=== PATIENT | male | born 1950 | race Caucasian/White ===

== ENCOUNTER 2020-08-28 08:29 | Outpatient (RCR) | payer MEDICARE, SELFPAY | END 2020-08-30 13:28 | disposition home or self-care (01) | LOC: HO.WCC 08:29 | PROVIDERS: Visit Provider Physician Assistant Surgical | DX: Z09 Encounter for follow-up examination after completed treatment for conditions other than malignant neoplasm (principal); I87.302 Chronic venous hypertension (idiopathic) without complications of left lower extremity; E11.9 Type 2 diabetes mellitus without complications | CPT/HCPCS: 99212 ==

== ENCOUNTER 2020-10-05 08:09 | Outpatient (REF) | payer MEDICARE, SELFPAY | END 2020-10-05 08:10 | disposition home or self-care (01) | LOC: HO.LAB 08:09 | PROVIDERS: Visit Provider Internal Medicine | DX: Z20.828 Contact with and (suspected) exposure to other viral communicable diseases (principal) | CPT/HCPCS: C9803; U0003 ==

== ENCOUNTER 2020-10-26 08:06 | Outpatient (REF) | payer MEDICARE, SELFPAY | END 2020-10-26 08:07 | disposition home or self-care (01) | LOC: HO.LAB 08:06 | PROVIDERS: Visit Provider Internal Medicine | DX: Z20.828 Contact with and (suspected) exposure to other viral communicable diseases (principal) | CPT/HCPCS: C9803; U0003 ==

== ENCOUNTER 2020-11-21 09:05 | Outpatient (RCR) | payer MEDICARE, SELFPAY | END 2020-12-19 12:00 | disposition home or self-care (01) | LOC: HO.WCC 09:05 | PROVIDERS: PCP Internal Medicine; Visit Provider Surgery | DX: E11.622 Type 2 diabetes mellitus with other skin ulcer (principal); I87.332 Chronic venous hypertension (idiopathic) with ulcer and inflammation of left lower extremity; L97.822 Non-pressure chronic ulcer of other part of left lower leg with fat layer exposed; L03.116 Cellulitis of left lower limb; Z79.899 Other long term (current) drug therapy | CPT/HCPCS: 87071; 87147; 87205; 99212; 99213; 99214 ==

== ENCOUNTER 2021-01-18 11:46 | Emergency (ER) | payer OTHER, SELFPAY ==
--- NOTE | ~2021-01-18 | US_ITS ---
EXAMINATION: US VENOUS ULTRASOUND WITH DOPPLER LOWER EXTREMITY, BILATERAL CLINICAL INFORMATION: Edema, swelling. COMPARISON: None TECHNIQUE: Ultrasound of the deep veins is performed from the hip to the calf with compression sonography and color and pulse Doppler assessment. Spectral analysis with color-flow imaging is performed. FINDINGS: RIGHT: There is normal venous compression and respiratory variation and augmented flow. The visualized common femoral vein, superficial femoral vein, profunda femoral vein, popliteal vein, and the trifurcation region shows no evidence of deep venous thrombosis. There is no significant popliteal fossa cyst. Visualized calf veins appear patent. LEFT: There is normal venous compression and respiratory variation and augmented flow. The visualized common femoral vein, superficial femoral vein, profunda femoral vein, popliteal vein, and the trifurcation region shows no evidence of deep venous thrombosis. There is no significant popliteal fossa cyst. Visualized calf veins appear patent. US/US venous duplex LE BI IMPRESSION: No DVT demonstrated in the bilateral lower extremity.
[2021-01-18 11:48] VITALS: BP 127/50; PULSE 74; RESP 18; TEMP 37.5; O2SAT 97; BMI 32.8
--- NOTE | 2021-01-18 15:38 | ED.EXTPRO ---
HPI - Extremity Problem General Chief complaint: Extremity Problem Stated complaint: left leg infection Time Seen by Provider: 01/18/21 13:30 History of Present Illness HPI Narrative: Patient with chronic venous stasis of both legs with chronic dryness and discoloration complains that the left lower leg has gotten more swollen, no pain no fever, he is walking with his cane as normal He saw his primary doctor who started dicloxacillin, and then for re-evaluation was seen in the office and as no improvement was sent for further evaluation to the ER Related Data Previous Rx's Medication Instructions Recorded cephalexin 500 mg PO QID 7 Days #28 tab 01/18/21 doxycycline hyclate 100 mg PO BID 7 Days #14 cap 01/18/21 Allergies Allergy/AdvReac Type Severity Reaction Status Date / Time alcohol Allergy Unknown rash Verified 12/01/19 00:00 clams Allergy Unknown UNKNOWN Unverified 08/09/20 14:47 oxycodone Allergy Unknown rash Verified 12/01/19 00:00 steamers/ clams Allergy Unknown flu like Uncoded 12/01/19 00:00 symptoms Review of Systems Review of Systems: Positive for increased redness and swelling of the left lower leg Negatives are fever chills dizziness confusion fainting, there is no chest pain no shortness of breath, there is no pain in the lower leg, there is no joint pain or difficulty bending or flexing the joints, there is no weakness [facility] Past Medical History Attestation statement: The following information was validated with the patient. [facility] Narrative: Patient has history of [id number] diabetes hypertension high cholesterol, venous insufficiency in the legs and a flutter on Pradaxa Source: nursing notes reviewed Social History Social History Advance Directives: No Advance Directives Information Provided: Yes Physical Exam Vital Signs: Vital Signs: Last Vital Signs Temp 99.5 F 01/18/21 11:48 Pulse 74 01/18/21 11:48 Resp 18 01/18/21 11:48 BP 127/50 L 01/18/21 11:48 Pulse Ox 97 01/18/21 11:48 Body Mass Index 32.8 Patient is in no acute distress, relaxed cooperative, ambulates easily with his cane, no sign of discomfort Head is normocephalic atraumatic Neck is supple Chest is clear to auscultation bilaterally Abdomen soft nontender Extremities both lower extremities are excoriated with dry skin and redness with a chronic appearance, the left lower leg in the luna area is swollen it is not tender but there is more redness on the left side than the right and more swelling on the left side than the right there is mild edema on both sides, the ankle and knee are fully mobile the redness does not extend to the knee or the ankle Course Course Course Narrative: Patient with increased swelling in the left leg who has been taking dicloxacillin for several days and was sent to the ER for further evaluation of left leg cellulitis had ultrasound of bilateral lower extremities, no clot was found Case was discussed with Dr. Perdomo who saw the patient and examined him and agreed that trial of outpatient antibiotics with the change to Keflex and doxycycline which worked for this patient in the past was best plan at this time We considered increasing his Lasix but as there was no significant edema on exam today we did not do that today Patient remained comfortable relaxed with normal vital signs throughout ER visit and ambulates easily with his cane and was discharged MDM - Extremity (Nontraumatic) Imaging Data Venous US: Radiologist's impression: RIGHT: There is normal venous compression and respiratory variation and augmented flow. The visualized common femoral vein, superficial femoral vein, profunda femoral vein, popliteal vein, and the trifurcation region shows no evidence of deep venous thrombosis. There is no significant popliteal fossa cyst. Visualized calf veins appear patent. LEFT: There is normal venous compression and respiratory variation and augmented flow. The visualized common femoral vein, superficial femoral vein, profunda femoral vein, popliteal vein, and the trifurcation region shows no evidence of deep venous thrombosis. There is no significant popliteal fossa cyst. Visualized calf veins appear patent. US/US venous duplex LE BI IMPRESSION: No DVT demonstrated in the bilateral lower extremity. Dictated By:SOTERO SANCHEZ MDSigned By:<Electronically signed by SOTERO SANCHEZ MD in [place]> Discharge Plan Discharge Clinical Impression: Cellulitis of left leg Patient Disposition: Home, Self-Care Additional Instructions: Follow in 2-3 days with your doctor or the ER for recheck of cellulitis and left leg Return to ER any time for worse pain and swelling, fever, spreading redness, any worse condition or any concern Ultrasound of both legs did not show any blood clot or any acute finding Prescriptions: New cephalexin 500 mg tablet 500 mg PO QID 7 Days Qty: 28 RF: 0 doxycycline hyclate 100 mg capsule 100 mg PO BID 7 Days Qty: 14 RF: 0
== END 2021-01-18 16:30 | disposition home or self-care (01) ==
PROVIDERS: Emergency Provider Emergency Medicine Emergency Medical Services; PCP Internal Medicine
DX: L03.116 Cellulitis of left lower limb (principal); E11.9 Type 2 diabetes mellitus without complications; I10 Essential (primary) hypertension; I87.2 Venous insufficiency (chronic) (peripheral); I49.02 Ventricular flutter; Z79.01 Long term (current) use of anticoagulants
CPT/HCPCS: 93970; 99282; 99284

== ENCOUNTER 2021-07-09 10:30 | Outpatient (REF) | payer MEDICARE, SELFPAY ==
[2021-07-09 10:34] LABS: MANUAL DIFF FLAG NO
[2021-07-09 11:12] LABS: Basophils Percent Auto 0.2 % (0-2); Eosinophils Absolute Auto 0.2 X10*3/uL (0.0-0.4); Eosinophils Percent Auto 3.9 % (0-4); Hematocrit 34.2 % (42-52); Hemoglobin 11.3 g/dl (14.0-18.0); Imm Gran Abs Auto 0.02 X10*3/uL (0.00-0.03); Imm Gran Pct Auto 0.5 % (0.0-0.4); Lymphocytes Absolute Auto 1.4 X10*3/uL (1.2-4.9); Lymphocytes Percent Auto 30.8 % (20-40); Mean Corpuscular Hemoglobin 28.9 pg (27.0-33.0); Mean Corpuscular Volume 87.5 fL (80-98); Mean Platelet Volume 9.4 fL (9.4-12.4); Monocytes Absolute Auto 0.5 X10*3/uL (0.1-1.2); Monocytes Percent Auto 10.7 % (2-11); Neutrophils Absolute Auto 2.4 X10*3/uL (2.0-8.3); Neutrophils Percent Auto 53.9 % (45-73); Platelet Count 136 X10*3/uL (160-400); Red Blood Count 3.91 X10*6/uL (4.60-5.80); Red Cell Distribution Width 14.2 % (11.0-16.0); White Blood Count 4.4 X10*3/uL (4.8-10.8)
[2021-07-09 11:21] LABS: Estimated Average Glucose 117 mg/dL; Hemoglobin A1c % 5.7 %
[2021-07-09 11:29] LABS: Alanine Aminotransferase 22 U/L (0-40); Albumin Level 4.1 g/dL (3.5-5.0); Alkaline Phosphatase 61 U/L (39-117); Anion Gap 12 (12-20); Aspartate Amino Transferase 23 U/L (5-37); Bilirubin Total 2.4 mg/dL (0.0-1.0); Blood Urea Nitrogen 14 mg/dL (9-16); Calcium 9.5 mg/dL (8.4-10.2); Carbon Dioxide 28 mmol/L (22-29); Chloride 100 mmol/L (96-108); Cholesterol 136 mg/dL; Estimated Glomerular Filt Rate 58; Glucose Fasting 126 mg/dL (60-99); HDL Cholesterol 45 mg/dL; LDL Cholesterol Calculated 78 mg/dl; Potassium 4.5 mmol/L (3.3-5.1); Sodium 135 mmol/L (135-145); Total Protein 6.6 g/dL (6.5-8.0); Triglycerides 69 mg/dL
[2021-07-09 11:44] LABS: Glucose Urine UA NEG (NEG); Leukocyte Esterase Urine NEG (NEG); Nitrite Urine NEG (NEG); PH 6.5 (5.0-8.0); Urine Blood NEG (NEG); Urine Ketones NEG (NEG); Urine Protein NEG (NEG-TRACE)
[2021-07-09 11:49] LABS: Reflex LDLD? No
[2021-07-09 11:51] LABS: PSA,Total (Free>4and<10) 2.21 ng/mL (0.00-4.00)
[2021-07-09 11:54] LABS: Appearance Urine CLEAR; Color Urine YELLOW
[2021-07-09 12:12] LABS: Creatinine Urine 163.06 mg/dL; Microalbum/Creatinine Ratio Ur 6.1 ug/mg cr
== END 2021-07-09 10:31 | disposition home or self-care (01) ==
LOC: HO.LNP 10:30
PROVIDERS: Visit Provider Internal Medicine
DX: E11.40 Type 2 diabetes mellitus with diabetic neuropathy, unspecified (principal); E78.00 Pure hypercholesterolemia, unspecified; R97.20 Elevated prostate specific antigen [PSA]; I10 Essential (primary) hypertension; D69.6 Thrombocytopenia, unspecified; F10.10 Alcohol abuse, uncomplicated; Z12.5 Encounter for screening for malignant neoplasm of prostate
CPT/HCPCS: 80053; 80061; 81003; 82043; 83036; 84153; 85025

== ENCOUNTER 2022-07-10 11:41 | Outpatient (REF) | payer MEDICARE, SELFPAY ==
[2022-07-10 11:49] LABS: MANUAL DIFF FLAG NO
[2022-07-10 11:59] LABS: Basophils Percent Auto 0.5 % (0-2); Eosinophils Absolute Auto 0.1 X10*3/uL (0.0-0.4); Eosinophils Percent Auto 2.7 % (0-4); Hematocrit 36.6 % (42.0-52.0); Imm Gran Abs Auto 0.01 X10*3/uL (0.00-0.03); Imm Gran Pct Auto 0.3 % (0.0-0.4); Lymphocytes Percent Auto 27.8 % (20-40); Mean Corpuscular HGB Conc 32.8 g/dl (31.0-36.0); Mean Corpuscular Hemoglobin 29.9 pg (27.0-33.0); Mean Corpuscular Volume 91.3 fL (80.0-98.0); Mean Platelet Volume 9.1 fL (9.4-12.4); Monocytes Absolute Auto 0.4 X10*3/uL (0.1-1.2); Monocytes Percent Auto 11.4 % (2-11); Neutrophils Absolute Auto 2.1 x10*3/uL (2.0-8.3); Neutrophils Percent Auto 57.3 % (45-73); Platelet Count 178 X10*3/uL (160-400); Red Blood Count 4.01 X10*6/uL (4.60-5.80); Red Cell Distribution Width 14.6 % (11.0-16.0); White Blood Count 3.7 X10*3/uL (4.8-10.8)
[2022-07-10 12:00] LABS: Estimated Average Glucose 91 mg/dL; Hemoglobin A1c % 4.8 %
[2022-07-10 12:24] LABS: Alanine Aminotransferase 28 U/L (0-40); Alkaline Phosphatase 75 U/L (39-117); Anion Gap 14 (12-20); Aspartate Amino Transferase 33 U/L (5-37); Blood Urea Nitrogen 13 mg/dL (9-16); Calcium 9.1 mg/dL (8.4-10.2); Carbon Dioxide 28 mmol/L (22-29); Chloride 100 mmol/L (96-108); Cholesterol 142 mg/dL; Estimated Glomerular Filt Rate > 60; Glucose Fasting 91 mg/dL (60-99); HDL Cholesterol 68 mg/dL; LDL Cholesterol Calculated 65 mg/dl; Potassium 4.4 mmol/L (3.3-5.1); Sodium 138 mmol/L (135-145); Total Protein 6.6 g/dL (6.5-8.0); Triglycerides 47 mg/dL
== END 2022-07-10 11:42 | disposition home or self-care (01) ==
LOC: HO.LNP 11:41
PROVIDERS: Visit Provider Internal Medicine
DX: E11.40 Type 2 diabetes mellitus with diabetic neuropathy, unspecified (principal); I10 Essential (primary) hypertension; D70.9 Neutropenia, unspecified; E78.00 Pure hypercholesterolemia, unspecified; R97.20 Elevated prostate specific antigen [PSA]; F10.10 Alcohol abuse, uncomplicated; Z12.5 Encounter for screening for malignant neoplasm of prostate
CPT/HCPCS: 80053; 80061; 83036; 84153; 85025

== ENCOUNTER 2022-10-14 14:31 | Inpatient (IN) | payer OTHER, MEDICARE, SELFPAY ==
--- NOTE | ~2022-10-14 | FL_ITS ---
EXAMINATION: FL MODIFIED BARIUM SWALLOW CLINICAL INFORMATION: Dysphagia COMPARISON: CT cervical spine 10/14/2022 TECHNIQUE: Modified barium swallow examination is performed with imaging in the lateral view and the presence of the speech pathologist using a variety of barium consistencies. The exam is performed with fluoroscopic evaluation, videofluoroscopy, and some fluoroscopic spot views. Fluoroscopy time: 3.9 minutes DAP: 6.522 Gycm2 Fluoroscopic spot images: 1 FINDINGS: There is some undercoating of the epiglottis with some laryngeal penetration with thinner barium consistencies. No definite aspiration is demonstrated during fluoroscopy. No cough reflex. There is some pooling of contrast in the piriform sinuses. No nasopharyngeal penetration. Good oral control. There are degenerative changes cervical spine with bulky anterior bridging osteophytes C2-C5 similar to the CT. See speech pathologist report for further assessment and recommendation. FL/FL barium swallow modified IMPRESSION: -Undercoating of epiglottis with some laryngeal penetration with thinner barium consistencies. -No definite aspiration demonstrated. -See speech pathologist report for further assessment and recommendation.
--- NOTE | ~2022-10-14 | CT_ITS ---
EXAMINATION: CT HEAD WITHOUT CONTRAST CT CERVICAL SPINE WITHOUT CONTRAST CLINICAL INFORMATION: Confusion. EtOH. Trauma. COMPARISON: CT head and cervical spine 10/09/2015 TECHNIQUE: Imaging was performed from the skull base to vertex without intravenous administration of contrast. In addition, helical noncontrast CT imaging was acquired through the cervical spine and source images were reviewed along with axial reconstructions and sagittal and coronal MPRs. [This CT examination was performed using dose optimization techniques as appropriate, variously including the following: *Automated exposure control *Adjustment of mA and/or kV according to patient size (this includes techniques or standardized protocols for targeted exams where dose is matched to indication/reason for exam; i.e. extremities or head) *Use of iterative reconstruction technique] DLP: 1437 mGy-cm FINDINGS: HEAD: No intracranial mass, hemorrhage, or midline shift is visualized. There is generalized global volume loss. There is moderate prominence of the ventricles and the sulci . There is mild hypodensity of the periventricular white matter due to chronic small vessel ischemic disease. There are vascular calcifications of the internal carotid arteries bilaterally.No extra-axial collections are identified. The paranasal sinuses and mastoid air cells are well aerated. CERVICAL SPINE: There is no evidence of acute cervical spine fracture. Vertebral bodies remain normal in height. Cervical vertebrae have normal alignment. There is multilevel degenerative spondylosis of the cervical spine with disc height narrowing and endplate spurs and facet joint arthrosis. Redemonstration of the exuberant anterior vertebral body spurring and bridging and nonbridging osteophytes. Degenerative changes of cervical spine have progressed since prior exam of 2014. No pre- or paravertebral soft tissue abnormality is identified. Limited assessment of the lung apices is unremarkable. CT/CT cervical spine wo IV con IMPRESSION: 1. No acute intracranial pathology. 2. No CT evidence of acute cervical spine fracture or traumatic subluxation
--- NOTE | ~2022-10-14 | XR_ITS ---
EXAMINATION: XR CHEST CLINICAL INFORMATION: Shortness of breath COMPARISON: Chest x-ray 12/12/2013 TECHNIQUE: Frontal portable view of the chest was obtained. FINDINGS: Lungs are clear. No pulmonary vascular congestion. There is no pleural effusion. The heart size is normal. The cardiac and mediastinal contours are normal. There are calcifications of the thoracic aorta. There are multilevel degenerative changes of dorsal spine. XR/XR chest 1V IMPRESSION: Unremarkable examination.
[2022-10-14 14:43] VITALS: BP 135/71; BP 182/75; PULSE 77; PULSE 83; RESP 15; TEMP 35.7; O2SAT 93; O2SAT 95; BMI 30.5
[2022-10-14 14:48] LABS: Glucose, Whole Blood 82 mg/dL (60-115)
--- NOTE | 2022-10-14 14:48 | ECG_ITS ---
Test Reason : difficulty breathing Blood Pressure : / mmHG Vent. Rate : 078 BPM Atrial Rate : 000 BPM P-R Int : 000 ms QRS Dur : 074 ms QT Int : 366 ms P-R-T Axes : 000 024 033 degrees QTc Int : 417 ms Poor data quality Normal sinus rhythm with 1st degree A-V block Low voltage QRS Abnormal ECG When compared with ECG of 31-JUL-2014 09:19, No significant changes seen Referred By: Generic ED Physician Electronically Signed By:MAGDA BROOKS MD
[2022-10-14 14:51] VITALS: PULSE 80; RESP 13; O2SAT 97
--- NOTE | 2022-10-14 15:10 | ED.SOB ---
HPI - SOB/Dyspnea General Chief Complaint: Dyspnea Stated Complaint: ams per ems Time Seen by Provider: 10/14/22 14:58 Source: patient, EMS and old records reviewed Mode of arrival: EMS Limitations: no limitations History of Present Illness HPI Narrative: 72-year-old male with a history of daily alcohol abuse, AFib, diabetes, HTN who presents to the ER for evaluation of altered mental status and shortness of breath from home via EMS. EMS was called by the patient's son who was reportedly a poor historian. On EMS arrival patient was found short of breath, with oral secretions and foam at the mouth. He was hypoxic to 83%. He is also found to be hypoglycemic with a glucose of 48. Patient was placed on rescue CPAP and brought to the ER for further evaluation. He was administered 150 cc of D10 for hypoglycemia and in sugar improved to 70. On arrival to the ER patient is awake and alert, he has no recollection of events of this morning. He cannot recall if he drink alcohol today or not. He denies any trauma but does not know for sure. He states he was at his baseline state of health yesterday. He states he remembers waking up this morning and he may be took his pills. He has no other recollections of the day. He denies any recent coughing, chest pain, abdominal pain, nausea, vomiting, diarrhea, fever, chills. MD elicited complaint: shortness of breath Pertinent past history: diabetes Onset (ago): unknown Context: other (ETOH) Timing: improved Relieving factors: oxygen Known history of: diabetes Associated symptoms: other (Confusion) Treatment prior to arrival: oxygen and other (D10) Related Data Home oxygen amount: none Previous Rx's Medication Instructions Recorded cephalexin 500 mg tablet 500 mg PO QID 7 days #28 tabs 01/18/21 doxycycline hyclate 100 mg capsule 100 mg PO BID 7 days #14 caps 01/18/21 Allergies Allergy/AdvReac Type Severity Reaction Status Date / Time alcohol Allergy Unknown rash Verified 04/17/21 11:20 clams Allergy Unknown UNKNOWN Unverified 04/17/21 11:20 oxycodone Allergy Unknown rash Verified 04/17/21 11:20 steamers/ clams Allergy Unknown flu like Uncoded 04/17/21 11:20 symptoms Review of Systems Review of Systems: Constitutional: No Fever, No Chills ENT/Mouth: No sore throat, No Rhinorrhea, No Swallowing Difficulty Eyes: No Eye Pain, No Swelling, No Redness Cardiovascular: No Chest Pain, + SOB, No Orthopnea, No Edema Respiratory: No Cough, No Sputum, No Wheezing, + dyspnea Gastrointestinal: No Nausea, No Vomiting, No Diarrhea, No abdominal Pain, No Hematochezia, No Melena Genitourinary: No Dysuria, No Urinary Frequency, No Hematuria Musculoskeletal: No joint pain, No Myalgias Skin: No Skin Lesions, No rash Neuro: No Weakness, No Numbness, No Dizziness, No Headache, +Confusion Psych: No Anxiety/Panic, No Depression Heme/Lymph: No Bruising, No Lymphadenopathy Endocrine: No Polyuria, No Polydipsia [facility] Social History Social History (System 04/17/21 @ 11:20 by Mercy Leonard) Alcohol intake: current Smoked in Last 30 Days: No Use of substances other than those prescribed or required for medical reasons: No Advance Directives: No Advance Directives Information Provided: No Physical Exam Vital Signs: Vital Signs: Last Vital Signs Temp 98.1 F 10/14/22 16:18 Pulse 98 10/14/22 20:14 Resp 17 10/14/22 20:14 BP 162/53 H 10/14/22 20:14 Pulse Ox 98 10/14/22 20:14 O2 Del Method 10/14/22 20:14 BMI result Body Mass Index 30.5 Appearance: Alert. Oriented X3. On rescue CPAP, breathing comfortably. Able to speak in full sentences. Eyes: Pupils equal, round and reactive to light. ENT: Pharynx normal. Neck: Normal inspection. Neck supple. CVS: Normal heart rate and rhythm. Pulses normal. Respiratory: No respiratory distress. Breath sounds with scattered coarse breath sounds, no rales appreciated. No rhonchi. Abdomen: Soft and nontender. +BS x4 Skin: Skin warm and dry. Normal skin color. Normal skin turgor. No rashes. Extremities: Trace bilateral lower extremity edema with chronic venous stasis changes of the lower legs. Neuro: Oriented X 3. No motor deficit. No sensory deficit. Strength equal and symmetrical throughout with no focal deficits. Poor memory. Course Course Course Narrative: 72-year-old male with history of alcoholism, HTN, AFib, diabetes who presents to the ER for evaluation of altered mental status, shortness of breath, hypoxia and hypoglycemia. Patient given D10 and oxygen prior to arrival with improvement in his mental status. He arrives to the ER on CPAP of 12 with FiO2 24%, breathing comfortably in the teens getting volumes of 700-800. Question of CHF, although patient does not give a history. Will check chest x-ray, BNP, EKG, troponin, ETOH level and other lab workup. Dispo pending results and improvement Reevaluation(s) Reevaluation #1: Patient's lactic acid is 4.0. No evidence of infection at this time. He has no fever, no leukocytosis. WBC 4.6. Could be due to alcoholic starvation ketosis. His BNP is normal at 55. Will give IV fluid hydration and reassess his lactic acid. Will trial off of CPAP is he is breathing comfortably on minimal support. Reevaluation #2: Patient breathing comfortably off of CPAP, wean to room air and saturating well 99%. Chest x-ray is clear. His repeat lactic acid is still elevated 3.2, although this was done prior to completion of IV fluid resuscitation. 2 L is running now. LFTs are mildly elevated, which is chronic. he has no right upper quadrant tenderness. Reevaluation #3: Repeat point of care is in the 20s. Patient is alert but right agree and shivering. Given D 50 and oral orange juice. Will plan for admission. Medications Administered Discontinued Medications Generic Name Dose Route Start Last Admin Trade Name Freq PRN Reason Stop Dose Admin Dextrose 25 gm 10/14/22 20:09 10/14/22 20:11 Dextrose 50 % 25 Gm/50 Ml Syringe IVPUSH 10/14/22 20:10 25 gm ONCE ONE Administration Sodium Chloride 1,000 mls @ 999 mls/hr 10/14/22 16:15 10/14/22 19:51 Ns IVCONT 10/14/22 18:15 Infused .Q1H1M CLAUDIA Infusion Magnesium Sulfate 2 gm in 50 mls @ 25 mls/hr 10/14/22 16:18 10/14/22 19:51 Magnesium Sulfate/H2o IV 10/14/22 18:17 Infused ONCE ONE Infusion MDM - SOB/Dyspnea Lab Data Result diagrams: 10/14/22 15:22 10/14/22 15:22 Labs: Lab Results 10/14/22 10/14/22 10/14/22 Range/Units 14:44 15:22 15:22 WBC 4.6 L (4.8-10.8) X10*3/uL RBC 4.74 (4.60-5.80) X10*6/uL Hgb 14.1 (14.0-18.0) g/dl Hct 42.5 (42.0-52.0) % MCV 89.7 (80.0-98.0) fL MCH 29.7 (27.0-33.0) pg MCHC 33.2 (31.0-36.0) g/dl RDW 14.2 (11.0-16.0) % Plt Count 166 (160-400) X10*3/uL MPV 8.6 L (9.4-12.4) fL Immature Gran % (Auto) 0.4 (0.0-0.4) % Neut % (Auto) 79.3 H (45-73) % Lymph % (Auto) 12.9 L (20-40) % Runnels % (Auto) 5.7 (2-11) % Eos % (Auto) 1.5 (0-4) % Baso % (Auto) 0.2 (0-2) % Lymph # (Auto) 0.6 L (1.2-4.9) X10*3/uL Runnels # (Auto) 0.3 (0.1-1.2) X10*3/uL Eos # (Auto) 0.1 (0.0-0.4) X10*3/uL Baso # (Auto) 0.0 (0.0-0.2) X10*3/uL Abs Immat Gran (auto) 0.02 (0.00-0.03) X10*3/uL Absolute Neuts (auto) 3.6 (2.0-8.3) x10*3/uL Absolute Nucleated RBC 0.000 (0.0-0.012) X10*3/uL Nucleated RBC % (auto) 0.0 (0.0-0.2) /100WBC VBG pH (7.32-7.43) VBG pCO2 mmHg VBG pO2 mmHg VBG HCO3 (22-26) mmol/L VBG O2 Saturation % VBG Base Excess mmol/L Sodium 141 (135-145) mmol/L Potassium 4.7 (3.3-5.1) mmol/L Chloride 102 (96-108) mmol/L Carbon Dioxide 25 (22-29) mmol/L Anion Gap 19 (12-20) BUN 11 (9-16) mg/dL Creatinine 0.86 (0.5-1.4) mg/dL Estim Creat Clear Calc 83.6 Estimated GFR > 60 POC Glucose 82 (60-115) mg/dL Random Glucose 88 (60-115) mg/dL Lactic Acid (0.5-2.0) mmol/L Lactic Acid F/U @ 2Hr (0.5-2.0) mmol/L Calcium 9.1 (8.4-10.2) mg/dL Magnesium 1.5 L (1.6-2.6) mg/dL Total Bilirubin 1.4 H (0.0-1.0) mg/dL Direct Bilirubin 0.6 H (0.0-0.5) mg/dL AST 45 H (5-37) U/L ALT 31 (0-40) U/L Alkaline Phosphatase 89 (39-117) U/L Ammonia (13-55) umol/L Troponin I High Sens (<3.5-35.0) ng/L B-Natriuretic Peptide (<100) pg/mL Total Protein 6.9 (6.5-8.0) g/dL Albumin 4.2 (3.5-5.0) g/dL Procalcitonin ng/mL Ethyl Alcohol 129 mg/dL COVID-19 (JAZMYN) (Negative) COVID-19 Clin Com Influenza Type A (RAFAEL) (Negative) Influenza Type B (RAFAEL) (Negative) Influenza A & B Note 10/14/22 10/14/22 10/14/22 Range/Units 15:22 15:22 15:22 WBC (4.8-10.8) X10*3/uL RBC (4.60-5.80) X10*6/uL Hgb (14.0-18.0) g/dl Hct (42.0-52.0) % MCV (80.0-98.0) fL MCH (27.0-33.0) pg MCHC (31.0-36.0) g/dl RDW (11.0-16.0) % Plt Count (160-400) X10*3/uL MPV (9.4-12.4) fL Immature Gran % (Auto) (0.0-0.4) % Neut % (Auto) (45-73) % Lymph % (Auto) (20-40) % Runnels % (Auto) (2-11) % Eos % (Auto) (0-4) % Baso % (Auto) (0-2) % Lymph # (Auto) (1.2-4.9) X10*3/uL Runnels # (Auto) (0.1-1.2) X10*3/uL Eos # (Auto) (0.0-0.4) X10*3/uL Baso # (Auto) (0.0-0.2) X10*3/uL Abs Immat Gran (auto) (0.00-0.03) X10*3/uL Absolute Neuts (auto) (2.0-8.3) x10*3/uL Absolute Nucleated RBC (0.0-0.012) X10*3/uL Nucleated RBC % (auto) (0.0-0.2) /100WBC VBG pH (7.32-7.43) VBG pCO2 mmHg VBG pO2 mmHg VBG HCO3 (22-26) mmol/L VBG O2 Saturation % VBG Base Excess mmol/L Sodium (135-145) mmol/L Potassium (3.3-5.1) mmol/L Chloride (96-108) mmol/L Carbon Dioxide (22-29) mmol/L Anion Gap (12-20) BUN (9-16) mg/dL Creatinine (0.5-1.4) mg/dL Estim Creat Clear Calc Estimated GFR POC Glucose (60-115) mg/dL Random Glucose (60-115) mg/dL Lactic Acid 4.0 H* (0.5-2.0) mmol/L Lactic Acid F/U @ 2Hr (0.5-2.0) mmol/L Calcium (8.4-10.2) mg/dL Magnesium (1.6-2.6) mg/dL Total Bilirubin (0.0-1.0) mg/dL Direct Bilirubin (0.0-0.5) mg/dL AST (5-37) U/L ALT (0-40) U/L Alkaline Phosphatase (39-117) U/L Ammonia 30 (13-55) umol/L Troponin I High Sens 4.6 (<3.5-35.0) ng/L B-Natriuretic Peptide (<100) pg/mL Total Protein (6.5-8.0) g/dL Albumin (3.5-5.0) g/dL Procalcitonin ng/mL Ethyl Alcohol mg/dL COVID-19 (JAZMYN) (Negative) COVID-19 Clin Com Influenza Type A (RAFAEL) (Negative) Influenza Type B (RAFAEL) (Negative) Influenza A & B Note 10/14/22 10/14/22 10/14/22 Range/Units 15:22 15:22 15:22 WBC (4.8-10.8) X10*3/uL RBC (4.60-5.80) X10*6/uL Hgb (14.0-18.0) g/dl Hct (42.0-52.0) % MCV (80.0-98.0) fL MCH (27.0-33.0) pg MCHC (31.0-36.0) g/dl RDW (11.0-16.0) % Plt Count (160-400) X10*3/uL MPV (9.4-12.4) fL Immature Gran % (Auto) (0.0-0.4) % Neut % (Auto) (45-73) % Lymph % (Auto) (20-40) % Runnels % (Auto) (2-11) % Eos % (Auto) (0-4) % Baso % (Auto) (0-2) % Lymph # (Auto) (1.2-4.9) X10*3/uL Runnels # (Auto) (0.1-1.2) X10*3/uL Eos # (Auto) (0.0-0.4) X10*3/uL Baso # (Auto) (0.0-0.2) X10*3/uL Abs Immat Gran (auto) (0.00-0.03) X10*3/uL Absolute Neuts (auto) (2.0-8.3) x10*3/uL Absolute Nucleated RBC (0.0-0.012) X10*3/uL Nucleated RBC % (auto) (0.0-0.2) /100WBC VBG pH (7.32-7.43) VBG pCO2 mmHg VBG pO2 mmHg VBG HCO3 (22-26) mmol/L VBG O2 Saturation % VBG Base Excess mmol/L Sodium (135-145) mmol/L Potassium (3.3-5.1) mmol/L Chloride (96-108) mmol/L Carbon Dioxide (22-29) mmol/L Anion Gap (12-20) BUN (9-16) mg/dL Creatinine (0.5-1.4) mg/dL Estim Creat Clear Calc Estimated GFR POC Glucose (60-115) mg/dL Random Glucose (60-115) mg/dL Lactic Acid (0.5-2.0) mmol/L Lactic Acid F/U @ 2Hr (0.5-2.0) mmol/L Calcium (8.4-10.2) mg/dL Magnesium (1.6-2.6) mg/dL Total Bilirubin (0.0-1.0) mg/dL Direct Bilirubin (0.0-0.5) mg/dL AST (5-37) U/L ALT (0-40) U/L Alkaline Phosphatase (39-117) U/L Ammonia (13-55) umol/L Troponin I High Sens (<3.5-35.0) ng/L B-Natriuretic Peptide 55 (<100) pg/mL Total Protein (6.5-8.0) g/dL Albumin (3.5-5.0) g/dL Procalcitonin 0.05 ng/mL Ethyl Alcohol mg/dL COVID-19 (JAZMYN) Negative (Negative) COVID-19 Clin Com See Note Influenza Type A (RAFAEL) (Negative) Influenza Type B (RAFAEL) (Negative) Influenza A & B Note 10/14/22 10/14/22 10/14/22 Range/Units 15:22 15:30 17:49 WBC (4.8-10.8) X10*3/uL RBC (4.60-5.80) X10*6/uL Hgb (14.0-18.0) g/dl Hct (42.0-52.0) % MCV (80.0-98.0) fL MCH (27.0-33.0) pg MCHC (31.0-36.0) g/dl RDW (11.0-16.0) % Plt Count (160-400) X10*3/uL MPV (9.4-12.4) fL Immature Gran % (Auto) (0.0-0.4) % Neut % (Auto) (45-73) % Lymph % (Auto) (20-40) % Runnels % (Auto) (2-11) % Eos % (Auto) (0-4) % Baso % (Auto) (0-2) % Lymph # (Auto) (1.2-4.9) X10*3/uL Runnels # (Auto) (0.1-1.2) X10*3/uL Eos # (Auto) (0.0-0.4) X10*3/uL Baso # (Auto) (0.0-0.2) X10*3/uL Abs Immat Gran (auto) (0.00-0.03) X10*3/uL Absolute Neuts (auto) (2.0-8.3) x10*3/uL Absolute Nucleated RBC (0.0-0.012) X10*3/uL Nucleated RBC % (auto) (0.0-0.2) /100WBC VBG pH 7.32 (7.32-7.43) VBG pCO2 39 mmHg VBG pO2 51 mmHg VBG HCO3 21 L (22-26) mmol/L VBG O2 Saturation 74.0 % VBG Base Excess -4.5 mmol/L Sodium (135-145) mmol/L Potassium (3.3-5.1) mmol/L Chloride (96-108) mmol/L Carbon Dioxide (22-29) mmol/L Anion Gap (12-20) BUN (9-16) mg/dL Creatinine (0.5-1.4) mg/dL Estim Creat Clear Calc Estimated GFR POC Glucose (60-115) mg/dL Random Glucose (60-115) mg/dL Lactic Acid (0.5-2.0) mmol/L Lactic Acid F/U @ 2Hr 3.2 H* (0.5-2.0) mmol/L Calcium (8.4-10.2) mg/dL Magnesium (1.6-2.6) mg/dL Total Bilirubin (0.0-1.0) mg/dL Direct Bilirubin (0.0-0.5) mg/dL AST (5-37) U/L ALT (0-40) U/L Alkaline Phosphatase (39-117) U/L Ammonia (13-55) umol/L Troponin I High Sens (<3.5-35.0) ng/L B-Natriuretic Peptide (<100) pg/mL Total Protein (6.5-8.0) g/dL Albumin (3.5-5.0) g/dL Procalcitonin ng/mL Ethyl Alcohol mg/dL COVID-19 (JAZMYN) (Negative) COVID-19 Clin Com Influenza Type A (RAFAEL) Negative (Negative) Influenza Type B (RAFAEL) Negative (Negative) Influenza A & B Note See Note 10/14/22 Range/Units 20:05 WBC (4.8-10.8) X10*3/uL RBC (4.60-5.80) X10*6/uL Hgb (14.0-18.0) g/dl Hct (42.0-52.0) % MCV (80.0-98.0) fL MCH (27.0-33.0) pg MCHC (31.0-36.0) g/dl RDW (11.0-16.0) % Plt Count (160-400) X10*3/uL MPV (9.4-12.4) fL Immature Gran % (Auto) (0.0-0.4) % Neut % (Auto) (45-73) % Lymph % (Auto) (20-40) % Runnels % (Auto) (2-11) % Eos % (Auto) (0-4) % Baso % (Auto) (0-2) % Lymph # (Auto) (1.2-4.9) X10*3/uL Runnels # (Auto) (0.1-1.2) X10*3/uL Eos # (Auto) (0.0-0.4) X10*3/uL Baso # (Auto) (0.0-0.2) X10*3/uL Abs Immat Gran (auto) (0.00-0.03) X10*3/uL Absolute Neuts (auto) (2.0-8.3) x10*3/uL Absolute Nucleated RBC (0.0-0.012) X10*3/uL Nucleated RBC % (auto) (0.0-0.2) /100WBC VBG pH (7.32-7.43) VBG pCO2 mmHg VBG pO2 mmHg VBG HCO3 (22-26) mmol/L VBG O2 Saturation % VBG Base Excess mmol/L Sodium (135-145) mmol/L Potassium (3.3-5.1) mmol/L Chloride (96-108) mmol/L Carbon Dioxide (22-29) mmol/L Anion Gap (12-20) BUN (9-16) mg/dL Creatinine (0.5-1.4) mg/dL Estim Creat Clear Calc Estimated GFR POC Glucose 27 L* (60-115) mg/dL Random Glucose (60-115) mg/dL Lactic Acid (0.5-2.0) mmol/L Lactic Acid F/U @ 2Hr (0.5-2.0) mmol/L Calcium (8.4-10.2) mg/dL Magnesium (1.6-2.6) mg/dL Total Bilirubin (0.0-1.0) mg/dL Direct Bilirubin (0.0-0.5) mg/dL AST (5-37) U/L ALT (0-40) U/L Alkaline Phosphatase (39-117) U/L Ammonia (13-55) umol/L Troponin I High Sens (<3.5-35.0) ng/L B-Natriuretic Peptide (<100) pg/mL Total Protein (6.5-8.0) g/dL Albumin (3.5-5.0) g/dL Procalcitonin ng/mL Ethyl Alcohol mg/dL COVID-19 (JAZMYN) (Negative) COVID-19 Clin Com Influenza Type A (RAFAEL) (Negative) Influenza Type B (RAFAEL) (Negative) Influenza A & B Note Critical Care Time Critical Care Time Critical Care Time: Yes Total Critical Care Time: 44 Attestation: I have personally provided critical care time exclusive of time spent on separately billable procedures. Time includes review of lab data, radiology results, discussion with consultants, and monitoring for potential decompensation. Intervention performed as documented. Discharge Plan Discharge Clinical Impression: Hypoglycemia, Confusion, Shortness of breath, Alcohol abuse Patient Disposition: Admitted As Inpatient
[2022-10-14 15:35] LABS: VBG Base Excess -4.5 mmol/L; VBG HCO3 21 mmol/L (22-26); VBG pCO2 39 mmHg; VBG pH 7.32 (7.32-7.43); VBG pO2 51 mmHg
[2022-10-14 15:36] LABS: MANUAL DIFF FLAG NO
[2022-10-14 15:39] LABS: Venous Blood Gas Refer to POC result
[2022-10-14 15:40] LABS: Basophils Percent Auto 0.2 % (0-2); Eosinophils Absolute Auto 0.1 X10*3/uL (0.0-0.4); Eosinophils Percent Auto 1.5 % (0-4); Hematocrit 42.5 % (42.0-52.0); Hemoglobin 14.1 g/dl (14.0-18.0); Imm Gran Abs Auto 0.02 X10*3/uL (0.00-0.03); Imm Gran Pct Auto 0.4 % (0.0-0.4); Lymphocytes Absolute Auto 0.6 X10*3/uL (1.2-4.9); Lymphocytes Percent Auto 12.9 % (20-40); Mean Corpuscular HGB Conc 33.2 g/dl (31.0-36.0); Mean Corpuscular Hemoglobin 29.7 pg (27.0-33.0); Mean Corpuscular Volume 89.7 fL (80.0-98.0); Mean Platelet Volume 8.6 fL (9.4-12.4); Monocytes Absolute Auto 0.3 X10*3/uL (0.1-1.2); Monocytes Percent Auto 5.7 % (2-11); Neutrophils Absolute Auto 3.6 x10*3/uL (2.0-8.3); Neutrophils Percent Auto 79.3 % (45-73); Platelet Count 166 X10*3/uL (160-400); Red Blood Count 4.74 X10*6/uL (4.60-5.80); Red Cell Distribution Width 14.2 % (11.0-16.0); White Blood Count 4.6 X10*3/uL (4.8-10.8)
[2022-10-14 15:48] LABS: Ammonia 30 umol/L (13-55)
[2022-10-14 15:56] LABS: IDNOW Serial# BCCEAD1C; Influenza A Negative (Negative); Influenza B2 Negative (Negative)
[2022-10-14 15:57] LABS: COVID-19 Test Negative (Negative); IDNOW Serial# 16C4AD1C
[2022-10-14 16:01] LABS: B Type Natriuretic Peptide 55 pg/mL (<100)
[2022-10-14 16:02] LABS: Troponin-I High Sensitivity 4.6 ng/L (<3.5-35.0)
[2022-10-14 16:08] VITALS: PULSE 67; RESP 18; O2SAT 96
[2022-10-14 16:14] LABS: Alanine Aminotransferase 31 U/L (0-40); Albumin Level 4.2 g/dL (3.5-5.0); Alkaline Phosphatase 89 U/L (39-117); Anion Gap 19 (12-20); Aspartate Amino Transferase 45 U/L (5-37); Bilirubin Direct 0.6 mg/dL (0.0-0.5); Bilirubin Total 1.4 mg/dL (0.0-1.0); Blood Urea Nitrogen 11 mg/dL (9-16); Calcium 9.1 mg/dL (8.4-10.2); Carbon Dioxide 25 mmol/L (22-29); Chloride 102 mmol/L (96-108); Creatinine Clr Calc Pharmacy 83.6; Estimated Glomerular Filt Rate > 60; Ethanol 129 mg/dL; Glucose Random 88 mg/dL (60-115); Magnesium 1.5 mg/dL (1.6-2.6); Potassium 4.7 mmol/L (3.3-5.1); Sodium 141 mmol/L (135-145); Total Protein 6.9 g/dL (6.5-8.0)
[2022-10-14 16:18] VITALS: BP 114/62; PULSE 74; RESP 12; TEMP 36.7; O2SAT 98
[2022-10-14] MEDS: 0.9 % Sodium Chloride 1,000 ML 999 ML IVCONT ×2 (16:22→18:31)
[2022-10-14 16:25] LABS: Procalcitonin 0.05 ng/mL
--- OUTSIDE RECORDS SUMMARY | 2022-10-14 16:27 | XMS_ITS | Encounter Summary ---
:1950 Author Organization [facility] Address [address] [place] [id number] Support Name Relationship Address Phone LEEANNE LOAIZA Unavailable Unavailable [phone] Insurance Providers: All historical and current Section Date Range: From patient's date of to the date document was created.This section includes the names of all active insurance providers for the patient. Insurance Type of Plan Start of End of Group Member Insurance Policy P atient's Provider Coverage Name Policy Policy Number ID Provider's Stacy's Relationship Coverage Coverage Telephone Name to Policy Number Stacy MEDICARE MEDICARE PART Jul 24, PART B [id number] KENDALL FORD PATIENT (WNR) (M) B 2015 34A 4 CANDYGABBIE PEREZ MEDICARE MEDICARE PART Oct 23, PART A [id number] KENDALL FORD PATIENT (WNR) (M) A 2012 34A 4 CANDYGABBIE PEREZ Selected Encounter This section includes the information on record at [place] for the Encounter. Date/Time Encounter Type Encounter Description Reason Provider Source Jul 02, 2022 02:04 Outpatient Encounter PRIMARY CARE/MEDICINE PM IHE Encounter Template Text not used by [place] Plan of Treatment: Future Appointments (+ 6 months) and Future Tests (+/- 45 days) The Plan of Treatment section includes future care activities for the patient from all [place] treatmentfacilities. This section includes future appointments and future orders which are active, pending orscheduled.Future Appointments This section includes appointments that were scheduled to occur 6 months from the date of the Encounter, up to a maximum of 20 appointments. The data comes from all [place] treatment facilities. Appointment Date/Time Appointment Type Appointment Facili ty Name Dec 04, 2022 01:00 PM [facility] [place] [facility] Active, Pending, and Scheduled Orders This section includes a listing of several types of active, pending, and scheduled orders, including clinic medications orders, diagnostic test orders, procedure orders and consult orders; where the start date of the order is 45 days before the date of the Encounter or 45 days after the date of the Encounter. The data comes from all [place] treatment facilities. Test Date/Time Test Type Test Details Facility Name May 27, 2022 11:35 AM Consult Order OPTOMETRY/NHM OUTPT [place] [facility] [place] Cons [employer] [facility] Choice Social History: Smoking Status (Most current) and Tobacco Use (All prior to encounter date) This section includes the most current, and the historical, smoking and tobacco-related health factors from the [place] facility where the Encounter took place.Current Smoking Status This section includes the most current smoking, or tobacco-related health factor, from the [place] facility where the Encounter took place. Date/Time Current Smoking Status Comment Facility April 17, 2022 10:54 AM VA-TOBACCO FORMER USER [place] [facility] [facility] Tobacco Use History This section includes a history of the smoking, or tobacco- related health factors, that were collected on or before the date of the Encounter. The data comes from the [place] facility where the Encounter took place. Date/Time Smoking Status/Tobacco Use Comment [facility] it April 17, 2022 10:54 AM VA-TOBACCO QUIT 15 YRS OR [facility] [place] MORE [facility] Jun 16, 2018 11:59 AM VA-TOBACCO FORMER USER [place] [facility] [place] [facility] Jun 16, 2018 11:59 AM VA-TOBACCO QUIT 5 TO < 15 YRS [facility] [facility] May 12, 2018 09:43 AM QUIT TOBACCO USE > 7 YEARS [place] [facility] [place] A[place] [facility] Jun 06, 2016 09:32 AM QUIT TOBACCO USE > 7 YEARS [place] [facility] [place] A[place] . [facility] Oct 04, 2013 09:16 AM QUIT TOBACCO USE > 7 YEARS [place] [facility] [place] A[place] . [facility] Advance Directives: All historical and current Section Date Range: From patient's date of to the date document was created. This section includes ALL of a patient's completed or amended [place] Advance and Rescinded Directives. The entries below indicate that a directive exists for the patient, but an actual copy is not included with this document. The data comes from all [place] facilities. Date Advance Directives Provider Source Jan 18, 2021 ADVANCE DIRECTIVE JOHNNY ESQUEDA [place] [facility] Encounter Notes: All associated encounter notes This section contains the clinical notes associated to the Encounter. Date/Time Encounter Note(s) Provider Source Jul 02, 2022 02:04 LETTERS: POLO ALMANZA [place] CN[facility] PM LOCAL TITLE: PATIENT LETTER (T) [facility] STANDARD TITLE: LETTERS DATE OF NOTE: JUL 02, 2022@14:04 ENTRY DATE: JUL 02, 2022@14:04:20 AUTHOR: POLO ALMANZA EXP COSIGNER: URGENCY: STATUS: COMPLETED DEPARTMENT OF [facility] Toll Free Number Primary Care Telephone Assistance can be reached at extension [phone] [facility] scheduling can be reac hed at extension [phone] [facility] scheduling can be eleni ched at ext [phone] JUL 02, 2022 GABBIE LOAIZA [address], [place] [address] Dear GABBIE LOAIZA [facility] ([place]) [facility] as your primary choice for health care. We want to assure you we are doing everything possible to schedule Veterans for the [facility] medical care appointments. Our records indicate you are due for an appointm ent in PRIMARY CARE. We value you as a patient, and are concerned abo ut your overall health. Future Clinic Visits 12/04/2022 13:00 NHM/OPTOMETRY/VERONICA Patients are encouraged to see their Primary Car e Doctor to maintain your health care needs. If you would like to be seen, please contact [place] Call Center at ([phone] or [phone]) to sc hedule an appointment. We hope to hear from you within 14 days of recei pt of this letter to schedule your follow up appointment. If you have any further questions or would like more information regarding [place] health care benefits, please call toll free at [phone]), visit the VA website at www.va.gov/healthbenefit s, or contact your local [place] Medical Center. Thank you for your service to our nation, and we look forward to hearing from you soon. Sincerely, [facility] Sy[facility] em Sincerely, Your Primary Care Team [facility] Outpati ent Clinic [address] [facility] [address] [place] [address] [place] [address] [phone] [place] [facility] [address],2[address] [place] [address] [place] [address] [facility] [address] [place] [address] [place] [address] [phone]
--- OUTSIDE RECORDS SUMMARY | 2022-10-14 16:27 | XMS_ITS ---
:1950 Author Organization [facility] Address [address] [place] [id number] Support Name Relationship Address Phone LEEANNE LOAIZA Unavailable Unavailable Insurance Providers: All historical and current Section [...] MEDICARE MEDICARE PART Jul 24, PART B [id number] KENDALL FORD PATIENT (WNR) (M) B 2015 34A 4 GABBIE NICOLE MEDICARE MEDICARE PART Oct 23, PART A [id number] KENDALL FORD PATIENT (WNR) (M) A 2012 34A 4 GABBIE NICOLE Selected Encounter This section includes the information on record at [place] for the Encounter. Date/Time Encounter Type Encounter Reason Provider Source Description May 02, 2022 ORTHOTIC PHYSICAL THERAPY ICD-10-CM M17.9 Sushant HALL 10:31 AM MGMT&TRAING 1ST Osteoarthritis of IMBERLY A ENC knee, unspecified with Provider Comments: Osteoarthritis of knee ([facility] [id number]) [facility] Encounter Template Text not used by [place] Assessments - Encounter Diagnoses This section includes the primary and secondary diagnoses documented for the Encounter. Date/Time Primary/Secondary Diagnosis Name Provider Source Diagnosis May 02, 2022 PRIMARY Osteoarthritis of Sushant HALL [facility] 07:27 PM knee, unspecified [place] [facility] Plan of Treatment: Future Appointments (+ 6 months) and Future Tests (+/- 45 days) The Plan of Treatment section includes future care activities for the patient from all [place] treatmentfacilities. This section includes future appointments and future orders which are active, pending orscheduled.Future Appointments This section includes appointments that were scheduled to occur 6 months from the date of the Encounter, up to a maximum of 20 appointments. The data comes from all [place] treatment facilities. Appointment Date/Time Appointment Type Appointment Facili ty Name May 27, 2022 11:00 AM [facility] [place] [facility] Jun 09, 2022 10:30 AM AMBULATORY - MEDICINE [facility] Active, Pending, and Scheduled Orders This section includes a listing of several types of active, pending, and scheduled orders, including clinic medications orders, diagnostic test orders, procedure orders and consult orders; where the start date of the order is 45 days before the date of the Encounter or 45 days after the date of the Encounter. The data comes from all [facility] facilities. Test Date/Time Test Type Test Details Facility Name May 02, 2022 12:00 AM Laboratory - Chemistry HEPATITIS A ANTIBOD Y [facility] Order (IGG) BLOOD [facility] (SST-SERUM) SP May 27, 2022 11:35 AM Consult Order OPTOMETRY/[facility] OUTPT [facility] Cons Finance Executive's [place] [facility] Choice Lab Results: +/- 30 days of the encounter This section includes the Chemistry and Hematology Lab Results on record with [place] for the patient. Radiology Reports and Pathology Reports are provided separately, in subsequent sections.Lab Results This section contains the Chemistry/Hematology Results that were resulted 30 days before or 30 daysafter the date of the Encounter. Date/Time Source Result Type Result - Unit Interpretation Reference Range Comment May 02, 2022 [facility] WSN HEPATITIS B SURFACE Specimen Ty pe: SERUM 10:43 AM [facility] ANTIBODY (HBsAb)-WH No comment e ntered. Ordering Provid er: JUMANA ROBERT Report Released Date/Time: May 02, 2022 08:27 AM Reporting Lab: [facility] [place] [facility] [address] [facility] [address] Performing Lab: [facility] [place] [facility] [address] [facility] [address] HBsAb Non Reactive Non Reactive May 02, 2022 [facility] HEPATITIS A ANTIBODY Specimen T ype: SERUM 10:43 AM [facility] (IGG) Comment: Hep A IgG: A 'Non-reactive' result indicates no anti-HAV IgG was detected. Ordering Provid er: JUMANA ROBERT Report Released Date/Time: May 02, 2022 08:27 AM Reporting Lab: [facility] [address] [facility] [address] Performing Lab: [facility] [address] [facility] [address] HEPATITIS A ANTIBODY (IGG) Non Reactive Non Reactive May 02, 2022 [facility] HEMOGLOBIN A1C Specimen Type: BLOOD 10:43 AM [facility] PANEL Comment: Values obtained from A1C measurements can vary. For typical A1C assays, a reported value of 7.0 could actually be between 6.72 and 7.28 if measured by a reference method. A reported value of 9 .0 could actuall y be between 8.73 and 9.27. Ref: http://www.ngsp.org/CAPdata.asp Ordering Provid er: JUMANA ROBERT Report Released Date/Time: May 02, 2022 08:27 AM Reporting Lab: [facility] [address] [facility] [address] Performing Lab: [facility] [address] [address] HEMOGLOBIN A1C 5.1 4.0-5.6 May 02, 2022 10:43 [facility] LIVER FUNCTION Specimen Typ e: SERUM AM [facility] No comment enter ed. Ordering Provid er: JUMANA ROBERT Report Released Date/Time: May 02, 2022 08:27 AM Reporting Lab: [facility] [address] [address] Performing Lab: [facility] [address] [address] PROTEIN,TOTAL 7.0 6.0-8.3 ALBUMIN 4.0 3.5-5.0 ALKALINE PHOSPHATASE 76 40-150 AST 22 5-34 ALT 19 <6-55 BILIRUBIN, TOTAL 1.3 H 0.2-1.2 May 02, 2022 [place] [facility] [facility] LIPID PANEL Specimen Type: SERUM 10:43 AM [place] [facility] FASTING No comment enter ed. Ordering Provid er: JUMANA ROBERT Report Released Date/Time: May 02, 2022 08:27 AM Reporting Lab: [facility] [place] [facility] [address] [facility] [address] Performing Lab: [facility] [place] [facility] [address] [address] CHOLESTEROL 159 <7-199 TRIGLYCERIDE 172 H 0-150 LDL calculated 74 0-129 CHOL/HDL 3.1 HDL CHOLESTEROL 51 40-60 May 02, 2022 [place] [facility] [facility] BASIC METABOLIC Specimen Type: SERUM 10:43 AM [place] [facility] PANEL (fasting) No comment enter ed. Ordering Provid er: JUMANA ROBERT Report Released Date/Time: May 02, 2022 08:27 AM Reporting Lab: [facility] [place] [facility] [address] [address] Performing Lab: [facility] [place] [facility] [address] [address] UREA NITROGEN 9 7-25 GLUCOSE 103 H 65-100 SODIUM 139 135-145 POTASSIUM 4.1 3.5-5.0 CHLORIDE 101 100-110 CO2 28 20-30 CREATININE, Serum 1.11 0.50-1.40 eGFR(CKD-EPI 2020) 71 >60 May 02, 2022 [facility] IRON & TIBC PANEL Specimen Type : SERUM 10:43 AM [place] [facility] No comment enter ed. Ordering Provid er: JUMANA ROBERT Report Released Date/Time: May 02, 2022 08:27 AM Reporting Lab: [facility] [place] [facility] [address] [address] Performing Lab: [place] [facility] [address] [address] TIBC 286 204-475 IRON 92 40-160 Transferrin Saturation 32.1 20.0-50 .0 May 02, 2022 10:43 [place] [facility] FERRITIN Specimen Typ e: SERUM AM [facility] No comment enter ed. Ordering Provid er: JUMANA ROBERT Report Released Date/Time: May 02, 2022 08:27 AM Reporting Lab: [facility] [address] [address] Performing Lab: [facility]N [facility] [address] [address] FERRITIN 336.8 H 20-300 May 02, 2022 [place] [facility] CBC AND DIFF Specimen Type: BLOOD 10:43 AM [facility] (AUTO) No comment enter ed. Ordering Provid er: JUMANA ROBERT Report Released Date/Time: May 02, 2022 08:27 AM Reporting Lab: [facility] [address] [address] Performing Lab: [facility] [address] [address] WBC 4.37 L 4.50-11.00 RBC 4.55 4.23-5.66 HGB 13.4 12.8-17 HCT 40.2 39.2-50.4 MCV 88.4 82-99 MCHC 33.3 30.8-35.1 PLT 167 140-360 RDW-CV 13.7 12.0-16.0 Clare, Abs 0.44 0.30-1.10 MCH 29.5 26.2-32.6 Neut % 49.9 Lymph % 34.3 Clare % 10.1 Eos % 5.0 Baso % 0.2 Neut, Abs 2.18 L 2.20-7.60 Lymph, Abs 1.50 1.00-3.20 Eos, Abs 0.22 0.03-0.44 Baso, Abs 0.01 0.01-0.13 Immature Gran % 0.5 Immature Gran, Abs 0.02 0.00-0.06 May 02, 2022 [place] [facility] [facility] MICROALBUMIN Specimen Type: URINE 10:43 AM [facility] CREATININE RATIO PANEL No commen t entered. Ordering Provid er: JUMANA ROBERT Report Released Date/Time: May 02, 2022 08:27 AM Reporting Lab: [place] [facility] [place] [facility] [address] [address] Performing Lab: [place] [facility] [address] [address] MICROALBUMIN/CREATININE RATIO canc 0-29.9 MICROALBUMIN,QUANTITATIVE < 0.5 RR U NAVAIL CREATININE URINE 58.98 May 02, 2022 [place] [facility] BILIRUBIN, DIRECT Specimen Type : SERUM 10:43 AM [place] [facility] No comment enter ed. Ordering Provid er: JUMANA ROBERT Report Released Date/Time: May 02, 2022 08:27 AM Reporting Lab: [place] [facility] [address] [address] Performing Lab: [place] [facility] [address] [address] BILIRUBIN, DIRECT 0.5 0-0.5 Social History: Smoking Status (Most current) and Tobacco Use (All prior to encounter date) This section includes the most current, and the historical, smoking and tobacco-related health factors from the [place] facility where the Encounter took place.Current Smoking Status This section includes the most current smoking, or tobacco-related health factor, from the [place] facility where the Encounter took place. Date/Time Current Smoking Status Comment Facility April 17, 2022 10:54 AM VA-TOBACCO FORMER USER [place] CNTR[place] [facility] [facility] Tobacco Use History This section includes a history of the smoking, or tobacco- related health factors, that were collected on or before the date of the Encounter. The data comes from the [place] facility where the Encounter took place. Date/Time Smoking Status/Tobacco Use Comment [facility] it April 17, 2022 10:54 AM VA-TOBACCO QUIT 15 YRS OR VA [facility] [place] MORE [facility] Jun 16, 2018 11:59 AM VA-TOBACCO FORMER USER [place] [facility] [facility] Jun 16, 2018 11:59 AM VA-TOBACCO QUIT 5 TO < 15 YRS [facility] [place] [facility] May 12, 2018 09:43 AM QUIT TOBACCO USE > 7 YEARS [place] [facility] [place] A[place] [facility] Jun 06, 2016 09:32 AM QUIT TOBACCO USE > 7 YEARS [place] [facility] [place] AGO . [facility] Oct 04, 2013 09:16 AM QUIT TOBACCO USE [facility] [place] [facility] Advance Directives: All historical and current Section Date Range: From patient's date of to the date document was created. This section includes ALL of a patient's completed or amended [place] Advance and Rescinded Directives. The entries below indicate that a directive exists for the patient, but an actual copy is not included with this document. The data comes from all [place] facilities. Date Advance Directives Provider Source Jan 18, 2021 ADVANCE DIRECTIVE KEYONOTTO,[facility]OHNNY L [facility] Encounter Notes: All associated encounter notes This section contains the clinical notes associated to the Encounter. Date/Time Encounter Note(s) Provider Source May 02, 2022 10:31 PHYSICAL THERAPY NOTE: SHELLI HALL [facility] LOCAL TITLE: PHYSICAL THERAPY Y Edward Prater [facility] STANDARD TITLE: PHYSICAL THERAPY NOTE DATE OF NOTE: MAY 02, 2022@10:31 ENTRY DATE: MAY 02, 2022@19:18:46 AUTHOR: SHELLI HALL EXP COSIGNER: URGENCY: STATUS: COMPLETED Initial Evaluation Date: Treatment #: Issue cane Diagnosis: Referring Provider: Treatment time: 15 min Vet observed in elevator w/ severely bend/dented cane. P.T. suggesting that vet request MD write consult for Physical Therap y to get new cane. P.T. stopping into Prosthetics office to find ve t had gone down w/o consult and was talking to Prosthetics staff who were assisting her. P.T. then overhearing Physical Therapy [facility] atte mpting to find a therapist able to assist vets as she was trying to pi ck-up cane for vet whom she had left at Podiatry [i.e. cane could not be siz ed in P.T. clinic]. This therapist offered to take of vet d/t fact t hat she was returning to2nd floor/CLC at that time. S: Vet located still in Podiatry office trying o n new shoes. O: Pt. issued standard cane this date, adjusted for correct height. Reviewed correct use: coordinate w/ contralateral LE hold in had opposite to LE w/ worst pain. if for balance or pain (B) use in most comforta ble hand Correct use demonstrated f/b pt. demonstration: A: Pt. able to use cane correctly before leaving clinic P: (x) No further visits planned at this time () Pt. evaluation for gait/balance/falls on Patient Education Education provided on the following topics: As n oted in treatment Education provided to: P Response to Education: SCOTTIE ALVARADO Bryson Patient P Family F Significant Other SO Verbalizes Understanding VU Returns Demonstration RD Performs Independently PI Lacks Comprehension LC Refused Education RE Not Applicable NA /nella/ ABDIRAHMAN BRUCE PHYSICAL THERAPIST Signed: 05/02/2022 19:27
--- OUTSIDE RECORDS SUMMARY | 2022-10-14 16:27 | XMS_ITS ---
:1950 Author Organization [facility] Address [address] [place] [id number] Support Name Relationship Address Phone LEEANNE LOAIZA [...] MEDICARE MEDICARE PART Jul 24, PART B [id number] KENDALL FORD PATIENT (WNR) (M) B 2015 34A 4 CANDYGABBIE PEREZ MEDICARE MEDICARE PART Oct 23, PART A [id number] KENDALL FORD PATIENT (WNR) (M) A 2012 34A 4 CANDYGABBIE PEREZ Selected Encounter This section includes the information on record at [place] for the Encounter. Date/Time Encounter Type Encounter Description Reason Provider Source Jul 30, 2022 10:33 Outpatient Encounter PRIMARY CARE/MEDICINE AM IHE Encounter Template Text not used by [place] Plan of Treatment: Future Appointments (+ 6 months) and Future Tests (+/- 45 days) The Plan of Treatment section includes future care activities for the patient from all [place] treatmentfacilities. This section includes future appointments and future orders which are active, pending orscheduled.Future Appointments This section includes appointments that were scheduled to occur 6 months from the date of the Encounter, up to a maximum of 20 appointments. The data comes from all [place] treatment facilities. Appointment Date/Time Appointment Type Appointment Facili ty Name Dec 04, 2022 01:00 PM [facility] Social History: Smoking Status (Most current) and Tobacco Use (All prior to encounter date) This section includes the most current, and the historical, smoking and tobacco-related health factors from the [place] facility where the Encounter took place.Current Smoking Status This section includes the most current smoking, or tobacco-related health factor, from the [place] facility where the Encounter took place. Date/Time Current Smoking Status Comment Facility April 17, 2022 10:54 AM VA-TOBACCO FORMER USER [place] [facility]L [facility] [facility] Tobacco Use History This section includes a history of the smoking, or tobacco- related health factors, that were collected on or before the date of the Encounter. The data comes from the [place] facility where the Encounter took place. Date/Time Smoking Status/Tobacco Use Comment [facility] it April 17, 2022 10:54 AM VA-TOBACCO QUIT 15 YRS OR VA CN[facility] [place] [facility] Jun 16, 2018 11:59 AM VA-TOBACCO FORMER USER [facility] [place] [facility] Jun 16, 2018 11:59 AM VA-TOBACCO QUIT 5 TO < 15 YRS [facility] [place] [facility] May 12, 2018 09:43 AM QUIT TOBACCO USE > 7 YEARS [facility] [place] [facility] Jun 06, 2016 09:32 AM QUIT TOBACCO USE > 7 YEARS [place] [facility] [place] A[place] . [facility] Oct 04, 2013 09:16 AM QUIT TOBACCO USE > 7 YEARS HI CNTRL [facility] AGO . [facility] Advance Directives: All historical and current Section Date Range: From patient's date of to the date document was created. This section includes ALL of a patient's completed or amended [place] Advance and Rescinded Directives. The entries below indicate that a directive exists for the patient, but an actual copy is not included with this document. The data comes from all [place] facilities. Date Advance Directives Provider Source Jan 18, 2021 ADVANCE DIRECTIVE JOHNNY ESQUEDA [place] [facility] [facility] Encounter Notes: All associated encounter notes This section contains the clinical notes associated to the Encounter. Date/Time Encounter Note(s) Provider Source Jul 30, 2022 10:33 PRIMARY CARE TELEPHONE ENCOUNTER NOTE: WANDA CONNOR [place] CN[facility]L [facility] AM LOCAL TITLE: TELEPHONE NOTE/PRIMARY CARE E [place] [facility] STANDARD TITLE: PRIMARY CARE TELEPHONE ENCOUNTER NOTE DATE OF NOTE: JUL 30, 2022@10:33 ENTRY DATE: JUL 30, 2022@10:33:15 AUTHOR: WANDA CONNOR: URGENCY: STATUS: COMPLETED TELEPHONE NOTE/PRIMARY CARE Has ADDENDA Call placed to for clinical reminders. V eteran needing diabetic eye exam, cover sheet shows 1 no show and a cancella tion by . instructed to call Optometry for eye appointment , discussed consequences of missed eye axams, [place] reported understanding /es/ WANDA CONNOR LPN Signed: 07/30/2022 10:35 Receipt Acknowledged By: 07/30/2022 11:23 /es/ Pato De Leon OD CHIEF OF OPTOMETRY 07/30/2022 ADDENDUM STATUS: COMPLETED [place] called back. Already has appointment kimmy eduled on 12/04/2022 with Optometry. /es/ LUCHO GARDNER ADVANCED PARIMUTUEL TICKET SELLER Signed: 07/30/2022 14:08
--- OUTSIDE RECORDS SUMMARY | 2022-10-14 16:27 | XMS_ITS ---
:1950 Author Organization [facility] Address [address] [place] [address] Support Name Relationship Address Phone LEEANNE LOAIZA Unavailable Unavailable [phone] Insurance Providers: All historical and current Section [...] MEDICARE MEDICARE PART Jul 24, PART B [id number] KENDALL FORD PATIENT (WNR) (M) B 2015 34A 4 GABBIE NICOLE MEDICARE MEDICARE PART Oct 23, PART A [id number] KENDALL FORD PATIENT (WNR) (M) A 2012 34A 4 GABBIE NICOLE Selected Encounter This section includes the information on record at [place] for the Encounter. Date/Time Encounter Type Encounter Reason Provider Source Description May 27, 2022 OFFICE O/P EST PRIMARY ICD-10-CM I48.91 KIERSTEN CELESTIN 11:00 AM LOW 20-29 MIN CARE/MEDICINE Unspecified atrial ALLEN F fibrillation with Provider Comments: AF- Atrial Fibrillation ([facility] [id number]) IHE Encounter Template Text not used by [place] Assessments - Encounter Diagnoses This section includes the primary and secondary diagnoses documented for the Encounter. Date/Time Primary/Secondary Diagnosis Name Provider Source Diagnosis May 27, 2022 PRIMARY Unspecified atrial KIERSTEN CELESTIN [facility] WSTRN 11:42 AM fibrillation ALLEN F [place] [facility] May 27, 2022 SECONDARY Encounter for GEETAGRAEME [facility] WSTR N 11:42 AM immunization OPHER E [place] [facility] May 27, 2022 SECONDARY Hypertensive heart KIERSTEN CELESTIN [facility] 11:42 AM disease without [facility] [place] [facility] heart failure May 27, 2022 SECONDARY Type 2 diabetes KIERSTEN CELESTIN [facility] 11:42 AM mellitus with [facility]EN F [place] [facility] unspecified complications Plan of Treatment: Future Appointments (+ 6 months) and Future Tests (+/- 45 days) The Plan of Treatment section includes future care activities for the patient from all [place] [facility] This section includes future appointments and future orders which are active, pending orscheduled.Future Appointments This section includes appointments that were scheduled to occur 6 months from the date of the Encounter, up to a maximum of 20 appointments. The data comes from all [place] treatment facilities. Appointment Date/Time Appointment Type Appointment Facili ty Name Jun 09, 2022 10:30 AM AMBULATORY - MEDICINE [facility] [place] [facility] Active, Pending, and Scheduled Orders This section includes a listing of several types of active, pending, and scheduled orders, including clinic medications orders, diagnostic test orders, procedure orders and consult orders; where the start date of the order is 45 days before the date of the Encounter or 45 days after the date of the Encounter. The data comes from all [facility]. Test Date/Time Test Type Test Details Facility Name May 02, 2022 12:00 AM Laboratory - Chemistry HEPATITIS A ANTIBOD Y [facility] Order (IGG) BLOOD [place] [facility] (SST-SERUM) SP May 27, 2022 11:35 AM Consult Order OPTOMETRY/[facility] OUTPT [facility] Cons Explosives Engineer's [place] [facility] Choice Lab Results: +/- 30 days of the encounter This section includes the Chemistry and Hematology Lab Results on record with [place] for the patient. Radiology Reports and Pathology Reports are provided separately, in subsequent sections.Lab Results This section contains the Chemistry/Hematology Results that were resulted 30 days before or 30 daysafter the date of the Encounter. Date/Time Source Result Type Result - Unit Interpretation Reference Range Comment May 02, 2022 [facility] HEPATITIS B SURFACE Specimen Ty pe: SERUM 10:43 AM [place] [facility] ANTIBODY (HBsAb)-WH No comment e ntered. Ordering Provid er: JUMANA CELESTIN Report Released Date/Time: May 02, 2022 08:27 AM Reporting Lab: [place] [facility] [place] [facility] [address] [address] Performing Lab: [facility] [place] [facility] [address] [facility] [address] HBsAb Non Reactive Non Reactive May 02, 2022 [facility] HEPATITIS A ANTIBODY Specimen T ype: SERUM 10:43 AM [place] [facility] (IGG) Comment: Hep A IgG: A 'Non-reactive' result indicates no anti-HAV IgG was detected. Ordering Provid er: JUMANA CELESTIN Report Released Date/Time: May 02, 2022 08:27 AM Reporting Lab: [place] [facility] [facility] [address] [address] Performing Lab: [facility] [place] [facility] [address] [facility] [address] HEPATITIS A ANTIBODY (IGG) Non Reactive Non Reactive May 02, 2022 [facility] HEMOGLOBIN A1C Specimen Type: BLOOD 10:43 AM [place] [facility] PANEL Comment: Values obtained from A1C measurements can vary. For typical A1C assays, a reported value of 7.0 could actually be between 6.72 and 7.28 if measured by a reference method. A reported value of 9 .0 could actuall y be between 8.73 and 9.27. Ref: http://www.ngsp.org/CAPdata.asp Ordering Provid er: JUMANA CELESTIN Report Released Date/Time: May 02, 2022 08:27 AM Reporting Lab: [facility] [place] [facility] [address] [address] Performing Lab: [facility] [address] [address] HEMOGLOBIN A1C 5.1 4.0-5.6 May 02, 2022 [place] [facility] LIPID PANEL Specimen Type: SERUM 10:43 AM [place] [facility] FASTING No comment enter ed. Ordering Provid er: JUMANA CELESTIN Report Released Date/Time: May 02, 2022 08:27 AM Reporting Lab: [facility] [place] [facility] [address] [address] Performing Lab: [place] [facility] [place] [facility] [address] [address] CHOLESTEROL 159 <7-199 TRIGLYCERIDE 172 H 0-150 LDL calculated 74 0-129 CHOL/HDL 3.1 HDL CHOLESTEROL 51 40-60 May 02, 2022 10:43 [facility] LIVER FUNCTION Specimen Typ e: SERUM AM [place] [facility] No comment enter ed. Ordering Provid er: JUMANA CELESTIN Report Released Date/Time: May 02, 2022 08:27 AM Reporting Lab: [place] [facility] [place] [facility] [address] [address] Performing Lab: [facility]N [place] [address] [address] PROTEIN,TOTAL 7.0 6.0-8.3 ALBUMIN 4.0 3.5-5.0 ALKALINE PHOSPHATASE 76 40-150 AST 22 5-34 ALT 19 <6-55 BILIRUBIN, TOTAL 1.3 H 0.2-1.2 May 02, 2022 [facility] BASIC METABOLIC Specimen Type: SERUM 10:43 AM [place] [facility] PANEL (fasting) No comment enter ed. Ordering Provid er: JUMANA CELESTIN Report Released Date/Time: May 02, 2022 08:27 AM Reporting Lab: [place] [facility] [place] [facility] [address] [address] Performing Lab: [place] [facility] [place] [facility] [address] [address] UREA NITROGEN 9 7-25 GLUCOSE 103 H 65-100 SODIUM 139 135-145 POTASSIUM 4.1 3.5-5.0 CHLORIDE 101 100-110 CO2 28 20-30 CREATININE, Serum 1.11 0.50-1.40 eGFR(CKD-EPI 2020) 71 >60 May 02, 2022 [facility] IRON & TIBC PANEL Specimen Type : SERUM 10:43 AM [place] [facility] No comment enter ed. Ordering Provid er: JUMANA CELESTIN Report Released Date/Time: May 02, 2022 08:27 AM Reporting Lab: [place] [facility] [place] [facility] [address] [address] Performing Lab: [facility] [place] [facility] [address] [address] TIBC 286 204-475 IRON 92 40-160 Transferrin Saturation 32.1 20.0-50 .0 May 02, 2022 10:43 [facility] FERRITIN Specimen Typ e: SERUM AM [place] [facility] No comment enter ed. Ordering Provid er: JUMANA CELESTIN Report Released Date/Time: May 02, 2022 08:27 AM Reporting Lab: [facility] [place] [facility] [address] [address] Performing Lab: [facility] [place] [facility] [address] [address] FERRITIN 336.8 H 20-300 May 02, 2022 [facility] MICROALBUMIN Specimen Type: URINE 10:43 AM [facility] CREATININE RATIO PANEL No commen t entered. Ordering Provid er: JUMANA CELESTIN Report Released Date/Time: May 02, 2022 08:27 AM Reporting Lab: [facility] [place] [facility] [address] [address] Performing Lab: [facility] [place] [facility] [address] [address] MICROALBUMIN/CREATININE RATIO canc 0-29.9 MICROALBUMIN,QUANTITATIVE < 0.5 RR U NAVAIL CREATININE URINE 58.98 May 02, 2022 [facility] CBC AND DIFF Specimen Type: BLOOD 10:43 AM [place] [facility] (AUTO) No comment enter ed. Ordering Provid er: JUMANA CELESTIN Report Released Date/Time: May 02, 2022 08:27 AM Reporting Lab: [facility] [place] [facility] [address] [address] Performing Lab: [facility] [place] [facility] [address] [address] WBC 4.37 L 4.50-11.00 RBC 4.55 4.23-5.66 HGB 13.4 12.8-17 HCT 40.2 39.2-50.4 MCV 88.4 82-99 MCHC 33.3 30.8-35.1 PLT 167 140-360 RDW-CV 13.7 12.0-16.0 Bureau, Abs 0.44 0.30-1.10 MCH 29.5 26.2-32.6 Neut % 49.9 Lymph % 34.3 Bureau % 10.1 Eos % 5.0 Baso % 0.2 Neut, Abs 2.18 L 2.20-7.60 Lymph, Abs 1.50 1.00-3.20 Eos, Abs 0.22 0.03-0.44 Baso, Abs 0.01 0.01-0.13 Immature Gran % 0.5 Immature Gran, Abs 0.02 0.00-0.06 May 02, 2022 LA CNT [facility] BILIRUBIN, DIRECT Specimen Type : SERUM 10:43 AM [place] [employer] [employer] [facility] No comment enter ed. Ordering Provid er: JUMANA CELESTIN Report Released Date/Time: May 02, 2022 08:27 AM Reporting Lab: [place] [facility] [place] [facility] [address] [address] Performing Lab: [place] CN[facility] [place] [facility] [address] [address] BILIRUBIN, DIRECT 0.5 0-0.5 Vital Signs: All taken on the encounter date This section contains inpatient and outpatient Vital Signs collected on the date of the Encounter. Date/Time Temperature Pulse Blood Respiratory SP02 Pain Height Weight Brain dy Source Pressure Rate Mass Index May 27 F 78 130/56 16 /min 97 % 0 218 lb 35 [place] 2021 11:21 /min mm[Hg] CNTRL AM [place] [facility] Immunizations: All administered on the encounter date This section contains immunizations associated to the Encounter. Immunization Series Date Issued Reaction Comments ZOSTER RECOMBINANT 2 May 27, 2022 Social History: Smoking Status (Most current) and Tobacco Use (All prior to encounter date) This section includes the most current, and the historical, smoking and tobacco-related health factors from the [place] facility where the Encounter took place.Current Smoking Status This section includes the most current smoking, or tobacco-related health factor, from the [place] facility where the Encounter took place. Date/Time Current Smoking Status Comment Facility April 17, 2022 10:54 AM VA-TOBACCO FORMER USER [facility] [place] [facility] Tobacco Use History This section includes a history of the smoking, or tobacco- related health factors, that were collected on or before the date of the Encounter. The data comes from the [place] facility where the Encounter took place. Date/Time Smoking Status/Tobacco Use Comment Facil it April 17, 2022 10:54 AM VA-TOBACCO QUIT 15 YRS OR VA CN[facility] [place] MORE [facility] Jun 16, 2018 11:59 AM VA-TOBACCO FORMER USER VA CN[facility]L [facility] [place] [facility] Jun 16, 2018 11:59 AM VA-TOBACCO QUIT 5 TO < 15 YRS [facility] [place] [facility] May 12, 2018 09:43 AM QUIT TOBACCO USE > 7 YEARS VA CN[facility]L [place] A[place] [facility] Jun 06, 2016 09:32 AM QUIT TOBACCO USE > 7 YEARS VA CN[facility] [place] AGO . [facility] Oct 04, 2013 09:16 AM QUIT TOBACCO USE > 7 YEARS VA CN[facility] [place] AGO . [facility] Advance Directives: All historical and current Section Date Range: From patient's date of to the date document was created. This section includes ALL of a patient's completed or amended [place] Advance and Rescinded Directives. The entries below indicate that a directive exists for the patient, but an actual copy is not included with this document. The data comes from all [place] facilities. Date Advance Directives Provider Source Jan 18, 2021 ADVANCE DIRECTIVE JOHNNY ESQUEDA [place] CN[facility]L [place] [facility] Encounter Notes: All associated encounter notes This section contains the clinical notes associated to the Encounter. Date/Time Encounter Note(s) Provider Source May 27, 2022 01:45 PREVENTIVE MEDICINE NURSING NOTE: ANTHONY CONNOR [place] CNTRL [place] PM LOCAL TITLE: CLINICAL REMINDERS/NURSING E [place] [facility] STANDARD TITLE: PREVENTIVE MEDICINE NURSING NOTE DATE OF NOTE: MAY 27, 2022@13:45 ENTRY DATE: MAY 27, 2022@13:45:44 AUTHOR: WANDA CONNOR EXP COSIGNER: URGENCY: STATUS: COMPLETED Herpes Zoster (Shingles) Vaccine: The patient received recombinant zoster vaccine (RZV) 0.5 ml IM in Left deltoid. Warp Knitter: [facility] Lot#s and Expiration Date: [id number] 07/18/23 Administered by protocol/policy Complications: None The VIS for the recombinant zoster vaccine (RZV ) dated Dec was given to the patient. /nella/ WANDA CONNOR LPN Signed: 05/27/2022 13:48 May 27, 2022 11:40 PHYSICIAN CONSERVATION BIOLOGY PROFESSOR NOTE: JUMANA CELESTIN CNTRL WSTR[place] LOCAL TITLE: PA NOTE F [facility] STANDARD TITLE: PHYSICIAN CONSERVATION BIOLOGY PROFESSOR NOTE DATE OF NOTE: MAY 27, 2022@11:40 ENTRY DATE: MAY 27, 2022@11:40:24 AUTHOR: JUMANA CELESTIN EXP COSIGNER: URGENCY: STATUS: COMPLETED CC/HPI: 71 year old MALE here in follow-up for; AF,comes here for Eliquis would like eye exam here as well. Will get covid booster outside. Review of systems: Patient reports no changes from [facility], nor in meds or any admissions. Active problems - Computerized Problem List is t he source for the followin. Long-term current use of anticoagulant 2. AF- Atrial Fibrillation ([facility] [id number]) 3. Colonic polyp 2 TAs and Diverticulosis on 11 11 colonoscopy. 4. Osteoarthritis of knee S/P left TKA March, 2. 5. Benign hypertension 6. Hyperlipidemia 7. Diabetes mellitus 8. ALCOHOL DEPENDENCY, UNSPEC VA and Non VA meds were reconciled with the yaya ent who left with a corrected copy. See medication page for details. Active and Recently Outpatient Medicatio ns (excluding Supplies): Active Outpatient Medications Status 1) APIXABAN 5MG TAB TAKE ONE TABLET BY MOUTH TWI CE DAILY ACTIVE (S) REPLACES PRADAXA Active Non-VA Medications Status 1) Non-VA AMLODIPINE BESYLATE 5MG TAB 5MG BY JER TH DAILY ACTIVE 2) Non-VA ASPIRIN 81MG EC TAB 81MG BY MOUTH VERONICA Y ACTIVE 3) Non-VA ATORVASTATIN CALCIUM 40MG TAB 20MG BY MOUTH ACTIVE ONCE DAILY 4) Non-VA GLIPIZIDE 5MG TAB 5MG BY MOUTH DAILY A CTIVE 5) Non-VA LISINOPRIL 10MG TAB 10MG BY MOUTH VERONICA Y ACTIVE 6) Non-VA METOPROLOL SUCCINATE 50MG SA TAB 50MG BY MOUTH ACTIVE DAILY 7 Total Medications 99 F [37.2 C] (05/27/2022 11:21) 78 (05/27/2022 11:21) 16 (05/27/2022 11:21) 130/56 (05/27/2022 11:21) 0 (05/27/2022 11:21) 66.5 in [168.9 cm] (06/16/2018 11:27) 218 lb [98.88 kg] (05/27/2022 11:21) BMI: 34.7 Neuro: Alert and oriented times three, grossly n onfocal, nasolabial folds intact. Recent labs reviewed with patient today:yes. Confirms that he takes his statin every day. /nella/ Jumana Celestin PA-C STAFF PHYSICIAN CONSERVATION BIOLOGY PROFESSOR Signed: 05/27/2022 11:42 May 27, 2022 11:26 PREVENTIVE MEDICINE NURSING NOTE: ANTHONY CONNOR [place] [facility] [place] [facility] TITLE: CLINICAL REMINDERS/NURSING E [place] [facility] STANDARD TITLE: PREVENTIVE MEDICINE NURSING NOTE DATE OF NOTE: MAY 27, 2022@11:26 ENTRY DATE: MAY 27, 2022@11:26:31 AUTHOR: WANDA CONNORIGNER: URGENCY: STATUS: COMPLETED Relationship Health & Safety Screen: Environment is safe to proceed INFORMED CONSENT TO SCREEN & DOCUMENT: Individual consents to documentation? Yes Individual consents to proceed with screening? Yes PRIMARY SCREEN: In the past 12 months, how often did a current or former intimate partner (e.g., boyfriend, girlfriend, , , se xual partner): Scream or curse at you: Never Insult or talk down to you: Never Threaten you with harm: Never Physically hurt you: Never In the past 12 months, how often did a current or former intimate partner force or pressure you to have sexual co ntact against your will, or when you were unable to say no? Never PRIMARY SCREEN RESULTS: The individual denied all forms of IPV above (i .e., answered never to all 5 items above). ??The [employer] tool is US copyright protected by Abimael Casillas MD, and the user has full rights to use it throughout the [employer] system. DISPOSITION: Provided general IPV education. /es/ WANDA CONNOR LPN Signed: 05/27/2022 11:27
--- OUTSIDE RECORDS SUMMARY | 2022-10-14 16:27 | XMS_ITS | Encounter Summary ---
:1950 Author Organization [facility] Address [address] [place] [address] Support Name Relationship Address Phone LEEANNE LOAIZA [...] MEDICARE MEDICARE PART Jul 24, PART B [id number] KENDALL FORD PATIENT (WNR) (M) B 2015 34A 4 CANDYCHRISGABBIE MEDICARE MEDICARE PART Oct 23, PART A [id number] KENDALL FORD PATIENT (WNR) (M) A 2012 34A 4 COREYGABBIE Selected Encounter This section includes the information on record at CT for the Encounter. Date/Time Encounter Type Encounter Description Reason Provider Source Jun 16, 2022 11:21 Outpatient Encounter OPTOMETRY AM IHE Encounter Template Text not used by CT Plan of Treatment: Future Appointments (+ 6 months) and Future Tests (+/- 45 days) The Plan of Treatment section includes future care activities for the patient from all CT treatmentfacilities. This section includes future appointments and future orders which are active, pending orscheduled.Future Appointments This section includes appointments that were scheduled to occur 6 months from the date of the Encounter, up to a maximum of 20 appointments. The data comes from all CT treatment facilities. Appointment Date/Time Appointment Type Appointment Facili ty Name Dec 04, 2022 01:00 PM [facility] Active, Pending, and Scheduled Orders This section includes a listing of several types of active, pending, and scheduled orders, including clinic medications orders, diagnostic test orders, procedure orders and consult orders; where the start date of the order is 45 days before the date of the Encounter or 45 days after the date of the Encounter. The data comes from all CT treatment facilities. Test Date/Time Test Type Test Details Facility Name May 02, 2022 12:00 AM Laboratory - Chemistry HEPATITIS A ANTIBOD Y [place] CNTRL [facility] Order (IGG) [place] [facility] (SST-SERUM) SP May 27, 2022 11:35 AM Consult Order OPTOMETRY/NHM OUTPT CT CNT RL [facility] Cons Edi Specialist's [place] [facility] Choice Social History: Smoking Status (Most current) and Tobacco Use (All prior to encounter date) This section includes the most current, and the historical, smoking and tobacco-related health factors from the CT facility where the Encounter took place.Current Smoking Status This section includes the most current smoking, or tobacco-related health factor, from the CT facility where the Encounter took place. Date/Time Current Smoking Status Comment Facility April 17, 2022 10:54 AM VA-TOBACCO FORMER USER CT CNTRL WSTRN [place] [facility] Tobacco Use History This section includes a history of the smoking, or tobacco- related health factors, that were collected on or before the date of the Encounter. The data comes from the CT facility where the Encounter took place. Date/Time Smoking Status/Tobacco Use Comment [facility] April 17, 2022 10:54 AM VA-TOBACCO QUIT 15 YRS OR [facility] [place] [facility] Jun 16, 2018 11:59 AM VA-TOBACCO FORMER USER CT CNTRL W[place] [facility] Jun 16, 2018 11:59 AM VA-TOBACCO QUIT 5 TO < 15 YRS [facility] [place] [facility] May 12, 2018 09:43 AM QUIT TOBACCO USE > 7 YEARS [facility] [place] [facility] [facility] Jun 06, 2016 09:32 AM QUIT TOBACCO USE > 7 YEARS [facility] [place] [facility] Oct 04, 2013 09:16 AM QUIT TOBACCO USE > 7 YEARS [facility] [place] [facility] . [facility] Advance Directives: All historical and current Section Date Range: From patient's date of to the date document was created. This section includes ALL of a patient's completed or amended [place] Advance and Rescinded Directives. The entries below indicate that a directive exists for the patient, but an actual copy is not included with this document. The data comes from all CT facilities. Date Advance Directives Provider Source Jan 18, 2021 ADVANCE DIRECTIVE [facility]NN[facility] Encounter Notes: All associated encounter notes This section contains the clinical notes associated to the Encounter. Date/Time Encounter Note(s) Provider Source Jun 16, 2022 11:21 AM OPTOMETRY TELEPHONE ENCOUNTER NOTE: LUCHO [facility] LOCAL TITLE: OPTOMETRY TELEPHONE NOTE [facility] STANDARD TITLE: OPTOMETRY TELEPHONE ENCOUNTER NO TE DATE OF NOTE: JUN 16, 2022@11:21 ENTRY DATE: JUN 16, 2022@11:21:49 AUTHOR: LUCHO GARDNER EXP COSIGNER: URGENCY: STATUS: COMPLETED Reminder call Spoke: AMSA spoke with and reminded of Optometry appt on 06/17/2022 at 11:00am. Location confirmed- aware and agreeable /nella/ LUCHO GARDNER ADVANCED GRIDCAP MACHINE OPERATOR Signed: 06/16/2022 11:22
--- OUTSIDE RECORDS SUMMARY | 2022-10-14 16:27 | XMS_ITS | Encounter Summary ---
:1950 Author Organization [facility] Address [address] [place] [id number] Support Name Relationship Address Phone LEEANNE LOAIZA [...] MEDICARE MEDICARE PART Jul 24, PART B [id number] KENDALL FORD PATIENT (WNR) (M) B 2015 34A 4 CANDYGABBIE PEREZ MEDICARE MEDICARE PART Oct 23, PART A [id number] KENDALL FORD PATIENT (WNR) (M) A 2012 34A 4 COREYGABBIE Selected Encounter This section includes the information on record at [place] for the Encounter. Date/Time Encounter Type Encounter Description Reason Provider Source Jun 09, 2022 02:45 Outpatient Encounter OPTOMETRY PM IHE Encounter Template Text not used by [place] Plan of Treatment: Future Appointments (+ 6 months) and Future Tests (+/- 45 days) The Plan of Treatment section includes future care activities for the patient from all [place] treatmentfacilities. This section includes future appointments and future orders which are active, pending orscheduled.Future Appointments This section includes appointments that were scheduled to occur 6 months from the date of the Encounter, up to a maximum of 20 appointments. The data comes from all [place] treatment facilities. Appointment Date/Time Appointment Type Appointment Facili ty Name Dec 04, 2022 01:00 PM [facility] Active, Pending, and Scheduled Orders This section includes a listing of several types of active, pending, and scheduled orders, including clinic medications orders, diagnostic test orders, procedure orders and consult orders; where the start date of the order is 45 days before the date of the Encounter or 45 days after the date of the Encounter. The data comes from all [place] treatment facilities. Test Date/Time Test Type Test Details Facility Name May 02, 2022 12:00 AM Laboratory - Chemistry HEPATITIS A ANTIBOD Y [place] CN[facility] Order (IGG) BLOOD [place] [facility] (SST-SERUM) SP May 27, 2022 11:35 AM Consult Order OPTOMETRY/NHM OUTPT [place] CNT RL [facility] Cons [employer] Operator's [place] [facility] Choice Social History: Smoking Status (Most current) and Tobacco Use (All prior to encounter date) This section includes the most current, and the historical, smoking and tobacco-related health factors from the [place] facility where the Encounter took place.Current Smoking Status This section includes the most current smoking, or tobacco-related health factor, from the [place] facility where the Encounter took place. Date/Time Current Smoking Status Comment Facility April 17, 2022 10:54 AM VA-TOBACCO FORMER USER [place] CN[facility] [facility] Tobacco Use History This section includes a history of the smoking, or tobacco- related health factors, that were collected on or before the date of the Encounter. The data comes from the [place] facility where the Encounter took place. Date/Time Smoking Status/Tobacco Use Comment [facility] April 17, 2022 10:54 AM VA-TOBACCO QUIT 15 YRS OR VA CN[facility] [facility] Jun 16, 2018 11:59 AM VA-TOBACCO FORMER USER [place] CNTR[facility] [place] [facility] Jun 16, 2018 11:59 AM VA-TOBACCO QUIT 5 TO < 15 YRS [place] [facility] [place] [facility] May 12, 2018 09:43 AM QUIT TOBACCO USE > 7 YEARS [place] [facility] [place] AGO [facility] Jun 06, 2016 09:32 AM QUIT TOBACCO USE > 7 YEARS [place] [facility] [place] AGO . [facility] Oct 04, 2013 09:16 AM QUIT TOBACCO USE > 7 YEARS [place] [facility] [place] AGO . [facility] Advance Directives: All historical and current Section Date Range: From patient's date of to the date document was created. This section includes ALL of a patient's completed or amended VA Advance and Rescinded Directives. The entries below indicate that a directive exists for the patient, but an actual copy is not included with this document. The data comes from all [place] facilities. Date Advance Directives Provider Source Jan 18, 2021 ADVANCE DIRECTIVE RICKPALMASJOHNNY Alvarez [place] CNTRL [facility] Encounter Notes: All associated encounter notes This section contains the clinical notes associated to the Encounter. Date/Time Encounter Note(s) Provider Source Jun 09, 2022 02:45 PM CLERICAL NOTE: LUCHO GARDNER [place] CNT RL [facility] LOCAL TITLE: APPOINTMENT NO SHOW [facility] STANDARD TITLE: CLERICAL NOTE DATE OF NOTE: JUN 09, 2022@14:45 ENTRY DATE: JUN 09, 2022@14:45:08 AUTHOR: LUCHO GARDNER EXP COSIGNER: URGENCY: STATUS: COMPLETED Patient Name: GABBIE LOAIZA Patient SSN: [id number] Date and time of Appointment No show : 06/09/22 14:45 PATIENT PHONE - PHONE NUMBER [CELLULAR] - NONE FOUND Patient's medical record was reviewed. Follow-up actions were determined and initiated: Please check/complete as applies: [X]Telephoned Directly [ ]Re-scheduled for next available appt [ ]Sent a N0-show letter ( must call for appointment) [ ]Other (Emergent/Overbook, etc.): Additional Comments: spoke to rescheduled to 06/17/2022 Future Clinic Visits 06/17/2022 11:00 CWM/NO/OPTOMETRY/VERONICA /nella/ LUCHO GARDNER ADVANCED QC MANAGER Signed: 06/09/2022 14:45
--- OUTSIDE RECORDS SUMMARY | 2022-10-14 16:27 | XMS_ITS ---
:1950 Author Organization [facility] Address [address] [place] [id number] Support Name Relationship Address Phone LEEANNE LOAIZA [...] MEDICARE MEDICARE PART Jul 24, PART B [id number] KENDALL FORD PATIENT (WNR) (M) B 2015 34A 4 CANDYGABBIE PEREZ MEDICARE MEDICARE PART Oct 23, PART A [id number] KENDALL FORD PATIENT (WNR) (M) A 2012 34A 4 CANDYGABBIE PEREZ Selected Encounter This section includes the information on record at [place] for the Encounter. Date/Time Encounter Type Encounter Reason Provider Source Description May 02, 2022 DIABETIC CUSTOM PODIATRY ICD-10-CM E11.8 JOLENE HERNANDEZ 10:30 AM MOLDED SHOE Type 2 diabetes mellitus with unspecified complications with Provider Comments: Type 2 Diabetes Mellitus with unspecified Complications IHE Encounter Template Text not used by [place] Assessments - Encounter Diagnoses This section includes the primary and secondary diagnoses documented for the Encounter. Date/Time Primary/Secondary Diagnosis Name Provider Source Diagnosis May 02, 2022 PRIMARY Type 2 diabetes JOLENE HERNANDEZ [facility] 10:27 AM mellitus with [place] unspecified complications Plan of Treatment: Future Appointments (+ 6 months) and Future Tests (+/- 45 days) The Plan of Treatment section includes future care activities for the patient from all [place] treatmentfacilities. This section includes future appointments and future orders which are active, pending orscheduled.Future Appointments This section includes appointments that were scheduled to occur 6 months from the date of the Encounter, up to a maximum of 20 appointments. The data comes from all [place] treatment facilities. Appointment Date/Time Appointment Type Appointment Facili ty Name May 27, 2022 11:00 AM [facility] [place] [facility] [place] [facility] Jun 09, 2022 10:30 AM AMBULATORY - MEDICINE [facility] [place] [facility] Active, Pending, and Scheduled Orders This section includes a listing of several types of active, pending, and scheduled orders, including clinic medications orders, diagnostic test orders, procedure orders and consult orders; where the start date of the order is 45 days before the date of the Encounter or 45 days after the date of the Encounter. The data comes from all [facility] facilities. Test Date/Time Test Type Test Details Facility Name May 02, 2022 12:00 AM Laboratory - Chemistry HEPATITIS A ANTIBOD Y [facility] Order (IGG) BLOOD [place] [facility] (SST-SERUM) SP May 27, 2022 11:35 AM Consult Order OPTOMETRY/NHM OUTPT [facility] Cons Target Protection Specialist's [place] [facility] Choice Lab Results: +/- 30 days of the encounter This section includes the Chemistry and Hematology Lab Results on record with [place] for the patient. Radiology Reports and Pathology Reports are provided separately, in subsequent sections.Lab Results This section contains the Chemistry/Hematology Results that were resulted 30 days before or 30 daysafter the date of the Encounter. Date/Time Source Result Type Result - Unit Interpretation Reference Range Comment May 02, 2022 [facility] WSN HEPATITIS B SURFACE Specimen Ty pe: SERUM 10:43 AM [place] [facility] ANTIBODY (HBsAb)-WH No comment e ntered. Ordering Provid er: JUMANA ROBERT Report Released Date/Time: May 02, 2022 08:27 AM Reporting Lab: [facility] [place] [facility] [address] [address] Performing Lab: [facility] [place] [facility] [address] [facility] [address] HBsAb Non Reactive Non Reactive May 02, 2022 [facility] HEPATITIS A ANTIBODY Specimen T ype: SERUM 10:43 AM [place] [facility] (IGG) Comment: Hep A IgG: A 'Non-reactive' result indicates no anti-HAV IgG was detected. Ordering Provid er: JUMANA ROBERT Report Released Date/Time: May 02, 2022 08:27 AM Reporting Lab: [facility] [place] [facility] [address] [address] Performing Lab: [facility] [place] [facility] [address] [facility] [address] HEPATITIS A ANTIBODY (IGG) Non Reactive Non Reactive May 02, 2022 [facility] HEMOGLOBIN A1C Specimen Type: BLOOD 10:43 AM [place] [facility] PANEL Comment: Values obtained from A1C measurements can vary. For typical A1C assays, a reported value of 7.0 could actually be between 6.72 and 7.28 if measured by a reference method. A reported value of 9 .0 could actuall y be between 8.73 and 9.27. Ref: http://www.ngsp.org/CAPdata.asp Ordering Provid er: JUMANA ROBERT Report Released Date/Time: May 02, 2022 08:27 AM Reporting Lab: [facility] [place] [facility] [address] [address] Performing Lab: [facility] [address] [address] HEMOGLOBIN A1C 5.1 4.0-5.6 May 02, 2022 [facility] LIPID PANEL Specimen Type: SERUM 10:43 AM [facility] FASTING No comment enter ed. Ordering Provid er: JUMANA ROBERT Report Released Date/Time: May 02, 2022 08:27 AM Reporting Lab: [facility] [place] [facility] [address] [address] Performing Lab: [facility] [address] [address] CHOLESTEROL 159 <7-199 TRIGLYCERIDE 172 H 0-150 LDL calculated 74 0-129 CHOL/HDL 3.1 HDL CHOLESTEROL 51 40-60 May 02, 2022 10:43 [facility] LIVER FUNCTION Specimen Typ e: SERUM AM [place] [facility] No comment enter ed. Ordering Provid er: JUMANA ROBERT Report Released Date/Time: May 02, 2022 08:27 AM Reporting Lab: [place] [facility] [place] [facility] [address] [address] Performing Lab: [place] [facility] [place] [facility] [address] [address] PROTEIN,TOTAL 7.0 6.0-8.3 ALBUMIN 4.0 3.5-5.0 ALKALINE PHOSPHATASE 76 40-150 AST 22 5-34 ALT 19 <6-55 BILIRUBIN, TOTAL 1.3 H 0.2-1.2 May 02, 2022 [facility] BASIC METABOLIC Specimen Type: SERUM 10:43 AM [place] [facility] PANEL (fasting) No comment enter ed. Ordering Provid er: JUMANA ROBERT Report Released Date/Time: May 02, 2022 08:27 AM Reporting Lab: [place] [facility] [place] [facility] [address] [address] Performing Lab: [place] [facility] [place] [facility] [address] [address] UREA NITROGEN 9 7-25 GLUCOSE 103 H [...] May 02, 2022 08:27 AM Reporting Lab: [place] [facility] [place] [facility] [address] [address] Performing Lab: [place] [facility] [place] [facility] [address] [address] TIBC 286 204-475 IRON 92 40-160 Transferrin Saturation 32.1 20.0-50 .0 May 02, 2022 10:43 [place] [facility] FERRITIN Specimen Typ e: SERUM AM [place] [facility] No comment enter ed. Ordering Provid er: JUMANA ROBERT Report Released Date/Time: May 02, 2022 08:27 AM Reporting Lab: [facility] [place] [facility] [address] [address] Performing Lab: [facility] [place] [facility] [address] [address] FERRITIN 336.8 H 20-300 May 02, 2022 [facility] MICROALBUMIN Specimen Type: URINE 10:43 AM [place] [facility] CREATININE RATIO PANEL No commen t entered. Ordering Provid er: JUMANA ROBERT Report Released Date/Time: May 02, 2022 08:27 AM Reporting Lab: [facility] [place] [facility] [address] [address] Performing Lab: [facility] [place] [facility] [address] [address] MICROALBUMIN/CREATININE RATIO canc 0-29.9 MICROALBUMIN,QUANTITATIVE < 0.5 RR U NAVAIL CREATININE URINE 58.98 May 02, 2022 [facility] CBC AND DIFF Specimen Type: BLOOD 10:43 AM [place] [facility] (AUTO) No comment enter ed. Ordering Provid er: JUMANA ROBERT Report Released Date/Time: May 02, 2022 08:27 AM Reporting Lab: [facility] [place] [facility] [address] [address] Performing Lab: [facility] [place] [facility] [address] [address] WBC 4.37 L 4.50-11.00 RBC 4.55 4.23-5.66 HGB 13.4 12.8-17 HCT 40.2 39.2-50.4 MCV 88.4 82-99 MCHC 33.3 30.8-35.1 PLT 167 140-360 RDW-CV 13.7 12.0-16.0 Coffee, Abs 0.44 0.30-1.10 MCH 29.5 26.2-32.6 Neut % 49.9 Lymph % 34.3 Coffee % 10.1 Eos % 5.0 Baso % 0.2 Neut, Abs 2.18 L 2.20-7.60 Lymph, Abs 1.50 1.00-3.20 Eos, Abs 0.22 0.03-0.44 Baso, Abs 0.01 0.01-0.13 Immature Gran % 0.5 Immature Gran, Abs 0.02 0.00-0.06 May 02, 2022 [place] CN[facility]L [facility] BILIRUBIN, DIRECT Specimen Type : SERUM 10:43 AM [facility] No comment enter ed. Ordering Provid er: JUMANA ROBERT Report Released Date/Time: May 02, 2022 08:27 AM Reporting Lab: [facility] W[facility]N [facility] [address] [address] Performing Lab: [place] CNT WSTRN [facility] [address] [address] BILIRUBIN, DIRECT 0.5 0-0.5 Social History: Smoking Status (Most current) and Tobacco Use (All prior to encounter date) This section includes the most current, and the historical, smoking and tobacco-related health factors from the [place] facility where the Encounter took place.Current Smoking Status This section includes the most current smoking, or tobacco-related health factor, from the [place] facility where the Encounter took place. Date/Time Current Smoking Status Comment Facility April 17, 2022 10:54 AM VA-TOBACCO FORMER USER [place] [facility] Tobacco Use History This section includes a history of the smoking, or tobacco- related health factors, that were collected on or before the date of the Encounter. The data comes from the [place] facility where the Encounter took place. Date/Time Smoking Status/Tobacco Use Comment [facility] April 17, 2022 10:54 AM VA-TOBACCO QUIT 15 YRS OR [facility] CN[facility] [place] [facility] Jun 16, 2018 11:59 AM VA-TOBACCO FORMER USER [place] [place] [facility] Jun 16, 2018 11:59 AM VA-TOBACCO QUIT 5 TO < 15 YRS [place] [facility] [place] [facility] May 12, 2018 09:43 AM QUIT TOBACCO USE > 7 YEARS [place] [facility] [place] [facility] Jun 06, 2016 09:32 AM QUIT TOBACCO USE > 7 YEARS [place] CN[facility] [place] AGO . [facility] Oct 04, 2013 09:16 AM QUIT TOBACCO USE > 7 YEARS [place] CNTR WSTR[place] AGO . [facility] Advance Directives: All historical and current Section Date Range: From patient's date of to the date document was created. This section includes ALL of a patient's completed or amended [place] Advance and Rescinded Directives. The entries below indicate that a directive exists for the patient, but an actual copy is not included with this document. The data comes from all [place] facilities. Date Advance Directives Provider Source Jan 18, 2021 ADVANCE DIRECTIVE RICKJOHNNY AGUIRRE [place] CNTR WSTRN [facility] Encounter Notes: All associated encounter notes This section contains the clinical notes associated to the Encounter. Date/Time Encounter Note(s) Provider Source May 02, 2022 10:26 AM NURSING OUTPATIENT NOTE: JOLENE HERNANDEZ CNTRL [facility] LOCAL TITLE: NURSING/SPECIALTY CLINIC NOTE [facility] STANDARD TITLE: NURSING OUTPATIENT NOTE DATE OF NOTE: MAY 02, 2022@10:26 ENTRY DATE: MAY 02, 2022@10:26:10 AUTHOR: JOLENE HERNANDEZ EXP COSIGNER: URGENCY: STATUS: COMPLETED F: Shoe Fitting D/A: Patient received and was fitted for shoes. Instructed on the proper breaking in of the shoes. Patient informed to ca with any problems or concerns. Dx.: Type 2 Diabetes Mellitus with unspecified Complications /nella/ JOLENE HERNANDEZ LPN LICENSED PRACTICAL NURSE Signed: 05/02/2022 10:27
--- OUTSIDE RECORDS SUMMARY | 2022-10-14 16:27 | XMS_ITS | Continuity of Care Document ---
:1950 Author Organization [facility] Care Team Providers Name Role Phone [facility] Unavailable Unavailable Problems Combined list of problems from Department of Defense and Veterans Affairs facilities. It does not include entries that were removed or entered in error. Problem Status Onset Problem Date of Comments Source Date Type Resolution AF- Atrial Active Condition [facility] Fibrillation ([facility] [id number]) [place] [facility] ALCOHOL DEPENDENCY, Active Condition [facility] UNSPEC [facility] [place] [facility] Benign hypertension Active Condition [facility] [place] [facility] Colonic polyp Active Condition Jun 30, 2015 [facility] Entered By: CLYDE ARREDONDO AM F Comment: 2 HCS TAs and Diverticulosis on 2011 colonoscopy. Diabetes mellitus Active Condition [facility] [place] [facility] Hyperlipidemia Active Condition [facility] [place] [facility] Long-term current Active Condition [facility] use of anticoagulant [facility] [place] [facility] Osteoarthritis of Active Condition Oct 04 013 [facility] knee Entered By: CLYDE ARREDONDO AM F Comment: HCS S/P left TKA Mar, 2012. Diagnosis: ICD-10-CM Active Diagnosis [facility] I48.91 Unspecified [facility] atrial [place] fibrillationwith HCS Provider Comments: AF- Atrial Fibrillation ([facility] [id number]) Diagnosis: ICD-10-CM Active Diagnosis [facility] M17.9 Osteoarthritis [facility] of knee, [place] unspecifiedwith HCS Provider Comments: Osteoarthritis of knee ([facility] [id number]) Diagnosis: ICD-10-CM Active Diagnosis [facility] E11.8 Type 2 [facility] diabetes mellitus [place] with unspecified HCS complicationswith Provider Comments: Type 2 Diabetes Mellitus with unspecified Complications Diagnosis: ICD-10-CM Active Diagnosis [facility] E11.8 Type 2 [facility] diabetes mellitus [place] with unspecified HCS complicationswith Provider Comments: Diabetes mellitus ([facility] [id number]) Diagnosis: ICD-10-CM Active Diagnosis [facility] Z71.89 Other [facility] specified [place] counselingwith HCS Provider Comments: Other specified counseling Diagnosis: ICD-10-CM Active Diagnosis [place] Z04.89 Encounter for [facility]OC examination and observation for oth reasonswith Provider Comments: Encounter & Observation for Oth Spec Reason Diagnosis: ICD-10-CM Active Diagnosis [facility] E11.9 Type 2 [facility] diabetes mellitus [place] without HCS complicationswith Provider Comments: Type 2 Diabetes Mellitus without Complications Diagnosis: ICD-10-CM Active Diagnosis [place] Z51.81 Encounter for [facility]OC therapeutic drug level monitoringwith Provider Comments: Therapeutic Drug Level Monitoring Diagnosis: ICD-10-CM Active Diagnosis [facility] I11.9 Hypertensive [facility] heart disease [place] without heart HCS failurewith Provider Comments: Benign hypertension ([facility] [id number]) Diagnosis: ICD-10-CM Active Diagnosis [facility] Z79.01 halfway WST RN (current) use of [place] anticoagulantswith H CS Provider Comments: Long-term current use of anticoagulant ([facility] [id number]) Medications Combined list of outpatient medications from Department of Defense and Veterans Affairs facilities. Medications provided include 1) outpatient medications from the last 15 months, and 2) patient-reported medications. Medication Details Route Status Patient Prescription Prescription Last Ordering Order Source Instructions Expires Number Dispense Provider Date Date AMLODIPINE TAKE ONE ORAL ACTIVE YESICA 06/20/ [facility] BESYLATE TABLET ,2015 [facility] 5MG TAB BY MOUTH F [facility] DAILY [place] [facility] APIXABAN TAKE ONE ORAL ACTIVE 05/28/2023 [id number] NORBERTOE R 05/27/ [facility] 5MG TAB TABLET 2021 [facility] BY MOUTH F [facility] TWICE [place] [facility] REPLAC [facility] ES PRADAXA* * APIXABAN TAKE ONE ORAL DISCONT 01/13/2023 [id number] VANWAG NER 02/06/ [facility] 5MG TAB TABLET INUED 2021 [facility] BY MOUTH (EDIT) F [facility] TWICE [place] [facility] REPLAC [facility] ES PRADAXA* * APIXABAN TAKE ONE ORAL DISCONT 04/30/2022 [id number] VANWAG NER 05/13/ [facility] 5MG TAB TABLET INUE 2 ,2020 [facility] BY MOUTH F [facility] TWICE [place] [facility]ILY [facility] REPL[facility] ES PRADAXA* * ATORVASTATI TAKE ORAL ACTIVE WOOTEN,RA 02/05/ VA N CA 40MG ONE-HALF IMONDA 2021 [facility] TAB TABLET REY [facility] BY MOUTH [place] ONCE [facility] DAILY HCS GLIPIZIDE TAKE ONE ORAL ACTIVE VANWAGNER 06/05/ V A 5MG TAB TABLET ,2014 [facility] BY MOUTH F [facility] [place] [facility] LISINOPRIL TAKE ONE ORAL ACTIVE VANWAGNER VA 10MG TAB TABLET ,2015 [facility] BY MOUTH F [facility] [place] [facility] METOPROLOL TAKE ONE ORAL ACTIVE VANWAGNER 06/20/ [facility] SUCCINATE TABLET ,2015 [facility] 50MG TAB,SA BY MOUTH F [facility] [place] [facility] Allergies, Adverse Reactions, Alerts Combined list of allergies from Department of Defense and Veterans Affairs facilities. It does not include entries that were removed or entered in error. Substance Category Reaction Severity Reaction Status Date Comments S ource type Reported GABAPENTIN Propensity Depressive Propensity active [facility] to adverse disorder to adverse 6 [facility] reactions reactions [place] to drug to drug ETS HCS (finding) (finding) Immunizations Combined list of available immunizations from the Department of Defense and Veterans Affairs facilities. Immunization Series Date Administered Site Reaction Lot CVX Drug St atus Comments Source Given By Number Code Teletype Installer ZOSTER 2 complet [facility] RECOMBINANT 2021 ed [facility] [place] [facility] TDAP complet [facility] 2020 ed [facility] [place] [facility] ZOSTER 1 complet [facility] RECOMBINANT 2020 ed [facility] [place] [facility] COVID-19 2 complet PFR; VA (PFIZER), 2020 ed [id number]; CN T[facility] MRNA, LNP-S, 02 [facility] PF, 30 1 [place] MCG/0.3 ML [facility] DOSE [facility]CS COVID-19 1 complet PFR; VA (ClearServe), 2020 ed [id number]; CN TRL MRNA, LNP-S, 02 [facility] PF, 30 1 [place] MCG/0.3 ML SET S DOSE HCS INFLUENZA, complet [facility] UNSPECIFIED 2019 ed [facility] FORMULATION WS [facility]N [place] [facility] HEP A-HEP B 1 06/15/ NONE 104 complet raad ated [facility] 2018 ed [facility] [place] [facility] PNEUMOCOCCAL complet [facility] CONJUGATE PCV 2018 ed [facility]L 13 [facility] [place] [facility] INFLUENZA, complet [facility] SEASONAL, 2017 ed [facility]TR [facility] INJECTABLE WST RN [place] [facility] PNEUMOCOCCAL complet scan ct [facility] 2017 [facility] 13 [facility] [place] [facility] PNEUMOCOCCAL complet [facility] POLYSACCHARID 2016 ed [facility] E PPV23 [facility] [place] [facility] FLU,3 YRS complet V A (HISTORICAL) 2016 ed C NTRL [facility] [place] [facility] FLU,3 YRS complet V A (HISTORICAL) 2012 ed C [facility]L [facility] [place] [facility] Results Combined list of recent chemistry, hematology and other laboratory results from Department of Defense and Veterans Affairs, ranging from 15 months to all on record, depending upon the facility. Order Results Value Reference Date Interpretation Specimen Commen ts Source Name Range HEPATITI HEPATITIS Non 05/02 Specimen Type : [facility] [place] [facility] B B VIRUS Reactive /2021 No comment ente red. [facility] SURFACE SURFACE AB Ordering Pro vider: JUMANA ROBERT ANTIBODY [PRESENCE] Report Rele ased Date/Time: May 02, 2022 08:27 AM TS HCS (HBsAb)- IN SERUM Reporting Lab : [place] [facility] [place] [facility] WH BY [address] [facility] [address] IMMUNOASSA Performing L ab: [facility] [place] [facility] Y [address] [place] [facility] [address] HEPATITI HEPATITIS Non 05/02 Specimen Type : [facility] [place] [facility] A A VIRUS Reactive /2021 Comment: Hep A IgG: A 'Non-reactive' result indicates no anti-HAV IgG was detected. [facility] ANTIBODY IGG AB Ordering Provi antoine: JUMANA ROBERT (IGG) [PRESENCE] Report Rele ased Date/Time: May 02, 2022 08:27 AM [facility] IN SERUM Reporting [facility] [address] [facility] [address] Per[facility]: [facility] [address] [facility] [address] HEMOGLOB HEMOGLOBIN 5.1 4.0 - 5.6 05/02 Specimen T ype: BLOOD [facility] IN A1C A1C/HEMOGL /2021 Comment: Clau ues obtained from A1C measurements can vary. For typical A1C assays, a reported value of 7.0 could actually be between 6.72 and 7.28 if measured by a reference method. A reported value of 9 W[facility] PANEL OBIN.TOTAL .0 could actu ally be between 8.73 and 9.27. Ref: [email or web address] [place] IN BLOOD Ordering Provi antoine: JUMANA ROBERT [facility] BY HPLC Report Released Date/Time: May 02, 2022 08:27 AM Reporting Lab: [facility] [address] [facility] [address] Performing [facility]: [facility] [address] [facility] [address] LIPID CHOLESTERO 159 7 - 199 06/10 Specimen Type : SERUM [facility] PANEL No comment enter ed. [facility] FASTING [MASS/VOLU Ordering Pro vider: JUMANA ROBERT [place]] IN Report Released Date/Time: May 02, 2022 08:27 AM [facility] SERUM OR Reporting Lab: [facility] PLASMA [address] [facility] [address] Per[facility]: [facility] [address] [facility] [address] LIPID TRIGLYCERI 172 0 - 150 06/10 H Specimen Type : SERUM [facility] PANEL DE No comment enter ed. [facility] FASTING [MASS/VOLU Ordering Pro vider: JUMANA ROBERT [place]] IN Report Released Date/Time: May 02, 2022 08:27 AM [facility] SERUM OR Reporting Lab: [facility] [place] [facility] PLASMA [address] [facility] [address] Performing Lab: [facility] [place] [facility] [address] [facility] [address] LIPID CHOLESTERO 74 0 - 129 05/02 Specimen Type : SER[facility] PANEL L IN LDL /2021 No comment ente red. [facility] FASTING [MASS/VOLU Ordering Pro vider: JUMANA ROBERT [place]] IN Report Released Date/Time: May 02, 2022 08:27 AM TS [facility] SERUM OR Reporting Lab: [facility] [place] [facility] PLASMA BY [address] [facility] [address] CALCULATIO Performing L ab: [facility] [place] [facility] N [address] [facility] [address] LIPID CHOLESTERO 3.1 05/02 Specimen Type : SER[facility] PANEL L.TOTAL/CH /2021 No comment en tered. [facility] FASTING OLESTEROL Ordering Prov ider: JUMANA ROBERT IN HDL Report Released Date/Time: May 02, 2022 08:27 AM TS [facility] [MASS Reporting Lab: [facility] [place] [facility] RATIO] [place] [address] [facility] [address] SERUM OR Performing Lab : [facility] [place] [facility] PLASMA [address] [facility] [address] LIPID CHOLESTERO 51 40 - 60 05/02 Specimen Type : SERUM [facility] PANEL L IN HDL /2021 No comment ente red. WSTRN FASTING [MASS/VOLU Ordering Pro vider: JUMANA ROBERT [place]] IN Report Released Date/Time: May 02, 2022 08:27 AM TS [facility] SER[facility] OR Reporting Lab: [facility] [place] [facility] PLASMA [address] [facility] [address] Performing Lab: [facility] [place] [facility] [address] [facility] [address] LIVER PROTEIN 7.0 6.0 - 8.3 05/02 Specimen Type: SER[facility] FUNCTION [MASS/VOLU /2021 No comment e ntered. WSTRN [place]] IN Ordering Provid er: JUMANA ROBERT [facility] OR Report Release d Date/Time: May 02, 2022 08:27 AM TS [facility] PLASMA Reporting Lab: [facility] [place] [place] [facility] [address] [facility] [address] Performing Lab: [facility] [place] [facility] [address] [facility] [address] LIVER ALBUMIN 4.0 3.5 - 5.0 05/02 Specimen Type: SERUM [facility] FUNCTION [MASS/VOLU /2021 No comment e ntered. WSTRN [place]] IN Ordering Provid er: JUMANA ROBERT [facility] OR Report Release d Date/Time: May 02, 2022 08:27 AM TS [facility] PLASMA Reporting Lab: [facility] [place] [facility] [address] [facility] [address] Performing Lab: [facility] [place] [facility] [address] [facility] [address] LIVER ALKALINE 76 40 - 150 05/02 Specimen Type: SERUM [facility] FUNCTION PHOSPHATAS /2021 No comment e ntered. WSTRN E Ordering Provid er: JUMANA ROBERT [ENZYMATIC Report Relea sed Date/Time: May 02, 2022 08:27 AM TS [facility] ACTIVITY/V Reporting La b: [facility] [place] [facility] OLUME] [place] [address] [facility] [address] SERUM OR Performing Lab : [facility] [place] [facility] PLASMA [address] [facility] [address] LIVER ASPARTATE 22 5 - 34 05/02 Specimen Type: SERUM [facility] FUNCTION AMINOTRANS /2021 No comment e ntered. W[facility]N FERASE Ordering Provid er: JUMANA ROBERT [ENZYMATIC Report Relea sed Date/Time: May 02, 2022 08:27 AM TS [facility] ACTIVITY/V Reporting La b: [facility] [place] [facility] [place]] [place] [address] [facility] [address] SERUM OR Performing Lab : [facility] [place] [facility] PLASMA [address] [facility] [address] LIVER ALANINE 19 6 - 55 06/10 Specimen Type: S KHAI [facility] FUNCTION AMINOTRANS /2021 No comment e ntered. WSTRN FERASE Ordering Provid er: JUMANA ROBERT [ENZYMATIC Report Relea sed Date/Time: May 02, 2022 08:27 AM TS [facility] ACTIVITY/V Reporting La b: [facility] [place] [facility] [place]] [place] [address] [facility] [address] SERUM OR Performing Lab : [facility] [place] [facility] PLASMA [address] [facility] [address] LIVER BILIRUBIN. 1.3 0.2 - 1.2 06/10 H Specimen Ty pe: SERUM [facility] FUNCTION TOTAL /2021 No comment ente red. WSTRN [MASS/VOLU Ordering Pro vider: JUMANA ROBERT [place]] IN Report Released Date/Time: May 02, 2022 08:27 AM [facility] SERUM OR Reporting Lab: [facility] [place] [facility] PLASMA [address] [facility] [address] Performing Lab: [facility] [place] [facility] [address] [facility] [address] BASIC UREA 9 7 - 25 0610 Specimen Type: S KHAI [facility] METABOLI NITROGEN /2021 No comment ent ered. WSTRN C PANEL [MASS/VOLU Ordering Pro vider: JUMANA ROBERT (fasting [place]] IN Report Release d Date/Time: May 02, 2022 08:27 AM TS [facility] ) SERUM OR Reporting Lab: [facility] [place] [facility] PLASMA [address] [facility] [address] Performing Lab: [facility] [place] [facility] [address] [facility] [address] BASIC GLUCOSE 103 65 - 100 06/10 H Specimen Type: SERUM [facility] METABOLI [MASS/VOLU /2021 No comment e ntered. WSTRN C PANEL ME] IN Ordering Provid er: JUMANA ROBERT (fasting SERUM OR Report Releas ed Date/Time: May 02, 2022 08:27 AM TS HCS ) PLASMA Reporting Lab: [facility] [place] [facility] [address] [facility] [address] Performing Lab: [facility] [address] [facility] [address] BASIC SODIUM 139 135 - 145 06 Specimen Type: SERUM [facility] METABOLI [MOLES/VOL /2021 No comment e ntered. WSTRN C PANEL UME] IN Ordering Provid er: JUMANA ROBERT (fasting SERUM OR Report Releas ed Date/Time: May 02, 2022 08:27 AM [facility] ) PLASMA Reporting Lab: [facility] [place] [facility] [address] [facility] [address] Performing Lab: [facility] [address] [facility] [address] BASIC POTASSIUM 4.1 3.5 - 5.0 05/02 Specimen Typ e: SERUM [facility] METABOLI [MOLES/VOL /2021 No comment e ntered. WSTRN C PANEL UME] IN Ordering Provid er: JUMANA ROBERT (fasting SERUM OR Report Releas ed Date/Time: May 02, 2022 08:27 AM [facility] ) PLASMA Reporting Lab: [facility] [place] [facility] [address] [facility] [address] Performing Lab: [facility] [address] [address] BASIC CHLORIDE 101 100 - 110 05/02 Specimen Type : SERUM [facility] METABOLI [MOLES/VOL /2021 No comment e ntered. WSTRN C PANEL UME] IN Ordering Provid er: JUMANA ROBERT (fasting SERUM OR Report Releas ed Date/Time: May 02, 2022 08:27 AM [facility] ) PLASMA Reporting Lab: [facility] [place] [facility] [address] [facility] [address] Performing Lab: [facility] [place] [facility] [address] [facility] [address] BASIC CARBON 28 20 - 30 05/02 Specimen Type: S KHAI [facility] METABOLI DIOXIDE, /2021 No comment ent ered. WSTRN C PANEL TOTAL Ordering Provid er: JUMANA ROBERT (fasting [MOLES/VOL Report Rele ased Date/Time: May 02, 2022 08:27 AM TS [facility] ) UME] IN Reporting Lab: [facility] [place] [facility] SERUM OR [address] [facility] [address] PLASMA Performing Lab: [facility] [place] [facility] [address] [facility] [address] BASIC CREATININE 1.11 0.50 - 05/02 Specimen Type : SERUM [facility] METABOLI [MASS/VOLU 1.40 /2021 No comment e ntered. WSTRN C PANEL ME] IN Ordering Provid er: JUMANA ROBERT (fasting SERUM OR Report Releas ed Date/Time: May 02, 2022 08:27 AM [facility] ) PLASMA Reporting Lab: [facility] [place] [facility] [address] [facility] [address] Performing Lab: [facility] [place] [facility] [address] [facility] [address] BASIC GLOMERULAR 71 60 05/02 Specimen Type : SERUM [facility] METABOLI FILTRATION /2021 No comment e ntered. WSTRN C PANEL RATE/1.73 Ordering Prov ider: JUMANA ROBERT (fasting SQ Report Release d Date/Time: May 02, 2022 08:27 AM [facility] ) SANJUANITA Reporting La b: [facility] [place] [facility] D [VOLUME [address] [facility] [address] RATE/AREA] Performing L ab: [facility] [place] [facility] IN SER[facility], [address] [facility] [address] PLASMA OR BLOOD BY CREATININE -BASED FORMULA (CKD-EPI) IRON & IRON 286 204 - 475 05/02 Specimen Type: SERUM [facility] TIBC BINDING /2021 No comment enter ed. WSTRN PANEL CAPACITY Ordering Provi antoine: JUMANA ROBERT [MASS/VOLU Report Relea sed Date/Time: May 02, 2022 08:27 AM [facility] ME] IN Reporting Lab: [facility] [place] [facility] SERUM OR [address] [facility] [address] PLASMA Performing Lab: [facility] [place] [facility] [address] [facility] [address] IRON & IRON 92 40 - 160 0610 Specimen Type: SERUM [facility] TIBC [MASS/VOLU /2021 No comment en tered. WSTRN PANEL ME] IN Ordering Provid er: JUMANA ROBERT [place] SER[facility] OR Report Release d Date/Time: May 02, 2022 08:27 AM TS [facility] PLASMA Reporting Lab: [facility] [place] [facility] [address] [facility] [address] Performing Lab: [facility] [place] [facility] [address] [facility] [address] IRON & IRON/IRON 32.1 20.0 - 0610 Specimen Type: SERUM [facility] TIBC BINDING 50.0 /2021 No comment enter ed. WSTRN PANEL CAPACITY.T Ordering Pro vider: JUMANA ROBERT [place] OTAL [MASS Report Relea sed Date/Time: May 02, 2022 08:27 AM TS HCS RATIO] IN Reporting Lab : [facility] SER[facility] OR [address] [facility] [address] PLASMA Performing Lab: [facility] [address] [address] FERRITIN FERRITIN 336.8 20 - 300 06/10 H Specimen Type : SERUM [facility] [MASS/VOLU /2021 No comment en tered. WSTRN ME] IN Ordering Provid er: JUMANA ROBERT [place] SERUM OR Report Release d Date/Time: May 02, 2022 08:27 AM TS [facility] PLASMA Reporting Lab: [facility] [place] [address] [address] Performing Lab: [facility] [place] [address] [address] CBC AND LEUKOCYTES 4.37 4.50 - 06/10 L Specimen Type : BLOOD [facility] DIFF [#/VOLUME] 11.00 No comment en tered. WSTRN (AUTO) IN BLOOD Ordering Provi antoine: JUMANA ROBERT BY Report Released Date/Time: May 02, 2022 08:27 AM TS [facility] AUTOMATED Reporting Lab : [facility] [place] [facility] COUNT [address] [facility] [address] Performing Lab: [facility] [place] [facility] [address] [facility] [address] CBC AND ERYTHROCYT 4.55 4.23 - 05/02 Specimen Type : BLOOD [facility] DIFF ES 5.66 No comment enter ed. WSTRN (AUTO) [#/VOLUME] Ordering Pro vider: JUMANA ROBERT IN BLOOD Report Release d Date/Time: May 02, 2022 08:27 AM TS [facility] BY Reporting Lab: [facility] [place] [facility] AUTOMATED [address] [facility] [address] COUNT Performing Lab: [facility] [place] [facility] [address] [facility] [address] CBC AND HEMOGLOBIN 13.4 12.8 - 17 05/02 Specimen Ty pe: BLOOD [facility] DIFF [MASS/VOLU /2021 No comment en tered. WSTRN (AUTO) ME] IN Ordering Provid er: JUMANA ROBERT BLOOD Report Released Date/Time: May 02, 2022 08:27 AM TS [facility] Reporting Lab: [facility] [place] [facility] [address] [facility] [address] Performing Lab: [facility] [place] [facility] [address] [facility] [address] CBC AND HEMATOCRIT 40.2 39.2 - 05/02 Specimen Type : BLOOD [facility] DIFF [VOLUME 50.4 No comment enter ed. WSTRN (AUTO) FRACTION] Ordering Prov ider: JUMANA ROBERT OF BLOOD Report Release d Date/Time: May 02, 2022 08:27 AM TS [facility] BY Reporting Lab: [facility] [place] [facility] AUTOMATED [address] [facility] [address] COUNT Performing Lab: [facility] [place] [facility] [address] [facility] [address] CBC AND MCV 88.4 82 - 99 05/02 Specimen Type: B LOOD [facility] DIFF [ENTITIC /2021 No comment ente red. WSTRN (AUTO) VOLUME] BY Ordering Pro vider: JUMANA ROBERT AUTOMATED Report Releas ed Date/Time: May 02, 2022 08:27 AM TS [facility] COUNT Reporting Lab: [facility] [place] [facility] [address] [facility] [address] Performing Lab: [facility] [place] [facility] [address] [facility] [address] CBC AND MCHC 33.3 30.8 - 05/02 Specimen Type: B LOOD [facility] DIFF [MASS/VOLU 35.1 No comment en tered. WSTRN (AUTO) ME] BY Ordering Provid er: JUMANA ROBERT AUTOMATED Report Releas ed Date/Time: May 02, 2022 08:27 AM TS [facility] COUNT Reporting Lab: [facility] [place] [facility] [address] [facility] [address] Performing Lab: [facility] [place] [facility] [address] [facility] [address] CBC AND PLATELETS 167 140 - 360 05/02 Specimen Typ e: BLOOD [facility] DIFF [#/VOLUME] /2021 No comment en tered. WSTRN (AUTO) IN BLOOD Ordering Provi antoine: JUMANA ROBERT BY Report Released Date/Time: May 02, 2022 08:27 AM TS [facility] AUTOMATED Reporting Lab : [facility] [place] [facility] COUNT [address] [facility] [address] Performing Lab: [facility] [place] [facility] [address] [facility] [address] CBC AND ERYTHROCYT 13.7 12.0 - 05/02 Specimen Type : BLOOD [facility] DIFF E 16.0 No comment enter ed. [facility] (AUTO) DISTRIBUTI Ordering Pro vider: JUMANA ROBERT ON WIDTH Report Release d Date/Time: May 02, 2022 08:27 AM [facility] [RATIO] BY Reporting La b: [facility] [place] [facility] AUTOMATED [address] [facility] [address] COUNT Performing Lab: [facility] [place] [facility] [address] [facility] [address] CBC AND MONOCYTES 0.44 0.30 - 05/02 Specimen Type: BLOOD [facility] DIFF [#/VOLUME] 1.10 No comment en tered. [facility] (AUTO) IN BLOOD Ordering Provi antoine: JUMANA ROBERT BY Report Released Date/Time: May 02, 2022 08:27 AM [facility] AUTOMATED Reporting Lab : [facility] [place] [facility] [address] [facility] [address] Performing Lab: [facility] [place] [facility] [address] [facility] [address] CBC AND MCH 29.5 26.2 - 05/02 Specimen Type: B LOOD [facility] DIFF [ENTITIC 32.6 No comment ente red. [facility] (AUTO) MASS] BY Ordering Provi antoine: JUMANA ROBERTCHMADISYN AUTOMATED Report Releas ed Date/Time: May 02, 2022 08:27 AM [facility] COUNT Reporting Lab: [facility] [place] [facility] [address] [facility] [address] Performing Lab: [facility] [place] [facility] [address] [facility] [address] CBC AND NEUTROPHIL 49.9 0610 Specimen Type : BLOOD [facility] DIFF S/ No comment enter ed. WSTRN (AUTO) LEUKOCYTES Ordering Pro vider: JUMANA ROBERTCHUSE IN BLOOD Report Release d Date/Time: May 02, 2022 08:27 AM [facility] BY Reporting Lab: [facility] [place] [facility] AUTOMATED [address] [facility] [address] COUNT Performing Lab: [facility] [place] [facility] [address] [facility] [address] CBC AND LYMPHOCYTE 34.3 06/10 Specimen Type : BLOOD [facility] DIFF S/100 No comment enter ed. WSTRN (AUTO) LEUKOCYTES Ordering Pro vider: VANWAGNER,JUMANA F [place] IN BLOOD Report Release d Date/Time: May 02, 2022 08:27 AM [facility] BY Reporting Lab: [facility] [place] [facility] AUTOMATED [address] [facility] [address] COUNT Performing Lab: [facility] [place] [facility] [address] [facility] [address] CBC AND MONOCYTES/ 10.1 06/10 Specimen Type : BLOOD [facility] DIFF 100 No comment enter ed. WSTRN (AUTO) LEUKOCYTES Ordering Pro vider: JUMANA ROBERT [place] IN BLOOD Report Release d Date/Time: May 02, 2022 08:27 AM [facility] BY Reporting Lab: [facility] [place] [facility] AUTOMATED [address] [facility] [address] COUNT Performing Lab: [facility] [place] [facility] [address] [facility] [address] CBC AND EOSINOPHIL 5.0 06/10 Specimen Type : BLOOD [facility] DIFF S/100 /2021 No comment enter ed. WSTRN (AUTO) LEUKOCYTES Ordering Pro vider: JUMANA ROBERT [place] IN BLOOD Report Release d Date/Time: May 02, 2022 08:27 AM [facility] BY Reporting Lab: [facility] [place] [facility] AUTOMATED [address] [facility] [address] COUNT Performing Lab: [facility] [place] [facility] [address] [facility] [address] CBC AND BASOPHILS/ 0.2 06/10 Specimen Type : BLOOD [facility] DIFF 100 No comment enter ed. WSTRN (AUTO) LEUKOCYTES Ordering Pro vider: JUMANA RBOERT [place] IN BLOOD Report Release d Date/Time: May 02, 2022 08:27 AM [facility] BY Reporting Lab: [facility] [place] [facility] AUTOMATED [address] [facility] [address] COUNT Performing Lab: [facility] [place] [facility] [address] [facility] [address] CBC AND NEUTROPHIL 2.18 2.20 - 06/10 L Specimen Type : BLOOD [facility] DIFF S 7.60 /2021 No comment enter ed. WSTRN (AUTO) [#/VOLUME] Ordering Pro vider: JUMANA ROBERT IN BLOOD Report Release d Date/Time: May 02, 2022 08:27 AM [facility] BY Reporting Lab: [facility] [place] [facility] AUTOMATED [address] [facility] [address] COUNT Performing Lab: [facility] [place] [facility] [address] [facility] [address] CBC AND LYMPHOCYTE 1.50 1.00 - 06/10 Specimen Type : BLOOD [facility] DIFF S 3.20 /2021 No comment enter ed. WSTRN (AUTO) [#/VOLUME] Ordering Pro vider: JUMANA ROBERT IN BLOOD Report Release d Date/Time: May 02, 2022 08:27 AM [facility] BY Reporting Lab: [facility] [place] [facility] AUTOMATED [address] [facility] [address] COUNT Performing Lab: [facility] [place] [facility] [address] [facility] [address] CBC AND EOSINOPHIL 0.22 0.03 - 06/ Specimen Type : BLOOD [facility] DIFF S 0.44 /2021 No comment enter ed. WSTRN (AUTO) [#/VOLUME] Ordering Pro vider: JUMANA ROBERT IN BLOOD Report Release d Date/Time: May 02, 2022 08:27 AM [facility] BY Reporting Lab: [facility] [place] [facility] AUTOMATED [address] [facility] [address] COUNT Performing Lab: [facility] [place] [facility] [address] [facility] [address] CBC AND BASOPHILS 0.01 0.01 - 06/10 Specimen Type: BLOOD [facility] DIFF [#/VOLUME] 0.13 /2021 No comment en tered. WSTRN (AUTO) IN BLOOD Ordering Provi antoine: JUMANA ROBERT BY Report Released Date/Time: May 02, 2022 08:27 AM TS [facility] AUTOMATED Reporting Lab : [facility] [place] [facility] COUNT [address] [facility] [address] Performing Lab: [facility] [place] [facility] [address] [facility] [address] CBC AND IMMATURE 0.5 05/02 Specimen Type: BLOOD [facility] DIFF GRANULOCYT /2021 No comment en tered. WSTRN (AUTO) ES/100 Ordering Provid er: JUMANA ROBERT LEUKOCYTES Report Relea sed Date/Time: May 02, 2022 08:27 AM [facility] IN BLOOD Reporting Lab: [facility] [place] [facility] BY [address] [facility] [address] AUTOMATED Performing La b: [facility] [place] [facility] COUNT [address] [facility] [address] CBC AND IMMATURE 0.02 0.00 - 05/02 Specimen Type: BLOOD [facility] DIFF GRANULOCYT 0.06 No comment en tered. WSTRN (AUTO) ES Ordering Provid er: JUMANA ROBERT [#/VOLUME] Report Relea sed Date/Time: May 02, 2022 08:27 AM [facility] IN BLOOD Reporting Lab: [facility] [place] [facility] [address] [facility] [address] Performing Lab: [facility] [place] [facility] [address] [facility] [address] MICROALB MICROALBUM canc 0 - 29.9 05/02 Specimen Ty pe: URINE [facility] UMIN IN/CREATIN No comment en tered. WSTRN CREATINI INE [MASS Ordering Pro vider: JUMANA ROBERT NE RATIO RATIO] IN Report Relea sed Date/Time: May 02, 2022 08:27 AM TS [facility] PANEL URINE Reporting Lab: [facility] [place] [facility] [address] [facility] [address] Performing Lab: [facility] [place] [facility] [address] [facility] [address] MICROALB MICROALBUM < 0.5 05/02 Specimen Typ e: URINE [facility] UMIN IN No comment enter ed. WSTRN CREATINI [MASS/VOLU Ordering Pr ovider: JUMANA ROBERT NE RATIO ME] IN Report Release d Date/Time: May 02, 2022 08:27 AM [facility] PANEL URINE Reporting Lab: [facility] [place] [facility] [address] [facility] [address] Performing Lab: [place] [facility] [place] [facility] [address] [facility] [address] MICROALB CREATININE 58.98 05/02 Specimen Typ e: URINE [place] [facility] UMIN [MASS/VOLU /2021 No comment en tered. 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 Vital Sign Value Date Comments Source SYSTOLIC BLOOD PRESSURE 130 05/27/2022 [facility] 11:21:24 [place] [facility] DIASTOLIC BLOOD PRESSURE 56 05/27/2022 [facility] 11[facility] [place] [facility] PULSE OXIMETRY 97% 05/27/2022 [facility] 11:21:[facility] [place] [facility] WEIGHT 218 05/27/2022 [facility] 11[facility] [place] [facility] BMI 35kg/m2 05/27/2022 [facility] 11[facility] [place] [facility] PAIN 0 05/27/2022 [facility] 11[facility] [place] [facility] TEMPERATURE 99 05/27/2022 [facility] 11[facility] [place] [facility] PULSE 78 05/27/2022 [facility] 11[facility] [place] [facility] RESPIRATION 16 05/27/2022 [facility] 11[facility] [place] [facility] Encounters Combined list of: 1) Encounters from Department of Veterans Affairs facilities going back up to the last 18 months. 2) Encounters from the Department of Defense facilities going back up to 280 months. Location Location Encounter Encounter Reason Attending ADM DC Stat us Disposition Source Details Type Number For Provider Date Date Visit Outpatient [id number] Diagnos YESICA, 04/29 [facility] [id number] is: JUMANA F C NTRL ICD-10- WSTRN CM [place] Z79.01 SETS Long HCS term (curren t) use of anticoa gulants
wi Provide r Comment s: Long-te rm current use of anticoa gulant (SCT [id number]) HC PRO 36703-9.63 Diagnos DREA 05/06 V A PHONE CALL [id number] is: JOHNNY JACOBO L CNTRL 5-10 MIN ICD-10- WSTRN CM [place] I11.9 SETS Hyperte HCS nsive heart disease without heart failure
wi th Provide r Comment s: Benign hyperte nsion (SCT [id number]) HC PRO 73357-1. 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
wi th Provide r Comment s: Encount er & Observa [place] [address]-8.63 Diagnos SARMAD,KR 09/03 [facility] DIG [id number] is: ISTIE J /2020 RG CBOC ASSMT&MGMT 57 ICD-10- 5-10 CM Z04.89 Encount er for examina tion and observa tion for oth reasons
wi th Provide r Comment s: Encount er & Observa tion for Oth Spec Reason Outpatient [id number] 09/03 [facility] Encounter [id number] /20[facility] [place] [facility] 54520-6.63 09/03 [facility] Encounter [id number] /2021 [facility] [place] [facility] [place] [id number] 09/04 [facility] Encounter [id number] RG CB OC 90 Outpatient 54770-7.63 10/28 [facility] Encounter [id number] /2021 [facility] [place] [facility] HC PRO 34592-8.63 Diagnos MOODY,LISETH 01/11 [facility] PHONE CALL [id number] is: ABMBI /2021 CNT RL 5-10 MIN ICD-10- WSTRN CM [place] Z71.89 SETS Other HCS specifi ed membership counselor ing<br/ >with Provide r Comment s: Other specifi ed membership counselor ing OFFICE O/P 16645-6.63 Diagnos LELA,D 01/15 [facility] EST LOW [id number] is: AVID /2021 CNTRL 20-29 MIN ICD-10- WSTRN CM [place] E11.8 SETS 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< br/>wit h Provide r Comment s: Diabete s mellitu s (SCT [id number] 9) Outpatient 83327-7.63 01/15 [facility] Encounter [id number] /2022 [facility] [place] [facility] Out[facility] 13753-5.63 02/04 [facility] Encounter [id number] [facility] [place] [facility] Out[facility] 53909-3.63 04/17 [facility] Encounter [id number] [facility] [place] [facility] [facility] DIABETIC 73582-1.63 Diagnos ENA HERNANDEZ 05/02 [facility] CUSTOM [id number] is: SHAUN CNTRL MOLDED ICD-10- WSTRN SHOE CM [place] E11.8 SETS 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
with Provide r Comment s: Osteoar thritis of knee (SCT [id number] 07) OFFICE O/P 84642-1.63 Diagnos NORBERTOER, 05/27 [facility] EST LOW [id number] is: JUMANA F CNT RL 20-29 MIN ICD-10- WSTRN CM [place] I48.91 SETS Unspeci HCS fied atrial fibrill ation<b r/>with Provide r Comment s: AF- Atrial Fibrill ation (SCT [id number] 4) Outpatient [id number] 06/09 [facility] Encounter [id number] /2022 [facility] [place] [facility] [id number] 06/16 [facility] Encounter [id number] [facility] [place] [facility] [id number] 07/02 [facility] Encounter [id number] [facility] [place] [facility] Outpatient [id number] 07/30 [facility] Encounter [id number] /2022 [facility] [place] [facility] [facility] Social History Combined list of available smoking, tobacco, and other social history from Department of Defense andVeterans Affairs facilities. Social History Type Response Date Comment Source Tobacco smoking VA-TOBACCO FORMER 04/17/2022 [facility] status [facility] USER [place] [facility] History of tobacco VA-TOBACCO QUIT 15 04/17/2022 [facility] use YRS OR MORE [place] [facility] History of tobacco VA-TOBACCO QUIT 5 TO 06/16/2018 V A CNTR WSTRN use < 15 YRS [facility] History of tobacco QUIT TOBACCO USE > 7 05/12/2018 V A CNTRL WSTRN use YEARS AGO [facility] History of tobacco QUIT TOBACCO USE > 7 06/06/2016 . V A CNTRL WSTRN use YEARS AGO [facility] History of tobacco QUIT TOBACCO USE > 7 10/04/2013 . V A CNTR WSTRN use YEARS AGO [facility] Plan of Care List of future care activities from [facility] facilities. Additional future care activities may be listed in the Assessment and Plan section. Date/Time Care Activity Care Activity Detail Facility 12/04/2022 AMBULATORY - MEDICINE AMBULATORY - MEDICINE [facility] Advance Directives List of completed, amended, or rescinded Advance Directives on record at [facility] facilities. An actual copy of the Directive is not included. Date Advance Directive Provider Source 01/18/2021 ADVANCE DIRECTIVE [facility]OHNNY [facility]A [facility] [employer]
--- OUTSIDE RECORDS SUMMARY | 2022-10-14 16:28 | XMS_ITS | Encounter Summary ---
:1950 Author Organization [facility] Address [address] [place] [address] Support Name Relationship Address Phone LEEANNE LOAIZA [...] MEDICARE MEDICARE PART Jul 24, PART B [id number] KENDALL FORD PATIENT (WNR) (M) B 2015 34A 4 CANDYGABBIE PEREZ MEDICARE MEDICARE PART Oct 23, PART A [id number] KENDALL FORD PATIENT (WNR) (M) A 2012 34A 4 CANDYGABBIE PEREZ Selected Encounter This section includes the information on record at [place] for the Encounter. Date/Time Encounter Type Encounter Description Reason Provider Source Jan 15, 2022 11:19 Outpatient Encounter PODIATRY AM IHE Encounter Template Text not used by [place] Plan of Treatment: Future Appointments (+ 6 months) and Future Tests (+/- 45 days) The Plan of Treatment section includes future care activities for the patient from all [place] treatmentfacilities. This section includes future appointments and future orders which are active, pending orscheduled.Future Appointments This section includes appointments that were scheduled to occur 6 months from the date of the Encounter, up to a maximum of 20 appointments. The data comes from all [place] treatment facilities. Appointment Date/Time Appointment Type Appointment Facili ty Name May 02, 2022 10:30 AM [facility] May 02, 2022 10:31 AM AMBULATORY - REHAB MEDICINE [facility] May 27, 2022 11:00 AM AMBULATORY - MEDICINE [place] [facility] Jun 09, 2022 10:30 AM AMBULATORY - MEDICINE [facility] WSTRN [facility] Active, Pending, and Scheduled Orders This section includes a listing of several types of active, pending, and scheduled orders, including clinic medications orders, diagnostic test orders, procedure orders and consult orders; where the start date of the order is 45 days before the date of the Encounter or 45 days after the date of the Encounter. The data comes from all [place] treatment facilities. Test Date/Time Test Type Test Details Facility Name Feb 05, 2022 12:00 Laboratory - MICROALBUMIN CREATININE [place] [facility] AM Chemistry Order RATIO PANEL URINE [facility] (RAND[facility]) Feb 05, 2022 12:00 Laboratory - HEPATITIS A ANTIBODY [place] [facility] AM Chemistry Order (IGG) BLOOD (SST-SERUM) [facility] Feb 05, 2022 12:00 Laboratory - HEPATITIS B SURFACE [place] [facility] AM Chemistry Order ANTIBODY (HBsAb)-[facility] BLOOD (SST-SERUM) Feb 05, 2022 12:00 Laboratory - BASIC METABOLIC PANEL [facility] AM Chemistry Order (fasting) BLOOD [facility] (SST-SERUM) Feb 05, 2022 12:00 Laboratory - LIVER FUNCTION BLOOD [place] [facility] AM Chemistry Order (SST-SERUM) [facility] Feb 05, 2022 12:00 Laboratory - LIPID PANEL FASTING [place] [facility] AM Chemistry Order BLOOD (SST-SERUM) [facility] Feb 05, 2022 12:00 Laboratory - HEMOGLOBIN A1C PANEL [facility] AM Chemistry Order BLOOD (LAV-BLOOD) [facility] Feb 05, 2022 12:00 Laboratory - CBC AND DIFF (AUTO) [facility] AM Chemistry Order BLOOD (LAV-BLOOD) [facility] Feb 05, 2022 12:00 Laboratory - IRON & TIBC PANEL BLOOD [place] [facility] AM Chemistry Order (SST-SERUM) [facility] Feb 05, 2022 12:00 Laboratory - FERRITIN BLOOD [place] [facility] N AM Chemistry Order (SST-SERUM) [facility] Social History: Smoking Status (Most current) and Tobacco Use (All prior to encounter date) This section includes the most current, and the historical, smoking and tobacco-related health factors from the [place] facility where the Encounter took place.Current Smoking Status This section includes the most current smoking, or tobacco-related health factor, from the [place] facility where the Encounter took place. Date/Time Current Smoking Status Comment Facility Jun 16, 2018 11:59 AM VA-TOBACCO QUIT 5 TO < 15 [place] [facility] [facility] [facility] Tobacco Use History This section includes a history of the smoking, or tobacco- related health factors, that were collected on or before the date of the Encounter. The data comes from the [place] facility where the Encounter took place. Date/Time Smoking Status/Tobacco Use Comment [facility] Jun 16, 2018 11:59 AM VA-TOBACCO QUIT 5 TO < 15 YRS [place] [facility] [facility] May 12, 2018 09:43 AM QUIT TOBACCO USE > 7 YEARS [place] [facility] [place] A[place] [facility] Jun 06, 2016 09:32 AM QUIT TOBACCO USE > 7 YEARS [place] [facility] [place] . [facility] Oct 04, 2013 09:16 AM QUIT TOBACCO USE > 7 YEARS [place] [facility] [place] . [facility] Advance Directives: All historical and current Section Date Range: From patient's date of to the date document was created. This section includes ALL of a patient's completed or amended [place] Advance and Rescinded Directives. The entries below indicate that a directive exists for the patient, but an actual copy is not included with this document. The data comes from all [place] facilities. Date Advance Directives Provider Source Jan 18, 2021 ADVANCE DIRECTIVE JOHNNY ESQUEDA [place] [facility] [facility] Encounter Notes: All associated encounter notes This section contains the clinical notes associated to the Encounter. Date/Time Encounter Note(s) Provider Source Jan 15, 2022 11:19 LETTERS: JUDIE DEL CID [place] [facility] W STR[facility] AM LOCAL TITLE: PATIENT LETTER (B) [facility] STANDARD TITLE: LETTERS DATE OF NOTE: JAN 15, 2022@11:19 ENTRY DATE: JAN 15, 2022@11:19:24 AUTHOR: JUDIE DEL CID COSIGNER: URGENCY: STATUS: COMPLETED [facility] Toll Free Number Primary Care Telephone Assistance can be reached at ext. [phone] option 2 [facility] scheduling can be reac hed at ext. [phone] option 2 [facility] scheduling can be eleni ched at ext. [phone] option 3 JAN 15, 2022 GABBIE LOAIZA [address], [place] [address] Dear GABBIE LOAIZA [facility] ([place]) [facility] as your primary choice for health care. As a partne r in your health care, we are contacting you in writing since we have been uns uccessful in our attempts to reach you to date. We want to assure you we are doing everything possible to schedule Veterans for their [place] medical care appo intments. Our records indicate you are due for an appointm ent in podiatry Thank you for choosing the [facility] ([place]) [facility] as your primary choice for health care. As a partner in your health car e, we are contacting you in writing since we have been unsuccessful in our a ttempts to reach you to date. We want to assure you we are doing everything possi ble to schedule Veterans for their [place] medical care appointments. If you would like to be seen, please contact [place] Call Center at [phone] Ext. [phone] Option 3 to schedule an appointment. Thank you for your service to our nation, and we look forward to hearing from you soon. Sincerely, [facility] [address] [facility] [address] [place] [address] [place] [address] ext. [phone] [facility] [address] [place] [address] [place] [address] [phone] [facility] [address] [facility] [address] [place] [address] [place] [address] ext. [phone] [facility] [address] [place] [phone] ext. [phone] Jan 15, 2022 11:19 TELEPHONE ENCOUNTER NOTE: JUDIE DEL CID CNTRL WSTRN AM [facility] TITLE: TELEPHONE NOTE/SPECIALTY CLINIC [facility] TITLE: TELEPHONE ENCOUNTER NOTE DATE OF NOTE: JAN 15, 2022@11:19 ENTRY DATE: JAN 15, 2022@11:19:46 AUTHOR: JUDIE DEL CID EXP COSIGNER: URGENCY: STATUS: COMPLETED TELEPHONE NOTE/SPECIALTY CLINIC Has ADDENDA RTC orders: Unable to contact patient: Attempts to contact: 1st attempt: Called and spoke to pts son but pt will call back 2nd attempt: Letter mailed 3rd attempt: 4th attempt: Called and spoke to pts son and they will call b ack later. When patient calls back please schedule follow up appointment with podiatry. PID 01/15/2022 /nella/ JUDIE DEL CID Signed: 01/15/2022 11:20 01/15/2022 ADDENDUM STATUS: COMPLETED 01/15/2023* /nella/ JUDIE DEL CID Signed: 01/15/2022 11:21
--- OUTSIDE RECORDS SUMMARY | 2022-10-14 16:28 | XMS_ITS ---
:1950 Author Organization [facility] Address [address] [place] [id number] Support Name Relationship Address Phone LEEANNE LOAIZA Unavailable Unavailable [phone] Insurance Providers: All historical and current Section [...] MEDICARE MEDICARE PART Jul 24, PART B [id number] KENDALL FORD PATIENT (WNR) (M) B 2015 34A 4 CANDYGABBIE PEREZ MEDICARE MEDICARE PART Oct 23, PART A [id number] KENDALL FORD PATIENT (WNR) (M) A 2012 34A 4 CANDYGABBIE PEREZ Selected Encounter This section includes the information on record at [place] for the Encounter. Date/Time Encounter Type Encounter Description Reason Provider Source April 17, 2022 10:54 Outpatient Encounter PRIMARY CARE/MEDICINE AM [facility] Encounter Template Text not used by [place] Plan of Treatment: Future Appointments (+ 6 months) and Future Tests (+/- 45 days) The Plan of Treatment section includes future care activities for the patient from all [place] treatmentfacilities. This section includes future appointments and future orders which are active, pending orscheduled.Future Appointments This section includes appointments that were scheduled to occur 6 months from the date of the Encounter, up to a maximum of 20 appointments. The data comes from all [place] treatment facilities. Appointment Date/Time Appointment Type Appointment Facili ty Name May 02, 2022 10:30 AM [facility] May 02, 2022 10:31 AM AMBULATORY - REHAB MEDICINE [facility] [place] [facility] May 27, 2022 11:00 AM [facility] [place] [facility] Jun 09, 2022 10:30 AM [facility] [place] [facility] Active, Pending, and Scheduled Orders This section includes a listing of several types of active, pending, and scheduled orders, including clinic medications orders, diagnostic test orders, procedure orders and consult orders; where the start date of the order is 45 days before the date of the Encounter or 45 days after the date of the Encounter. The data comes from all [place] treatment facilities. Test Date/Time Test Type Test Details Facility Name May 02, 2022 12:00 AM Laboratory - Chemistry HE[facility]ITIS A [facility]IBOD Y [facility] ([facility] BLOOD [place] [facility] (SST-SERUM) SP May 27, 2022 11:35 AM Consult Order OPTOMETRY[facility] Human [facility] Case Manager's [place] [facility] S Choice Lab Results: +/- 30 days of the encounter This section includes the Chemistry and Hematology Lab Results on record with [place] for the patient. Radiology Reports and Pathology Reports are provided separately, in subsequent sections.Lab Results This section contains the Chemistry/Hematology Results that were resulted 30 days before or 30 daysafter the date of the Encounter. Date/Time Source Result Type Result - Unit Interpretation Reference Range Comment May 02, 2022 [facility] HE[facility] SURFACE Specimen Ty pe: SERUM 10:43 AM [place] [facility] ANTIBODY (HBsAb)-WH No comment e ntered. Ordering Provid er: EDUARDO CELESTIN Report Released Date/Time: May 02, 2022 08:27 AM Reporting Lab: [facility] [place] [facility] [address] [facility] [address] Performing Lab: [facility] [place] [facility] [address] [facility] [address] HBsAb Non Reactive Non Reactive May 02, 2022 [facility] HEPATITIS A ANTIBODY Specimen T ype: SERUM 10:43 AM [place] [facility] (IGG) Comment: Hep A IgG: A 'Non-reactive' result indicates no anti-HAV IgG was detected. Ordering Provid er: EDUARDO CELESTIN Report Released Date/Time: May 02, 2022 08:27 AM Reporting Lab: [facility] [place] [facility] [address] [facility] [address] Performing Lab: [place] [facility] [place] [facility] [address] [facility] [address] HEPATITIS A ANTIBODY (IGG) Non Reactive Non Reactive May 02, 2022 [facility] HEMOGLOBIN A1C Specimen Type: BLOOD 10:43 AM [place] [facility] PANEL Comment: Values obtained from A1C measurements can vary. For typical A1C assays, a reported value of 7.0 could actually be between 6.72 and 7.28 if measured by a reference method. A reported value of 9 .0 could actuall y be between 8.73 and 9.27. Ref: http://www.ngsp.org/CAPdata.asp Ordering Provid er: EDUARDO CELESTIN Report Released Date/Time: May 02, 2022 08:27 AM Reporting Lab: [facility] [place] [facility] [address] [facility] [address] Performing Lab: [facility] [place] [facility] [address] [facility] [address] HEMOGLOBIN A1C 5.1 4.0-5.6 May 02, 2022 10:43 [facility] LIVER FUNCTION Specimen Typ e: SERUM AM [place] [facility] No comment enter ed. Ordering Provid er: EDUARDO CELESTIN Report Released Date/Time: May 02, 2022 08:27 AM Reporting Lab: [facility] [place] [facility] [address] [facility] [address] Performing Lab: [facility] [address] [facility] [address] PROTEIN,TOTAL 7.0 6.0-8.3 ALBUMIN 4.0 3.5-5.0 ALKALINE PHOSPHATASE 76 40-150 AST 22 5-34 ALT 19 <6-55 BILIRUBIN, TOTAL 1.3 H 0.2-1.2 May 02, 2022 [facility] LIPID PANEL Specimen Type: SERUM 10:43 AM [place] [facility] FASTING No comment enter ed. Ordering Provid er: VANWAGNER,EDUARDO F Report Released Date/Time: May 02, 2022 08:27 AM Reporting Lab: [facility] [place] [facility] [address] [facility] [address] Performing Lab: [facility] [place] [facility] [address] [facility] [address] CHOLESTEROL 159 <7-199 TRIGLYCERIDE 172 H 0-150 LDL calculated 74 0-129 CHOL/HDL 3.1 HDL CHOLESTEROL 51 40-60 May 02, 2022 [facility] BASIC METABOLIC Specimen Type: SERUM 10:43 AM [place] [facility] PANEL (fasting) No comment enter ed. Ordering Provid er: EDUARDO CELESTIN Report Released Date/Time: May 02, 2022 08:27 AM Reporting Lab: [facility] [place] [facility] [address] [facility] [address] Performing Lab: [facility] [place] [facility] [address] [facility] [address] UREA NITROGEN 9 7-25 GLUCOSE 103 H 65-100 SODIUM 139 135-145 POTASSIUM 4.1 3.5-5.0 CHLORIDE 101 100-110 CO2 28 20-30 CREATININE, Serum 1.11 0.50-1.40 eGFR(CKD-EPI 2020) 71 >60 May 02, 2022 [facility] IRON & TIBC PANEL Specimen Type : SERUM 10:43 AM [place] [facility] No comment enter ed. Ordering Provid er: EDUARDO CELESTIN Report Released Date/Time: May 02, 2022 08:27 AM Reporting Lab: [facility] [place] [facility] [address] [facility] [address] Performing Lab: [facility] [place] [facility] [address] [facility] [address] TIBC 286 204-475 IRON 92 40-160 Transferrin Saturation 32.1 20.0-50 .0 May 02, 2022 10:43 [facility] FERRITIN Specimen Typ e: SERUM AM [place] [facility] No comment enter ed. Ordering Provid er: EDUARDO CELESTIN Report Released Date/Time: May 02, 2022 08:27 AM Reporting Lab: [facility] [place] [facility] [address] [facility] [address] Performing Lab: [facility] [place] [facility] [address] [facility] [address] FERRITIN 336.8 H 20-300 May 02, 2022 [facility] CBC AND DIFF Specimen Type: BLOOD 10:43 AM [place] [facility] (AUTO) No comment enter ed. Ordering Provid er: EDUARDO CELESTIN Report Released Date/Time: May 02, 2022 08:27 AM Reporting Lab: [facility] [place] [facility] [address] [facility] [address] Performing Lab: [place] [facility] [place] [facility] [address] [facility] [address] WBC 4.37 L 4.50-11.00 RBC 4.55 4.23-5.66 HGB 13.4 12.8-17 HCT 40.2 39.2-50.4 MCV 88.4 82-99 MCHC 33.3 30.8-35.1 PLT 167 140-360 RDW-CV 13.7 12.0-16.0 Burke, Abs 0.44 0.30-1.10 MCH 29.5 26.2-32.6 Neut % 49.9 Lymph % 34.3 Burke % 10.1 Eos % 5.0 Baso % 0.2 Neut, Abs 2.18 L 2.20-7.60 Lymph, Abs 1.50 1.00-3.20 Eos, Abs 0.22 0.03-0.44 Baso, Abs 0.01 0.01-0.13 Immature Gran % 0.5 Immature Gran, Abs 0.02 0.00-0.06 May 02, 2022 [facility] MICROALBUMIN Specimen Type: URINE 10:43 AM [facility] CREATININE RATIO PANEL No commen t entered. Ordering Provid er: EDUARDO CELESTIN Report Released Date/Time: May 02, 2022 08:27 AM Reporting Lab: [facility] [place] [facility] [address] [facility] [address] Performing Lab: [place] [facility] [place] [facility] [address] [facility] [address] MICROALBUMIN/CREATININE RATIO canc 0-29.9 MICROALBUMIN,QUANTITATIVE < 0.5 RR U NAVAIL CREATININE URINE 58.98 May 02, 2022 [facility] BILIRUBIN, DIRECT Specimen Type : SERUM 10:43 AM [place] [facility] No comment enter ed. Ordering Provid er: EDUARDO CELESTIN Report Released Date/Time: May 02, 2022 08:27 AM Reporting Lab: [place] [facility] [place] [facility] [address] [facility] [address] Performing Lab: [place] [facility] [place] [facility] [address] [facility] [address] BILIRUBIN, DIRECT 0.5 0-0.5 Social History: Smoking Status (Most current) and Tobacco Use (All prior to encounter date) This section includes the most current, and the historical, smoking and tobacco-related health factors from the [place] facility where the Encounter took place.Current Smoking Status This section includes the most current smoking, or tobacco-related health factor, from the [place] facility where the Encounter took place. Date/Time Current Smoking Status Comment Facility April 17, 2022 10:54 AM VA-TOBACCO FORMER USER [facility] [place] [facility] Tobacco Use History This section includes a history of the smoking, or tobacco- related health factors, that were collected on or before the date of the Encounter. The data comes from the [place] facility where the Encounter took place. Date/Time Smoking Status/Tobacco Use Comment [facility] April 17, 2022 10:54 AM VA-TOBACCO QUIT 15 YRS OR [facility] [place] [facility] Jun 16, 2018 11:59 AM VA-TOBACCO FORMER USER [facility] [place] [facility] Jun 16, 2018 11:59 AM VA-TOBACCO QUIT 5 TO < 15 YRS [facility] [place] [facility] May 12, 2018 09:43 AM QUIT TOBACCO USE > 7 YEARS [facility] [place] [facility] Jun 06, 2016 09:32 AM QUIT TOBACCO USE > 7 YEARS [facility] [place] [facility] . [facility] Oct 04, 2013 09:16 AM QUIT TOBACCO USE > 7 YEARS [facility] [place] [facility] . [facility] Advance Directives: All historical and current Section Date Range: From patient's date of to the date document was created. This section includes ALL of a patient's completed or amended [place] Advance and Rescinded Directives. The entries below indicate that a directive exists for the patient, but an actual copy is not included with this document. The data comes from all [place] facilities. Date Advance Directives Provider Source Jan 18, 2021 ADVANCE DIRECTIVE JOHNNY ESQUEDA [facility] Encounter Notes: All associated encounter notes This section contains the clinical notes associated to the Encounter. Date/Time Encounter Note(s) Provider Source April 17, 2022 10:54 AM PREVENTIVE MEDICINE NURSING NOTE: Kevon CONNOR [facility]: CLINICAL REMINDERS/NURSING E [facility] STANDARD TITLE: PREVENTIVE MEDICINE NURSING NOTE DATE OF NOTE: APRIL 17, 2022@10:54 ENTRY DATE: APRIL 17, 2022@10:54:26 AUTHOR: WANDA CONNOR EXP COSIGNER: URGENCY: STATUS: COMPLETED CLINICAL REMINDERS/NURSING Has ADDENDA Advance Directive Screen: Patient has an Advance Directive on file at [facility]. No updates are needed at this time. The patient received education about Advance Di rectives and written notification of his/her rights. Suicide Screen: C-SSRS Screening [place] Suicide Severity Rating Scale (C-SSRS) screener 1. Over the past month, have you wished you wer e or wished you could go to sleep and not wake up? No 2. Over the past month, have you had any actual thoughts of killing yourself? No 3. Over the past month, have you been thinking about how you might do this? Response not required due to responses to other questions. 4. Over the past month, have you had these thou ghts and had some intention of acting on them? Response not required due to responses to other questions. 5. Over the past month, have you started to wor k out or worked out the details of how to kill yourself? Response not required due to responses to other questions. 6. If yes, at any time in the past month did yo u intend to carry out this plan? Response not required due to responses to other questions. 7. In your lifetime, have you ever done anythin g, started to do anything, or prepared to do anything to end you r life (for example, collected pills, obtained a gun, gave away valu blaze, went to the roof but didn't jump)? No 8. If YES, was this within the past 3 months? Response not required due to responses to other questions. Depression Screening: Perform PHQ-2 A PHQ-2 screen was performed. The score was 0 w hich is a negative screen for depression. Over the past two weeks, how often have you bee n bothered by the following problems? 1. Little interest or pleasure in doing things Not at all 2. Feeling down, depressed, or hopeless Not at all Tobacco Use Screening: The patient is a former tobacco user. The patient quit fifteen or more years ago. Alcohol Use Screen (AUDIT-C): Alcohol Screen: SCREEN FOR ALCOHOL (AUDIT-C) An alcohol screening test (AUDIT-C) was negativ e (score=3). 1. How often did you have a drink containing al cohol in the past year? Two to four times a month 2. How many drinks containing alcohol did you h ave on a typical day when you were drinking in the past year? Three or four drinks 3. How often did you have six or more drinks on one occasion in the past year? Never /es/ WANDA CONNOR LPN Signed: 04/17/2022 10:55 05/06/2022 ADDENDUM STATUS: COMPLETED Please inform him that recent labs are fine and book an apt with me. I will review and issue him a copy at our visit . He is overdue and gets Eliquis here. Discuss/schedule diabetic ey e exam and ask him to bring any outside shot records as well. /nella/ Eduardo Celestin PA-C STAFF PHYSICIAN MANAGER NURSING HOME Signed: 05/06/2022 08:12 Receipt Acknowledged By: 05/06/2022 09:13 /nella/ RAMESH GEE RN REGISTERED NURSE 05/06/2022 ADDENDUM STATUS: COMPLETED Spoke to Pierce and relayed message per provider. Pierce understood and agreed to plan. Scheduled with PCP for May 27 @ 11:00 /nella/ RAMESH GEE RN REGISTERED NURSE Signed: 05/06/2022 09:14
--- OUTSIDE RECORDS SUMMARY | 2022-10-14 16:28 | XMS_ITS ---
:1950 Author Organization [facility] Address [address] [place] [id number] Support Name Relationship Address Phone LEEANNE LOAIZA Unavailable Unavailable [phone] Insurance Providers: All historical and current Section [...] MEDICARE MEDICARE PART Jul 24, PART B [id number] KENDALL FORD PATIENT (WNR) (M) B 2015 34A 4 GABBIE NICOLE MEDICARE MEDICARE PART Oct 23, PART A [id number] KENDALL FORD PATIENT (WNR) (M) A 2012 34A 4 GABBIE NICOLE Selected Encounter This section includes the information on record at [place] for the Encounter. Date/Time Encounter Type Encounter Reason Provider Source Description Jan 15, 2022 OFFICE O/P EST PODIATRY ICD-10-CM E11.8 XIOMY VOGEL 10:30 AM LOW 20-29 MIN Type 2 diabetes D mellitus with unspecified complications with Provider Comments: Diabetes mellitus ([facility] [id number]) IHE Encounter Template Text not used by [facility] Assessments - Encounter Diagnoses This section includes the primary and secondary diagnoses documented for the Encounter. Date/Time Primary/Secondary Diagnosis Name Provider Source Diagnosis Jan 15, 2022 PRIMARY Type 2 diabetes XIOMY VOGEL [place] [facility] WS TRN 11:02 AM mellitus with D [place] [facility] unspecified complications Jan 15, 2022 SECONDARY Nail dystrophy XIOMY VOGEL [facility] WST RN 11:02 AM D [place] [facility] Plan of Treatment: Future Appointments (+ 6 months) and Future Tests (+/- 45 days) The Plan of Treatment section includes future care activities for the patient from [facility] [place] [facility] This section includes future appointments and future orders which are active, pending orscheduled.Future Appointments This section includes appointments that were scheduled to occur 6 months from the date of the Encounter, up to a maximum of 20 appointments. The data comes from all [place] treatment [facility]. Appointment Date/Time Appointment Type Appointment Facili ty Name May 02, 2022 10:30 [facility] May 02, 2022 10:31 AM AMBULATORY - REHAB MEDICINE [facility] W STRN [facility] May 27, 2022 11:00 [facility] Jun 09, 2022 10:30 AM AMBULATORY MEDICINE [facility] Active, Pending, and Scheduled Orders This section includes a listing of several types of active, pending, and scheduled orders, including clinic medications orders, diagnostic test orders, procedure orders and consult orders; where the start date of the order is 45 days before the date of the Encounter or 45 days after the date of the Encounter. The data comes from all [facility]. Test Date/Time Test Type Test Details Facility Name Feb 05, 2022 12:00 Laboratory - HEPATITIS A ANTIBODY [facility] WSTRN AM Chemistry Order (IGG) BLOOD (SST-SERUM) [facility] Feb 05, 2022 12:00 Laboratory - MICROALBUMIN CREATININE [facility] WSTRN AM Chemistry Order RATIO PANEL URINE [facility] S (RANDOM) Feb 05, 2022 12:00 Laboratory - HEPATITIS B SURFACE [facility] WSTRN AM Chemistry Order ANTIBODY (HBsAb)-WH [facility] BLOOD (SST-SERUM) Feb 05, 2022 12:00 Laboratory - BASIC METABOLIC [facility]EL [facility] Chemistry Order (fasting) BLOOD [facility] (SST-SERUM) Feb 05, 2022 12:00 Laboratory - LIVER FUNCTION BLOOD [facility] WSTRN AM Chemistry Order (SST-SERUM) [facility] Feb 05, 2022 12:00 Laboratory - LIPID PANEL FASTING [facility] WSTRN AM Chemistry Order BLOOD (SST-SERUM) [facility] Feb 05, 2022 12:00 Laboratory - HEMOGLOBIN A1C PANEL [facility] WSTRN AM Chemistry Order BLOOD (LAV-BLOOD) SP [place] [facility] Feb 05, 2022 12:00 Laboratory - IRON & TIBC PANEL BLOOD [facility] WSTRN AM Chemistry Order (SST-SERUM) [facility] Feb 05, 2022 12:00 Laboratory - CBC AND DIFF (AUTO) [facility] AM Chemistry Order BLOOD (LAV-BLOOD) [facility] Feb 05, 2022 12:00 Laboratory - FERRITIN [facility]LOOD [facility] AM Chemistry Order (SST-SERUM) [facility] Social History: Smoking Status (Most current) [...] AM VA-TOBACCO QUIT 5 TO < 15 [facility] [place] Y[place] [facility] Tobacco Use History This section includes a history of the smoking, or tobacco- related health factors, that were collected on or before the date of the Encounter. The data comes from the [place] facility where the Encounter took place. Date/Time Smoking Status/Tobacco Use Comment [facility] Jun 16, 2018 11:59 AM VA-TOBACCO QUIT 5 TO < 15 YRS [facility] [place] [facility] May 12, 2018 09:43 AM QUIT TOBACCO USE > 7 YEARS [facility] [place] A[place] [facility] Jun 06, 2016 09:32 AM QUIT TOBACCO USE > 7 YEARS [facility] [place] AGO . [facility] Oct 04, 2013 09:16 AM QUIT TOBACCO USE > 7 YEARS [facility] [place] AGO . [facility] Advance Directives: All historical and current [...] Jan 18, 2021 ADVANCE DIRECTIVE JOHNNY ESQUEDA [facility] WSTRN [facility] Encounter Notes: All associated encounter notes This section contains the clinical notes associated to the Encounter. Date/Time Encounter Note(s) Provider Source Feb 07, 2022 10:56 LETTERS: CARA ARZATE [facility] W STRN AM LOCAL TITLE: PATIENT LETTER (B) [facility] STANDARD TITLE: LETTERS DATE OF NOTE: FEB 07, 2022@10:56 ENTRY DATE: FEB 07, 2022@10:56:56 AUTHOR: CARA ARZATE EXP COSIGNER: URGENCY: STATUS: COMPLETED [facility] GABBIE LOAIZA [address], [place], [address] FEB 07, 2022 Dear GABBIE LOAIZA, Your shoes and/or orthotics have arrived at the [facility] located at [address] [place] [id number]. No walk-ins are being accepted at the moment. Pl ease contact the Podiatry clinic before presenting to the clinic to ensure your o rder is ready for pick-up. Call ext [phone] for Jenise if you hav e any questions. Clinic Hours: Thursday, Thursday, Thursday and Thu 8:30am-3:30pm We hope to see you soon, Podiatry Staff [address] [id number] Jan 15, 2022 11:00 PODIATRY NOTE: CHAU VOGEL [facility] WSTR N AM LOCAL TITLE: PODIATRY NOTE [facility] STANDARD TITLE: PODIATRY NOTE DATE OF NOTE: JAN 15, 2022@11:00 ENTRY DATE: JAN 15, 2022@11:00:29 AUTHOR: CHAU VOGEL EXP COSIGNER: URGENCY: STATUS: COMPLETED S. 71 y/o type II diabetic male seen for diabeti c foot care. He was last seen 1 yr ago He has a private PCP and has his labs done outsi de. patient does not smoke, limited exercise Venous stasis disease. he has compression stock ings but did not bring them O. Nails: Brittle, dystrophic 1-5 (B). Thickened mycotic hallux nails (B). Vascular: DP: palpable 1/4 (B) PT: nonpalpable 0 /4 (B) cft:2 sec Hair: absent edema :(+) lower leg and foot L>R Sensory: Diminished 7/10 tactile( 5.07 monofila ment), fair vibrational sensations (B) No c/o numbness or paresthesia sensations Skin: plantar skin warm, erythematous. Areas of stasis dermatitis at the anterior aspect of each ankle, dry , rough eryth ematous skin. Lesions: none Small dorsal exostosis, 1st mpj (R) foot seconda ry to an old injury A. Diabetes,low/ moderate risk, stasis dermatiti s, onychomycosis P. Debrided nails 1-5 (B) as needed. Mycotic darcie lux nails debrided, borders curetted diabetic foot exam Skin softener daily to both feet. Powder between all toes. Discussed diabetic foot care. skin softener Prosthetics request for replacement diabetic sh oes patient declines more frequent f/u care RTC 1 yr, but he agrees to call if he has any is sues DM/PVD/ESRD Foot Exam: Diabetic/Peripheral Vascular Disease Foot Exam: Patient had a complete visual examination of th e feet at this encounter. Result of Exam: Abnormal edema Patient's feet were examined for presence of do rsalis pedis and posterior tibial pulses. Results of Exam: Slightly Diminished Patient had a monofilament examination of sensa tion in feet at this encounter. Results of Exam: Slightly Diminished The patient's foot risk was calculated, and the patient was educated on proper footwear and foot care. Please calculate the patient's Foot Risk Score (FRS) - 1 Required: (RATE the foot with the HIGHEST risk!) 2 = MODERATE RISK Active Outpatient Medications (including Suppli es): Active Outpatient Medications Status 1) APIXABAN 5MG TAB TAKE ONE TABLET BY MOUTH TWI CE DAILY ACTIVE REPLACES PRADAXA 2) TRIAMCINOLONE ACETONIDE 0.1% OINT APPLY SMALL AMOUNT ACTIVE TOPICALLY ONCE DAILY DIRECTED Pending Outpatient Medications Status 1) APIXABAN 5MG TAB TAKE ONE TABLET BY MOUTH TWI CE DAILY PENDING REPLACES PRADAXA Active Non-VA Medications Status 1) [...] SA TAB 50MG BY MOUTH ACTIVE DAILY 9 Total Medications Podiatry related medication reviewed and no kearns ges reported /nella/ CHAU VOGEL DPM MANAGER PHARMACY Signed: 01/15/2022 11:04
--- OUTSIDE RECORDS SUMMARY | 2022-10-14 16:28 | XMS_ITS ---
:1950 Author Organization [facility] Address [address] [place] [id number] Support Name Relationship Address Phone LEEANNE LOAIZA [...] MEDICARE MEDICARE PART Jul 24, PART B [id number] KENDALL FORD PATIENT (WNR) (M) B 2015 34A 4 CANDYGABBIE PEREZ MEDICARE MEDICARE PART Oct 23, PART A [id number] KENDALL FORD PATIENT (WNR) (M) A 2012 34A 4 CANDYGABBIE PEREZ Selected Encounter This section includes the information on record at [place] for the Encounter. Date/Time Encounter Type Encounter Description Reason Provider Source Oct 28, 2021 12:02 Outpatient Encounter PRIMARY CARE/MEDICINE PM IHE Encounter Template Text not used by [place] Plan of Treatment: Future Appointments (+ 6 months) and Future Tests (+/- 45 days) The Plan of Treatment section includes future care activities for the patient from all [place] treatmentfacilities. This section includes future appointments and future orders which are active, pending orscheduled.Future Appointments This section includes appointments that were scheduled to occur 6 months from the date of the Encounter, up to a maximum of 20 appointments. The data comes from all [place] treatment facilities. Appointment Date/Time Appointment Type Appointment Facili ty Name Jan 15, 2022 10:30 [facility] Social History: Smoking Status (Most current) and Tobacco Use (All prior to encounter date) This section includes the most current, and the historical, smoking and tobacco-related health factors from the [place] facility where the Encounter took place.Current Smoking Status This section includes the most current smoking, or tobacco-related health factor, from the [place] facility where the Encounter took place. Date/Time Current Smoking Status Comment Facility Jun 16, 2018 11:59 AM VA-TOBACCO QUIT 5 TO < 15 [facility] [place] [facility] Tobacco Use History This section includes a history of the smoking, or tobacco- related health factors, that were collected on or before the date of the Encounter. The data comes from the [place] facility where the Encounter took place. Date/Time Smoking Status/Tobacco Use Comment [facility] Jun 16, 2018 11:59 AM VA-TOBACCO QUIT 5 TO < 15 YRS [facility] [place] [facility] May 12, 2018 09:43 AM QUIT TOBACCO USE > 7 YEARS [facility] [place] [facility] Jun 06, 2016 09:32 AM QUIT TOBACCO USE > 7 YEARS [facility] [place] A[place] . [facility] Oct 04, 2013 09:16 AM QUIT TOBACCO USE > 7 YEARS [facility] [place] A[place] . [facility] Advance Directives: All historical and current Section Date Range: From patient's date of to the date document was created. This section includes ALL of a patient's completed or amended [place] Advance and Rescinded Directives. The entries below indicate that a directive exists for the patient, but an actual copy is not included with this document. The data comes from all [facility]. Date Advance Directives Provider Source Jan 18, 2021 ADVANCE DIRECTIVE JOHNNY ESQUEDA [place] [facility] [place] [facility] Encounter Notes: All associated encounter notes This section contains the clinical notes associated to the Encounter. Date/Time Encounter Note(s) Provider Source Oct 28, 2021 12:02 PM CLERICAL NOTE: [facility] TITLE: APPOINTMENT NO SHOW STANDARD TITLE: CLERICAL NOTE DATE OF NOTE: OCT 28, 2021@12:02 ENTRY DATE: OCT 28, 2021@12:02:53 AUTHOR: LEXY FRANK EXP COSIGNER: URGENCY: STATUS: COMPLETED Patient Name: GABBIE LOAIZA Patient SSN: [id number] Date and time of Appointment No show : 10/28/21 12:02 PATIENT PHONE - PHONE NUMBER [CELLULAR] - NONE FOUND Patient's medical record was reviewed. Follow-up actions were determined and initiated: Please check/complete as applies: [ ]Telephoned Directly [ ]Re-scheduled for next available appt [X]Sent a N0-show letter ( must call for appointment) [ ]Other (Emergent/Overbook, etc.): Additional Comments: NO-SHOW appt 10/28/21 Future Clinic Visits 01/15/2022 10:30 CWJosi/SRINIVAS/PODIATRY/LELA /nella/ BUCKY FRANK Advanced Board Stacker Signed: 10/28/2021 12:03
--- OUTSIDE RECORDS SUMMARY | 2022-10-14 16:28 | XMS_ITS ---
:1950 Author Organization [facility] Address [address] [place] [address] Support Name Relationship Address Phone LEEANNE LOAIZA [...] MEDICARE MEDICARE PART Jul 24, PART B [id number] KENDALL FORD PATIENT (WNR) (M) B 2015 34A 4 CANDYGABBIE PEREZ MEDICARE MEDICARE PART Oct 23, PART A [id number] KENDALL FORD PATIENT (WNR) (M) A 2012 34A 4 CANDYGABBIE PEREZ Selected Encounter This section includes the information on record at [place] for the Encounter. Date/Time Encounter Type Encounter Description Reason Provider Source Feb 04, 2022 02:47 Outpatient Encounter PRIMARY CARE/MEDICINE PM IHE Encounter [...] 02, 2022 10:30 AM [facility] May 02, 2022 10:31 AM AMBULATORY - REHAB [facility]ICINE [facility] May 27, 2022 11:00 AM AMBULATORY - MEDICINE [place] [facility] Jun 09, 2022 10:30 AM AMBULATORY - MEDICINE [facility] W[facility] Active, Pending, and Scheduled Orders This section [...] 05, 2022 12:00 Laboratory - MICROALBUMIN CREATININE [place] [facility] WSTRN AM Chemistry Order RATIO PANEL URINE [facility] S (RANDOM) Feb 05, 2022 12:00 Laboratory - HEPATITIS A ANTIBODY [place] [facility] AM Chemistry Order (IGG) BLOOD (SST-SERUM) [facility] Feb 05, 2022 12:00 Laboratory - HEPATITIS B SURFACE [place] [facility] AM Chemistry Order ANTIBODY (HBsAb)-[facility] BLOOD (SST-SERUM) Feb 05, 2022 12:00 Laboratory - BASIC METABOLIC PANEL [place] [facility] AM Chemistry Order (fasting) BLOOD [facility] (SST-SERUM) Feb 05, 2022 12:00 Laboratory - LIVER FUNCTION BLOOD [place] [facility] AM Chemistry Order (SST-SERUM) [facility] [place] Feb 05, 2022 12:00 Laboratory - LIPID PANEL FASTING [place] [facility] AM Chemistry Order BLOOD (SST-SERUM) [facility] [place] Feb 05, 2022 12:00 Laboratory - HEMOGLOBIN A1C PANEL [place] [facility] AM Chemistry Order BLOOD (LAV-BLOOD) [facility] [place] Feb 05, 2022 12:00 Laboratory - CBC AND DIFF (AUTO) [place] [facility] AM Chemistry Order BLOOD (LAV-BLOOD) [facility] [place] Feb 05, 2022 12:00 Laboratory - IRON & TIBC PANEL BLOOD [place] [facility] AM Chemistry Order (SST-SERUM) [facility] [place] Feb 05, 2022 12:00 Laboratory - FERRITIN BLOOD [place] [facility] N AM Chemistry Order (SST-SERUM) [facility] [place] Social History: Smoking Status (Most current) and [...] AM VA-TOBACCO QUIT 5 TO < 15 [place] [facility] Y[place] [facility] Tobacco Use History This section includes a history of the smoking, or tobacco- related health factors, that were collected on or before the date of the Encounter. The data comes from the [place] facility where the Encounter took place. Date/Time Smoking Status/Tobacco Use Comment [facility] Jun 16, 2018 11:59 AM VA-TOBACCO QUIT 5 TO < 15 YRS [place] [facility] [facility] May 12, 2018 09:43 AM QUIT TOBACCO USE > 7 YEARS [place] [facility] [place] A[place] [facility] Jun 06, 2016 09:32 AM QUIT TOBACCO USE > 7 YEARS [place] [facility] [place] AGO . [facility] Oct 04, 2013 09:16 AM QUIT TOBACCO USE > 7 YEARS [place] [facility] AGO . [facility] Advance Directives: All historical and current Section Date Range: From patient's date of to the date document was created. This section includes ALL of a patient's completed or amended [place] Advance and Rescinded Directives. The entries below indicate that a directive exists for the patient, but an actual copy is not included with this document. The data comes from all [place] facilities. Date Advance Directives Provider Source Jan 18, 2021 ADVANCE DIRECTIVE JOHNNY ESQUEDA [place] [facility] [facility] Encounter Notes: All associated encounter notes This section contains the clinical notes associated to the Encounter. Date/Time Encounter Note(s) Provider Source Feb 04, 2022 02:47 PM PRIMARY CARE TELEPHONE ENCOUNTER NOTE: WANDA BROOKS [place] [facility] LOCAL TITLE: TELEPHONE NOTE/PRIMARY CARE [facility] STANDARD TITLE: PRIMARY CARE TELEPHONE ENCOUNTER NOTE DATE OF NOTE: FEB 04, 2022@14:47 ENTRY DATE: FEB 04, 2022@14:47:47 AUTHOR: WANDA CONNOR EXP COSIGNER: URGENCY: STATUS: COMPLETED TELEPHONE NOTE/PRIMARY CARE Has ADDENDA Call placed to to review healthc are reminders, states does not know when last eye exam was, states he is ine do esn't need any more help, diabetic teaching for eye sight and heal th, polite and stated he knows is ok. states will make appointment for eye and to see pcp /nella/ WANDA CONNOR LPN Signed: 02/04/2022 14:50 Receipt Acknowledged By: * AWAITING SIGNATURE * JUMANA ROBERT 02/04/2022 ADDENDUM STATUS: COMPLETED ? if has been transferred to [facility] /nella/ WANDA CONNOR LPN Signed: 02/04/2022 14:51 Receipt Acknowledged By: * AWAITING SIGNATURE * JUMANA ROBERT
--- OUTSIDE RECORDS SUMMARY | 2022-10-14 16:28 | XMS_ITS | Encounter Summary ---
:1950 Author Organization [facility] Address [address] [place] [id number] Support Name Relationship Address Phone LEEANNE LOAIZA Unavailable Unavailable [phone] Insurance Providers: All historical and current Section [...] MEDICARE MEDICARE PART Jul 24, PART B [id number] KENDALL FORD PATIENT (WNR) (M) B 2015 34A 4 GABBIE NICOLE MEDICARE MEDICARE PART Oct 23, PART A [id number] KENDALL FORD PATIENT (WNR) (M) A 2012 34A 4 GABBIE NICOLE Selected Encounter This section includes the information on record at MD for the Encounter. Date/Time Encounter Type Encounter Reason Provider Source Description Jan 11, 2022 PRO PHONE TELEPHONE TRIAGE ICD-10-CM Z71.89 RADHA MOODY 10:45 AM CALL 5-10 MIN Other specified counseling with Provider Comments: Other specified counseling IHE Encounter Template Text not used by MD Assessments - Encounter Diagnoses This section includes the primary and secondary diagnoses documented for the Encounter. Date/Time Primary/Secondary Diagnosis Name Provider Source Diagnosis Jan 11, 2022 PRIMARY Other specified RADHA MOODY [facility] 10:45 AM counseling [facility] Plan of Treatment: Future Appointments (+ 6 months) and Future Tests (+/- 45 days) The Plan of Treatment section includes future care activities for the patient from all MD treatmentfacilities. This section includes future appointments and future orders which are active, pending orscheduled.Future Appointments This section includes appointments that were scheduled to occur 6 months from the date of the Encounter, up to a maximum of 20 appointments. The data comes from all MD treatment facilities. Appointment Date/Time Appointment Type Appointment Facili ty Name Jan 15, 2022 10:30 AM [facility] May 02, 2022 10:30 AM AMBULATORY - MEDICINE [facility] May 02, 2022 10:31 AM AMBULATORY - REHAB MEDICINE [facility] May 27, 2022 11:00 AM [facility] Jun 09, 2022 10:30 AM AMBULATORY MEDICINE [facility] Active, Pending, and Scheduled Orders This section includes a listing of several types of active, pending, and scheduled orders, including clinic medications orders, diagnostic test orders, procedure orders and consult orders; where the start date of the order is 45 days before the date of the Encounter or 45 days after the date of the Encounter. The data comes from all MD treatment facilities. Test Date/Time Test Type Test Details Facility Name Feb 05, 2022 12:00 Laboratory - MICROALBUMIN CREATININE [facility] AM Chemistry Order RATIO PANEL URINE [facility] S (RANDOM) Feb 05, 2022 12:00 Laboratory - HEPATITIS A ANTIBODY [facility] AM Chemistry Order (IGG) BLOOD (SST[facility]SERUM) [facility] Feb 05, 2022 12:00 Laboratory - BASIC METABOLIC PANEL [facility] AM Chemistry Order (fasting) BLOOD [facility] (SST-SERUM) Feb 05, 2022 12:00 Laboratory - HEPATITIS B SURFACE [facility] AM Chemistry Order ANTIBODY (HBsAb)-[facility] BLOOD (SST-SERUM) Feb 05, 2022 12:00 Laboratory - LIVER FUNCTION [facility]LOOD [facility] AM Chemistry Order (SST-SERUM) [facility] Feb 05, 2022 12:00 Laboratory - LIPID PANEL FASTING [facility] AM Chemistry Order BLOOD (SST-SERUM) [facility] Feb 05, 2022 12:00 Laboratory - HEMOGLOBIN A1C PANEL [facility] AM Chemistry Order BLOOD (LAV[facility]BLOOD) [facility] Feb 05, 2022 12:00 Laboratory - CBC AND DIFF (AUTO) [facility] AM Chemistry Order BLOOD (LAV-BLOOD) [facility] Feb 05, 2022 12:00 Laboratory - IRON & TIBC PANEL BLOOD [facility] AM Chemistry Order (SST-SERUM) [facility] Feb 05, 2022 12:00 Laboratory - FERRITIN BLOOD [facility] N AM Chemistry Order (SST-SERUM) [facility] Social History: Smoking Status (Most current) and Tobacco Use (All prior to encounter date) This section includes the most current, and the historical, smoking and tobacco-related health factors from the MD facility where the Encounter took place.Current Smoking Status This section includes the most current smoking, or tobacco-related health factor, from the MD facility where the Encounter took place. Date/Time Current Smoking Status Comment Facility Jun 16, 2018 11:59 AM VA-TOBACCO QUIT 5 TO < 15 [facility] [place] YRS [facility] Tobacco Use History This section includes a history of the smoking, or tobacco- related health factors, that were collected on or before the date of the Encounter. The data comes from the MD facility where the Encounter took place. Date/Time Smoking Status/Tobacco Use Comment [facility] Jun 16, 2018 11:59 AM VA-TOBACCO QUIT 5 TO < 15 YRS [facility] [place] [facility] May 12, 2018 09:43 AM QUIT TOBACCO USE > 7 YEARS MD [facility] [place] AGO [facility] Jun 06, 2016 09:32 AM QUIT TOBACCO USE > 7 YEARS [facility] [place] AGO . [facility] Oct 04, 2013 09:16 AM QUIT TOBACCO USE > 7 YEARS [facility] [place] AGO . [facility] Advance Directives: All historical and current Section Date Range: From patient's date of to the date document was created. This section includes ALL of a patient's completed or amended MD Advance and Rescinded Directives. The entries below indicate that a directive exists for the patient, but an actual copy is not included with this document. The data comes from all MD facilities. Date Advance Directives Provider Source Jan 18, 2021 ADVANCE DIRECTIVE JOHNNY ESQUEDA [facility] Encounter Notes: All associated encounter notes This section contains the clinical notes associated to the Encounter. Date/Time Encounter Note(s) Provider Source Jan 11, 2022 10:45 AM NURSING TELEPHONE ENCOUNTER TRIAGE NOTE: RADHA GALARZA [facility] LOCAL TITLE: [facility] 1 [facility]TA[facility] C[facility] STANDARD TITLE: NURSING TELEPHONE ENCOUNTER TRIA GE NOTE DATE OF NOTE: JAN 11, 2022@10:45:29 ENTRY DATE: JAN 11, 2022@10:58:01 AUTHOR: RADHA MOODY EXP COSIGNER: URGENCY: STATUS: COMPLETED [facility] 1 CLINICAL CONTACT CENTER Has ADDENDA The patient, GABBIE LOAIZA ([id number]) Ph one: called the call center. The following identifiers were used to verify th is patient: . SSN. Other: phone. Contact Type of call: DTN RX REFILL. Caller Response: CLN CALL RESOLVED Caller Area: [facility] Provider Info: LOCAL - [facility] ([id number]) PACT: NO PACT 3 (Focus: Primary Care Only) Primary Care Provider: EDUARDO CELESTIN Painter Chassis: JOHNNY ESQUEDA PHONE:[phone] Clinical Associate: WANDA CONNOR NE:[id number] Telephony Engineer: JOLENE SHINE Clinical POC: Painter Chassis HAI ESQUEDA PHONE:[phone] Administrative POC: Telephony Engineer JOLENE SHINE Author: RADHA MOODY Comments: med refill Imported Information: Medications ACTIVE: APIXABAN 5MG TAB Prescription #:[id number] Prescribing Physician: EDUARDO CELESTIN (PHYSICIAN CAROLE) on 021 10:55 Frequency/Dosage: 5MG ORAL BID Evaluation/Management Code: HC PRO PHONE CALL 5- 10 MIN ([phone]). Starting at: 01/11/2022 @ 10:45:29 AM Ending at: 01/11/2022 @ 10:53:01 AM Length: 7 minutes. Chief Complaint: Not applicable to call. Class Code: Other specified counseling. Nurse Notes: Glenny was trying to fill his pill box today and fo und out that he does not have apixaban. Per chart this med was just released 12/26 and he should still have supply. Dispense Drugs (units/dose): APIXABAN 5MG TAB () Last Filled: 12/23/21 Refills Remainin Filled: 05/13/21 (Mail) released 05/06/21 RENEWED FROM RX # [id number] 07/12/21 (Mail) released 07/15/21 08/19/21 (Mail) released 08/21/21 09/27/21 (Mail) released 09/30/21 11/11/21 (Mail) released 11/13/21 12/23/21 (Mail) released 12/26/21 Glenny could not remember when he filled his pill b ox the last time that the bottle was already empty. Advised that note will be sent to PCP bu t also advised to look around as maybe he just misplaced the right bottle. Patient/Caller agrees with plan. Advised caller/ that a note will be forwarded to the provider and/or the managed care nurse for review, further recommendations , and/or follow-up. Patient's Email Address: /es/ Radha HENAO,RN [facility] 2 [facility] RN Signed: 01/11/2022 10:58 Receipt Acknowledged By: 01/12/2022 13:29 /nella/ Eduardo Celestin PA-C STAFF PHYSICIAN ELECTROFORMER * AWAITING SIGNATURE * JOHNNY ESQUEDA 01/12/2022 ADDENDUM STATUS: COMPLETED Apixaban ordered for window. Please call and ask him to come pickup. /nella/ Eduardo Celestin PA-C STAFF PHYSICIAN ELECTROFORMER Signed: 01/12/2022 13:29 Receipt Acknowledged By: * AWAITING SIGNATURE * JOHNNY ESQUEDA
[2022-10-14] MEDS: Magnesium Sulfate/H2O 2 GM/50 ML PIGGYBACK IV (16:58)
[2022-10-14 17:35] LABS: Reflex Lactate? Lactic Acid Added
[2022-10-14 18:12] LABS: ~Lactic Acid-LAB USE ONLY 3.2 mmol/L (0.5-2.0)
[2022-10-14 19:54] LABS: Reflex Lactate? 2 Y
[2022-10-14 20:11] LABS: Glucose, Whole Blood 27 mg/dL (60-115)
[2022-10-14] MEDS: Dextrose 50 % 25 GM/50 ML SYRINGE IVPUSH (20:11)
--- NOTE | 2022-10-14 20:13 | PC.NURSE ---
poc 27 - given 2 cups of orange juice and 1 amp dextrose via iv . patient awake, alert, mentating well, shaky
[2022-10-14 20:14] VITALS: BP 162/53; PULSE 98; RESP 17; O2SAT 98
[2022-10-14] MEDS: Dextrose 10 % 1,000 ML 50 ML IVCONT (20:29)
[2022-10-14 20:36] LABS: Glucose, Whole Blood 136 mg/dL (60-115)
--- NOTE | 2022-10-14 21:27 | PM.IMHP ---
History of Present Illness Date of Service: 10/14/22 Chief Complaint: Fall This is a 72-year-old male with past medical history of alcohol abuse, AFib, diabetes, HTN who presents to the hospital from home for evaluation of altered mental status and shortness of breath . EMS was called by the patient's son who found patient on the floor. On arrival of EMS patient was found to be short of breath, with oral secretion and foam at the mouth, with hypoxia of 83%. Patient was also found to be hypoglycemic with a glucose level of 48. Patient was placed on rescue CPAP and brought to the ER for further evaluation. Patient himself does not remember the events leading to his presentation to the ED. He reports that the last thing he remembers is falling asleep. He has no recollection of the events. On arrival to the ED his glucose was found to be 30. Patient reports that he drinks daily, he took his diabetes medications but does not remember eating. Patient was placed on D10 but continues to be hyperglycemic, rate has been increased. On arrival to the ED patient hemodynamically stable with no significant abnormal vitals except for temperature 96.2 degrees Labs are significant for the CC count of 4.6, lactic acid of 4 point, magnesium 1.5, UA negative, UDS negative, COVID-19 influenza negative Chest x-ray negative, head CT and cervical spine negative. Review of Systems Review of Systems: Yes all other systems are reviewed and are negative [facility] Medical History (Updated 10/15/22 @ 07:04 by Heidi Rhodes MD) Alcohol abuse Diabetes HLD (hyperlipidemia) Hypertension Family History Other No family history of coronary artery disease Surgical History No history of previous surgery Social History Household Members: Children Housing: House Do you presently have visiting nurse or other home services: No Alcohol intake: current Patient Tobacco Use Status: Never used Tobacco Smoked in Last 30 Days: No Use of substances other than those prescribed or required for medical reasons: No Currently Displaying Signs/Symptoms of Drug Intoxication Withdrawal: No Have you been hit, kicked, punched, or otherwise hurt by someone within the past year? If so, by whom?: No Do you feel safe in your current relationship?: No Current Relationship Is there a partner from a previous relationship who is making you feel unsafe now?: No Are you made to feel afraid or neglected: No Advance Directives: No Advance Directives Information Provided: No Do you have thoughts of harming others: None Do you have a plan to hurt others: No Plan Recently lost weight without trying: No Nutrition Risks: No Nutritional Risk service: No Current occupational status: retired Meds Allergies Allergy/AdvReac Type Severity Reaction Status Date / Time alcohol Allergy Unknown rash Verified 04/17/21 11:20 clams Allergy Unknown UNKNOWN Unverified 04/17/21 11:20 oxycodone Allergy Unknown rash Verified 04/17/21 11:20 steamers/ clams Allergy Unknown flu like Uncoded 04/17/21 11:20 symptoms Active Medications: Current Medications Dextrose (D10) 1,000 mls @ 50 mls/hr IVCONT .Q20H CLAUDIA Last Admin: 10/14/22 20:29 Dose: 50 mls/hr Pharmacy Consult (Consult Rx Perform Med Rec) 1 each MISCELLANE ONCE PRN PRN Reason: Consult order Home Medications Medication Instructions Recorded Confirmed Last Taken Type amlodipine 5 mg tablet 1 tab PO DAILY 10/14/22 10/14/22 Unknown History atorvastatin 10 mg tablet 1 tab PO DAILY 10/14/22 10/14/22 Unknown History glipizide 5 mg tablet 1 tab PO DAILY 10/14/22 10/14/22 Unknown History lisinopril 10 mg tablet 1 tab PO DAILY 10/14/22 10/14/22 Unknown History metformin 500 mg tablet 1 tab PO DAILY 10/14/22 10/14/22 Unknown History metoprolol succinate 50 mg 1 tab PO DAILY 10/14/22 10/14/22 Unknown History tablet,extended release 24 hr Physical Exam Vital Signs and Narrative: Vital Signs: Last Vital Signs Temp 98.1 F 10/14/22 16:18 Pulse 98 10/14/22 20:14 Resp 17 10/14/22 20:14 BP 162/53 H 10/14/22 20:14 Pulse Ox 98 10/14/22 20:14 O2 Del Method 10/14/22 20:14 BMI result Body Mass Index 30.5 Const: General: cooperative and no acute distress Orientation/consciousness: patient oriented x3 Eyes: General: appearance normal, both eyes and all related structures Resp: Effort & Inspection: normal respiratory effort Auscultation: clear to auscultation bilaterally Cardio: Rate: regular rate Rhythm: regular rhythm GI: Palpation (GI): Soft to palpation Auscultation: normal bowel sounds Skin: General skin exam: no rashes or lesions noted Neuro: Other: Asterixis General: patient oriented x3 Extrem: General: Yes normal to inspection and Yes no pedal edema Results Labs CBC and Chem 7: 10/14/22 15:22 10/14/22 15:22 Labs: Laboratory Results - last 24 hr 10/14/22 10/14/22 10/14/22 14:44 15:22 15:22 MCV 89.7 MCH 29.7 MCHC 33.2 RDW 14.2 Plt Count 166 MPV 8.6 L Immature Gran % (Auto) 0.4 Neut % (Auto) 79.3 H Lymph % (Auto) 12.9 L [place] % (Auto) 5.7 Eos % (Auto) 1.5 Baso % (Auto) 0.2 Lymph # (Auto) 0.6 L [place] # (Auto) 0.3 Eos # (Auto) 0.1 Baso # (Auto) 0.0 Abs Immat Gran (auto) 0.02 Absolute Neuts (auto) 3.6 Absolute Nucleated RBC 0.000 Nucleated RBC % (auto) 0.0 VBG pH VBG pCO2 VBG pO2 VBG HCO3 VBG O2 Saturation VBG Base Excess Anion Gap 19 Estim Creat Clear Calc 83.6 Estimated GFR > 60 POC Glucose 82 Random Glucose 88 Lactic Acid Lactic Acid F/U @ 2Hr Calcium 9.1 Magnesium 1.5 L Total Bilirubin 1.4 H Direct Bilirubin 0.6 H AST 45 H ALT 31 Alkaline Phosphatase 89 Ammonia Troponin I High Sens B-Natriuretic Peptide Total Protein 6.9 Albumin 4.2 Procalcitonin Ethyl Alcohol 129 COVID-19 (JAZMYN) COVID-19 Clin Com Influenza Type A (RAFAEL) Influenza Type B (RAFAEL) Influenza A & B Note 10/14/22 10/14/22 10/14/22 15:22 15:22 15:22 MCV MCH MCHC RDW Plt Count MPV Immature Gran % (Auto) Neut % (Auto) Lymph % (Auto) [place] % (Auto) Eos % (Auto) Baso % (Auto) Lymph # (Auto) [place] # (Auto) Eos # (Auto) Baso # (Auto) Abs Immat Gran (auto) Absolute Neuts (auto) Absolute Nucleated RBC Nucleated RBC % (auto) VBG pH VBG pCO2 VBG pO2 VBG HCO3 VBG O2 Saturation VBG Base Excess Anion Gap Estim Creat Clear Calc Estimated GFR POC Glucose Random Glucose Lactic Acid 4.0 H* Lactic Acid F/U @ 2Hr Calcium Magnesium Total Bilirubin Direct Bilirubin AST ALT Alkaline Phosphatase Ammonia 30 Troponin I High Sens 4.6 B-Natriuretic Peptide Total Protein Albumin Procalcitonin Ethyl Alcohol COVID-19 (JAZMYN) COVID-19 Clin Com Influenza Type A (RAFAEL) Influenza Type B (RAFAEL) Influenza A & B Note 10/14/22 10/14/22 10/14/22 15:22 15:22 15:22 MCV MCH MCHC RDW Plt Count MPV Immature Gran % (Auto) Neut % (Auto) Lymph % (Auto) [place] % (Auto) Eos % (Auto) Baso % (Auto) Lymph # (Auto) [place] # (Auto) Eos # (Auto) Baso # (Auto) Abs Immat Gran (auto) Absolute Neuts (auto) Absolute Nucleated RBC Nucleated RBC % (auto) VBG pH VBG pCO2 VBG pO2 VBG HCO3 VBG O2 Saturation VBG Base Excess Anion Gap Estim Creat Clear Calc Estimated GFR POC Glucose Random Glucose Lactic Acid Lactic Acid F/U @ 2Hr Calcium Magnesium Total Bilirubin Direct Bilirubin AST ALT Alkaline Phosphatase Ammonia Troponin I High Sens B-Natriuretic Peptide 55 Total Protein Albumin Procalcitonin 0.05 Ethyl Alcohol COVID-19 (JAZMYN) Negative COVID-19 Clin Com See Note Influenza Type A (RAFAEL) Influenza Type B (RAFAEL) Influenza A & B Note 10/14/22 10/14/22 10/14/22 15:22 15:30 17:49 MCV MCH MCHC RDW Plt Count MPV Immature Gran % (Auto) Neut % (Auto) Lymph % (Auto) [place] % (Auto) Eos % (Auto) Baso % (Auto) Lymph # (Auto) [place] # (Auto) Eos # (Auto) Baso # (Auto) Abs Immat Gran (auto) Absolute Neuts (auto) Absolute Nucleated RBC Nucleated RBC % (auto) VBG pH 7.32 VBG pCO2 39 VBG pO2 51 VBG HCO3 21 L VBG O2 Saturation 74.0 VBG Base Excess -4.5 Anion Gap Estim Creat Clear Calc Estimated GFR POC Glucose Random Glucose Lactic Acid Lactic Acid F/U @ 2Hr 3.2 H* Calcium Magnesium Total Bilirubin Direct Bilirubin AST ALT Alkaline Phosphatase Ammonia Troponin I High Sens B-Natriuretic Peptide Total Protein Albumin Procalcitonin Ethyl Alcohol COVID-19 (JAZMYN) COVID-19 Clin Com Influenza Type A (RAFAEL) Negative Influenza Type B (RAFAEL) Negative Influenza A & B Note See Note 10/14/22 10/14/22 20:05 20:31 MCV MCH MCHC RDW Plt Count MPV Immature Gran % (Auto) Neut % (Auto) Lymph % (Auto) [place] % (Auto) Eos % (Auto) Baso % (Auto) Lymph # (Auto) [place] # (Auto) Eos # (Auto) Baso # (Auto) Abs Immat Gran (auto) Absolute Neuts (auto) Absolute Nucleated RBC Nucleated RBC % (auto) VBG pH VBG pCO2 VBG pO2 VBG HCO3 VBG O2 Saturation VBG Base Excess Anion Gap Estim Creat Clear Calc Estimated GFR POC Glucose 27 L* 136 H Random Glucose Lactic Acid Lactic Acid F/U @ 2Hr Calcium Magnesium Total Bilirubin Direct Bilirubin AST ALT Alkaline Phosphatase Ammonia Troponin I High Sens B-Natriuretic Peptide Total Protein Albumin Procalcitonin Ethyl Alcohol COVID-19 (JAZMYN) COVID-19 Clin Com Influenza Type A (RAFAEL) Influenza Type B (RAFAEL) Influenza A & B Note Imaging Radiologist's Impressions: Impressions Chest X-Ray 10/14/22 15:10 IMPRESSION: Unremarkable examination. Cervical Spine CT 10/14/22 15:55 IMPRESSION: 1. No acute intracranial pathology. 2. No CT evidence of acute cervical spine fracture or traumatic subluxation Head CT 10/14/22 15:55 IMPRESSION: 1. No acute intracranial pathology. 2. No CT evidence of acute cervical spine fracture or traumatic subluxation Assessment and Plan (1) Encephalopathy: Status: Acute (2) Hypoglycemia: Status: Acute (3) Alcohol abuse: Status: Acute (4) Alcohol withdrawal: Status: Acute (5) Lactic acid acidosis: Status: Acute Plan 72-year-old male with past medical history of alcohol abuse, hypertension, diabetes presents to the hospital after being found by son with altered mental status # encephalopathy - likely secondary to hypoglycemia as well as alcohol abuse - will continue D10 - POC q.1 hour - treat alcohol withdrawal, as well as hold oral antihyperglycemics # hypoglycemia - patient on glipizide and metformin at baseline for his diabetes, reports taking his medications and not eating - hyperglycemia likely secondary to self on urea and metformin intake - continue D10 - hold oral antihyperglycemics # alcohol abuse with withdrawal - will treat with phenobarb protocol - thiamine and folic acid # hypertension - continue antihypertensives # lactic acidosis - likely secondary to dehydration - IV fluids - trend lactic acid DVT prophylaxis: Lovenox Given hypoglycemia requiring dextrose, and alcohol abuse needing phenobarb patient will require a minimum 2 in-patient hospital stay for further management Quality Stroke Does the patient have a stroke diagnosis?: No VTE Prior VTE?: No VTE Risk Level:: Medical - moderate - high VTE Device Contraindication: Treatment Not Indicated VTE Drug Contraindication: N/A - Med Ordered
--- NOTE | 2022-10-14 21:39 | PC.NURSE ---
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
[2022-10-14] MEDS: Heparin Sodium,Porcine 5,000 UNIT/ML VIAL 5000 UNIT SUBCUT (22:00)
--- NOTE | 2022-10-14 22:04 | PHA.MEDREC ---
Pharmacy Consult ? Medication Reconciliation Pharmacy has completed the medication reconciliation.
[2022-10-14 22:11] LABS: Appearance Urine Clear; Color Urine Yellow; Glucose Urine UA 250 mg/dL (Negative); Leukocyte Esterase Urine Negative (Negative); Nitrite Urine Negative (Negative); Urine Blood Negative (Negative); Urine Ketones 15 mg/dL (Negative); Urine Protein Negative (Neg-Trace)
[2022-10-14 22:22] LABS: ~Lactic Acid-LAB USE ONLY 3.8 mmol/L (0.5-2.0)
[2022-10-14 22:24] LABS: Amphetamine Screen Urine Not Detected (Not Detect); Barbiturates, Urine Not Detected (Not Detect); Benzodiazepines Screen Urine Not Detected (Not Detect); Cannabinoid Screen Urine Not Detected (Not Detect); Cocaine Screen Urine Not Detected (Not Detect); Fentanyl, urine Not Detected (Not Detect); Opiate Screen Urine Not Detected (Not Detect); Phencyclidine Screen Urine Not Detected (Not Detect)
--- NOTE | 2022-10-14 22:40 | PC.NURSE ---
report given to Eda [facility] RN
--- NOTE | 2022-10-14 23:01 | MHC.CM.PN ---
IMM 10/14. CM met with patient with bed assignment 478. A&Ox3. Lives with son Aníbal Tom. States his , Ammy, is him. States she is his HCP and he declines to change it. Believes copy is at PCP. PCP Dr. Jakob Lo. Uses cane/walker. No services. Pfizer x3. D/C plan: Home w/o services. Has no transport home. Will need lyft. CM to follow for d/c planning.
[2022-10-14 23:29] VITALS: BP 145/65; PULSE 96; RESP 19; TEMP 37.6; O2SAT 95
[2022-10-14 23:39] LABS: Glucose, Whole Blood 222 mg/dL (60-115)
[2022-10-15] MEDS: PHENobarbitaL sodium 130 MG/ML IM ONCE 318 MG IM (00:02)
[2022-10-15 01:11] LABS: Glucose, Whole Blood 203 mg/dL (60-115)
[2022-10-15 02:18] LABS: Glucose, Whole Blood 209 mg/dL (60-115)
[2022-10-15] MEDS: PHENobarbitaL sodium 130 MG/ML VIAL IM Q3Hx2 237 MG IM ×2 (02:58→06:19)
[2022-10-15 03:44] VITALS: BP 156/73; PULSE 85; RESP 19; TEMP 36.9; O2SAT 98
[2022-10-15 05:14] LABS: Glucose, Whole Blood 221 mg/dL (60-115)
[2022-10-15 06:31] LABS: Glucose, Whole Blood 202 mg/dL (60-115)
[2022-10-15 07:17] VITALS: BP 134/58; PULSE 78; RESP 20; TEMP 36.9; O2SAT 98
[2022-10-15 07:21] LABS: Glucose, Whole Blood 192 mg/dL (60-115)
[2022-10-15 08:45] LABS: MANUAL DIFF FLAG NO
[2022-10-15 08:52] LABS: Basophils Percent Auto 0.3 % (0-2); Eosinophils Percent Auto 0.7 % (0-4); Hemoglobin 12.3 g/dl (14.0-18.0); Imm Gran Abs Auto 0.02 X10*3/uL (0.00-0.03); Imm Gran Pct Auto 0.3 % (0.0-0.4); Lymphocytes Absolute Auto 0.9 X10*3/uL (1.2-4.9); Lymphocytes Percent Auto 14.7 % (20-40); Mean Corpuscular HGB Conc 34.2 g/dl (31.0-36.0); Mean Corpuscular Hemoglobin 30.5 pg (27.0-33.0); Mean Corpuscular Volume 89.3 fL (80.0-98.0); Mean Platelet Volume 8.9 fL (9.4-12.4); Monocytes Absolute Auto 0.5 X10*3/uL (0.1-1.2); Monocytes Percent Auto 8.4 % (2-11); Neutrophils Absolute Auto 4.6 x10*3/uL (2.0-8.3); Neutrophils Percent Auto 75.6 % (45-73); Platelet Count 135 X10*3/uL (160-400); Red Blood Count 4.03 X10*6/uL (4.60-5.80); Red Cell Distribution Width 14.3 % (11.0-16.0)
[2022-10-15 08:53] LABS: Glucose, Whole Blood 230 mg/dL (60-115)
[2022-10-15 08:58] LABS: Lactic Acid 1.3 mmol/L (0.5-2.0)
[2022-10-15 09:00] LABS: Anion Gap 11 (12-20); Blood Urea Nitrogen 10 mg/dL (9-16); Calcium 8.7 mg/dL (8.4-10.2); Carbon Dioxide 30 mmol/L (22-29); Chloride 98 mmol/L (96-108); Creatinine Clr Calc Pharmacy 72.6; Estimated Glomerular Filt Rate > 60; Glucose Random 229 mg/dL (60-115); Potassium 5.1 mmol/L (3.3-5.1); Sodium 134 mmol/L (135-145)
[2022-10-15] MEDS: Heparin Sodium,Porcine 5,000 UNIT/ML VIAL 5000 UNIT SUBCUT ×2 (09:11→21:48)
[2022-10-15] MEDS: Atorvastatin Calcium 10 MG TABLET PO (09:12)
[2022-10-15] MEDS: PHENobarbitaL 15 MG TABLET 45 MG PO ×2 (09:12→21:48)
[2022-10-15] MEDS: Folic Acid 1 MG TABLET PO (09:12)
[2022-10-15] MEDS: lisinopriL 10 MG TABLET PO (09:12)
[2022-10-15] MEDS: amLODIPine Besylate 5 MG TABLET PO (09:12)
[2022-10-15] MEDS: Metoprolol Succinate ER 50 MG TAB.ER.24H PO (09:12)
[2022-10-15 09:55] LABS: Glucose, Whole Blood 191 mg/dL (60-115)
[2022-10-15] MEDS: Thiamine HCL 400 MG in 0.9 % Sodium Chloride 100 ML 208 MG IV ×2 (10:39→17:33)
[2022-10-15 11:36] VITALS: BP 125/60; PULSE 78; RESP 20; TEMP 36.7; O2SAT 98
[2022-10-15 12:06] LABS: Glucose, Whole Blood 211 mg/dL (60-115)
[2022-10-15 14:18] LABS: Glucose, Whole Blood 149 mg/dL (60-115)
--- NOTE | 2022-10-15 14:45 | MHC.CM.PN ---
PER MD ROUNDS, PT NOT MEDICALLY CLEARED FOR DC, (PNA, NEEDS ORDER CHECKER EVAL) CM WILL CONTINUE TO SWALLOW
[2022-10-15 15:27] VITALS: BP 138/63; PULSE 90; RESP 18; TEMP 36.6; O2SAT 97
[2022-10-15 16:11] LABS: Glucose, Whole Blood 167 mg/dL (60-115)
--- NOTE | 2022-10-15 16:34 | HO.PM.IMPN ---
Subjective Subjective Date of Service: 10/15/22 Interval History: toxic metabolic encephalopathy, hypoglycemia Review of Systems mental status seems to be improving, hypocalcemia improving, denies any chest pain or shortness of breath or abdominal pain or fever chills. Physical Exam Vital Signs: Vital Signs: Last Vital Signs Temp 97.9 F 10/15/22 15:27 Pulse 90 10/15/22 15:27 Resp 18 10/15/22 15:27 BP 138/63 10/15/22 15:27 Pulse Ox 97 10/15/22 15:27 O2 Del Method 10/15/22 15:27 BMI result Body Mass Index 30.5 Appearance: Alert.? Oriented X3.?mental status improving, still tramulous and anxious cvs: rrr, [id number]. res: clear to auscultation ,no rhonchii or wheezing abd: no rebound or guarding ,nt, bs present. ext pulses present , no cyanosis . neuro: axo3 , nonfocal. Objective Data Active Medications Acetaminophen (Acetaminophen 325 Mg Tablet) 650 mg PO Q6H PRN PRN Reason: Pain, Mild (Pain Scale 1-3) Amlodipine Besylate (Amlodipine Besylate 5 Mg Tablet) 5 mg PO DAILY [facility]; Protocol Last Admin: 10/15/22 09:12 Dose: 5 mg Documented By: IRLANDA Atorvastatin Calcium (Atorvastatin Calcium 10 Mg Tablet) 10 mg PO DAILY [facility] Last Admin: 10/15/22 09:12 Dose: 10 mg Documented By: IRLANDA Dextrose (Dextrose 50 % 25 Gm/50 Ml Syringe) 25 gm IVPUSH Q15M PRN PRN Reason: per Hypoglycemia Standing Ord. Docusate Sodium (Docusate Sodium 100 Mg Capsule) 100 mg PO DAILY PRN PRN Reason: Constipation Folic Acid (Folic Acid 1 Mg Tablet) 1 mg PO DAILY [facility] Last Admin: 10/15/22 09:12 Dose: 1 mg Documented By: IRLANDA Heparin Sodium (Porcine) (Heparin Sodium,Porcine 5,000 Unit/Ml Vial) 5,000 unit SUBCUT Q12H [facility] Last Admin: 10/15/22 09:11 Dose: 5,000 unit Documented By: IRLANDA Thiamine HCl 400 mg/ Sodium (Chloride) 104 mls @ 208 mls/hr IV Q8H [facility] Last Infusion: 10/15/22 11:46 Dose: 0 mls/hr Documented By: IRLANDA Lisinopril (Lisinopril 10 Mg Tablet) 10 mg PO DAILY [facility]; Protocol Last Admin: 10/15/22 09:12 Dose: 10 mg Documented By: IRLANDA Metoprolol Succinate (Metoprolol Succinate Er 50 Mg Tab.Er.24h) 50 mg PO DAILY [facility]; Protocol Last Admin: 10/15/22 09:12 Dose: 50 mg Documented By: IRLANDA Ondansetron HCl (Ondansetron Hcl 4 Mg/2 Ml Vial) 4 mg IVPUSH Q8H PRN PRN Reason: Nausea and Vomiting Pharmacy Consult (Consult Rx Perform Med Rec) 1 each MISCELLANE ONCE PRN PRN Reason: Consult order Pharmacy Consult (Consult Rx Etoh Phenob Im/Po) 1 each MISCELLANE ONCE PRN; Protocol PRN Reason: Consult order Phenobarbital (Phenobarbital 15 Mg Tablet) 45 mg PO BID [facility]; Protocol Stop: 10/16/22 21:01 Last Admin: 10/15/22 09:12 Dose: 45 mg Documented By: IRLANDA Phenobarbital (Phenobarbital 30 Mg Tablet) 30 mg PO BID [facility]; Protocol Stop: 10/18/22 21:01 Phenobarbital (Phenobarbital 30 Mg Tablet) 30 mg PO DAILY [facility]; Protocol Stop: 10/20/22 09:01 Labs CBC & Chem 7: 10/15/22 08:20 10/15/22 08:20 Labs: Laboratory Results - last 24 hr 10/14/22 10/14/22 10/14/22 17:49 20:05 20:31 MCV MCH MCHC RDW Plt Count MPV Immature Gran % (Auto) Neut % (Auto) Lymph % (Auto) Reynolds % (Auto) Eos % (Auto) Baso % (Auto) Lymph # (Auto) Reynolds # (Auto) Eos # (Auto) Baso # (Auto) Abs Immat Gran (auto) Absolute Neuts (auto) Absolute Nucleated RBC Nucleated RBC % (auto) Anion Gap Estim Creat Clear Calc Estimated GFR POC Glucose 27 L* 136 H Random Glucose Lactic Acid Lactic Acid F/U @ 2Hr 3.2 H* Lactic Acid F/U @ 4Hr Calcium Urine Color Urine Appearance Urine pH Ur Specific [place] Urine Protein Urine Glucose (UA) Urine Ketones Urine Blood Urine Nitrite Ur Leukocyte Esterase Urine Opiates Screen Urine Fentanyl Screen Ur Barbiturates Screen Ur Phencyclidine Scrn Ur Amphetamines Screen U Benzodiazepines Scrn Urine Cocaine Screen U Marijuana (THC) Screen 10/14/22 10/14/22 10/14/22 22:00 22:00 22:00 MCV MCH MCHC RDW Plt Count MPV Immature Gran % (Auto) Neut % (Auto) Lymph % (Auto) Reynolds % (Auto) Eos % (Auto) Baso % (Auto) Lymph # (Auto) Reynolds # (Auto) Eos # (Auto) Baso # (Auto) Abs Immat Gran (auto) Absolute Neuts (auto) Absolute Nucleated RBC Nucleated RBC % (auto) Anion Gap Estim Creat Clear Calc Estimated GFR POC Glucose Random Glucose Lactic Acid Lactic Acid F/U @ 2Hr Lactic Acid F/U @ 4Hr 3.8 H* Calcium Urine Color Yellow Urine Appearance Clear Urine pH 5.0 Ur Specific [place] 1.020 Urine Protein Negative Urine Glucose (UA) 250 H Urine Ketones 15 Urine Blood Negative Urine Nitrite Negative Ur Leukocyte Esterase Negative Urine Opiates Screen Not Detected Urine Fentanyl Screen Not Detected Ur Barbiturates Screen Not Detected Ur Phencyclidine Scrn Not Detected Ur Amphetamines Screen Not Detected U Benzodiazepines Scrn Not Detected Urine Cocaine Screen Not Detected U Marijuana (THC) Screen Not Detected 10/14/22 10/15/22 10/15/22 23:34 01:06 02:14 MCV MCH MCHC RDW Plt Count MPV Immature Gran % (Auto) Neut % (Auto) Lymph % (Auto) Reynolds % (Auto) Eos % (Auto) Baso % (Auto) Lymph # (Auto) Reynolds # (Auto) Eos # (Auto) Baso # (Auto) Abs Immat Gran (auto) Absolute Neuts (auto) Absolute Nucleated RBC Nucleated RBC % (auto) Anion Gap Estim Creat Clear Calc Estimated GFR POC Glucose 222 H 203 H 209 H Random Glucose Lactic Acid Lactic Acid F/U @ 2Hr Lactic Acid F/U @ 4Hr Calcium Urine Color Urine Appearance Urine pH Ur Specific [place] Urine Protein Urine Glucose (UA) Urine Ketones Urine Blood Urine Nitrite Ur Leukocyte Esterase Urine Opiates Screen Urine Fentanyl Screen Ur Barbiturates Screen Ur Phencyclidine Scrn Ur Amphetamines Screen U Benzodiazepines Scrn Urine Cocaine Screen U Marijuana (THC) Screen 10/15/22 10/15/22 10/15/22 05:09 06:27 07:13 MCV MCH MCHC RDW Plt Count MPV Immature Gran % (Auto) Neut % (Auto) Lymph % (Auto) Reynolds % (Auto) Eos % (Auto) Baso % (Auto) Lymph # (Auto) Reynolds # (Auto) Eos # (Auto) Baso # (Auto) Abs Immat Gran (auto) Absolute Neuts (auto) Absolute Nucleated RBC Nucleated RBC % (auto) Anion Gap Estim Creat Clear Calc Estimated GFR POC Glucose 221 H 202 H 192 H Random Glucose Lactic Acid Lactic Acid F/U @ 2Hr Lactic Acid F/U @ 4Hr Calcium Urine Color Urine Appearance Urine pH Ur Specific [place] Urine Protein Urine Glucose (UA) Urine Ketones Urine Blood Urine Nitrite Ur Leukocyte Esterase Urine Opiates Screen Urine Fentanyl Screen Ur Barbiturates Screen Ur Phencyclidine Scrn Ur Amphetamines Screen U Benzodiazepines Scrn Urine Cocaine Screen U Marijuana (THC) Screen 10/15/22 10/15/22 10/15/22 08:20 08:20 08:20 MCV 89.3 MCH 30.5 MCHC 34.2 RDW 14.3 Plt Count 135 L MPV 8.9 L Immature Gran % (Auto) 0.3 Neut % (Auto) 75.6 H Lymph % (Auto) 14.7 L Reynolds % (Auto) 8.4 Eos % (Auto) 0.7 Baso % (Auto) 0.3 Lymph # (Auto) 0.9 L Reynolds # (Auto) 0.5 Eos # (Auto) 0.0 Baso # (Auto) 0.0 Abs Immat Gran (auto) 0.02 Absolute Neuts (auto) 4.6 Absolute Nucleated RBC 0.000 Nucleated RBC % (auto) 0.0 Anion Gap 11 L Estim Creat Clear Calc 72.6 Estimated GFR > 60 POC Glucose Random Glucose 229 H Lactic Acid 1.3 Lactic Acid F/U @ 2Hr Lactic Acid F/U @ 4Hr Calcium 8.7 Urine Color Urine Appearance Urine pH Ur Specific [place] Urine Protein Urine Glucose (UA) Urine Ketones Urine Blood Urine Nitrite Ur Leukocyte Esterase Urine Opiates Screen Urine Fentanyl Screen Ur Barbiturates Screen Ur Phencyclidine Scrn Ur Amphetamines Screen U Benzodiazepines Scrn Urine Cocaine Screen U Marijuana (THC) Screen 10/15/22 10/15/22 10/15/22 08:49 09:51 12:03 MCV MCH MCHC RDW Plt Count MPV Immature Gran % (Auto) Neut % (Auto) Lymph % (Auto) Reynolds % (Auto) Eos % (Auto) Baso % (Auto) Lymph # (Auto) Reynolds # (Auto) Eos # (Auto) Baso # (Auto) Abs Immat Gran (auto) Absolute Neuts (auto) Absolute Nucleated RBC Nucleated RBC % (auto) Anion Gap Estim Creat Clear Calc Estimated GFR POC Glucose 230 H 191 H 211 H Random Glucose Lactic Acid Lactic Acid F/U @ 2Hr Lactic Acid F/U @ 4Hr Calcium Urine Color Urine Appearance Urine pH Ur Specific [place] Urine Protein Urine Glucose (UA) Urine Ketones Urine Blood Urine Nitrite Ur Leukocyte Esterase Urine Opiates Screen Urine Fentanyl Screen Ur Barbiturates Screen Ur Phencyclidine Scrn Ur Amphetamines Screen U Benzodiazepines Scrn Urine Cocaine Screen U Marijuana (THC) Screen 10/15/22 10/15/22 14:15 16:08 MCV MCH MCHC RDW Plt Count MPV Immature Gran % (Auto) Neut % (Auto) Lymph % (Auto) [place] % (Auto) Eos % (Auto) Baso % (Auto) Lymph # (Auto) Reynolds # (Auto) Eos # (Auto) Baso # (Auto) Abs Immat Gran (auto) Absolute Neuts (auto) Absolute Nucleated RBC Nucleated RBC % (auto) Anion Gap Estim Creat Clear Calc Estimated GFR POC Glucose 149 H 167 H Random Glucose Lactic Acid Lactic Acid F/U @ 2Hr Lactic Acid F/U @ 4Hr Calcium Urine Color Urine Appearance Urine pH Ur Specific [place] Urine Protein Urine Glucose (UA) Urine Ketones Urine Blood Urine Nitrite Ur Leukocyte Esterase Urine Opiates Screen Urine Fentanyl Screen Ur Barbiturates Screen Ur Phencyclidine Scrn Ur Amphetamines Screen U Benzodiazepines Scrn Urine Cocaine Screen U Marijuana (THC) Screen Assessment and Plan (1) Lactic acid acidosis: Status: Acute (2) Encephalopathy: Status: Acute (3) Alcohol withdrawal: Status: Acute (4) Hypoglycemia: Status: Acute Plan 72-year-old male with past medical history of alcohol abuse, hypertension, diabetes presents to the hospital after being found by son with altered mental status # toxic metabolic encephalopathy - likely secondary to hypoglycemia as well as alcohol abuse fs improving , stop fluids ,dextrose prn, add iv thiamine ( Considering encephalopathy) - treat alcohol withdrawal, as well as hold oral antihyperglycemics seen by speech and swallow-diet adjusted. # alcohol abuse with withdrawal ciwa - will treat with phenobarb protocol - thiamine and folic acid # hypertension - continue antihypertensives # lactic acidosis - likely secondary to dehydration improved . DVT prophylaxis:? Lovenox inpatient ongoing need :toxic metabolic encephalopathy sec to hypoglycemia Quality Stroke Does the patient have a stroke diagnosis?: No VTE Prior VTE?: No VTE Risk Level:: Medical - moderate - high VTE Device Contraindication: Treatment Not Indicated VTE Drug Contraindication: N/A - Med Ordered
[2022-10-15] MEDS: Furosemide 20 MG/2 ML VIAL IVPUSH (17:33)
--- NOTE | 2022-10-15 18:03 | MHC.SL.SWA ---
Speech Pathologist Impression: Pharyngeal dysphagia Risk of Aspiration Due to: Dysphasia Diet Status: Liquid Consistency and Strategies for Safe Swallow: Liquid Intake Recommendation: [place] Thick Liquid Intake Strategies: Small Sips Solid Food Consistency: Dietary Recommendations: Chopped/Advanced (NDD3) Additional Modifications to Solid Foods: Oral Medication Intake: Crushed with Puree Please contact the pharmacy regarding appropriate crushable or liquid drug formulations that are available whenever modified delivery is recommended. Compensatory Strategies and Precautions to be Taken for Safe Swallow: Sitting Upright (90 deg) No Straw Liquids from Cup Liquids from Spoon Small Bites and Sips Avoid Specific Foods Supervision While Eating and Drinking for Safe Swallow: Total Supervision (1:1) Foods to Avoid: Dry crumbly food (i.e. dry toast) Swallowing Recommended Treatments: Recommendation for Speech: Outpatient Speech Therapy Inpatient Speech Therapy Comment: Recommend CHOPPED/ADVANCED solids (NDD3). Pills crushed or whole in puree. Pt to be seated upright for PO. Cues to swallow when presenting with wet/gurgly voice. Cues to swallow 2X. Update sent to RN, RD, and MD via [employer]. If difficulty swallowing persists, pt may benefit from MBSS. Frequency/Duration: Date Range for Service Req: Timeline to reassess: Onion Farmer Clinican/Clinical Fellow: Yes: Le Albert M.A., CF-DIRECTOR Supervisory Statement: I have reviewed and agree with the student/clinical fellow's documentation: Speech Language Pathologist:
--- NOTE | 2022-10-15 18:07 | MHC.SL.SWA ---
Dysphasia Diet Status: Upgrade Liquid Consistency and Strategies for Safe Swallow: Liquid Intake Recommendation: [place] Thick Liquid Intake Strategies: Small Sips Solid Food Consistency: Dietary Recommendations: Chopped/Advanced (NDD3) Additional Modifications to Solid Foods: Moisten foods w/ sauce/gravy Oral Medication Intake: Crushed or Whole with Puree Please contact the pharmacy regarding appropriate crushable or liquid drug formulations that are available whenever modified delivery is recommended. Compensatory Strategies and Precautions to be Taken for Safe Swallow: Sitting Upright (90 deg) No Straw Liquids from Cup Liquids from Spoon Small Bites and Sips Avoid Specific Foods Supervision While Eating and Drinking for Safe Swallow: Total Supervision (1:1) Foods to Avoid: Dry crumbly food (i.e. dry toast) Swallowing Recommended Treatments: Recommendation for Speech: Outpatient Speech Therapy Inpatient Speech Therapy Comment: Recommend CHOPPED/ADVANCED solids (NDD3). Pills crushed or whole in puree. Pt to be seated upright for PO. Cues to swallow when presenting with wet/gurgly voice. Cues to swallow 2X. Update sent to RN, RD, and MD via [email or web address]. If difficulty swallowing persists, pt may benefit from MBSS. Mock Up Assembler Clinican/Clinical Fellow: Yes: Le Albert M.A., CF-MERCHANDISING CONSULTANT Supervisory Statement: I have reviewed and agree with the student/clinical fellow's documentation: Speech Language Pathologist:
--- NOTE | 2022-10-15 18:11 | MHC.SL.SWA ---
Addendum entered and electronically signed by Marcelle Salamanca MA, CCC-CREDIT UNION MANAGER 10/15/22 18:39: D.S. Original Note: Dysphasia Diet Status: Upgrade Liquid Consistency and Strategies for Safe Swallow: Liquid Intake Recommendation: [place] Thick Liquid Intake Strategies: Small Sips Solid Food Consistency: Dietary Recommendations: Chopped/Advanced (NDD3) Additional Modifications to Solid Foods: Oral Medication Intake: Crushed or Whole with Puree Please contact the pharmacy regarding appropriate crushable or liquid drug formulations that are available whenever modified delivery is recommended. Compensatory Strategies and Precautions to be Taken for Safe Swallow: Sitting Upright (90 deg) No Straw Liquids from Cup Liquids from Spoon Small Bites and Sips Avoid Specific Foods Supervision While Eating and Drinking for Safe Swallow: Total Supervision (1:1) Foods to Avoid: Dry crumbly food (i.e. dry toast) Recommendation for Speech: Outpatient Speech Therapy Inpatient Speech Therapy Comment: Recommend CHOPPED/ADVANCED solids (NDD3). Pills crushed or whole in puree. Pt to be seated upright for food and drink. Cues to swallow when presenting with wet/gurgly voice. Cues to swallow 2X. Update sent to RN, RD, and MD via [employer]. If coughing and wet/gurgly vocal quality persist, pt may benefit from MBSS. Deputy Director Of Nursing Clinican/Clinical Fellow: Yes: Le Albert M.A., CF-CREDIT UNION MANAGER Supervisory Statement: I have reviewed and agree with the student/clinical fellow's documentation: Speech Language Pathologist:
[2022-10-15 18:32] LABS: Glucose, Whole Blood 257 mg/dL (60-115)
[2022-10-15 19:17] VITALS: BP 144/63; PULSE 75; RESP 19; TEMP 36.1; O2SAT 97
[2022-10-15 19:44] LABS: Glucose, Whole Blood 227 mg/dL (60-115)
[2022-10-15 22:04] LABS: Glucose, Whole Blood 160 mg/dL (60-115)
[2022-10-16] VITALS: BP 119/60; PULSE 69; RESP 20; TEMP 36.4; O2SAT 98
[2022-10-16 00:54] LABS: Glucose, Whole Blood 119 mg/dL (60-115)
[2022-10-16] MEDS: Thiamine HCL 400 MG in 0.9 % Sodium Chloride 100 ML 208 MG IV ×3 (02:10→16:46)
[2022-10-16 02:24] LABS: Glucose, Whole Blood 108 mg/dL (60-115)
[2022-10-16 03:32] VITALS: BP 118/60; PULSE 63; RESP 20; TEMP 36.4; O2SAT 96
[2022-10-16 04:20] LABS: Glucose, Whole Blood 105 mg/dL (60-115)
[2022-10-16 06:14] LABS: Glucose, Whole Blood 117 mg/dL (60-115)
[2022-10-16 07:21] LABS: Glucose, Whole Blood 107 mg/dL (60-115)
[2022-10-16 07:53] VITALS: BP 126/63; PULSE 73; RESP 20; TEMP 36.4; O2SAT 99
[2022-10-16] MEDS: lisinopriL 10 MG TABLET PO (09:41)
[2022-10-16] MEDS: Metoprolol Succinate ER 50 MG TAB.ER.24H PO (09:41)
[2022-10-16] MEDS: Folic Acid 1 MG TABLET PO (09:41)
[2022-10-16] MEDS: Heparin Sodium,Porcine 5,000 UNIT/ML VIAL 5000 UNIT SUBCUT ×2 (09:41→20:35)
[2022-10-16] MEDS: Atorvastatin Calcium 10 MG TABLET PO (09:41)
[2022-10-16] MEDS: PHENobarbitaL 15 MG TABLET 45 MG PO ×2 (09:41→20:33)
[2022-10-16] MEDS: amLODIPine Besylate 5 MG TABLET PO (09:41)
[2022-10-16 09:56] LABS: Glucose, Whole Blood 115 mg/dL (60-115)
[2022-10-16 11:16] LABS: Glucose, Whole Blood 250 mg/dL (60-115)
[2022-10-16 11:49] VITALS: BP 102/50; PULSE 70; RESP 20; TEMP 36.6; O2SAT 98
--- NOTE | 2022-10-16 12:13 | P.PNIM_ITS ---
Subjective Subjective Date of Service: 10/16/22 Interval History: toxic metabolic encephalopathy, hypoglycemia Review of Systems mental status seems to be improving, hypocalcemia improving, denies any chest pain or shortness of breath or abdominal pain or fever chills. Physical Exam Vital Signs: Vital Signs: Last Vital Signs Temp 97.9 F 10/16/22 11:49 Pulse 70 10/16/22 11:49 Resp 20 10/16/22 11:49 BP 102/50 L 10/16/22 11:49 Pulse Ox 98 10/16/22 11:49 O2 Del Method 10/16/22 11:49 BMI result Body Mass Index 30.5 Appearing in no acute distress lung sounds are clear to auscultation heart regular rate rhythm, clear S1, S2 positive bowel sounds, abdomen is soft, nontender neuro patient is alert x3, no focal deficits Objective Data Active Medications Acetaminophen (Acetaminophen 325 Mg Tablet) 650 mg PO Q6H PRN PRN Reason: Pain, Mild (Pain Scale 1-3) Amlodipine Besylate (Amlodipine Besylate 5 Mg Tablet) 5 mg PO DAILY [facility]; Protocol Last Admin: 10/16/22 09:41 Dose: 5 mg Documented By: ERENDIRA Atorvastatin Calcium (Atorvastatin Calcium 10 Mg Tablet) 10 mg PO DAILY [facility] Last Admin: 10/16/22 09:41 Dose: 10 mg Documented By: ERENDIRA Dextrose (Dextrose 50 % 25 Gm/50 Ml Syringe) 25 gm IVPUSH Q15M PRN PRN Reason: per Hypoglycemia Standing Ord. Docusate Sodium (Docusate Sodium 100 Mg Capsule) 100 mg PO DAILY PRN PRN Reason: Constipation Folic Acid (Folic Acid 1 Mg Tablet) 1 mg PO DAILY [facility] Last Admin: 10/16/22 09:41 Dose: 1 mg Documented By: ERENDIRA Heparin Sodium (Porcine) (Heparin Sodium,Porcine 5,000 Unit/Ml Vial) 5,000 unit SUBCUT Q12H [facility] Last Admin: 10/16/22 09:41 Dose: 5,000 unit Documented By: ERENDIRA Thiamine HCl 400 mg/ Sodium (Chloride) 104 mls @ 208 mls/hr IV Q8H [facility] Last Infusion: 10/16/22 11:31 Dose: 0 mls/hr Documented By: ERENDIRA Lisinopril (Lisinopril 10 Mg Tablet) 10 mg PO DAILY [facility]; Protocol Last Admin: 10/16/22 09:41 Dose: 10 mg Documented By: ERENDIRA Metoprolol Succinate (Metoprolol Succinate Er 50 Mg Tab.Er.24h) 50 mg PO DAILY [facility]; Protocol Last Admin: 10/16/22 09:41 Dose: 50 mg Documented By: ERENDIRA Ondansetron HCl (Ondansetron Hcl 4 Mg/2 Ml Vial) 4 mg IVPUSH Q8H PRN PRN Reason: Nausea and Vomiting Pharmacy Consult (Consult Rx Perform Med Rec) 1 each MISCELLANE ONCE PRN PRN Reason: Consult order Pharmacy Consult (Consult Rx Etoh Phenob Im/Po) 1 each MISCELLANE ONCE PRN; Protocol PRN Reason: Consult order Phenobarbital (Phenobarbital 15 Mg Tablet) 45 mg PO BID [facility]; Protocol Stop: 10/16/22 21:01 Last Admin: 10/16/22 09:41 Dose: 45 mg Documented By: ERENDIRA Phenobarbital (Phenobarbital 30 Mg Tablet) 30 mg PO BID [facility]; Protocol Stop: 10/18/22 21:01 Phenobarbital (Phenobarbital 30 Mg Tablet) 30 mg PO DAILY [facility]; Protocol Stop: 10/20/22 09:01 Labs CBC & Chem 7: 10/15/22 08:20 10/15/22 08:20 Labs: Laboratory Results - last 24 hr 10/15/22 10/15/22 10/15/22 14:15 16:08 18:29 POC Glucose 149 H 167 H 257 H 10/15/22 10/15/22 10/16/22 19:41 22:00 00:49 POC Glucose 227 H 160 H 119 H 10/16/22 10/16/22 10/16/22 02:19 04:14 06:09 POC Glucose 108 105 117 H 10/16/22 10/16/22 10/16/22 07:17 09:40 11:12 POC Glucose 107 115 250 H Microbiology Microbiology Results: Microbiology 10/14/22 15:43 Blood Culture - Preliminary Blood - Venous No growth after 24 hours. 10/14/22 15:22 Blood Culture - Preliminary Blood - Venous No growth after 24 hours. Assessment and Plan (1) Lactic acid acidosis: Status: Acute (2) Encephalopathy: Status: Acute (3) Alcohol withdrawal: Status: Acute (4) Hypoglycemia: Status: Acute Plan 72-year-old male with past medical history of alcohol abuse, hypertension, diabetes presents to the hospital after being found by son with altered mental status Toxic metabolic encephalopathy secondary to hypoglycemia, also has history of alcohol abuse More awake today Stable blood sugar, dextrose p.r.n. IV thiamine added Will add sliding scale at this point Diet advanced to chopped with pills crushed in puree, if he continues to have coughing episodes may benefit from barium swallow Out of bed to chair Alcohol abuse, no withdrawal symptoms at this time Started on phenobarbital protocol Thiamine and folic acid Discussed importance of alcohol cessation Hypertension Stable blood pressure Continue home medications Lactic acidosis Secondary to dehydration DVT prophylaxis:? [place] Attending Dr. Bell Disposition. Lives at home, consider discharge tomorrow inpatient ongoing need :toxic metabolic encephalopathy sec to hypoglycemia Quality Stroke Does the patient have a stroke diagnosis?: No VTE Prior VTE?: No VTE Risk Level:: Medical - moderate - high VTE Device Contraindication: Treatment Not Indicated VTE Drug Contraindication: N/A - Med Ordered
[2022-10-16 14:31] LABS: Glucose, Whole Blood 228 mg/dL (60-115)
[2022-10-16 15:26] VITALS: BP 130/60; PULSE 84; RESP 14; TEMP 36.7; O2SAT 100
[2022-10-16 16:03] LABS: Glucose, Whole Blood 172 mg/dL (60-115)
[2022-10-16 18:10] LABS: Glucose, Whole Blood 159 mg/dL (60-115)
[2022-10-16 19:09] VITALS: BP 149/67; PULSE 84; RESP 16; TEMP 36.6; O2SAT 99
[2022-10-16 20:02] LABS: Glucose, Whole Blood 148 mg/dL (60-115)
[2022-10-16 22:24] LABS: Glucose, Whole Blood 117 mg/dL (60-115)
[2022-10-17] VITALS (7 sets, daily range): BP systolic 119–137; BP diastolic 55–77; PULSE 66–86; RESP 16–19; TEMP 35.9–36.9; O2SAT 96–99
[2022-10-17] MEDS: Thiamine HCL 400 MG in 0.9 % Sodium Chloride 100 ML 208 MG IV ×3 (00:07→16:35)
[2022-10-17 00:21] LABS: Glucose, Whole Blood 108 mg/dL (60-115)
[2022-10-17 02:13] LABS: Glucose, Whole Blood 98 mg/dL (60-115)
[2022-10-17 04:12] LABS: Glucose, Whole Blood 102 mg/dL (60-115)
[2022-10-17 06:10] LABS: Glucose, Whole Blood 112 mg/dL (60-115)
[2022-10-17 07:20] LABS: Glucose, Whole Blood 116 mg/dL (60-115)
[2022-10-17] MEDS: PHENobarbitaL 30 MG TABLET PO ×2 (08:35→22:37)
[2022-10-17] MEDS: Heparin Sodium,Porcine 5,000 UNIT/ML VIAL 5000 UNIT SUBCUT ×2 (08:35→22:37)
[2022-10-17] MEDS: Metoprolol Succinate ER 50 MG TAB.ER.24H PO (08:36)
[2022-10-17] MEDS: lisinopriL 10 MG TABLET PO (08:36)
[2022-10-17] MEDS: Folic Acid 1 MG TABLET PO (08:36)
[2022-10-17] MEDS: amLODIPine Besylate 5 MG TABLET PO (08:36)
[2022-10-17] MEDS: Atorvastatin Calcium 10 MG TABLET PO (08:36)
[2022-10-17 11:30] LABS: Glucose, Whole Blood 194 mg/dL (60-115)
--- NOTE | 2022-10-17 14:28 | HO.PM.IMPN ---
Subjective Subjective Date of Service: 10/17/22 Interval History: seen and examined this morning follow up for hypoglycemia, etoh use coughing this morning denies sob Review of Systems Review of Systems: Yes all other systems are reviewed and are negative Constitutional Constitutional: Denies chills and Denies fever(s) Cardiovascular Cardiovascular: Denies chest pain, Denies palpitations and Denies dyspnea Respiratory Respiratory: Reports cough and Denies dyspnea Gastrointestinal Gastrointestinal: Denies abdominal pain, Denies nausea and Denies vomiting Endocrine Endocrine: Denies palpitations Physical Exam Vital Signs: Vital Signs: Last Vital Signs Temp 98.5 F 10/17/22 11:02 Pulse 75 10/17/22 11:02 Resp 17 10/17/22 11:02 BP 137/77 10/17/22 11:02 Pulse Ox 98 10/17/22 11:02 O2 Del Method 10/17/22 11:02 BMI result Body Mass Index 30.5 Const: General: cooperative, alert and awake Nutritional Appearance: overweight Orientation/consciousness: patient oriented x3 Resp: Other: rhonchi, no wheezing Effort & Inspection: normal respiratory effort and not tachypneic Cardio: Rate: regular rate Heart sounds: S1 normal heart sound present and S2 normal heart sound present GI: Inspection: No distended Palpation (GI): Soft to palpation Skin: Other: chronic skin changes b/l lower legs Neuro: General: patient oriented x3 Extrem: Other: able to move all 4 extremities spontaneously Objective Data Active Medications Acetaminophen (Acetaminophen 325 Mg Tablet) 650 mg PO Q6H PRN PRN Reason: Pain, Mild (Pain Scale 1-3) Amlodipine Besylate (Amlodipine Besylate 5 Mg Tablet) 5 mg PO DAILY [facility]; Protocol Last Admin: 10/17/22 08:36 Dose: 5 mg Documented By: ELIESER Atorvastatin Calcium (Atorvastatin Calcium 10 Mg Tablet) 10 mg PO DAILY [facility] Last Admin: 10/17/22 08:36 Dose: 10 mg Documented By: ELIESER Dextrose (Dextrose 50 % 25 Gm/50 Ml Syringe) 25 gm IVPUSH Q15M PRN PRN Reason: per Hypoglycemia Standing Ord. Docusate Sodium (Docusate Sodium 100 Mg Capsule) 100 mg PO DAILY PRN PRN Reason: Constipation Folic Acid (Folic Acid 1 Mg Tablet) 1 mg PO DAILY [facility] Last Admin: 10/17/22 08:36 Dose: 1 mg Documented By: ELIESER Heparin Sodium (Porcine) (Heparin Sodium,Porcine 5,000 Unit/Ml Vial) 5,000 unit SUBCUT Q12H [facility] Last Admin: 10/17/22 08:35 Dose: 5,000 unit Documented By: ELISEER Thiamine HCl 400 mg/ Sodium (Chloride) 104 mls @ 208 mls/hr IV Q8H [facility] Last Infusion: 10/17/22 09:54 Dose: 0 mls/hr Documented By: ELIESER Insulin Human Lispro (Insulin Lispro 100 Unit/Ml 3 Ml Vial) 0 unit SUBCUT QIDACHS [facility]; Protocol Lisinopril (Lisinopril 10 Mg Tablet) 10 mg PO DAILY [facility]; Protocol Last Admin: 10/17/22 08:36 Dose: 10 mg Documented By: ELIESER Metoprolol Succinate (Metoprolol Succinate Er 50 Mg Tab.Er.24h) 50 mg PO DAILY [facility]; Protocol Last Admin: 10/17/22 08:36 Dose: 50 mg Documented By: ELIESER Ondansetron HCl (Ondansetron Hcl 4 Mg/2 Ml Vial) 4 mg IVPUSH Q8H PRN PRN Reason: Nausea and Vomiting Pharmacy Consult (Consult Rx Perform Med Rec) 1 each MISCELLANE ONCE PRN PRN Reason: Consult order Pharmacy Consult (Consult Rx Etoh Phenob Im/Po) 1 each MISCELLANE ONCE PRN; Protocol PRN Reason: Consult order Phenobarbital (Phenobarbital 30 Mg Tablet) 30 mg PO BID [facility]; Protocol Stop: 10/18/22 21:01 Last Admin: 10/17/22 08:35 Dose: 30 mg Documented By: ELIESER Phenobarbital (Phenobarbital 30 Mg Tablet) 30 mg PO DAILY [facility]; Protocol Stop: 10/20/22 09:01 Labs CBC & Chem 7: 10/15/22 08:20 10/15/22 08:20 Labs: Laboratory Results - last 24 hr 10/16/22 10/16/22 10/16/22 14:26 15:57 18:03 POC Glucose 228 H 172 H 159 H 10/16/22 10/16/22 10/17/22 19:56 22:21 00:16 POC Glucose 148 H 117 H 108 10/17/22 10/17/22 10/17/22 02:04 04:09 06:05 POC Glucose 98 102 112 10/17/22 10/17/22 07:15 11:00 POC Glucose 116 H 194 H Microbiology Microbiology Results: Microbiology 10/14/22 15:43 Blood Culture - Preliminary Blood - Venous No growth after 48 hours. 10/14/22 15:22 Blood Culture - Preliminary Blood - Venous No growth after 48 hours. Assessment and Plan (1) Alcohol withdrawal: Status: Acute (2) Hypoglycemia: Status: Acute Plan 72-year-old male with past medical history of alcohol abuse, hypertension, diabetes presents to the hospital after being found by son with altered mental status Toxic metabolic encephalopathy secondary to hypoglycemia, alcohol use mental status seems improved today IV thiamine added Will add sliding scale at this point Diet advanced to chopped with pills crushed in puree, if he continues to have coughing episodes may benefit from barium swallow Out of bed to chair DM with Hypoglycemia blood sugars stable po meds on hold SSI, POCs Dysphagia seen by speech, rec NDD3 rec MBSS if coughing persists MBSS ordered Alcohol abuse, no withdrawal symptoms at this time continue phenobarbital protocol Thiamine and folic acid Discussed importance of alcohol cessation care team eval Hypertension Stable blood pressure Continue home medications Lactic acidosis Secondary to dehydration DVT prophylaxis:? Lovenox Attending Dr. Bell Disposition. seen by PT - rec home with services when medically stable inpatient ongoing need :toxic metabolic encephalopathy sec to hypoglycemia Quality Stroke Does the patient have a stroke diagnosis?: No VTE Prior VTE?: No VTE Risk Level:: Medical - moderate - high VTE Device Contraindication: Treatment Not Indicated VTE Drug Contraindication: N/A - Med Ordered
[2022-10-17 16:18] LABS: Glucose, Whole Blood 155 mg/dL (60-115)
[2022-10-17] MEDS: Insulin Lispro 100 UNIT/ML 3 ML VIAL SUBCUT ×2 (16:35→22:37)
[2022-10-17 20:02] LABS: Glucose, Whole Blood 238 mg/dL (60-115)
[2022-10-18] VITALS (7 sets, daily range): BP systolic 108–156; BP diastolic 54–70; PULSE 60–89; RESP 18–19; TEMP 36.3–37; O2SAT 96–99
[2022-10-18] MEDS: Thiamine HCL 400 MG in 0.9 % Sodium Chloride 100 ML 208 MG IV ×3 (01:08→16:37)
[2022-10-18] MEDS: ondansetron HCL 4 MG/2 ML VIAL IVPUSH (01:08)
[2022-10-18 07:50] LABS: Glucose, Whole Blood 105 mg/dL (60-115)
[2022-10-18] MEDS: Heparin Sodium,Porcine 5,000 UNIT/ML VIAL 5000 UNIT SUBCUT ×2 (09:16→23:04)
[2022-10-18] MEDS: Metoprolol Succinate ER 50 MG TAB.ER.24H PO (09:16)
[2022-10-18] MEDS: lisinopriL 10 MG TABLET PO (09:17)
[2022-10-18] MEDS: Folic Acid 1 MG TABLET PO (09:17)
[2022-10-18] MEDS: Atorvastatin Calcium 10 MG TABLET PO (09:17)
[2022-10-18] MEDS: PHENobarbitaL 30 MG TABLET PO ×2 (09:17→23:04)
[2022-10-18] MEDS: amLODIPine Besylate 5 MG TABLET PO (09:17)
[2022-10-18 11:26] LABS: Glucose, Whole Blood 173 mg/dL (60-115)
--- NOTE | 2022-10-18 11:42 | P.PNIM_ITS ---
Subjective Subjective Date of Service: 10/18/22 Interval History: follow up for hypoglycemia, etoh use Feeling good today denies sob Review of Systems Review of Systems: Yes all other systems are reviewed and are negative Constitutional Constitutional: Denies chills and Denies fever(s) Cardiovascular Cardiovascular: Denies chest pain, Denies palpitations and Denies dyspnea Respiratory Respiratory: Reports cough and Denies dyspnea Gastrointestinal Gastrointestinal: Denies abdominal pain, Denies nausea and Denies vomiting Endocrine Endocrine: Denies palpitations Physical Exam Vital Signs: Vital Signs: Last Vital Signs Temp 98.6 F 10/18/22 11:15 Pulse 61 10/18/22 11:15 Resp 18 10/18/22 11:15 BP 142/63 H 10/18/22 11:15 Pulse Ox 96 10/18/22 11:15 O2 Del Method 10/18/22 11:15 BMI result Body Mass Index 30.5 Appearing in no acute distress lung sounds are clear to auscultation heart regular rate rhythm, clear S1, S2 positive bowel sounds, abdomen is soft, nontender neuro patient is alert x3, no focal deficits Objective Data Active Medications Acetaminophen (Acetaminophen 325 Mg Tablet) 650 mg PO Q6H PRN PRN Reason: Pain, Mild (Pain Scale 1-3) Amlodipine Besylate (Amlodipine Besylate 5 Mg Tablet) 5 mg PO DAILY [facility]; Protocol Last Admin: 10/18/22 09:17 Dose: 5 mg Documented By: ELIESER Atorvastatin Calcium (Atorvastatin Calcium 10 Mg Tablet) 10 mg PO DAILY [facility] Last Admin: 10/18/22 09:17 Dose: 10 mg Documented By: ELIESER Dextrose (Dextrose 50 % 25 Gm/50 Ml Syringe) 25 gm IVPUSH Q15M PRN PRN Reason: per Hypoglycemia Standing Ord. Docusate Sodium (Docusate Sodium 100 Mg Capsule) 100 mg PO DAILY PRN PRN Reason: Constipation Folic Acid (Folic Acid 1 Mg Tablet) 1 mg PO DAILY [facility] Last Admin: 10/18/22 09:17 Dose: 1 mg Documented By: ELIESER Heparin Sodium (Porcine) (Heparin Sodium,Porcine 5,000 Unit/Ml Vial) 5,000 unit SUBCUT Q12H [facility] Last Admin: 10/18/22 09:16 Dose: 5,000 unit Documented By: ELIESER Thiamine HCl 400 mg/ Sodium (Chloride) 104 mls @ 208 mls/hr IV Q8H [facility] Last Infusion: 10/18/22 10:34 Dose: 0 mls/hr Documented By: ELIESER Insulin Human Lispro (Insulin Lispro 100 Unit/Ml 3 Ml Vial) 0 unit SUBCUT QIDACHS [facility]; Protocol Last Admin: 10/18/22 07:56 Dose: Not Given Documented By: ELIESER Non-Admin Reason: No Insulin Coverage Lisinopril (Lisinopril 10 Mg Tablet) 10 mg PO DAILY [facility]; Protocol Last Admin: 10/18/22 09:17 Dose: 10 mg Documented By: ELIESER Metoprolol Succinate (Metoprolol Succinate Er 50 Mg Tab.Er.24h) 50 mg PO DAILY [facility]; Protocol Last Admin: 10/18/22 09:16 Dose: 50 mg Documented By: ELIESER Ondansetron HCl (Ondansetron Hcl 4 Mg/2 Ml Vial) 4 mg IVPUSH Q8H PRN PRN Reason: Nausea and Vomiting Last Admin: 10/18/22 01:08 Dose: 4 mg Documented By: CESAR Pharmacy Consult (Consult Rx Perform Med Rec) 1 each MISCELLANE ONCE PRN PRN Reason: Consult order Pharmacy Consult (Consult Rx Etoh Phenob Im/Po) 1 each MISCELLANE ONCE PRN; Protocol PRN Reason: Consult order Phenobarbital (Phenobarbital 30 Mg Tablet) 30 mg PO BID [facility]; Protocol Stop: 10/18/22 21:01 Last Admin: 10/18/22 09:17 Dose: 30 mg Documented By: ELIESER Phenobarbital (Phenobarbital 30 Mg Tablet) 30 mg PO DAILY [facility]; Protocol Stop: 10/20/22 09:01 Labs CBC & Chem 7: 10/15/22 08:20 10/15/22 08:20 Labs: Laboratory Results - last 24 hr 10/17/22 10/17/22 10/18/22 16:14 19:58 07:45 POC Glucose 155 H 238 H 105 10/18/22 11:13 POC Glucose 173 H Assessment and Plan (1) Alcohol withdrawal: Status: Acute (2) Hypoglycemia: Status: Acute Plan 72-year-old male with past medical history of alcohol abuse, hypertension, diabetes presents to the hospital after being found by son with altered mental status Toxic metabolic encephalopathy secondary to hypoglycemia, alcohol use mental status seems improved today IV thiamine completed Diet advanced to chopped with pills crushed in puree Out of bed to chair DM with Hypoglycemia blood sugars stable po meds on hold SSI, POCs Dysphagia seen by speech, rec NDD3 rec MBSS if coughing persists MBSS ordered Alcohol abuse, no withdrawal symptoms at this time continue phenobarbital protocol Thiamine and folic acid Discussed importance of alcohol cessation care team eval Hypertension Stable blood pressure Continue home medications Lactic acidosis Secondary to dehydration DVT prophylaxis:? Lovenox Attending Dr. Bell Disposition. seen by PT - rec home with services when medically stable inpatient ongoing need :toxic metabolic encephalopathy sec to hypoglycemia Quality Stroke Does the patient have a stroke diagnosis?: No VTE Prior VTE?: No VTE Risk Level:: Medical - moderate - high VTE Device Contraindication: Treatment Not Indicated VTE Drug Contraindication: N/A - Med Ordered
[2022-10-18] MEDS: Insulin Lispro 100 UNIT/ML 3 ML VIAL SUBCUT ×2 (12:14→16:37)
[2022-10-18 15:49] LABS: Glucose, Whole Blood 275 mg/dL (60-115)
[2022-10-18 21:16] LABS: Glucose, Whole Blood 130 mg/dL (60-115)
[2022-10-19] MEDS: Thiamine HCL 400 MG in 0.9 % Sodium Chloride 100 ML 208 MG IV ×3 (01:25→16:59)
[2022-10-19 04:00] VITALS: BP 122/59; PULSE 72; RESP 18; TEMP 36.8; O2SAT 97
[2022-10-19 07:27] LABS: Glucose, Whole Blood 96 mg/dL (60-115)
[2022-10-19 08:00] VITALS: BP 113/59; PULSE 65; RESP 19; TEMP 36.4; O2SAT 96
[2022-10-19] MEDS: Heparin Sodium,Porcine 5,000 UNIT/ML VIAL 5000 UNIT SUBCUT ×2 (09:30→21:18)
[2022-10-19] MEDS: lisinopriL 10 MG TABLET PO (09:31)
[2022-10-19] MEDS: Atorvastatin Calcium 10 MG TABLET PO (09:32)
[2022-10-19] MEDS: amLODIPine Besylate 5 MG TABLET PO (09:32)
[2022-10-19] MEDS: Folic Acid 1 MG TABLET PO (09:33)
[2022-10-19] MEDS: PHENobarbitaL 30 MG TABLET PO (09:33)
[2022-10-19 11:41] VITALS: BP 144/66; PULSE 71; RESP 17; TEMP 36.4; O2SAT 97
[2022-10-19 11:41] LABS: Glucose, Whole Blood 158 mg/dL (60-115)
[2022-10-19] MEDS: Insulin Lispro 100 UNIT/ML 3 ML VIAL SUBCUT ×3 (12:56→21:18)
--- NOTE | 2022-10-19 15:08 | P.PNIM_ITS ---
Subjective Subjective Date of Service: 10/19/22 Interval History: follow up for hypoglycemia, etoh use Feeling good today denies sob Review of Systems Review of Systems: Yes all other systems are reviewed and are negative Constitutional Constitutional: Denies chills and Denies fever(s) Cardiovascular Cardiovascular: Denies chest pain, Denies palpitations and Denies dyspnea Respiratory Respiratory: Reports cough and Denies dyspnea Gastrointestinal Gastrointestinal: Denies abdominal pain, Denies nausea and Denies vomiting Endocrine Endocrine: Denies palpitations Physical Exam Vital Signs: Vital Signs: Last Vital Signs Temp 97.5 F 10/19/22 11:41 Pulse 71 10/19/22 11:41 Resp 17 10/19/22 11:41 BP 144/66 H 10/19/22 11:41 Pulse Ox 97 10/19/22 11:41 O2 Del Method 10/19/22 11:41 BMI result Body Mass Index 30.5 Objective Data Active Medications Acetaminophen (Acetaminophen 325 Mg Tablet) 650 mg PO Q6H PRN PRN Reason: Pain, Mild (Pain Scale 1-3) Amlodipine Besylate (Amlodipine Besylate 5 Mg Tablet) 5 mg PO DAILY [facility]; Protocol Last Admin: 10/19/22 09:32 Dose: 5 mg Documented By: ELIESER Atorvastatin Calcium (Atorvastatin Calcium 10 Mg Tablet) 10 mg PO DAILY [facility] Last Admin: 10/19/22 09:32 Dose: 10 mg Documented By: ELIESER Dextrose (Dextrose 50 % 25 Gm/50 Ml Syringe) 25 gm IVPUSH Q15M PRN PRN Reason: per Hypoglycemia Standing Ord. Docusate Sodium (Docusate Sodium 100 Mg Capsule) 100 mg PO DAILY PRN PRN Reason: Constipation Folic Acid (Folic Acid 1 Mg Tablet) 1 mg PO DAILY [facility] Last Admin: 10/19/22 09:33 Dose: 1 mg Documented By: ELIESER Heparin Sodium (Porcine) (Heparin Sodium,Porcine 5,000 Unit/Ml Vial) 5,000 unit SUBCUT Q12H [facility] Last Admin: 10/19/22 09:30 Dose: 5,000 unit Documented By: ELIESER Thiamine HCl 400 mg/ Sodium (Chloride) 104 mls @ 208 mls/hr IV Q8H [facility] Last Infusion: 10/19/22 10:25 Dose: 0 mls/hr Documented By: ELIESER Insulin Human Lispro (Insulin Lispro 100 Unit/Ml 3 Ml Vial) 0 unit SUBCUT QIDACHS [facility]; Protocol Last Admin: 10/19/22 12:56 Dose: 2 unit Documented By: ELIESER Lisinopril (Lisinopril 10 Mg Tablet) 10 mg PO DAILY [facility]; Protocol Last Admin: 10/19/22 09:31 Dose: 10 mg Documented By: ELIESER Metoprolol Succinate (Metoprolol Succinate Er 50 Mg Tab.Er.24h) 50 mg PO DAILY [facility]; Protocol Last Admin: 10/19/22 09:32 Dose: Not Given Documented By: ELIESER Non-Admin Reason: Decreased Blood Pressure Ondansetron HCl (Ondansetron Hcl 4 Mg/2 Ml Vial) 4 mg IVPUSH Q8H PRN PRN Reason: Nausea and Vomiting Last Admin: 10/18/22 01:08 Dose: 4 mg Documented By: CESAR Pharmacy Consult (Consult Rx Perform Med Rec) 1 each MISCELLANE ONCE PRN PRN Reason: Consult order Pharmacy Consult (Consult Rx Etoh Phenob Im/Po) 1 each MISCELLANE ONCE PRN; Protocol PRN Reason: Consult order Phenobarbital (Phenobarbital 30 Mg Tablet) 30 mg PO DAILY [facility]; Protocol Stop: 10/20/22 09:01 Last Admin: 10/19/22 09:33 Dose: 30 mg Documented By: ELIESER Labs CBC & Chem 7: 10/15/22 08:20 10/15/22 08:20 Labs: Laboratory Results - last 24 hr 10/18/22 10/18/22 10/19/22 15:37 21:12 07:23 POC Glucose 275 H 130 H 96 10/19/22 11:36 POC Glucose 158 H Assessment and Plan (1) Alcohol withdrawal: Status: Acute (2) Hypoglycemia: Status: Acute Plan 72-year-old male with past medical history of alcohol abuse, hypertension, diabetes presents to the hospital after being found by son with altered mental status Toxic metabolic encephalopathy secondary to hypoglycemia, alcohol use mental status seems improved today IV thiamine completed Diet advanced to chopped with pills crushed in puree Out of bed to chair DM with Hypoglycemia. Resolved blood sugars stable po meds on hold SSI, POCs Dysphagia seen by speech, rec NDD3 rec MBSS if coughing persists MBSS ordered Alcohol abuse, no withdrawal symptoms at this time continue phenobarbital protocol Thiamine and folic acid Discussed importance of alcohol cessation care team eval Hypertension Stable blood pressure Continue home medications Lactic acidosis Secondary to dehydration DVT prophylaxis:? [facility] Attending Dr. Bell Disposition. seen by PT - rec home with services when medically stable inpatient ongoing need :toxic metabolic encephalopathy sec to hypoglycemia Quality Stroke Does the patient have a stroke diagnosis?: No VTE Prior VTE?: No VTE Risk Level:: Medical - moderate - high VTE Device Contraindication: Treatment Not Indicated VTE Drug Contraindication: N/A - Med Ordered
[2022-10-19 16:00] VITALS: BP 152/67; PULSE 71; RESP 18; TEMP 36.4; O2SAT 98
[2022-10-19 16:16] LABS: Glucose, Whole Blood 175 mg/dL (60-115)
[2022-10-19 20:00] VITALS: BP 162/65; PULSE 76; RESP 20; TEMP 37; O2SAT 99
[2022-10-19 20:52] LABS: Glucose, Whole Blood 180 mg/dL (60-115)
[2022-10-20] VITALS (8 sets, daily range): BP systolic 114–155; BP diastolic 44–73; PULSE 66–77; RESP 14–20; TEMP 36.3–37.1; O2SAT 95–99
[2022-10-20] MEDS: Thiamine HCL 400 MG in 0.9 % Sodium Chloride 100 ML 208 MG IV ×3 (02:07→17:34)
[2022-10-20 07:23] LABS: Glucose, Whole Blood 103 mg/dL (60-115)
[2022-10-20] MEDS: amLODIPine Besylate 5 MG TABLET PO (09:07)
[2022-10-20] MEDS: Heparin Sodium,Porcine 5,000 UNIT/ML VIAL 5000 UNIT SUBCUT ×2 (09:07→20:48)
[2022-10-20] MEDS: Folic Acid 1 MG TABLET PO (09:07)
[2022-10-20] MEDS: PHENobarbitaL 30 MG TABLET PO (09:07)
[2022-10-20] MEDS: Metoprolol Succinate ER 50 MG TAB.ER.24H PO (09:07)
[2022-10-20] MEDS: Atorvastatin Calcium 10 MG TABLET PO (09:07)
[2022-10-20] MEDS: lisinopriL 10 MG TABLET PO (09:49)
[2022-10-20 11:33] LABS: Glucose, Whole Blood 157 mg/dL (60-115)
[2022-10-20] MEDS: Insulin Lispro 100 UNIT/ML 3 ML VIAL SUBCUT ×3 (11:37→20:48)
--- NOTE | 2022-10-20 11:38 | PC.NURSE ---
pt took med in pudding which she tolerated pretty well. However he began coughing while eating breakfast.
--- NOTE | 2022-10-20 13:24 | MHC.SLORD ---
Speech Language Pathology Order Status: MBSS is scheduled for 3pm.
--- NOTE | 2022-10-20 14:07 | P.PNIM_ITS ---
Subjective Subjective Date of Service: 10/20/22 Interval History: follow up for hypoglycemia, etoh use Feeling good today denies sob Review of Systems Review of Systems: Yes all other systems are reviewed and are negative Constitutional Constitutional: Denies chills and Denies fever(s) Cardiovascular Cardiovascular: Denies chest pain, Denies palpitations and Denies dyspnea Respiratory Respiratory: Reports cough and Denies dyspnea Gastrointestinal Gastrointestinal: Denies abdominal pain, Denies nausea and Denies vomiting Endocrine Endocrine: Denies palpitations Physical Exam Vital Signs: Vital Signs: Last Vital Signs Temp 98.0 F 10/20/22 11:59 Pulse 66 10/20/22 11:59 Resp 16 10/20/22 11:59 BP 114/55 L 10/20/22 11:59 Pulse Ox 98 10/20/22 11:59 O2 Del Method 10/20/22 11:59 BMI result Body Mass Index 30.5 Appearing in no acute distress lung sounds are clear to auscultation heart regular rate rhythm, clear S1, S2 positive bowel sounds, abdomen is soft, nontender neuro patient is alert x3, no focal deficits Objective Data Active Medications Acetaminophen (Acetaminophen 325 Mg Tablet) 650 mg PO Q6H PRN PRN Reason: Pain, Mild (Pain Scale 1-3) Amlodipine Besylate (Amlodipine Besylate 5 Mg Tablet) 5 mg PO DAILY [facility]; Protocol Last Admin: 10/20/22 09:07 Dose: 5 mg Documented By: JUAN Atorvastatin Calcium (Atorvastatin Calcium 10 Mg Tablet) 10 mg PO DAILY [facility] Last Admin: 10/20/22 09:07 Dose: 10 mg Documented By: JUAN Dextrose (Dextrose 50 % 25 Gm/50 Ml Syringe) 25 gm IVPUSH Q15M PRN PRN Reason: per Hypoglycemia Standing Ord. Docusate Sodium (Docusate Sodium 100 Mg Capsule) 100 mg PO DAILY PRN PRN Reason: Constipation Folic Acid (Folic Acid 1 Mg Tablet) 1 mg PO DAILY [facility] Last Admin: 10/20/22 09:07 Dose: 1 mg Documented By: JUAN Heparin Sodium (Porcine) (Heparin Sodium,Porcine 5,000 Unit/Ml Vial) 5,000 unit SUBCUT Q12H [facility] Last Admin: 10/20/22 09:07 Dose: 5,000 unit Documented By: JUAN Thiamine HCl 400 mg/ Sodium (Chloride) 104 mls @ 208 mls/hr IV Q8H [facility] Last Infusion: 10/20/22 10:56 Dose: 0 mls/hr Documented By: JUAN Insulin Human Lispro (Insulin Lispro 100 Unit/Ml 3 Ml Vial) 0 unit SUBCUT QIDACHS [facility]; Protocol Last Admin: 10/20/22 11:37 Dose: 2 unit Documented By: SHALINI Lisinopril (Lisinopril 10 Mg Tablet) 10 mg PO DAILY [facility]; Protocol Last Admin: 10/20/22 09:49 Dose: 10 mg Documented By: JUAN Metoprolol Succinate (Metoprolol Succinate Er 50 Mg Tab.Er.24h) 50 mg PO DAILY [facility]; Protocol Last Admin: 10/20/22 09:07 Dose: 50 mg Documented By: JUAN Ondansetron HCl (Ondansetron Hcl 4 Mg/2 Ml Vial) 4 mg IVPUSH Q8H PRN PRN Reason: Nausea and Vomiting Last Admin: 10/18/22 01:08 Dose: 4 mg Documented By: CESAR Pharmacy Consult (Consult Rx Perform Med Rec) 1 each MISCELLANE ONCE PRN PRN Reason: Consult order Pharmacy Consult (Consult Rx Etoh Phenob Im/Po) 1 each MISCELLANE ONCE PRN; Protocol PRN Reason: Consult order Labs CBC & Chem 7: 10/15/22 08:20 10/15/22 08:20 Labs: Laboratory Results - last 24 hr 10/19/22 10/19/22 10/20/22 16:08 20:41 07:16 POC Glucose 175 H 180 H 103 10/20/22 11:19 POC Glucose 157 H Microbiology Microbiology Results: Microbiology 10/14/22 15:43 Blood Culture - Final Blood - Venous No growth after 5 days. 10/14/22 15:22 Blood Culture - Final Blood - Venous No growth after 5 days. Assessment and Plan (1) Alcohol withdrawal: Status: Acute (2) Hypoglycemia: Status: Acute Plan 72-year-old male with past medical history of alcohol abuse, hypertension, diabetes presents to the hospital after being found by son with altered mental s tatus Toxic metabolic encephalopathy secondary to hypoglycemia, alcohol use mental status seems improved today IV thiamine completed Diet advanced to chopped with pills crushed in puree Out of bed to chair DM with Hypoglycemia. Resolved blood sugars stable po meds on hold SSI, POCs Dysphagia seen by speech, rec NDD3 rec MBSS if coughing persists MBSS scheduled for 3 pm today Alcohol abuse, no withdrawal symptoms at this time continue phenobarbital protocol Thiamine and folic acid Discussed importance of alcohol cessation Hypertension Stable blood pressure Continue home medications Lactic acidosis Secondary to dehydration DVT prophylaxis:? [place] Attending Dr. Izaiah Amato. seen by PT - rec home with services when medically stable inpatient ongoing need :toxic metabolic encephalopathy sec to hypoglycemia Quality Stroke Does the patient have a stroke diagnosis?: No VTE Prior VTE?: No VTE Risk Level:: Medical - moderate - high VTE Device Contraindication: Treatment Not Indicated VTE Drug Contraindication: N/A - Med Ordered
--- NOTE | 2022-10-20 16:35 | MHC.CM.PN ---
Patient was seen by PT today. PT recommendation is home with services. DP home with services. Family will provide transportation home. Patient had a MBS. The results are pending.
[2022-10-20 16:53] LABS: Glucose, Whole Blood 220 mg/dL (60-115)
--- NOTE | 2022-10-20 18:28 | MHC.SL.IMP ---
Date of Plan of Treatment: 10/20/22 Onset of Symptoms/Illness: 10/15/22 Date Treatment Started: 10/15/22 Admitting Diagnosis: Hypoglycemia, SOB, hypoxia, AMS Primary Speech & Language Diagnosis: R13.12 Oropharyngeal Phase Dysphagia Reason for Today's Visit: 14323 Modified Barium Swallow Study Pre-evaluation Dietary Consistencies: Chopped/Advanced (NDD3) Pre-evaluation Liquid Consistency: Dendron Thick Pre-evaluation Medication Administration: Crushed with Puree Medical History: [place], [place] Modified Barium Swallow Study Fluoroscopic Evaluation of Swallowing Function CPT Code 60661 Evaluation Year: 2021 Reason for Study: Coughing during meals Referring Physician: Kasie Vuong NP Evaluating Clinician: Marcelle Salamanca MA, CCC-[facility] Study Number: 1 Patient Name: Aníbal Tirado Status: Inpatient, Wheelchair Age: 72 Gender: Male MEDICAL HISTORY: Alcohol abuse Diabetes Hyperlipidemia Hypertension Current (pre-evaluation) Intake/Diet: Route: PO Diet Grade: Chopped/Advanced (NDD3) Liquid Consistencies: Dendron Pre-Study Functional Oral Intake Scale (FOIS): 5- Total oral intake of multiple consistencies requiring special preparation SUBJECTIVE: Pt is a 72 year old male admitted for hypoglycemia, SOB, hypoxia, and altered mental status. Pt was seen by RESEARCH SCH[facility] for bedside dysphagia evaluation on 10/15 and was recommended a chopped/advanced (NDD3) diet with nectar thick liquids. RN reported pt had been coughing during his meals, though he tolerated medications in pudding. Oral Motor Exam Facial Symmetry: Symmetrical Facial Movement: Controlled Mouth Occlusion: Normal Oral-Facial Teeth Characteristics: Edentulous Oral-Facial Lip Pucker Description: Normal Oral-Facial Puff Cheeks Description: Normal Tongue Size: Normal Tongue Range of Movement Description: Normal Tongue Speed of Movement Description: Normal Tongue Strength of Movement (against opposing pressure): Normal Tongue Movement Characteristics: Normal/Absent Is patient able to manage secretions?: Yes Is patient able to produce volitional cough?: Yes Food and Liquid Trials: Oral Impairment: Lip Closure: Did not test Oral Impairment: Tongue Control During Bolus Hold: 2=Posterior escape of less than half of bolus Oral Impairment: Bolus Preparation/Mastication: 1=Slow prolonged chewing/mashing with complete re-collection Oral Impairment: Bolus Transport/Lingual Motion: 1= Delayed initiation of tongue motion Oral Impairment: Oral Residue: 1=Trace residue lining oral structures Oral Impairment:Initiation of Pharyngeal Swallow: 3=Bolus head in pyriforms Pharyngeal Impairment: Soft Palate Elevation: 0=No bolus between soft palate (SP)/pharyngeal wall (PW) Pharyngeal Impairment: Laryngeal Elevation: 0=Complete superior movement of thyroid cartilage (see description) Pharyngeal Impairment: Anterior Hyoid Excursion: 0=Complete anterior movement Pharyngeal Impairment: Epiglottic Movement: 1=Partial inversion Pharyngeal Impairment: Laryngeal Vestibular Closure:: 1=Incomplete: narrow column air/contrast in laryngeal vestibule Pharyngeal Impairment: Pharyngeal Stripping Wave: 2=Absent Pharyngeal Impairment: Pharyngeal Contraction: Did not test Pharyngeal Impairment: Pharyngoesophageal Segment Opening: Did not test Pharyngeal Impairment: Tongue Base (TB) Retraction: 1=Trace column of contrast/air between TB and posterior PW Pharyngeal Impairment: Pharyngeal Residue: 2=Collection of residue within or on pharyngeal structures Pharyngeal Impairment: Esophageal Clearance Upright Position: Did not test Impressions and Recommendations OBJECTIVE: Time-out: performed at 3:40 Evaluation Start: 3:30; Stop: 3:39 Patient Positioning: Seated 70-90 degrees Viewing Planes: LATERAL ONLY Contrast: MBSImP? Standardized Protocol using commercially prepared, standardized Barium viscosities, including: Varibar? THIN LIQUID (40% w/v, <15 cps) , Varibar? NECTAR (40% w/v, <150-450 cps) , Varibar? THIN HONEY (40% w/v, <800-1800 cps) , 1/2 Shortbread Cookie (1 x1 x.25 ) [facility] [id number] [facility] Results: Lip closure for intraoral bolus containment could not be assessed due to logistical reasons not related to physiologic impairment. Tongue control during bolus hold resulted in posterior escape of less than half of the bolus. Bolus preparation and mastication resulted in slow, prolonged chewing/mashing but with complete re-collection. Bolus transport/lingual motion demonstrated delayed initiation of tongue motion. Oral residue was a trace, lining oral structures. Initiation of the pharyngeal swallow occurred when the bolus head was in the pyriform sinuses. Soft palate elevation resulted in no bolus between the soft palate and the pharyngeal wall. Laryngeal elevation demonstrated complete superior movement of the thyroid cartilage with complete approximation of the arytenoids to the epiglottic petiole. Anterior hyoid excursion demonstrated complete anterior movement. Epiglottic movement resulted in partial inversion. Laryngeal vestibular closure was incomplete, with a narrow column of air/contrast noted within the laryngeal vestibule at the height of the swallow. Pharyngeal stripping wave was absent. Pharyngeal contraction could not be determined due to logistical reasons not related to physiologic impairment. Pharyngoesophageal segment opening could not be assessed due to logistical reasons not related to physiologic impairment. Tongue base retraction allowed a trace column of contrast or air between the retracted tongue base and the posterior pharyngeal wall. Pharyngeal residue was a collection of residue within or on pharyngeal structures. Esophageal clearance in the upright position could not be assessed due to logistical reasons not related to physiologic impairment. Oral Impairment Score: 7 (absence of score, component 1) Pharyngeal Impairment Score: 6 (absence of score, component 13component 14) Esophageal Impairment Score: --- (absence of score, component 17) Laryngeal Penetration and Aspiration: Penetration was observed in today's study. Dendron-thick, Thin Contrast entered the airway, contacted the vocal folds, and were ejected from the airway. Thin Contrast entered the airway, contacted the vocal folds, and was not ejected from the airway. ASSESSMENT: Clinician Assessment: This exam was conducted by a multidisciplinary team, which included a speech pathologist, radiologist, and physical therapy technician. Pt was seated upright at 90 degree angle in a chair for lateral view only. Pt trialed the following liquid and solid consistencies: thin liquid barium by cup, nectar thick liquid barium by cup, honey thick liquid barium by cup, pureed solid (mixture applesauce with barium paste), ground solid (mixture chicken salad with barium paste), and regular solid (Renae Doone cookie coated with barium paste). Pt was able to feed himself without difficulty. Pt demonstrated reduced tongue control, with premature posterior escape of trace amount of contrast, which pooled in the valleculae and pyriforms prior to productive lingual movement. Posterior lingual movement was delayed. Mastication was mildly prolonged but with good overall recollection. Trace lingual residue subsequently cleared. Pharyngeal swallow trigger was significantly delayed, initiated as bolus head reached pyriform sinuses. There was no nasopharyngeal reflux. Complete laryngeal elevation with complete anterior hyoid excursion. Epiglottic inversion was partial. Incomplete laryngeal vestibular closure with resultant penetration of thin and nectar thick liquids. There was mild to moderate collection of contrast, mainly in the pyriform sinuses, trace residuals on tongue base, with all liquid and solid consistencies. Pt reduced pharyngeal retention with subsequent dry swallows. There was deep penetration to the level of the vocal folds with intake of thin liquid and nectar thick liquid. Question subsequent trace aspiration. View was obstructed by pt?s shoulder due to difficulty positioning pt. No aspiration or penetration with sips of honey thick liquid. No aspiration or penetration with intake of solid consistencies. Pt produced cough consistently when contrast entered the airway. Note pt?s voice to be wet and gurgly, followed by wet cough, after intake of thin liquid barium. Liquid Intake Recommendation: Honey Thick Liquid Intake Strategies: Small Sips, No Straws, Double Swallow Dietary Recommendations: Chopped/Advanced (NDD3) Medication Administration: Crushed with Puree Please contact the pharmacy regarding appropriate crushable or liquid drug formulations that are available whenever modified delivery is recommended. Compensatory Strategies Recommended: Sitting Upright (90 deg) Double Swallow No Straw Liquids from Cup Liquids from Spoon Small Bites and Sips Rate of Ingestion Change Avoid Specific Foods Supervision during eating and or drinking: Total Supervision (1:1) Recommended Treatments: Compens. Strategy Educat. Recommendation for Speech Therapy: Speech Therapy after D/C Inpatient Speech Therapy Modified Barium Swallow Study - Outpatient PLAN: Intake Recommendations: Route: PO Diet Grade: Chopped/Advanced (NDD3) Liquid Consistencies: Honey Post-Study Functional Oral Intake Scale (FOIS): 5- Total oral intake of multiple consistencies requiring special preparation Recommend continue on CHOPPED/ADVANCED (NDD3) solids with DOWNGRADE to HONEY THICK liquids, pills CRUSHED in PUREE. Recommend total supervision during meals with aspiration precautions: -small bites of food -chew food well -moisten food with thickened sauces/gravies, to be blended and mixed in well -1-2 dry swallows after each bite of food before taking another bite -Avoid sticky textures, dry foods, mixed consistencies -liquids by teaspoon or small cup sips -one sip at a time -1-2 dry swallows after each sip -Avoid the use of straws -Upright 90 degree position during PO intake and for at least 45 minutes afterwards -daily oral care routine (before first meal and after each subsequent meal) Recommend continue dysphagia treatment during hospitalization and at next level of care, with repeat MBSS. Therapy Recommendations: Therapy will be continued Prognosis for Improvement: The prognosis for the patient to meet nutritional needs by mouth is fair based on degree of impairment. Retirement Goals: ? The patient will tolerate the least restrictive diet with a safe/efficient swallow to maintain adequate nutrition and hydration. ? The patient will demonstrate improved swallowing function via repeat clinical evaluation, videoendoscopy/videofluoroscopy and/or patient self-rating scores. ? The patient and/or family will participate in further education for swallowing goals. Frequency/Duration: Date Range for Service Requested: Timeline to reassess: 3 months Clinician - Supplemental, Miscellaneous Communication: It is important to note MBSS objective studies are snapshots in time and Patient function might vary with factors such as time of day or concomitant medical conditions. For this reason, the final treatment plan for this patient should rest with their medical care team. Additional recommendations should be considered with the totality of the Patient in mind. Thank for the opportunity to participate in the care of this patient. If you have any questions about the content of this report, please contact the [facility] at [facility]. Furnace Operator Clinician/Clinical Fellow: No Supervisory Statement: N/A Speech Language Pathologist: Marcelle Salamanca M.A., CCC-[facility] SCH[facility]
[2022-10-20 19:44] LABS: Glucose, Whole Blood 200 mg/dL (60-115)
[2022-10-21] MEDS: Thiamine HCL 400 MG in 0.9 % Sodium Chloride 100 ML 208 MG IV ×2 (00:13→07:51)
[2022-10-21 04:00] VITALS: BP 121/58; PULSE 69; RESP 20; TEMP 36.5; O2SAT 97
[2022-10-21 06:44] LABS: Anion Gap 10 (12-20); Blood Urea Nitrogen 11 mg/dL (9-16); Calcium 8.9 mg/dL (8.4-10.2); Carbon Dioxide 28 mmol/L (22-29); Chloride 100 mmol/L (96-108); Creatinine Clr Calc Pharmacy 85.6; Estimated Glomerular Filt Rate > 60; Glucose Random 102 mg/dL (60-115); Potassium 4.1 mmol/L (3.3-5.1); Sodium 134 mmol/L (135-145)
[2022-10-21 07:35] LABS: Estimated Average Glucose 85 mg/dL; Hemoglobin A1c % 4.6 %
[2022-10-21 07:36] LABS: Glucose, Whole Blood 104 mg/dL (60-115)
[2022-10-21] MEDS: Heparin Sodium,Porcine 5,000 UNIT/ML VIAL 5000 UNIT SUBCUT (07:51)
[2022-10-21 08:00] VITALS: BP 126/67; PULSE 73; RESP 16; TEMP 36.6; O2SAT 99
[2022-10-21] MEDS: lisinopriL 10 MG TABLET PO (08:05)
[2022-10-21] MEDS: Metoprolol Succinate ER 50 MG TAB.ER.24H PO (08:05)
[2022-10-21] MEDS: amLODIPine Besylate 5 MG TABLET PO (08:05)
[2022-10-21] MEDS: Atorvastatin Calcium 10 MG TABLET PO (08:05)
[2022-10-21] MEDS: Folic Acid 1 MG TABLET PO (08:05)
--- NOTE | 2022-10-21 09:56 | P.DS_ITS ---
DS: Providers Provider Date of Service: 10/21/22 Date of admission: 10/14/22 21:21 Primary care physician: Jakob Lo MD Consults: 10/17/22 11:38 Consult to Care Team Routine Comment: Reason for consultation: alcohol use Attending physician on discharge: Alexx Bliss Discharging clinician: Kasie Vuong DS: Diagnosis Discharge Diagnosis (1) Alcohol withdrawal: Status: Acute (2) Hypoglycemia: Status: Acute DS: Summary Hospital Course Hospital Course: History and physical as per admitting provider This is a 72-year-old male with past medical history of alcohol abuse, AFib, diabetes, HTN who presents to the hospital from home for evaluation of altered mental status and shortness of breath .? EMS was called by the patient's son who found patient on the floor.? On arrival of EMS patient was found to be short of breath, with oral secretion and foam at the mouth, with hypoxia of 83%.? Patient was also found to be hypoglycemic with a glucose level of 48.? Patient was placed on rescue CPAP and brought to the ER for further evaluation. Patient himself does not remember the events leading to his presentation to the ED.? He reports that the last thing he remembers is falling asleep.? He has no recollection of the events.? On arrival to the ED his glucose was found to be 30.? Patient reports that he drinks daily, he took his diabetes medications but does not remember eating.? Patient was placed on D10 but continues to be hyperglycemic, rate has been increased.?On arrival to the ED patient hemodynamically stable with no significant abnormal vitals except for temperature 96.2 degrees Labs are significant for the CC count of 4.6, lactic acid of 4 point, magnesium 1.5, UA negative, UDS negative, COVID- 19 influenza negative Chest x-ray negative, head CT and cervical spine negative . Toxic metabolic encephalopathy secondary to hypoglycemia, alcohol use resolved IV thiamine completed Diet advanced to chopped with pills crushed in puree Out of bed to chair DM with Hypoglycemia. Resolved Hemoglobin A1c only 4.6, will stop metformin and glipizide, patient is to follow-up with primary care provider to follow up his A1c in a few months Dysphagia seen by speech, rec NDD3 s/p MBSS Chopped advanced diet with honey thick liquids Alcohol abuse, no withdrawal symptoms at this time s/p phenobarbital protocol Thiamine and folic acid Discussed importance of alcohol cessation Hypertension Stable blood pressure Continue home medications Lactic acidosis Secondary to dehydration Time Spent with Patient Time attestation: Total time spent providing and/or coordinating discharge services: Discharge coordination time: Greater than 30 minutes Quality: Safe Use of Opioids Does Pt have an Active Cancer Diagnosis on the Problem List?: No Quality: Stroke Does the patient have a stroke diagnosis?: No Physical Exam Vital Signs: Vital Signs: Last Vital Signs Temp 97.9 F 10/21/22 08:00 Pulse 73 10/21/22 08:00 Resp 16 10/21/22 08:00 BP 126/67 10/21/22 08:00 Pulse Ox 99 10/21/22 08:00 O2 Del Method 10/21/22 08:00 O2 Flow Rate 2 10/21/22 08:00 BMI result Body Mass Index 30.5 Appearing in no acute distress head is normocephalic atraumatic eyes pupils are PERRLA sclera is anicteric mouth throat mucous membranes are intact and moist neck is supple no lymphadenopathy, no JVD noted lung sounds are clear to auscultation heart regular rate rhythm, clear S1, S2 positive bowel sounds, abdomen is soft, nontender neuro patient is alert x3, no focal deficits DS: Data Data Completed and Pending Labs on day of discharge: Laboratory Results - last 24 hr 10/20/22 10/20/22 10/20/22 11:19 16:49 19:39 Sodium Potassium Chloride Carbon Dioxide Anion Gap BUN Creatinine Estim Creat Clear Calc Estimated GFR POC Glucose 157 H 220 H 200 H Random Glucose Estimat Average Glucose Hemoglobin A1c % Calcium 10/21/22 10/21/22 10/21/22 06:00 06:00 07:19 Sodium 134 L Potassium 4.1 Chloride 100 Carbon Dioxide 28 Anion Gap 10 L BUN 11 Creatinine 0.84 Estim Creat Clear Calc 85.6 Estimated GFR > 60 POC Glucose 104 Random Glucose 102 Estimat Average Glucose 85 Hemoglobin A1c % 4.6 Calcium 8.9 Discharge Plan Discharge Anticipated Discharge Date/Time: 10/21/22 09:26 Patient Disposition: Home, Self-Care Discharge Diagnosis: Toxic metabolic encephalopathy secondary to hypoglycemia Alcohol abuse Dysphagia Referrals: Jakob Lo MD [Primary Care Provider] - 1 Week Discharge Medications: Continued atorvastatin 10 mg tablet 1 tab PO DAILY metoprolol succinate 50 mg tablet extended release 24 hr 1 tab PO DAILY amlodipine 5 mg tablet 1 tab PO DAILY lisinopril 10 mg tablet 1 tab PO DAILY Discontinued metformin 500 mg tablet 1 tab PO DAILY glipizide 5 mg tablet 1 tab PO DAILY Discharge Orders: Discharge Order (Routine); Ordered 10/21/22 Ordered By: Kasie Vuong Diet: Advance to usual diet Activity on Discharge: As tolerated Stand Alone Forms: Patient Portal Discharge page Care Plan Goals: Stop drinking alcohol Health Concerns: Toxic metabolic encephalopathy secondary to hypoglycemia Alcohol abuse Dysphagia New diabetes medication has been stopped, your hemoglobin A1c is 4.6 below the level requiring treatment. Plan of Treatment: Follow-up with primary care provider as needed for medication adjustments Take all medications as prescribed Assessment: See discharge summary
--- NOTE | 2022-10-21 12:50 | MHC.CM.PN ---
Patient is discharged to home self care. He has arranged for transportation home.
== END 2022-10-21 12:04 | disposition home or self-care (01) | DRG 637 ==
LOC: HO.ED 20:16 → HO.EDOVER 21:54 → HO.IMC 22:25
PROVIDERS: Internal Medicine; Physician Assistant; Physician Assistant Medical; Admitting Provider Internal Medicine; Emergency Provider Emergency Medicine; PCP Internal Medicine; Visit Provider Nurse Practitioner Acute Care
DX: E11.649 Type 2 diabetes mellitus with hypoglycemia without coma (principal); G92.8 Other toxic encephalopathy; E87.20 Acidosis, unspecified; F10.139 Alcohol abuse with withdrawal, unspecified; R13.10 Dysphagia, unspecified; E86.0 Dehydration; E78.5 Hyperlipidemia, unspecified; I10 Essential (primary) hypertension; Y90.6 Blood alcohol level of 120-199 mg/100 ml; Z20.822 Contact with and (suspected) exposure to COVID-19; Z91.013 Allergy to seafood; Z88.5 Allergy status to narcotic agent; Z79.899 Other long term (current) drug therapy
CPT/HCPCS: 36415; 70450; 71045; 72125; 74230; 80048; 80076; 80307; 81003; 82077; 82140; 82803; 82947; 83036; 83605; 83735; 83880; 84145; 84484; 85025; 87040; 87502; 87635; 92526; 92610; 92611; 93005; 94660; 96361; 96365; 96375; 97110; 97116; 97162; 99285; J1940; J2405; J2560; J3411; J3475

== ENCOUNTER 2022-10-29 09:52 | Emergency (ER) | payer OTHER, MEDICARE, SELFPAY ==
--- NOTE | ~2022-10-29 | XR_ITS ---
EXAMINATION: XR CHEST CLINICAL INFORMATION: Weakness. COMPARISON: 10/14/2022 chest radiograph. TECHNIQUE: 2 views of the chest were obtained. FINDINGS: No significant abnormality is noted involving the heart, lungs, mediastinum, bony thorax or soft tissues. XR/XR chest 2V IMPRESSION: No acute cardiopulmonary process.
--- NOTE | ~2022-10-29 | CT_ITS ---
EXAMINATION: CT HEAD WITHOUT CONTRAST CLINICAL INFORMATION: Weakness COMPARISON: 10/09/2015 and 10/14/2022 TECHNIQUE: Contiguous axial imaging was performed from the skull base to vertex without intravenous administration of contrast. This CT examination was performed using dose optimization techniques as appropriate, variously including the following: *Automated exposure control *Adjustment of mA and/or kV according to patient size (this includes techniques or standardized protocols for targeted exams where dose is matched to indication/reason for exam; i.e. extremities or head) *Use of iterative reconstruction technique DLP: 887 mGy-cm FINDINGS: No intracranial hemorrhage, extra-axial fluid collection, focal mass effect or midline shift. There is atherosclerotic calcification of cavernous carotid arteries. Chronic mild patchy hypoattenuation within supratentorial white matter compatible with sequela of mild microangiopathy. The shannon-white matter differentiation is maintained. Chronic parenchymal volume loss associated with chronic prominence of ventricles and sulci. No acute findings within the posterior fossa. The cerebellar tonsils are in normal position. Interval increased mucosal thickening of the partially visualized right maxillary sinus compared 10/14/2022. No air-fluid levels within the paranasal sinuses. Prior ocular lens extractions. CT/CT head/brain wo IV con IMPRESSION: * No intracranial hemorrhage or other acute intracranial pathology compared to 10/12/2022. No evidence of an acute major vascular territory infarction. * Interval increased mucosal thickening of the partially visualized right maxillary sinus compared 10/14/2022.
--- NOTE | 2022-10-29 10:06 | ED_ITS ---
HPI - General Adult General Chief complaint: ETOH/Substance Use Stated complaint: ETOH per EMS Time Seen by Provider: 10/29/22 10:03 Source: patient and EMS Mode of arrival: EMS Limitations: no limitations History of Present Illness HPI narrative: Aníbal is a 72 yo male with a PMHx of diabetes and alcohol abuse who presents today to the emergency department after being brought in by EMS because his ex- found him on the floor of his home. He says he was sleeping on the floor and admits to drinking 1 pint of rum and coke, which he says he drinks everyday. He denies any injury or trauma, headache, dizziness, shortness of breath, chest pain, nausea, vomiting, diarrhea, constipation, or any urinary changes. He says he was feeling fine before he fell asleep and feels good right now. He denies any tobacco or other substance abuse. He denies depression or anxiety, SI or HI. He has no concerns at this time. Onset (ago): hour(s) Severity: mild Severity scale (1-10): 1 Relieving factors: none Exacerbating factors: none Associated symptoms: denies other symptoms Treatments prior to arrival: none Related Data Home Medications Medication Instructions Recorded Confirmed amlodipine 5 mg tablet 1 tab PO DAILY 10/14/22 10/14/22 atorvastatin 10 mg tablet 1 tab PO DAILY 10/14/22 10/14/22 lisinopril 10 mg tablet 1 tab PO DAILY 10/14/22 10/14/22 metoprolol succinate 50 mg 1 tab PO DAILY 10/14/22 10/14/22 tablet,extended release 24 hr Allergies Allergy/AdvReac Type Severity Reaction Status Date / Time alcohol Allergy Unknown rash Verified 04/17/21 11:20 clams Allergy Unknown UNKNOWN Unverified 04/17/21 11:20 oxycodone Allergy Unknown rash Verified 04/17/21 11:20 steamers/ clams Allergy Unknown flu like Uncoded 04/17/21 11:20 symptoms Review of Systems Constitutional: Constitutional: Reports no additional constitutional complaints, Denies chills, Denies fever(s) and Denies night sweats Eyes: Eyes: Reports no additional eye complaints, Denies blurry vision, Denies change in vision, Denies diplopia, Denies eye discharge, Denies loss of vision and Denies eye pain ENT: Denies dizziness Cardiovascular: Cardiovascular: Reports no additional cardiovascular complaints, Denies chest pain, Denies lightheadedness, Denies Loss of Consciousness and Denies dyspnea Respiratory: Respiratory: Reports no additional respiratory complaints and Denies dyspnea Gastrointestinal: Gastrointestinal: Reports no additional gastrointestinal complaints, Denies abdominal pain, Denies melena, Denies hematochezia, Denies change in bowel habits and Denies change in stool character Genitourinary: Genitourinary: Reports no additional male genitourinary complaints, Denies hematuria, Denies oliguria, Denies difficulty urinating, Den ies dysuria, Denies urinary frequency, Denies urinary hesitancy, Denies urinary incontinence and Denies urinary urgency Musculoskeletal: Musculoskeletal: Reports no additional musculoskeletal complaints, Denies numbness and Denies tingling Neurologic: Denies dizziness, Denies loss of vision, Denies numbness and Den ies tingling Psychiatric: Psychiatric: Reports no additional psychiatric complaints Endocrine: Endocrine: Reports no additional endocrine complaints Hematologic/Lymphatic: Hematologic/Lymphatic: Reports no additional hematologic/lymphatic complaints Allergic/Immunologic: Allergic/Immunologic: Reports no additional allergic/immunologic complaints [facility] Past Medical History Attestation statement: The following information was validated with the patient. Source: old records reviewed Medical History Alcohol abuse Alcohol abuse Diabetes HLD (hyperlipidemia) Hypertension Surgical History No history of previous surgery Family History Family History Other No family history of coronary artery disease Social History Social History Household Members: Children Housing: House Do you presently have visiting nurse or other home services: No Alcohol intake: current Patient Tobacco Use Status: Never used Tobacco Advance Directives: No service: No Current occupational status: retired Physical Exam ED Vital Signs: Vital Signs - 24 hr 10/29/22 10:07 10/29/22 15:21 Temperature 98 F 98.0 F Pulse Rate 74 79 Respiratory Rate 16 12 Blood Pressure 127/42 L 143/63 H Pulse Oximetry 98 99 Oxygen Delivery Method Room Air Room Air BMI result Body Mass Index 31.3 Const General: cooperative, no acute distress and awake Nutritional Appearance: well nourished Orientation/consciousness: oriented to person and oriented to place Limitations: no limitations HENMT Head: Yes normal to inspection, Yes No palpable skull fracture present and Yes atraumatic Ears: hearing grossly normal bilaterally and external ears normal General nose exam: Normal external nose present, no nasal discharge noted and no epistaxis Face and sinus: Yes normal facial exam, No abrasion and No laceration Mouth: Normal oral and palatal mucosa present, no drooling and no muffled voice Eyes General: appearance normal, both eyes and all related structures Periorbital: periorbital findings normal Eyelids: Yes eyelids normal Conjunctivae: conjunctivae normal Pupils: Equal, round and reactive pupils present EOM: EOMs intact bilaterally Neck Neck: Yes normal visual inspection, Yes full ROM and Yes no lymphadenopathy Chest Chest palpation & inspection: normal inspection of the chest Resp Effort & Inspection: normal respiratory effort and able to speak in complete sentences Auscultation: clear to auscultation bilaterally Cardio Rate: regular rate Rhythm: regular rhythm Heart sounds: S1 normal heart sound present and S2 normal heart sound present GI Inspection: Yes normal to inspection Palpation (GI): Soft to palpation, not firm, nontender and no guarding Skin General skin exam: no rashes or lesions noted Trauma: abrasion (right lower extremity) Neuro General: oriented to person, oriented to place, moves all extremities and CN's II-XI intact bilaterally Cranial nerves: Yes Equal, round and reactive pupils present Cognition (Neuro): normal cognition Motor exam (neuro): 5/5 motor strength present throughout Sensory Exam: Normal double simultaneous stimulation for sensation Coordination: [id number] test normal Extrem General: Yes normal to inspection, Yes full ROM, Yes capillary refill normal and Yes edema Psych Appearance: grossly normal Mental Status: mental status grossly normal Affect: normal affect Attitude: cooperative Thought process: Normal thought process present Thought content: Normal thought content present Insight: Good insight present (Psych) Course Course Course Narrative: Aníbal is a 72 yo male who presents to the ED after being found on the floor of his home by his . He says he was sleeping on the floor and cannot clarify why he was. He denies injury, trauma, TOURE, CP, SOB, N/V/D/C, fevers, or chills before or after the incident. He is insisting that he feels fine. PE was notable for some bilateral swelling as well as an abrasion on his right leg which he says was old. Neuro exam appears normal. Labs and imaging of head and chest ordered. Pt will be discharged home as he is medically stable. Reevaluation(s) Reevaluation #1: 11:[address] shows no intracranial hemorrhage or other acute intracranial pathology compared to 10/12/22. No eveidence of an acute major vascular territory infarction. Interval increased mucosal thickening of the partially visualized right maxillary sinus compared to 10/14/22. Chest X-ray shows no acute cardiopulmonary process. 11:14 Ethyl alcohol level is 242. Hemoglobin and hematocrit are low at 13.2 and 37.9 respectively but this appears to be chronic with no significant changes. Rest of labs with no notable findings. Time: 11:14 Reevaluation #2: Serology shows COVID + Time: 14:35 Medical Decision Making Medical Decision Making MDM Narrative: Aníbal is a 72 yo male with a medical history of alcohol abuse and diabetes who presents to the ED after being found on the floor of his home by his ex-. He says he was sleeping on the floor an unknown amount of time and cannot clarify why or how he got there. He denies injury, trauma, TOURE, CP, SOB, N/V/D/C, fevers, or chills before or after the incident. He is insisting that he feels fine. Physical exam was notable for some bilateral swelling as well as an abrasion on his right leg which he says is old, did not happen today, and he does not want evaluted. Neuro exam appears normal. Labs indicate chronic anemia, ethyl alcohol is 242, VBG ph is 7.32, HCO3 is 21, COVID is positive. CT of head shows no acute intracranial pathology. Chest X-ray shows no acute cardiopulmonary processes. Patient is clinically sober and able to return home. Patient is of sound decision making ability and mind as well as steady on his feet. No further medical intervention in indicated at this time. Pt's ex- was called and did not want to pick him up from ED. Will arrange transportation for patient to get home. Differential Diagnoses: Differential diagnosis Differential Diagnosis: The differential diagnosis associated with the patient?s presentation includes: alcohol use / abuse, COVID-19 Lab Attestation: I reviewed the patient's lab results. Independent interpretation of EKG, rhythm strip, radiology study: Independent interp EKG,rhythm strip, radiology study Vent. Rate: 078 BPM ? ? Atrial Rate: 000 BPM P-R Int: 000 ms? QRS Dur: 068 ms QT Int: 376 ms ? ? ? P-R-T Axes: 000 -06 -11 degrees QTc Int: 428 ms ? Accelerated Junctional rhythm Abnormal ECG When compared with ECG of 14-OCT-2022 14:58, Junctional rhythm has replaced Sinus rhythm Nonspecific T wave abnormality, worse in Inferior leads DD/ 1038 Discussion of test interpretation with radiology: Discussion of test interpretation with radiology These results were not discussed with the radiologist however, their interpretation is listed below per their written report. EXAMINATION: CT HEAD WITHOUT CONTRAST CLINICAL INFORMATION: Weakness? COMPARISON: 10/09/2015 and 10/14/2022 TECHNIQUE: Contiguous axial imaging was performed from the skull base to vertex without intravenous administration of contrast. This CT examination was performed using dose optimization techniques as appropriate, variously including the following: *Automated exposure control *Adjustment of mA and/or kV according to patient size (this includes techniques or standardized protocols for targeted exams where dose is matched to indication/reason for exam; i.e. extremities or head) *Use of iterative reconstruction technique DLP: 887 mGy-cm FINDINGS: No intracranial hemorrhage, extra-axial fluid collection, focal mass effect or midline shift. There is atherosclerotic calcification of cavernous carotid arteries. Chronic mild patchy hypoattenuation within supratentorial white matter compatible with sequela of mild microangiopathy. The shannon-white matter differentiation is maintained. Chronic parenchymal volume loss associated with chronic prominence of ventricles and sulci. No acute findings within the posterior fossa. The cerebellar tonsils are in normal position. Interval increased mucosal thickening of the partially visualized right maxillary sinus compared 10/14/2022. No air-fluid levels within the paranasal sinuses. Prior ocular lens extractions. ? CT/CT head/brain wo IV con IMPRESSION: *? No intracranial hemorrhage or other acute intracranial pathology compared to 10/12/2022. No evidence of an acute major vascular territory infarction. *? Interval increased mucosal thickening of the partially visualized right maxillary sinus compared 10/14/2022. Dictated By: Miguel Angeles MD Signed By: Electronically signed by Miguel Angeles MD 10/29/22 1126 EXAMINATION: XR CHEST CLINICAL INFORMATION: Weakness. COMPARISON: 10/14/2022 chest radiograph. TECHNIQUE: 2 views of the chest were obtained. FINDINGS: No significant abnormality is noted involving the heart, lungs, mediastinum, bony thorax or soft tissues. XR/XR chest 2V IMPRESSION: No acute cardiopulmonary process. Dictated By: Ramiro Snyder MD Signed By: Electronically signed by Ramiro Snyder MD 10/29/22 1113 Independent historian (e.g., spouse, EMS, friend): Independent historian (e.g., spouse, EMS, friend) Clinical information obtained from an independent historian. History obtained from or confirmed by: EMS and Other (ex-) Discharge Plan Discharge Clinical Impression: Alcoholic intoxication, COVID-19 Patient Disposition: Home, Self-Care Instructions: Alcohol Intoxication (ED), COVID-19 (Coronavirus Disease 2019) (ED) Additional Instructions: Follow up with your primary care provider. Return to the emergency department immediately if your symptoms worsen or if you develop any dizziness, shortness of breath, difficulty breathing, chest pain, blurry vision, loss of vision, nausea, vomiting, abdominal pain, fever, chills, back pain, or any other complaints. Prescriptions: No Action atorvastatin 10 mg tablet 1 tab PO DAILY metoprolol succinate 50 mg tablet extended release 24 hr 1 tab PO DAILY amlodipine 5 mg tablet 1 tab PO DAILY lisinopril 10 mg tablet 1 tab PO DAILY Referrals: Jakob Lo MD [Primary Care Provider] - Interventions: [place]-Suicide Risk Severity Scale Last Done: 10/29/22 11:16 Print Language: Indian
[2022-10-29 10:07] VITALS: BP 127/42; BP 131/80; PULSE 74; PULSE 77; RESP 16; TEMP 36.6; O2SAT 97; O2SAT 98; BMI 31.3
--- NOTE | 2022-10-29 10:25 | ECG_ITS ---
Test Reason : weakness Blood Pressure : / mmHG Vent. Rate : 078 BPM Atrial Rate : 000 BPM P-R Int : 000 ms QRS Dur : 068 ms QT Int : 376 ms P-R-T Axes : 000 -06 -11 degrees QTc Int : 428 ms Poor data quality Possible Normal sinus rhythm Abnormal ECG When compared with ECG of 14-OCT-2022 14:58, Nonspecific T wave abnormality, worse in Inferior leads Referred By: Randi Maldonado Electronically Signed By:HANNA KRAMER MD
[2022-10-29 11:19] LABS: MANUAL DIFF FLAG NO
[2022-10-29 11:27] LABS: Basophils Percent Auto 0.7 % (0-2); Eosinophils Absolute Auto 0.2 X10*3/uL (0.0-0.4); Eosinophils Percent Auto 6.7 % (0-4); Hematocrit 37.9 % (42.0-52.0); Hemoglobin 13.2 g/dl (14.0-18.0); Imm Gran Abs Auto 0.01 X10*3/uL (0.00-0.03); Imm Gran Pct Auto 0.4 % (0.0-0.4); Lymphocytes Percent Auto 36.5 % (20-40); Mean Corpuscular HGB Conc 34.8 g/dl (31.0-36.0); Mean Corpuscular Volume 86.1 fL (80.0-98.0); Mean Platelet Volume 8.6 fL (9.4-12.4); Monocytes Absolute Auto 0.3 X10*3/uL (0.1-1.2); Monocytes Percent Auto 10.3 % (2-11); Neutrophils Absolute Auto 1.3 x10*3/uL (2.0-8.3); Neutrophils Percent Auto 45.4 % (45-73); Platelet Count 201 X10*3/uL (160-400); Red Cell Distribution Width 13.7 % (11.0-16.0); White Blood Count 2.8 X10*3/uL (4.8-10.8)
[2022-10-29 11:42] LABS: Alanine Aminotransferase 34 U/L (0-40); Albumin Level 4.2 g/dL (3.5-5.0); Alkaline Phosphatase 122 U/L (39-117); Anion Gap 13 (12-20); Aspartate Amino Transferase 37 U/L (5-37); Bilirubin Total 0.5 mg/dL (0.0-1.0); Blood Urea Nitrogen 12 mg/dL (9-16); Calcium 9.2 mg/dL (8.4-10.2); Carbon Dioxide 29 mmol/L (22-29); Chloride 101 mmol/L (96-108); Estimated Glomerular Filt Rate > 60; Ethanol 242 mg/dL; Glucose Random 141 mg/dL (60-115); Potassium 4.4 mmol/L (3.3-5.1); Sodium 139 mmol/L (135-145); Total Protein 6.9 g/dL (6.5-8.0)
[2022-10-29 11:43] LABS: Troponin-I High Sensitivity 5.2 ng/L (<3.5-35.0)
--- NOTE | 2022-10-29 11:57 | PC.NURSE ---
patient arousable appears intoxicated . a/ox3 . pearrla . heart rate regular at 88 beats per minute . breathing even and unlabored . lungs clear throughout . skin pink warm and moist . abdomen soft . positive bowel sounds throughout . patient placed on monitor technician . IV placed in right A.C , labs obtained and sent . patient reports drinking a pint of captain and coke this Am but unsure of the time . patient layed on his floor to take a nap no LOC reported or injury , no trauma noted to head or body . patient aware of plan of care .
[2022-10-29 13:17] LABS: Influenza A PCR NEGATIVE (Negative); Influenza B PCR NEGATIVE (Negative); Resp Syncy Virus RNA Qual PCR NEGATIVE (Negative); SARS COV2 PCR INHOUSE POSITIVE (Negative)
--- NOTE | 2022-10-29 14:15 | PC.NURSE ---
spoke w ex- (Ammy), pt medically cleared to return home, Ammy would like pt to be admitted to sober up and because of +ve COVID result. pt doesn't meet admission criteria w COVID-19 dx, Ammy declines to p/u pt at this time.
[2022-10-29 15:21] VITALS: BP 143/63; PULSE 79; RESP 12; TEMP 36.7; O2SAT 99
[2022-10-29 17:48] VITALS: BP 127/59; PULSE 85; RESP 13; TEMP 36.7; O2SAT 99
== END 2022-10-29 21:14 | disposition home or self-care (01) ==
PROVIDERS: Physician Assistant Medical; Emergency Provider Emergency Medicine Emergency Medical Services; PCP Internal Medicine
DX: U07.1 COVID-19 (principal); F10.129 Alcohol abuse with intoxication, unspecified; Y90.8 Blood alcohol level of 240 mg/100 ml or more; R51.9 Headache, unspecified; R42 Dizziness and giddiness; Z79.899 Other long term (current) drug therapy
CPT/HCPCS: 0241U; 36415; 70450; 71046; 80053; 82077; 84484; 85025; 93005; 99284; 99285

== ENCOUNTER 2023-01-19 10:34 | Outpatient (REF) | payer MEDICARE, SELFPAY ==
[2023-01-19 10:58] LABS: Alanine Aminotransferase 21 U/L (0-40); Albumin Level 4.2 g/dL (3.5-5.0); Alkaline Phosphatase 86 U/L (39-117); Aspartate Amino Transferase 25 U/L (5-37); Bilirubin Direct 0.3 mg/dL (0.0-0.5); Bilirubin Total 1.1 mg/dL (0.0-1.0); Cholesterol 179 mg/dL; Glucose Fasting 107 mg/dL (60-99); HDL Cholesterol 57 mg/dL; LDL Cholesterol Calculated 101 mg/dl; Total Protein 7.1 g/dL (6.5-8.0); Triglycerides 109 mg/dL
[2023-01-19 11:04] LABS: Estimated Average Glucose 100 mg/dL; Hemoglobin A1c % 5.1 %
[2023-01-19 11:39] LABS: Reflex LDLD? No
== END 2023-01-19 10:35 | disposition home or self-care (01) ==
LOC: HO.LNP 10:34
PROVIDERS: Visit Provider Internal Medicine
DX: E11.40 Type 2 diabetes mellitus with diabetic neuropathy, unspecified (principal); E78.00 Pure hypercholesterolemia, unspecified
CPT/HCPCS: 80061; 80076; 82947; 83036

== ENCOUNTER 2023-04-22 04:25 | Observation (INO) | payer OTHER, MEDICARE, SELFPAY ==
[2023-04-22] VITALS (12 sets, daily range): BP systolic 93–148; BP diastolic 41–83; PULSE 70–102; RESP 13–20; TEMP 36.4–37.2; O2SAT 94–100; BMI 33.4
--- NOTE | ~2023-04-22 | CT_ITS ---
EXAM: CT HEAD WITHOUT CONTRAST CT CERVICAL SPINE INDICATION: Reason for Exam fall, head strike, pain TECHNIQUE: A noncontrast CT scan was performed from the skull base to the vertex. A noncontrast CT scan of the cervical spine was performed from the base of the skull through T1 at 2.5 mm and 0.625 mm collimation. Coronal and sagittal reformats were obtained at the acquisition workstation. This CT examination was performed using dose optimization techniques as appropriate, variously including the following: * Automated exposure control * Adjustment of mA and/or kV according to patient size (this includes techniques or standardized protocols for targeted exams where dose is matched to indication/reason for exam; i.e. extremities or head) * Use of iterative reconstruction technique Dose length product is 1407 mGy-cm. COMPARISON: CT 10/29/2022 FINDINGS: Head: Motion artifact degrading images. There is no evidence of acute intracranial hemorrhage or territorial infarction. No abnormal mass effect or midline shift is seen. Ruano to white matter differentiation is well preserved. No extra-axial fluid collections are identified. Commensurate prominence of the ventricles and sulci is compatible with generalized parenchymal volume loss. There is patchy periventricular and subcortical white matter hypoattenuation, most likely representing microangiopathic disease. Mild right maxillary sinus mucosal thickening. Paranasal sinuses otherwise and mastoid air cells are well-aerated. Cervical Spine: Motion artifact degrading images. The atlantooccipital and atlantoaxial articulations remain well aligned. There is anatomic alignment of the vertebral bodies and posterior elements. No evidence of acute fracture or subluxation. No evidence of acute fracture. Cervical spondylosis. Multilevel moderate to severe disc degenerative changes. No prominent changes of severe disc degeneration at C6-7. Multilevel prominent anterior vertebral body spurring and bridging and bridging osteophytes. Multilevel facet degeneration. No prevertebral soft tissue swelling. The paraspinal soft tissues are unremarkable. There is no cervical lymphadenopathy. The thyroid gland is unremarkable. No acute findings in lung apices. CT/CT cervical spine wo IV con IMPRESSION: Motion artifact degrading images, limiting evaluation. No CT evidence of acute intracranial hemorrhage or edematous territorial infarction. No CT evidence of acute cervical spine fracture or subluxation. Moderate-severe cervical spondylosis.
--- NOTE | ~2023-04-22 | XR_ITS ---
EXAMINATION: XR CHEST CLINICAL INFORMATION: Fall COMPARISON: October 29, 2022 TECHNIQUE: AP portable view of the chest was obtained. FINDINGS: There is no evidence of acute parenchymal disease, pneumothorax, or pleural effusion. Heart normal size. No evidence of pulmonary edema. There is degenerative change of both shoulders. XR/XR chest 1V IMPRESSION: No acute disease.
--- NOTE | 2023-04-22 06:34 | ED.GENADULT ---
HPI - General Adult General Chief complaint: ETOH/Substance Use Stated complaint: ETOH Time Seen by Provider: 04/22/23 06:33 Source: patient and EMS Mode of arrival: EMS Limitations: no limitations History of Present Illness HPI narrative: Patient is a 72 year old assigned male at with a history of diabetes and alcohol abuse presenting to the emergency department today after a fall. Patient states that he tripped and fell yesterday and hit his head. Patient admits to alcohol use. Patient states that he did not have any loss of consciousness with the fall. Patient denies any dizziness, lightheadedness, abdominal pain, nausea, vomiting, fever, chills, blurry vision, double vision, loss of vision, chest pain, difficulty breathing, shortness of breath, back pain, night sweats, pain with urination, increased urinary frequency, increased urinary urgency, blood in his urine or stool, syncope or a near syncopal episode, bowel incontinence, bladder incontinence, bowel retention, bladder retention, or any other complaints at this time. Onset (ago): day(s) (1) Relieving factors: none Exacerbating factors: none Associated symptoms: denies other symptoms Treatments prior to arrival: none Related Data Home Medications Medication Instructions Recorded Confirmed amlodipine 5 mg tablet 1 tab PO DAILY 10/14/22 04/22/23 lisinopril 10 mg tablet 1 tab PO DAILY 10/14/22 04/22/23 metoprolol succinate 50 mg 1 tab PO DAILY 10/14/22 04/22/23 tablet,extended release 24 hr atorvastatin 20 mg tablet 20 mg PO DAILY 04/22/23 04/22/23 glipizide 5 mg tablet 5 mg PO DAILY 04/22/23 04/22/23 metformin 500 mg tablet 500 mg PO DAILY 04/22/23 04/22/23 Allergies Allergy/AdvReac Type Severity Reaction Status Date / Time alcohol Allergy Unknown rash Verified 04/17/21 11:20 clams Allergy Unknown UNKNOWN Unverified 04/17/21 11:20 oxycodone Allergy Unknown rash Verified 04/22/23 04:47 steamers/ clams Allergy Unknown flu like Uncoded 04/17/21 11:20 symptoms Review of Systems Review of Systems: facial abrasions Constitutional: Constitutional: Reports no additional constitutional complaints, Denies chills, Denies fever(s) and Denies night sweats Eyes: Eyes: Reports no additional eye complaints, Denies blurry vision, Denies change in vision, Denies diplopia, Denies eye discharge, Denies loss of vision and Denies eye pain ENT: Denies dizziness Cardiovascular: Cardiovascular: Reports no additional cardiovascular complaints, Denies chest pain, Denies lightheadedness, Denies Loss of Consciousness and Denies dyspnea Respiratory: Respiratory: Reports no additional respiratory complaints and Denies dyspnea Gastrointestinal: Gastrointestinal: Reports no additional gastrointestinal complaints, Denies abdominal pain, Denies melena, Denies hematochezia, Denies change in bowel habits and Denies change in stool character Genitourinary: Genitourinary: Reports no additional male genitourinary complaints, Denies hematuria, Denies oliguria, Denies difficulty urinating, Denies dysuria, Denies urinary frequency, Denies urinary hesitancy, Denies urinary incontinence and Denies urinary urgency Musculoskeletal: Musculoskeletal: Reports no additional musculoskeletal complaints, Denies numbness and Denies tingling Neurologic: Denies dizziness, Denies loss of vision, Denies numbness and Denies tingling Psychiatric: Psychiatric: Reports no additional psychiatric complaints Endocrine: Endocrine: Reports no additional endocrine complaints Hematologic/Lymphatic: Hematologic/Lymphatic: Reports no additional hematologic/lymphatic complaints Allergic/Immunologic: Allergic/Immunologic: Reports no additional allergic/immunologic complaints [facility] Past Medical History Attestation statement: The following information was validated with the patient. Source: old records reviewed and nursing notes reviewed Medical History Alcohol abuse Alcohol abuse Diabetes HLD (hyperlipidemia) Hypertension Surgical History No history of previous surgery Family History Family History Other No family history of coronary artery disease Social History Social History Household Members: Children Housing: House Do you presently have visiting nurse or other home services: No Alcohol intake: current Alcohol type: hard liquor Patient Tobacco Use Status: Never used Tobacco Use of substances other than those prescribed or required for medical reasons: No Advance Directives: No Advance Directives Information Provided: Yes service: No Current occupational status: retired Physical Exam ED Vital Signs: Vital Signs - 24 hr 04/22/23 04:43 04/22/23 05:30 04/22/23 07:40 Temperature 97.6 F Pulse Rate 71 70 77 Respiratory Rate 16 18 18 Blood Pressure 100/48 L 93/50 L 112/45 L Pulse Oximetry 99 100 97 Oxygen Delivery Method Room Air Room Air Room Air 04/22/23 08:48 04/22/23 10:17 04/22/23 12:21 Temperature Pulse Rate 75 77 74 Respiratory Rate 13 15 13 Blood Pressure 105/41 L 103/50 L 128/83 Pulse Oximetry 94 96 98 Oxygen Delivery Method Room Air Room Air Room Air 04/22/23 14:40 Temperature Pulse Rate 80 Respiratory Rate 14 Blood Pressure 131/49 L Pulse Oximetry 97 Oxygen Delivery Method Room Air BMI result Body Mass Index 33.4 Const General: cooperative, no acute distress, alert and awake Nutritional Appearance: well nourished Orientation/consciousness: patient oriented x3 Limitations: no limitations HENMT Other: multiple abrasion to the scalp and nose, no active bleeding Ears: hearing grossly normal bilaterally and external ears normal General nose exam: Normal external nose present, no nasal discharge noted and no epistaxis Face and sinus: No laceration Mouth: Normal oral and palatal mucosa present, no drooling and no muffled voice Eyes General: appearance normal, both eyes and all related structures Periorbital: periorbital findings normal Eyelids: Yes eyelids normal Conjunctivae: conjunctivae normal Pupils: Equal, round and reactive pupils present EOM: EOMs intact bilaterally Neck Neck: Yes normal visual inspection, Yes full ROM and Yes no lymphadenopathy Chest Chest palpation & inspection: normal inspection of the chest Resp Effort & Inspection: normal respiratory effort and able to speak in complete sentences Auscultation: clear to auscultation bilaterally Cardio Rate: regular rate Rhythm: regular rhythm GI Inspection: Yes normal to inspection Neuro General: patient oriented x3 and moves all extremities Cranial nerves: Yes Equal, round and reactive pupils present Cognition (Neuro): normal cognition Motor exam (neuro): 5/5 motor strength present throughout Sensory Exam: Normal double simultaneous stimulation for sensation Coordination: [id number] test normal Extrem General: Yes normal to inspection, Yes full ROM and Yes capillary refill normal Psych Appearance: grossly normal Mental Status: mental status grossly normal Affect: normal affect Attitude: cooperative Thought process: Normal thought process present Thought content: Normal thought content present Insight: Good insight present (Psych) Medications Administered Generic Name Dose Route Start Last Admin Trade Name Freq PRN Reason Stop Dose Admin Dextrose 250 mls @ 750 mls/hr 04/22/23 07:34 04/22/23 12:44 D10 IV Infused Q15M PRN Infusion per Hypoglycemia Standing Ord. Discontinued Medications Generic Name Dose Route Start Last Admin Trade Name Freq PRN Reason Stop Dose Admin Sodium Chloride 1,000 mls @ 999 mls/hr 04/22/23 06:45 04/22/23 12:44 Ns IV 04/22/23 07:45 Infused .Q1H1M CLAUDIA Infusion Medical Decision Making Medical Decision Making [facility] Narrative: Patient is a 72 year old assigned male at with a history of DM and alcoholism presenting to the emergency department today after a fall. Patient's physical exam was as noted in the physical exam portion of this chart. Patient's blood work showed a markedly low sugar of 34. Patient was immediately started on D10 however, the patient's hypoglycemia persisted even after 6+ hours of D10 and eating multiple things. Patient's EKG was unremarkable. Patient's chest x-ray showed no acute process. I spoke to the hospitalist team who agreed to admission. I explained my physical exam findings as well as all test results to the patient. I answered all questions asked by the patient. Patient verbalized agreement and understanding with this treatment plan and discharge. Differential Diagnosis Differential Diagnoses: The differential diagnosis associated with the presentation includes hypoglycemia, alcohol intoxication, fall Admission/Observation Consideration of admission/observation: Escalation of care including admission/observation considered Patient to be admitted for persistent hypoglycemia. Consult Healthcare Provider Management of the patient was discussed with: Hospitalist (agreed to admission.) Lab Data [facility] Lab Attestation statement: I reviewed the patient's lab results. 04/22/23 06:54 04/22/23 06:54 Labs: Lab Results 04/22/23 04/22/23 04/22/23 Range/Units 06:54 06:54 06:54 WBC 4.8 (4.8-10.8) X10*3/uL RBC 3.66 L (4.60-5.80) X10*6/uL Hgb 11.0 L (14.0-18.0) g/dl Hct 33.5 L (42.0-52.0) % MCV 91.5 (80.0-98.0) fL MCH 30.1 (27.0-33.0) pg MCHC 32.8 (31.0-36.0) g/dl RDW 15.6 (11.0-16.0) % Plt Count 135 L D (160-400) X10*3/uL MPV 8.9 L (9.4-12.4) fL Immature Gran % (Auto) 0.6 H (0.0-0.4) % Neut % (Auto) 56.6 (45-73) % Lymph % (Auto) 30.7 (20-40) % [place] % (Auto) 9.6 (2-11) % Eos % (Auto) 2.1 (0-4) % Baso % (Auto) 0.4 (0-2) % Lymph # (Auto) 1.5 (1.2-4.9) X10*3/uL [place] # (Auto) 0.5 (0.1-1.2) X10*3/uL Eos # (Auto) 0.1 (0.0-0.4) X10*3/uL Baso # (Auto) 0.0 (0.0-0.2) X10*3/uL Abs Immat Gran (auto) 0.03 (0.00-0.03) X10*3/uL Absolute Neuts (auto) 2.7 (2.0-8.3) x10*3/uL Absolute Nucleated RBC 0.000 (0.0-0.012) X10*3/uL Nucleated RBC % (auto) 0.0 (0.0-0.2) /100WBC PT 15.8 H (10.0-13.1) SEC INR 1.4 H (0.9-1.1) APTT 33.7 (26.0-36.4) SEC Sodium 139 (135-145) mmol/L Potassium 3.9 (3.3-5.1) mmol/L Chloride 104 (96-108) mmol/L Carbon Dioxide 25 (22-29) mmol/L Anion Gap 14 (12-20) BUN 14 (9-16) mg/dL Creatinine 1.03 (0.5-1.4) mg/dL Estim Creat Clear Calc 75.3 Estimated GFR > 60 POC Glucose (60-115) mg/dL Random Glucose 34 L* (60-115) mg/dL Calcium 8.8 (8.4-10.2) mg/dL Magnesium 1.8 (1.6-2.6) mg/dL Total Bilirubin 1.3 H (0.0-1.0) mg/dL AST 31 (5-37) U/L ALT 16 (0-40) U/L Alkaline Phosphatase 71 (39-117) U/L Total Protein 6.2 L (6.5-8.0) g/dL Albumin 3.7 (3.5-5.0) g/dL Ethyl Alcohol 256 mg/dL 04/22/23 04/22/23 04/22/23 Range/Units 08:15 09:16 10:54 WBC (4.8-10.8) X10*3/uL RBC (4.60-5.80) X10*6/uL Hgb (14.0-18.0) g/dl Hct (42.0-52.0) % MCV (80.0-98.0) fL MCH (27.0-33.0) pg MCHC (31.0-36.0) g/dl RDW (11.0-16.0) % Plt Count (160-400) X10*3/uL MPV (9.4-12.4) fL Immature Gran % (Auto) (0.0-0.4) % Neut % (Auto) (45-73) % Lymph % (Auto) (20-40) % [place] % (Auto) (2-11) % Eos % (Auto) (0-4) % Baso % (Auto) (0-2) % Lymph # (Auto) (1.2-4.9) X10*3/uL [place] # (Auto) (0.1-1.2) X10*3/uL Eos # (Auto) (0.0-0.4) X10*3/uL Baso # (Auto) (0.0-0.2) X10*3/uL Abs Immat Gran (auto) (0.00-0.03) X10*3/uL Absolute Neuts (auto) (2.0-8.3) x10*3/uL Absolute Nucleated RBC (0.0-0.012) X10*3/uL Nucleated RBC % (auto) (0.0-0.2) /100WBC PT (10.0-13.1) SEC INR (0.9-1.1) APTT (26.0-36.4) SEC Sodium (135-145) mmol/L Potassium (3.3-5.1) mmol/L Chloride (96-108) mmol/L Carbon Dioxide (22-29) mmol/L Anion Gap (12-20) BUN (9-16) mg/dL Creatinine (0.5-1.4) mg/dL Estim Creat Clear Calc Estimated GFR POC Glucose 53 L* 80 80 (60-115) mg/dL Random Glucose (60-115) mg/dL Calcium (8.4-10.2) mg/dL Magnesium (1.6-2.6) mg/dL Total Bilirubin (0.0-1.0) mg/dL AST (5-37) U/L ALT (0-40) U/L Alkaline Phosphatase (39-117) U/L Total Protein (6.5-8.0) g/dL Albumin (3.5-5.0) g/dL Ethyl Alcohol mg/dL 04/22/23 04/22/23 04/22/23 Range/Units 12:24 13:27 14:42 WBC (4.8-10.8) X10*3/uL RBC (4.60-5.80) X10*6/uL Hgb (14.0-18.0) g/dl Hct (42.0-52.0) % MCV (80.0-98.0) fL MCH (27.0-33.0) pg MCHC (31.0-36.0) g/dl RDW (11.0-16.0) % Plt Count (160-400) X10*3/uL MPV (9.4-12.4) fL Immature Gran % (Auto) (0.0-0.4) % Neut % (Auto) (45-73) % Lymph % (Auto) (20-40) % [place] % (Auto) (2-11) % Eos % (Auto) (0-4) % Baso % (Auto) (0-2) % Lymph # (Auto) (1.2-4.9) X10*3/uL [place] # (Auto) (0.1-1.2) X10*3/uL Eos # (Auto) (0.0-0.4) X10*3/uL Baso # (Auto) (0.0-0.2) X10*3/uL Abs Immat Gran (auto) (0.00-0.03) X10*3/uL Absolute Neuts (auto) (2.0-8.3) x10*3/uL Absolute Nucleated RBC (0.0-0.012) X10*3/uL Nucleated RBC % (auto) (0.0-0.2) /100WBC PT (10.0-13.1) SEC INR (0.9-1.1) APTT (26.0-36.4) SEC Sodium (135-145) mmol/L Potassium (3.3-5.1) mmol/L Chloride (96-108) mmol/L Carbon Dioxide (22-29) mmol/L Anion Gap (12-20) BUN (9-16) mg/dL Creatinine (0.5-1.4) mg/dL Estim Creat Clear Calc Estimated GFR POC Glucose 63 64 85 (60-115) mg/dL Random Glucose (60-115) mg/dL Calcium (8.4-10.2) mg/dL Magnesium (1.6-2.6) mg/dL Total Bilirubin (0.0-1.0) mg/dL AST (5-37) U/L ALT (0-40) U/L Alkaline Phosphatase (39-117) U/L Total Protein (6.5-8.0) g/dL Albumin (3.5-5.0) g/dL Ethyl Alcohol mg/dL Independent Interpretation I performed an independent interpretation of an: EKG and Plain X-Ray Interpretation: Vent. Rate: 088 BPM ? ? Atrial Rate: 088 BPM P-R Int: 210 ms? QRS Dur: 076 ms QT Int: 334 ms ? ? ? P-R-T Axes: 000 013 036 degrees QTc Int: 404 ms ? Sinus rhythm with 1st degree A-V block with Premature supraventricular complexes Otherwise normal ECG When compared with ECG of 29-OCT-2022 10:38, Premature supraventricular complexes are now Present IN interval has increased Non-specific change in ST segment in Inferior leads Nonspecific T wave abnormality, improved in Inferior leads DD/ 1431 My interpretation is in agreement with the radiologist's impression of this imaging study. EXAMINATION: XR CHEST CLINICAL INFORMATION: Fall COMPARISON: October 29, 2022 TECHNIQUE: AP portable view of the chest was obtained. FINDINGS: There is no evidence of acute parenchymal disease, pneumothorax, or pleural effusion. Heart normal size. No evidence of pulmonary edema. There is degenerative change of both shoulders. XR/XR chest 1V IMPRESSION: No acute disease. ? Dictated By: Tico Chávez MD Signed By: Electronically signed by Tico Chávez MD 04/22/23 2591 Independent Historian Clinical information obtained from an independent historian. History obtained from or confirmed by: EMS Chronic Conditions Patient?s care impacted by: Diabetes and Other (alcoholism) Critical Care Time Critical Care Time Critical Care Time: Yes Total Critical Care Time: 90 Attestation: I spent 90 minutes of Critical Care Time with this patient. This does not include time spent on separately reported billable procedures. Discharge Plan Discharge Clinical Impression: Alcoholic intoxication, Hypoglycemia, Fall Patient Disposition: Admitted As Inpatient
[2023-04-22] MEDS: 0.9 % Sodium Chloride 1,000 ML 999 ML IV (06:55)
[2023-04-22 07:00] LABS: MANUAL DIFF FLAG NO
[2023-04-22 07:01] LABS: Basophils Percent Auto 0.4 % (0-2); Eosinophils Absolute Auto 0.1 X10*3/uL (0.0-0.4); Eosinophils Percent Auto 2.1 % (0-4); Hematocrit 33.5 % (42.0-52.0); Imm Gran Abs Auto 0.03 X10*3/uL (0.00-0.03); Imm Gran Pct Auto 0.6 % (0.0-0.4); Lymphocytes Absolute Auto 1.5 X10*3/uL (1.2-4.9); Lymphocytes Percent Auto 30.7 % (20-40); Mean Corpuscular HGB Conc 32.8 g/dl (31.0-36.0); Mean Corpuscular Hemoglobin 30.1 pg (27.0-33.0); Mean Corpuscular Volume 91.5 fL (80.0-98.0); Mean Platelet Volume 8.9 fL (9.4-12.4); Monocytes Absolute Auto 0.5 X10*3/uL (0.1-1.2); Monocytes Percent Auto 9.6 % (2-11); Neutrophils Absolute Auto 2.7 x10*3/uL (2.0-8.3); Neutrophils Percent Auto 56.6 % (45-73); Platelet Count 135 X10*3/uL (160-400); Red Blood Count 3.66 X10*6/uL (4.60-5.80); Red Cell Distribution Width 15.6 % (11.0-16.0); White Blood Count 4.8 X10*3/uL (4.8-10.8)
[2023-04-22 07:07] LABS: INTERNATIONAL NORM RATIO 1.4 (0.9-1.1); Prothrombin Time 15.8 SEC (10.0-13.1)
[2023-04-22 07:10] LABS: Partial Thromboplastin Time 33.7 SEC (26.0-36.4)
[2023-04-22 07:25] LABS: Alanine Aminotransferase 16 U/L (0-40); Albumin Level 3.7 g/dL (3.5-5.0); Alkaline Phosphatase 71 U/L (39-117); Anion Gap 14 (12-20); Aspartate Amino Transferase 31 U/L (5-37); Bilirubin Total 1.3 mg/dL (0.0-1.0); Blood Urea Nitrogen 14 mg/dL (9-16); Calcium 8.8 mg/dL (8.4-10.2); Carbon Dioxide 25 mmol/L (22-29); Chloride 104 mmol/L (96-108); Creatinine Clr Calc Pharmacy 75.3; Estimated Glomerular Filt Rate > 60; Ethanol 256 mg/dL; Glucose Random 34 mg/dL (60-115); Magnesium 1.8 mg/dL (1.6-2.6); Potassium 3.9 mmol/L (3.3-5.1); Sodium 139 mmol/L (135-145); Total Protein 6.2 g/dL (6.5-8.0)
[2023-04-22] MEDS: Dextrose 10 % 250 ML 750 ML IV ×2 (07:45→17:15)
[2023-04-22 08:19] LABS: Glucose, Whole Blood 53 mg/dL (60-115)
--- NOTE | 2023-04-22 09:08 | MHC.EDTECH ---
PT was changed over cleaned up and his clothes are in the washer in the pod
[2023-04-22 09:20] LABS: Glucose, Whole Blood 80 mg/dL (60-115)
--- NOTE | 2023-04-22 09:51 | PC.NURSE ---
Provider aware patient is hypertensive
[2023-04-22 10:57] LABS: Glucose, Whole Blood 80 mg/dL (60-115)
--- NOTE | 2023-04-22 11:06 | MHC.RECOVSUP ---
Met with pt in ED18 who was BIBA due to drinking and hitting his head. Pt informs he does not want any recovery assistance and is not interested in ATS. Pt is done with recovery and provider is aware.
[2023-04-22 12:29] LABS: Glucose, Whole Blood 63 mg/dL (60-115)
--- NOTE | 2023-04-22 13:07 | PC.NURSE ---
poc 63 Erica VÁZQUEZ notified. gave him two cheese sticks. Patient refused any orange or apple juice. will recheck poc in one hour
[2023-04-22 13:30] LABS: Glucose, Whole Blood 64 mg/dL (60-115)
--- NOTE | 2023-04-22 13:33 | ECG_ITS ---
Test Reason : fall Blood Pressure : / mmHG Vent. Rate : 088 BPM Atrial Rate : 088 BPM P-R Int : 210 ms QRS Dur : 076 ms QT Int : 334 ms P-R-T Axes : 000 013 036 degrees QTc Int : 404 ms Sinus rhythm with 1st degree A-V block with Premature supraventricular complexes Otherwise normal ECG When compared with ECG of 29-OCT-2022 10:38, Premature supraventricular complexes are now Present CT interval has increased Non-specific change in ST segment in Inferior leads Nonspecific T wave abnormality, improved in Inferior leads Referred By: Randi Maldonado Electronically Signed By:HANNA KRAMER MD
[2023-04-22 14:46] LABS: Glucose, Whole Blood 85 mg/dL (60-115)
--- NOTE | 2023-04-22 14:52 | PHA.MEDREC ---
Pharmacy Consult ? Medication Reconciliation Pharmacy has completed the medication reconciliation. Med rec mostly complete but waiting for [facility] clarification on apixaban dosing.
--- NOTE | 2023-04-22 15:23 | MHC.EDTECH ---
PT was cleaned up and changed up with new victor manuel and new bedding.
[2023-04-22 15:51] LABS: Glucose, Whole Blood 52 mg/dL (60-115)
--- NOTE | 2023-04-22 16:20 | MHC.EDTECH ---
[place] cath was placed on PT
--- NOTE | 2023-04-22 16:30 | PM.IMHP ---
History of Present Illness Date of Service: 04/22/23 Attending physician on admission: Dc Thibodeaux Chief Complaint: Fall Pt is a 72-year-old male with a PMH significant for?alcohol use disorder, oly-imkurml-rkzguttyz diabetes, paroxysmal AFib on Eliquis, HTN, and HLD who presents to the ED for evaluation after falling yesterday. Patient still seems intoxicated time of interview and is unable to provide a detailed HPI. HPI obtained from chart and provider review. Patient apparently told the ED that he had tripped and fallen yesterday and hit his head but denied LOC or any dizziness, lightheadedness, or headache. Patient has ethyl alcohol level was 256 at time of presentation. Currently patient states that he does not know why or how he presented to the hospital. Says he does not remember having a fall and is rather vague about what his last memory was. Patient does admit to drinking at least a fifth of vodka or rum or whatever's available daily. Denies a history of alcohol withdrawal, seizures, hallucinations, or daily morning tremors. Patient also notes that he has been eating much lately though he has continued to take his medications. Patient currently has no acute medical complaints. Denies headache, lightheadedness, dizziness, changes in vision. No fever, chills, nausea, vomiting, diarrhea, abdominal pain. No chest pain/pressure, palpitations. Denies shortness of breath. In the ED patient's glucose was was measured as low as 35. Patient's POC consistently measured in the 50s despite patient being administered D10, drinking orange juice, and eating a sandwich and crackers. In the ED labs were significant for platelets of 135, glucose of 53, ethyl alcohol of 256. Chronic, stable anemia of 11.0/33.5. CXR showed no acute disease. CT of head limited due to motion artifact the found no evidence of acute intracranial hemorrhage or edematous territorial infarction. CT of cervical spine showed no acute fracture or subluxation. EKG demonstrated sinus rhythm without evidence ST elevations or depressions. Pt was treated with D10 normal saline. Pt will be admitted to the hospital under observation for continued treatment and evaluation of persistent hypoglycemia likely secondary to decreased p.o. intake in the setting of heavy alcohol use and continuing to take his diabetic medication. Review of Systems Review of Systems: Patient denies any acute medical complaints Yes all other systems are reviewed and are negative [facility] Medical History Alcohol abuse Alcohol abuse Diabetes HLD (hyperlipidemia) Hypertension Family History Other No family history of coronary artery disease Surgical History No history of previous surgery Social History Household Members: Children Housing: House Do you presently have visiting nurse or other home services: No Alcohol intake: current Alcohol type: hard liquor Patient Tobacco Use Status: Never used Tobacco Use of substances other than those prescribed or required for medical reasons: No Advance Directives: No Advance Directives Information Provided: Yes Nutrition Risks: No Nutritional Risk service: Yes Current occupational status: retired Meds Allergies Allergy/AdvReac Type Severity Reaction Status Date / Time alcohol Allergy Unknown rash Verified 04/17/21 11:20 clams Allergy Unknown UNKNOWN Unverified 04/17/21 11:20 oxycodone Allergy Unknown rash Verified 04/22/23 04:47 steamers/ clams Allergy Unknown flu like Uncoded 04/17/21 11:20 symptoms Active Medications: Current Medications Dextrose (D10) 250 mls @ 750 mls/hr IV Q15M PRN PRN Reason: per Hypoglycemia Standing Ord. Last Infusion: 04/22/23 12:44 Dose: Infused Pharmacy Consult (Consult Rx Perform Med Rec) 1 each MISCELLANE ONCE PRN PRN Reason: Consult order Home Medications Medication Instructions Recorded Confirmed Last Taken Type amlodipine 5 mg tablet 1 tab PO DAILY 10/14/22 04/22/23 Unknown History lisinopril 10 mg tablet 1 tab PO DAILY 10/14/22 04/22/23 Unknown History metoprolol succinate 50 mg 1 tab PO DAILY 10/14/22 04/22/23 Unknown History tablet,extended release 24 hr apixaban 5 mg tablet (Eliquis) 5 mg PO BID 04/22/23 04/22/23 Unknown History atorvastatin 20 mg tablet 20 mg PO DAILY 04/22/23 04/22/23 Unknown History glipizide 5 mg tablet 5 mg PO DAILY 04/22/23 04/22/23 Unknown History metformin 500 mg tablet 500 mg PO DAILY 04/22/23 04/22/23 Unknown History Physical Exam Vital Signs and Narrative: Vital Signs: Last Vital Signs Temp 97.6 F 04/22/23 04:43 Pulse 83 04/22/23 16:01 Resp 13 04/22/23 16:01 BP 138/59 L 04/22/23 16:01 Pulse Ox 98 04/22/23 16:01 O2 Del Method Room Air 04/22/23 16:01 BMI result Body Mass Index 33.4 Constitutional: Alert, possibly intoxicated, in no acute distress. Mental Status: Oriented to person, place, time but not to situation. Eyes: Pupils are equal, round, and reactive to light. Head: Multiple bruises and minor scabbed-over lacerations on left side of face. Bruise and scabbed-over abrasion on right side of scalp. Ear, Nose, and Throat: Oropharynx clear, mucous membranes dry. Ears and nose without deformities. Trachea midline. Respiratory: Diffuse coarse expiratory breath sounds. Cardiovascular: S1, S2 regular. No murmurs, rubs, or gallops. Gastrointestinal: Abdomen soft, non-tender, non-distended. Normal bowel sounds. Neurologic: Cranial nerves II-XII are grossly intact bilaterally. No focal neurological deficits. Moves all extremities spontaneously. Skin: No rashes or lesions noted. Musculoskeletal: No cyanosis or clubbing. Extremities: No edema. Psychiatric: Normal mood and affect. Results Labs 04/22/23 06:54 04/22/23 06:54 Labs: Laboratory Results - last 24 hr 04/22/23 04/22/23 04/22/23 06:54 06:54 06:54 MCV 91.5 MCH 30.1 MCHC 32.8 RDW 15.6 Plt Count 135 L D MPV 8.9 L Immature Gran % (Auto) 0.6 H Neut % (Auto) 56.6 Lymph % (Auto) 30.7 [place] % (Auto) 9.6 Eos % (Auto) 2.1 Baso % (Auto) 0.4 Lymph # (Auto) 1.5 [place] # (Auto) 0.5 Eos # (Auto) 0.1 Baso # (Auto) 0.0 Abs Immat Gran (auto) 0.03 Absolute Neuts (auto) 2.7 Absolute Nucleated RBC 0.000 Nucleated RBC % (auto) 0.0 PT 15.8 H INR 1.4 H APTT 33.7 Anion Gap 14 Estim Creat Clear Calc 75.3 Estimated GFR > 60 POC Glucose Random Glucose 34 L* Calcium 8.8 Magnesium 1.8 Total Bilirubin 1.3 H AST 31 ALT 16 Alkaline Phosphatase 71 Total Protein 6.2 L Albumin 3.7 Ethyl Alcohol 256 04/22/23 04/22/23 04/22/23 08:15 09:16 10:54 MCV MCH MCHC RDW Plt Count MPV Immature Gran % (Auto) Neut % (Auto) Lymph % (Auto) [place] % (Auto) Eos % (Auto) Baso % (Auto) Lymph # (Auto) [place] # (Auto) Eos # (Auto) Baso # (Auto) Abs Immat Gran (auto) Absolute Neuts (auto) Absolute Nucleated RBC Nucleated RBC % (auto) PT INR APTT Anion Gap Estim Creat Clear Calc Estimated GFR POC Glucose 53 L* 80 80 Random Glucose Calcium Magnesium Total Bilirubin AST ALT Alkaline Phosphatase Total Protein Albumin Ethyl Alcohol 04/22/23 04/22/23 04/22/23 12:24 13:27 14:42 MCV MCH MCHC RDW Plt Count MPV Immature Gran % (Auto) Neut % (Auto) Lymph % (Auto) [place] % (Auto) Eos % (Auto) Baso % (Auto) Lymph # (Auto) [place] # (Auto) Eos # (Auto) Baso # (Auto) Abs Immat Gran (auto) Absolute Neuts (auto) Absolute Nucleated RBC Nucleated RBC % (auto) PT INR APTT Anion Gap Estim Creat Clear Calc Estimated GFR POC Glucose 63 64 85 Random Glucose Calcium Magnesium Total Bilirubin AST ALT Alkaline Phosphatase Total Protein Albumin Ethyl Alcohol 04/22/23 15:47 MCV MCH MCHC RDW Plt Count MPV Immature Gran % (Auto) Neut % (Auto) Lymph % (Auto) [place] % (Auto) Eos % (Auto) Baso % (Auto) Lymph # (Auto) [place] # (Auto) Eos # (Auto) Baso # (Auto) Abs Immat Gran (auto) Absolute Neuts (auto) Absolute Nucleated RBC Nucleated RBC % (auto) PT INR APTT Anion Gap Estim Creat Clear Calc Estimated GFR POC Glucose 52 L* Random Glucose Calcium Magnesium Total Bilirubin AST ALT Alkaline Phosphatase Total Protein Albumin Ethyl Alcohol Imaging Radiologist's Impressions: Impressions Cervical Spine CT 04/22/23 06:55 IMPRESSION: Motion artifact degrading images, limiting evaluation. No CT evidence of acute intracranial hemorrhage or edematous territorial infarction. No CT evidence of acute cervical spine fracture or subluxation. Moderate-severe cervical spondylosis. Head CT 04/22/23 06:55 IMPRESSION: Motion artifact degrading images, limiting evaluation. No CT evidence of acute intracranial hemorrhage or edematous territorial infarction. No CT evidence of acute cervical spine fracture or subluxation. Moderate-severe cervical spondylosis. Chest X-Ray 04/22/23 13:57 IMPRESSION: No acute disease. Assessment and Plan (1) Alcoholic intoxication: Status: Acute (2) Hypoglycemia: Status: Acute Plan Pt is a 72-year-old male with a PMH significant for?alcohol use disorder, fcj-xgkonct-eboabomft diabetes, paroxysmal AFib on Eliquis, HTN, and HLD who presents to the ED for evaluation after falling yesterday. Pt will be admitted to the hospital under observation for continued treatment and evaluation of persistent hypoglycemia likely secondary to decreased p.o. intake in the setting of heavy alcohol use and continuing to take his diabetic medication Hypoglycemia Patient's POC 53 at time of presentation, as low as 35 while in the ED Likely secondary to decreased p.o. intake d/t heavy alcohol use while continuing to take his diabetic medications Patient was treated with IVF, D10 and D50 the ED Continue D10 IV continuous @50 mls/hr for now Check POC q1hr x 6hrs, if stable then check POC q2hr until morning Hold home meds for now Patient should be encouraged to eat and drink p.o. Diabetic diet Monitor on telemetry Alcohol use disorder Patient drinks at least a fifth of hard liquor daily Patient denies a history of alcohol withdrawal, seizures, or hallucinations Patient started on p.o. phenobarb protocol Daily multivitamin, folic acid, thiamine Famotidine 20 mg p.o. Follow lytes, Mag, BMP IVF CIWA scale Seizure protocols Addiction Medicine consult Monitor on telemetry HTN Patient's BP has been a little soft since admission Hold antihypertensives for now, resume as necessary Paroxysmal AFib Continue Eliquis, metoprolol Full Code Attending:?Dr. Thibodeaux DVT Prophylaxis: On Eliquis Patient be admitted to the hospital under observation on telemetry for treatment further evaluation of hypoglycemia likely secondary to decreased p.o. intake in the setting of heavy alcohol use and continuing to take his diabetic medication. Time Spent With Patient Time: Total time managing care of this patient today ____ minutes. Quality Stroke Does the patient have a stroke diagnosis?: No VTE Prior VTE?: No VTE Risk Level:: Medical - moderate - high VTE Device Contraindication: Treatment Not Indicated VTE Drug Contraindication: N/A - Med Ordered
[2023-04-22 16:55] LABS: Glucose, Whole Blood 35 mg/dL (60-115)
[2023-04-22] MEDS: Dextrose 50 % 25 GM/50 ML SYRINGE IVPUSH (17:15)
--- NOTE | 2023-04-22 17:18 | HE.PHANOTE ---
RE: Andres Called [facility] and spoke to Sada who confirmed that pt is currently on 5mg Eliquis 5mg BID; due for next refill in May
[2023-04-22 17:25] LABS: Glucose, Whole Blood 115 mg/dL (60-115)
--- NOTE | 2023-04-22 18:19 | PC.NURSE ---
PT CALM AND COOPERATIVE, POC HAVE BEEN FOLLOWED CLOSELY. HAS BEEN ALERT AND ORIENTED. GIVEN ORANGE JUICE THIS MORNING BUT WAS REFUSING FOOD. AT THIS TIME PATIENT HAS TOLERATED A SANDWICH JUICE AND KATERINA VICTORIA
[2023-04-22 18:28] LABS: Glucose, Whole Blood 136 mg/dL (60-115)
[2023-04-22 19:09] LABS: Glucose, Whole Blood 158 mg/dL (60-115)
[2023-04-22] MEDS: Famotidine 20 MG TABLET PO (19:33)
[2023-04-22] MEDS: Multivitamin TABLET 1 TAB PO (19:34)
[2023-04-22] MEDS: PHENobarbitaL 200 MG PO ONCE PO (19:34)
[2023-04-22] MEDS: Thiamine HCL 100 MG TABLET PO (19:34)
[2023-04-22] MEDS: Folic Acid 1 MG TABLET PO (19:34)
[2023-04-22] MEDS: Apixaban 5 MG TABLET PO (19:34)
[2023-04-22] MEDS: Dextrose 10 % 1,000 ML 50 ML IVCONT (19:37)
[2023-04-22 20:05] LABS: Glucose, Whole Blood 161 mg/dL (60-115)
[2023-04-22 21:12] LABS: Glucose, Whole Blood 148 mg/dL (60-115)
[2023-04-22 22:09] LABS: Glucose, Whole Blood 132 mg/dL (60-115)
[2023-04-22] MEDS: PHENobarbitaL 100 MG, PHENobarbitaL 60 MG 160 MG PO (22:34)
[2023-04-22 23:09] LABS: Glucose, Whole Blood 123 mg/dL (60-115)
[2023-04-22 23:14] LABS: Glucose, Whole Blood 120 mg/dL (60-115)
[2023-04-23 00:24] LABS: Glucose, Whole Blood 110 mg/dL (60-115)
[2023-04-23] MEDS: 0.9 % Sodium Chloride Flush 3 ML SYRINGE IVFLUSH (00:48)
[2023-04-23] MEDS: PHENobarbitaL 100 MG, PHENobarbitaL 60 MG 160 MG PO (01:12)
[2023-04-23 01:13] LABS: Glucose, Whole Blood 113 mg/dL (60-115)
[2023-04-23 02:12] LABS: Glucose, Whole Blood 140 mg/dL (60-115)
[2023-04-23 03:16] LABS: Glucose, Whole Blood 125 mg/dL (60-115)
[2023-04-23 04:00] VITALS: BP 122/56; PULSE 87; RESP 20; TEMP 36.9; O2SAT 99
[2023-04-23 04:13] LABS: Glucose, Whole Blood 110 mg/dL (60-115)
[2023-04-23 05:52] LABS: Glucose, Whole Blood 111 mg/dL (60-115)
[2023-04-23 06:03] LABS: Hematocrit 29.4 % (42.0-52.0); Hemoglobin 9.7 g/dl (14.0-18.0); Mean Corpuscular Hemoglobin 29.2 pg (27.0-33.0); Mean Corpuscular Volume 88.6 fL (80.0-98.0); Mean Platelet Volume 8.8 fL (9.4-12.4); Platelet Count 102 X10*3/uL (160-400); Red Blood Count 3.32 X10*6/uL (4.60-5.80); Red Cell Distribution Width 15.2 % (11.0-16.0)
[2023-04-23 06:07] LABS: White Blood Count 2.4 X10*3/uL (4.8-10.8)
[2023-04-23 06:54] LABS: Anion Gap 11 (12-20); Blood Urea Nitrogen 9 mg/dL (9-16); Calcium 8.5 mg/dL (8.4-10.2); Carbon Dioxide 25 mmol/L (22-29); Chloride 103 mmol/L (96-108); Creatinine Clr Calc Pharmacy 96.9; Estimated Glomerular Filt Rate > 60; Glucose Random 107 mg/dL (60-115); Magnesium 1.5 mg/dL (1.6-2.6); Potassium 4.1 mmol/L (3.3-5.1); Sodium 135 mmol/L (135-145)
[2023-04-23 07:15] LABS: Cortisol Random 5.6 ug/dL
[2023-04-23 07:16] LABS: TSH reflex Free T4 1.31 uIU/mL (0.32-4.0)
[2023-04-23 07:17] VITALS: BP 125/61; PULSE 84; RESP 20; TEMP 36.9; O2SAT 98
[2023-04-23 07:18] LABS: Glucose, Whole Blood 108 mg/dL (60-115)
[2023-04-23] MEDS: Folic Acid 1 MG TABLET PO (08:14)
[2023-04-23] MEDS: Apixaban 5 MG TABLET PO ×2 (08:14→20:42)
[2023-04-23] MEDS: Metoprolol Succinate ER 50 MG TAB.ER.24H PO (08:14)
[2023-04-23] MEDS: Thiamine HCL 100 MG TABLET PO (08:14)
[2023-04-23] MEDS: Famotidine 20 MG TABLET PO ×2 (08:14→20:42)
[2023-04-23] MEDS: PHENobarbitaL 15 MG TABLET 45 MG PO ×2 (08:14→20:42)
[2023-04-23] MEDS: Multivitamin TABLET 1 TAB PO (08:14)
--- NOTE | 2023-04-23 08:14 | MHC.CM.PN ---
CM met with Patient at bedside and addressed WHYTE with him, providing him with the original and placing a copy on the chart. Patient lives in a house with his and adult Son and he required no services [employer] and uses a cane to assist with mobility. Home/self care vs Recovery Team interventions r/t ETOH is the tentative Plan; CM has initiated and will follow for dc planning. Patient is lang novak and his PCP is Dr. Jakob Lo.
[2023-04-23] MEDS: Atorvastatin Calcium 20 MG TABLET PO (08:15)
[2023-04-23 08:46] LABS: Glucose, Whole Blood 152 mg/dL (60-115)
--- NOTE | 2023-04-23 10:14 | MHC.CM.PN ---
Per RN CM, Patient has changed from OBSERVATION TO INPATIENT.
[2023-04-23 11:03] LABS: Glucose, Whole Blood 232 mg/dL (60-115)
[2023-04-23 11:12] VITALS: BP 129/59; PULSE 78; RESP 20; TEMP 36.6; O2SAT 100
[2023-04-23] MEDS: Magnesium Sulfate/D5W 1 GM/100 ML PIGGYBACK IV (13:57)
[2023-04-23] MEDS: Cosyntropin 0.25 MG VIAL IVPUSH (15:12)
[2023-04-23 15:19] VITALS: BP 131/60; PULSE 75; RESP 20; TEMP 37.2; O2SAT 99
[2023-04-23] MEDS: Dextrose 5 % and 0.9 % NaCl 1,000 ML 80 ML IVCONT (15:21)
--- NOTE | 2023-04-23 15:28 | MHC.RECOVRN ---
Met with pt in 444 after consult placed to Addiction Medicine for alcohol use. Pt admitted to [facility] for hypoglycemia and is currently being treated for alcohol withdrawal. Pt reports drinking 750 mL alcohol, rum or vodka, daily x 47 years. Pt reports longest period of recovery has been a few months. Pt reports alcohol has not interfered with life, has never had legal issues, no issues when pt was working. Pt does however report nags over alcohol use which in turn causes pt to consume more. When asked if pt is interested in decreasing use or abstinence, pt states I can stop. However, pt is not necessarily wanting to stop at this time. Pt educated regarding resources available if needed. Pt denies questions or concerns at this time. Provided with written resources as well as t/w contact information if needed. Discussed with Karina Martin APRN.
[2023-04-23 16:01] LABS: Glucose, Whole Blood 157 mg/dL (60-115)
[2023-04-23 16:13] LABS: Cortisol Random 11.2 ug/dL
--- NOTE | 2023-04-23 16:56 | P.PNIM_ITS ---
Subjective Subjective Date of Service: 04/23/23 Interval History: Hypoglycemia, alcohol withdrawal Review of Systems Patient fingersticks are improving with D10 Denies any lightheadedness or chest pain or shortness of breath or min from [place] chills. Has mild tremors Physical Exam Vital Signs: Vital Signs: Last Vital Signs Temp 98.9 F 04/23/23 15:19 Pulse 75 04/23/23 15:19 Resp 20 04/23/23 15:19 BP 131/60 04/23/23 15:19 Pulse Ox 99 04/23/23 15:19 O2 Del Method Room Air 04/23/23 15:19 BMI result Body Mass Index 33.4 Appearance: Alert.? Oriented X3.? has face bruises cvs: rrr, [id number] . res: clear to auscultation ,no rhonchii or wheezing abd: no rebound or guarding ,nt, bs present. ext pulses present , no cyanosis . neuro: axo3 , nonfocal. Objective Data Active Medications Acetaminophen (Acetaminophen 325 Mg Tablet) 650 mg PO Q6H PRN PRN Reason: Pain, Mild (Pain Scale 1-3) Apixaban (Apixaban 5 Mg Tablet) 5 mg PO BID [facility] Last Admin: 04/23/23 08:14 Dose: 5 mg Documented By: JOSHUA Atorvastatin Calcium (Atorvastatin Calcium 20 Mg Tablet) 20 mg PO DAILY [facility] Last Admin: 04/23/23 08:15 Dose: 20 mg Documented By: JOSHUA Famotidine (Famotidine 20 Mg Tablet) 20 mg PO BID [facility] Last Admin: 04/23/23 08:14 Dose: 20 mg Documented By: JOSHUA Folic Acid (Folic Acid 1 Mg Tablet) 1 mg PO DAILY [facility] Stop: 04/25/23 18:14 Last Admin: 04/23/23 08:14 Dose: 1 mg Documented By: JOSHUA Dextrose (D10) 250 mls @ 750 mls/hr IV Q15M PRN PRN Reason: per Hypoglycemia Standing Ord. Last Infusion: 04/22/23 23:51 Dose: 0 mls/hr Documented By: LETA Dextrose (D10) 250 mls @ 750 mls/hr IV Q15M PRN PRN Reason: per Hypoglycemia Standing Ord. Dextrose/Sodium Chloride (D5ns) 1,000 mls @ 80 mls/hr IVCONT .[id number] [facility] Last Admin: 04/23/23 15:21 Dose: 80 mls/hr Documented By: JOSHUA Metoprolol Succinate (Metoprolol Succinate Er 50 Mg Tab.Er.24h) 50 mg PO DAILY [facility]; Protocol Last Admin: 04/23/23 08:14 Dose: 50 mg Documented By: JOSHUA Multivitamins/Vitamin C (Multivitamin Tablet) 1 tab PO DAILY [facility] Stop: 04/25/23 18:14 Last Admin: 04/23/23 08:14 Dose: 1 tab Documented By: JOSHUA Ondansetron HCl (Ondansetron Hcl 4 Mg/2 Ml Vial) 4 mg IVPUSH Q8H PRN PRN Reason: Nausea and Vomiting Pharmacy Consult (Consult Rx Perform Med Rec) 1 each MISCELLANE ONCE PRN PRN Reason: Consult order Pharmacy Consult (Consult Rx Etoh Phenob Po Only) 1 each MISCELLANE ONCE PRN; Protocol PRN Reason: Consult order Phenobarbital (Phenobarbital 15 Mg Tablet) 45 mg PO BID [facility]; Protocol Stop: 04/24/23 21:01 Last Admin: 04/23/23 08:14 Dose: 45 mg Documented By: JOSHUA Phenobarbital (Phenobarbital 30 Mg Tablet) 30 mg PO BID [facility]; Protocol Stop: 04/26/23 21:01 Phenobarbital (Phenobarbital 30 Mg Tablet) 30 mg PO DAILY [facility]; Protocol Stop: 04/28/23 09:01 Sodium Chloride (0.9 % Sodium Chloride Flush 3 Ml Syringe) 3 ml IVFLUSH QSHIFT [facility] Last Admin: 04/23/23 16:49 Dose: Not Given Documented By: JOSHUA Non-Admin Reason: IV Running Thiamine HCl (Thiamine Hcl 100 Mg Tablet) 100 mg PO DAILY [facility] Stop: 04/25/23 18:14 Last Admin: 04/23/23 08:14 Dose: 100 mg Documented By: JOSHUA Labs 04/23/23 05:51 04/23/23 05:51 Labs: Laboratory Results - last 24 hr 04/22/23 04/22/23 04/22/23 16:51 17:22 18:23 MCV MCH MCHC RDW Plt Count MPV Absolute Nucleated RBC Nucleated RBC % (auto) Smear Path Review Anion Gap Estim Creat Clear Calc Estimated GFR POC Glucose 35 L* 115 136 H Random Glucose Calcium Magnesium TSH Random Cortisol 04/22/23 04/22/23 04/22/23 19:05 20:01 21:09 MCV MCH MCHC RDW Plt Count MPV Absolute Nucleated RBC Nucleated RBC % (auto) Smear Path Review Anion Gap Estim Creat Clear Calc Estimated GFR POC Glucose 158 H 161 H 148 H Random Glucose Calcium Magnesium TSH Random Cortisol 04/22/23 04/22/23 04/22/23 22:04 23:05 23:11 MCV MCH MCHC RDW Plt Count MPV Absolute Nucleated RBC Nucleated RBC % (auto) Smear Path Review Anion Gap Estim Creat Clear Calc Estimated GFR POC Glucose 132 H 123 H 120 H Random Glucose Calcium Magnesium TSH Random Cortisol 04/23/23 04/23/23 04/23/23 00:04 01:08 02:07 MCV MCH MCHC RDW Plt Count MPV Absolute Nucleated RBC Nucleated RBC % (auto) Smear Path Review Anion Gap Estim Creat Clear Calc Estimated GFR POC Glucose 110 113 140 H Random Glucose Calcium Magnesium TSH Random Cortisol 04/23/23 04/23/23 04/23/23 03:12 04:05 05:32 MCV MCH MCHC RDW Plt Count MPV Absolute Nucleated RBC Nucleated RBC % (auto) Smear Path Review Anion Gap Estim Creat Clear Calc Estimated GFR POC Glucose 125 H 110 111 Random Glucose Calcium Magnesium TSH Random Cortisol 04/23/23 04/23/23 04/23/23 05:51 05:51 05:51 MCV 88.6 MCH 29.2 MCHC 33.0 RDW 15.2 Plt Count 102 L MPV 8.8 L Absolute Nucleated RBC 0.000 Nucleated RBC % (auto) 0.0 Smear Path Review SEE NOTE Anion Gap 11 L Estim Creat Clear Calc 96.9 Estimated GFR > 60 POC Glucose Random Glucose 107 Calcium 8.5 Magnesium 1.5 L TSH 1.31 Random Cortisol 04/23/23 04/23/23 04/23/23 05:51 07:14 08:43 MCV MCH MCHC RDW Plt Count MPV Absolute Nucleated RBC Nucleated RBC % (auto) Smear Path Review Anion Gap Estim Creat Clear Calc Estimated GFR POC Glucose 108 152 H Random Glucose Calcium Magnesium TSH Random Cortisol 5.6 04/23/23 04/23/23 04/23/23 10:54 15:27 15:53 MCV MCH MCHC RDW Plt Count MPV Absolute Nucleated RBC Nucleated RBC % (auto) Smear Path Review Anion Gap Estim Creat Clear Calc Estimated GFR POC Glucose 232 H 157 H Random Glucose Calcium Magnesium TSH Random Cortisol 11.2 Assessment and Plan (1) Hypoglycemia: Status: Acute Plan ?72-year-old male with a PMH significant for?alcohol use disorder, dak-xtjjssv-sdlugflch diabetes, paroxysmal AFib on Eliquis, HTN, and HLD who presents to the ED for evaluation after falling yesterday. Pt will be admitted to the hospital under observation for continued treatment and evaluation of persistent hypoglycemia likely secondary to decreased p.o. intake in the setting of heavy alcohol use and continuing to take his diabetic medication Hypoglycemia: Is fingersticks are improving with D10 Will switch to D5 NS Cortisol levels are borderline Discussed with the endocrinology-added cosyntropin stimulation test Patient should be encouraged to eat and drink p.o. Diabetic diet Monitor on telemetry Alcohol use disorder Patient drinks at least a fifth of hard liquor daily Patient denies a history of alcohol withdrawal, seizures, or hallucinations Patient started on p.o. phenobarb protocol Daily multivitamin, folic acid, thiamine,Famotidine 20 mg p.o.,IVF Follow lytes, Mag, BMP,CIWA scale,Seizure protocols Addiction Medicine consult Monitor on telemetry HTN continue home meds. Paroxysmal AFib Continue Eliquis, metoprolol Full Code DVT Prophylaxis:? On Eliquis need for ongoin hospital stay -hypoglycemia l-need fs monitoring, IV fluid, cosyntropin test in progress, alcohol withdrawal-on phenobarb. Time Spent With Patient Time: Total time managing care of this patient today ____ minutes. Quality Stroke Does the patient have a stroke diagnosis?: No VTE Prior VTE?: No VTE Risk Level:: Medical - moderate - high VTE Device Contraindication: Treatment Not Indicated VTE Drug Contraindication: N/A - Med Ordered
[2023-04-23 17:31] LABS: Cortisol Random 29.4 ug/dL
[2023-04-23 19:03] VITALS: BP 145/67; PULSE 73; RESP 20; TEMP 36.9; O2SAT 99
[2023-04-23 19:51] LABS: Glucose, Whole Blood 339 mg/dL (60-115)
[2023-04-23 22:18] LABS: Glucose, Whole Blood 321 mg/dL (60-115)
[2023-04-23 23:46] VITALS: BP 150/65; PULSE 77; RESP 18; TEMP 36.8; O2SAT 99
[2023-04-24] MEDS: Dextrose 5 % and 0.9 % NaCl 1,000 ML 80 ML IVCONT (03:41)
[2023-04-24 03:56] VITALS: BP 143/63; PULSE 69; RESP 20; TEMP 37.2; O2SAT 99
[2023-04-24 07:26] VITALS: BP 119/56; PULSE 73; RESP 16; TEMP 36; O2SAT 99
[2023-04-24 07:33] LABS: Glucose, Whole Blood 187 mg/dL (60-115)
[2023-04-24] MEDS: 0.9 % Sodium Chloride Flush 3 ML SYRINGE IVFLUSH (08:28)
[2023-04-24] MEDS: Famotidine 20 MG TABLET PO (08:29)
[2023-04-24] MEDS: Multivitamin TABLET 1 TAB PO (08:29)
[2023-04-24] MEDS: Thiamine HCL 100 MG TABLET PO (08:29)
[2023-04-24] MEDS: Folic Acid 1 MG TABLET PO (08:29)
[2023-04-24] MEDS: Atorvastatin Calcium 20 MG TABLET PO (08:29)
[2023-04-24] MEDS: PHENobarbitaL 15 MG TABLET 45 MG PO (08:30)
[2023-04-24] MEDS: Metoprolol Succinate ER 50 MG TAB.ER.24H PO (08:30)
[2023-04-24] MEDS: Apixaban 5 MG TABLET PO (08:30)
[2023-04-24] MEDS: guaiFENesin 100 MG/5 ML LIQUID 10 ML PO ×2 (09:11→14:19)
[2023-04-24 11:25] VITALS: BP 142/64; PULSE 62; RESP 16; TEMP 36.8; O2SAT 100
[2023-04-24 11:26] LABS: Glucose, Whole Blood 101 mg/dL (60-115)
[2023-04-24 11:46] VITALS: BP 142/64; PULSE 62; O2SAT 100
--- NOTE | 2023-04-24 12:14 | MHC.CM.PN ---
PT is recommending home with (new) [facility]; CM will follow.
--- NOTE | 2023-04-24 13:13 | MHC.CM.PN ---
Patient has been medically cleared for dc to home today, with services. A referral has been made to [facility], who has been made aware of today's dc. Last IMM addressed yesterday.
--- NOTE | 2023-04-24 13:21 | PM.DS ---
DS: Providers Provider Date of Service: 04/24/23 Date of admission: 04/22/23 17:57 Date of discharge: 04/24/23 Primary care physician: Unknown Physician Consults: 04/22/23 18:24 Addiction Medicine Routine Consulting Provider: Addiction Covering Reason for consultation: Alcohol use disorder Attending physician on discharge: Dc Thibodeaux Discharging clinician: Dc Thibodeaux DS: Diagnosis Discharge Diagnosis (1) Hypoglycemia: Status: Acute (2) Alcoholic intoxication: Status: Acute DS: Summary Hospital Course Hospital Course: 72-year-old male with a PMH significant for?alcohol use disorder, kcs-kjkhebw-wnysxtolh diabetes, paroxysmal AFib on Eliquis, HTN, and HLD who presents to the ED for evaluation after falling yesterday. Patient still seems intoxicated time of interview and is unable to provide a detailed HPI.? HPI obtained from chart and provider review.? Patient apparently told the ED that he had tripped and fallen yesterday and hit his head but denied LOC or any dizziness, lightheadedness, or headache.? Patient has ethyl alcohol level was 256 at time of presentation.? Currently patient states that he does not know why or how he presented to the hospital.? Says he does not remember having a fall and is rather vague about what his last memory was.? Patient does admit to drinking at least a fifth of vodka or rum or whatever's available daily.? Denies a history of alcohol withdrawal, seizures, hallucinations, or daily morning tremors.? Patient also notes that he has been eating much lately though he has continued to take his medications.? Patient currently has no acute medical complaints.? Denies headache, lightheadedness, dizziness, changes in vision.? No fever, chills, nausea, vomiting, diarrhea, abdominal pain.? No chest pain/pressure, palpitations.? Denies shortness of breath.? In the ED patient's glucose was was measured as low as 35.? Patient's POC consistently measured in the 50s despite patient being administered D10, drinking orange juice, and eating a sandwich and crackers. In the ED labs were significant for platelets of 135, glucose of 53, ethyl alcohol of 256. Chronic, stable anemia of 11.0/33.5.? CXR showed no acute disease.? CT of head limited due to motion artifact the found no evidence of acute intracranial hemorrhage or edematous territorial infarction.? CT of cervical spine showed no acute fracture or subluxation. EKG demonstrated sinus rhythm without evidence ST elevations or depressions. Pt was treated with D10 normal saline. Pt will be admitted to the hospital under observation for continued treatment and evaluation of persistent hypoglycemia likely secondary to decreased p.o. intake in the setting of heavy alcohol use and continuing to take his diabetic medication. Hospital course: Patient was admitted because of hypoglycemia, fall, possible mild alcohol withdrawal: Patient was given IV glucose-fingersticks seems to be improved, subsequently discussed with endocrinology: Hypoglycemia most likely related to use of shows sulfonylurea, drinking alcohol and decreased p.o. intake, his cortisol level was borderline low so cosyntropin test was done which she came out to be fine. Mild alcohol withdrawal: Treated with the p.o. phenobarb- Improved. Discussed with endocrinology in detail, we will discontinue glipizide, hold off on metformin, monitor fingersticks at home if consistently stay above 200mg/dl, start metformin back. Patient was strongly advised to abstain from alcohol. Seen by PT: Recommended home PT patient will be going home with VNA and PT. Please follow-up with PCP out patiently. plan: Monitor fingersticks closely at home, abstain from alcohol If fingersticks consistently stay above 200 mg/dL-add metformin back. Patient will go home with VNA and PT Above management discussed the patient in detail and he understand and in agreement with above plan, time spent 50 minute. Time Spent with Patient Time attestation: Total time managing care of this patient today ____ minutes. Discharge coordination time: Greater than 30 minutes Quality: Safe Use of Opioids Does Pt have an Active Cancer Diagnosis on the Problem List?: No Quality: Stroke Does the patient have a stroke diagnosis?: No Physical Exam Vital Signs: Vital Signs: Last Vital Signs Temp 98.2 F 04/24/23 11:25 Pulse 62 04/24/23 11:46 Resp 16 04/24/23 11:25 BP 142/64 H 04/24/23 11:46 Pulse Ox 100 04/24/23 11:46 O2 Del Method Room Air 04/24/23 11:25 BMI result Body Mass Index 33.4 Appearance: Alert.? Oriented X3.? not in distress. cvs: rrr, [id number]. res: clear to auscultation ,no rhonchii or wheezing abd: no rebound or guarding ,nt, bs present. ext pulses present , no cyanosis , facial bruises seems healing. neuro: axo3 , nonfocal. DS: Data Data Completed and Pending Completed studies during hospitalization [Text1]: Procedures Detoxification Services for Substance Abuse Treatment (10/14/22) Labs on day of discharge: Laboratory Results - last 24 hr 04/23/23 04/23/23 04/23/23 15:27 15:53 16:35 POC Glucose 157 H Random Cortisol 11.2 29.4 04/23/23 04/23/23 04/24/23 19:31 22:14 07:26 POC Glucose 339 H 321 H 187 H Random Cortisol 04/24/23 11:22 POC Glucose 101 Random Cortisol Imaging Chest x-ray: Radiologist's impression: ITS Impressions Cervical Spine CT 04/22/23 06:55 IMPRESSION: Motion artifact degrading images, limiting evaluation. No CT evidence of acute intracranial hemorrhage or edematous territorial infarction. No CT evidence of acute cervical spine fracture or subluxation. Moderate-severe cervical spondylosis. Head CT 04/22/23 06:55 IMPRESSION: Motion artifact degrading images, limiting evaluation. No CT evidence of acute intracranial hemorrhage or edematous territorial infarction. No CT evidence of acute cervical spine fracture or subluxation. Moderate-severe cervical spondylosis. Chest X-Ray 04/22/23 13:57 IMPRESSION: No acute disease. Discharge Plan Discharge Anticipated Discharge Date/Time: 04/24/23 12:59 Patient Disposition: Home Health Service Discharge Diagnosis: fall ,alcohol use , hypoglycemia. Referrals: Ezequiel CINTRON [Outside] - 1 Week Physician,Unknown J [Primary Care Provider] - 1 Week Discharge Medications: Continued metoprolol succinate 50 mg tablet extended release 24 hr 1 tab PO DAILY amlodipine 5 mg tablet 1 tab PO DAILY lisinopril 10 mg tablet 1 tab PO DAILY atorvastatin 20 mg tablet 20 mg PO DAILY Eliquis 5 mg Tablet 5 mg PO BID Held metformin 500 mg tablet 500 mg PO DAILY Hold Instructions: Resume on 04/29/23. Discontinued glipizide 5 mg tablet 5 mg PO DAILY Discharge Orders: Discharge Order (Routine); Ordered 04/24/23 Ordered By: Dc Thibodeaux Diet: Advance to usual diet Activity on Discharge: As tolerated Stand Alone Forms: Patient Portal Discharge page Care Plan Goals: Patient was admitted because of hypoglycemia, fall, possible mild alcohol withdrawal: Patient was given IV glucose-fingersticks seems to be improved, subsequently discussed with endocrinology: Hypoglycemia most likely related to use of shows sulfonylurea, drinking alcohol and decreased p.o. intake, his cortisol level was borderline low so cosyntropin test was done which she came out to be fine. Discussed with endocrinology in detail, we will discontinue glipizide, hold off on metformin, monitor fingersticks at home if consistently stay above 200 start metformin back. Patient was strongly advised to abstain from alcohol. Seen by PT: Recommended home PT patient will be going home with VNA and PT. Please follow-up with PCP out patiently. Health Concerns: As above. Plan of Treatment: As above. Assessment: As above. Discharge Date/Time: 04/24/23 15:55
--- NOTE | 2023-04-24 13:30 | W.MHC.F2F ---
Service Date Service Date: 04/24/23 Encounter Date of encounter: 04/24/23 Encounter: Hypoglycemia, alcohol abuse, fall Reasons for Services Signs and symptoms assessed: Monitor fingersticks, any new symptoms. Reason for group home: diabetic teaching, monitoring of unstable blood sugar, medication management, medication treatment and teach disease management Reason for physical therapy: home safety and mobility, therapeutic exercises, restore joint function, gait/transfer training, assess need for DME, ADL training, energy conservation and other MD Overseeing Care: Jakob Lo Homebound: Leaving the home is medically contraindicated at this time without the asist of a device and/or another person due th the listed conditions above and below. Reason homebound: weakness related to hospital stay Homebound supporting statement: Aguilar multiple comorbidities including hyperglycemia, alcohol use, fall-need help with glucose monitoring, diabetic Education and appointments as well as PT. Certification: Based on the above findings, I certify that this patient is confined to the home and needs intermittent group home care, physical therapy and/or speech therapy, or continues to need occupational therapy. The patient is under my care, and I have initiated the establishment of the plan of care. The patient will be followed by a physician who will periodically review the plan of care. Time Spent With Patient Time: Total time managing care of this patient today ____ minutes.
[2023-04-24 13:40] LABS: Glucose, Whole Blood 223 mg/dL (60-115)
[2023-04-24 14:51] VITALS: BP 125/57; PULSE 72; RESP 20; TEMP 37.3; O2SAT 99
--- NOTE | 2023-04-24 15:44 | PM.EVENT ---
Event Note Date of Service: 04/24/23 Event Note: Addiction consult Patient seen by commercial intelligence manager. Please see note 04/23/23 Time Spent With Patient Time: Total time managing care of this patient today ____ minutes.
== END 2023-04-24 15:55 | disposition home health service (06) ==
LOC: HO.ED 15:15 → HO.EDOVER 18:05 → HO.IMC 18:15
PROVIDERS: Physician Assistant Medical; Admitting Provider Student in an Organized Health Care Education/Training Program; Emergency Provider Internal Medicine; PCP Internal Medicine; Visit Provider Internal Medicine
DX: F10.220 Alcohol dependence with intoxication, uncomplicated (principal); Y90.8 Blood alcohol level of 240 mg/100 ml or more; E11.649 Type 2 diabetes mellitus with hypoglycemia without coma; S00.83XA Contusion of other part of head, initial encounter; W19.XXXA Unspecified fall, initial encounter; I10 Essential (primary) hypertension; E78.5 Hyperlipidemia, unspecified; I48.0 Paroxysmal atrial fibrillation; Z79.84 Long term (current) use of oral hypoglycemic drugs; Z79.899 Other long term (current) drug therapy; Z79.01 Long term (current) use of anticoagulants; Z79.02 Long term (current) use of antithrombotics/antiplatelets; Z91.81 History of falling; Y93.9 Activity, unspecified; Y92.9 Unspecified place or not applicable; Y99.9 Unspecified external cause status
CPT/HCPCS: 36415; 70450; 71045; 72125; 80048; 80053; 80307; 82530; 82533; 82947; 83735; 84443; 85025; 85027; 85610; 85730; 93005; 96361; 96365; 96366; 96367; 96375; 97162; 99222; 99285; J0834; J3475

== ENCOUNTER 2023-05-02 18:05 | Emergency (ER) | payer OTHER, MEDICARE, SELFPAY ==
--- NOTE | ~2023-05-02 | CT_ITS ---
EXAMINATION: CT HEAD WITHOUT CONTRAST CT CERVICAL SPINE WITHOUT CONTRAST CLINICAL INFORMATION: Status post fall. Head trauma. COMPARISON: CT of the cervical spine and head of 04/22/2023. TECHNIQUE: Contiguous axial images are obtained from the skull base to the vertex without intravenous contrast administration. Multidetector volumetric CT imaging of the cervical spine is acquired without intravenous contrast administration. Postprocessing is performed at a dedicated workstation. Multiplanar reformatted images are submitted. This CT scan was performed using dose optimization techniques as appropriate to a performed exam including the following: *Automated exposure control *Adjustment of mA and/or kV according to patient size (this includes techniques or standardized protocols for targeted exams were dose is matched to indication/reason for exam; i.e. extremities or head) *Use of iterative reconstruction technique. DLP: 1316 mGy-cm. FINDINGS: CT HEAD: There is no evidence of acute intracranial hemorrhage, midline shift or mass effect. Ruano to white matter differentiation is well preserved. No evidence of acute territorial infarction. 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 Moderate cerebral volume loss with proportionate dilatation of the ventricles and cortical sulci. No abnormal extra-axial fluid collection is seen. Osseous calvarium is intact. Minimal mucosal thickening is noted in the right maxillary sinus. The paranasal sinuses are otherwise well-aerated. Under pneumatization versus partial sclerosis of the bilateral mastoid air cells. Middle ear cavities are well-aerated. Anterior frontal calvarial soft tissue swelling or hematoma is noted. Bilateral periorbital soft tissue swelling/hematoma, greater on the left anterior lateral aspect with trace air focus and a few tiny radiopaque densities probably representing foreign bodies. CT CERVICAL SPINE: Vertebral body heights and alignment are maintained. Atlantoaxial and atlantooccipital alignments are maintained. Posterior elements are intact and in normal alignment. Nqrufwim-[id number] size anterior osteophytes are noted at multiple levels. There is severe narrowing of the C6-C7 disc space with posterior endplate osteophytes. There is severe narrowing of the right neural foramen at C6-C7. Mild narrowing of the left neural foraminal stenosis at C6-C7. Prominent disc osteophyte is noted in the right lateral paracentral location at C6-C7. Varying degree facet arthropathy is noted bilaterally. Airway is patent. No evidence of prevertebral soft tissue swelling. No significant nodule is noted in the visualized thyroid. Visualized lung apices are unremarkable. CT/CT cervical spine wo IV con IMPRESSION: 1. No evidence of acute intracranial abnormality. Specifically, there is no evidence of acute intracranial hemorrhage or acute fracture of the osseous calvarium. Soft tissue swelling over the anterior frontal region and bilateral periorbital regions, greater on the left anterior lateral aspect. Trace air foci and small radiopaque foreign bodies in the left anterolateral periorbital soft tissues. 2. No evidence of acute fracture or traumatic subluxation in the cervical spine. Cervical spondylosis.
[2023-05-02 18:13] VITALS: BP 128/55; BP 138/60; PULSE 64; PULSE 74; RESP 16; TEMP 36.9; O2SAT 95; BMI 33.3
--- NOTE | 2023-05-02 19:09 | ED.FALL ---
HPI - Fall General Chief Complaint: Fall Stated Complaint: etoh, fall Time Seen by Provider: 05/02/23 18:38 Source: patient and EMS Mode of arrival: EMS Limitations: no limitations History of Present Illness HPI Narrative: 72-year-old male with a history of AFib on Eliquis, it suc-hnqkfea-fyyuituey diabetes, hypertension, high cholesterol, alcohol use disorder presents to the ER after a fall. Per patient he was walking when his foot stepped in a puddle causing him to fall forward hitting his face. No LOC. no complaints of headache, vision changes, vomiting, chest pain, abdominal pain, neck pain. Unsure of tetanus status Has laceration to the face Patient reports he drinks half a pt of rum a day. He did drink today Related Data Home Medications Medication Instructions Recorded Confirmed amlodipine 5 mg tablet 1 tab PO DAILY 10/14/22 04/22/23 lisinopril 10 mg tablet 1 tab PO DAILY 10/14/22 04/22/23 metoprolol succinate 50 mg 1 tab PO DAILY 10/14/22 04/22/23 tablet,extended release 24 hr apixaban 5 mg tablet (Eliquis) 5 mg PO BID 04/22/23 04/22/23 atorvastatin 20 mg tablet 20 mg PO DAILY 04/22/23 04/22/23 metformin 500 mg tablet 500 mg PO DAILY 04/22/23 04/22/23 Allergies Allergy/AdvReac Type Severity Reaction Status Date / Time alcohol Allergy Unknown rash Verified 04/17/21 11:20 clams Allergy Unknown UNKNOWN Unverified 04/17/21 11:20 oxycodone Allergy Unknown rash Verified 04/22/23 04:47 steamers/ clams Allergy Unknown flu like Uncoded 04/17/21 11:20 symptoms Review of Systems Review of Systems: Yes all other systems are reviewed and are negative Constitutional: Constitutional: Reports no additional constitutional complaints, Denies body ache(s), Denies chills, Denies fever(s), Denies headache(s) and Denies weakness Eyes: Eyes: Reports no additional eye complaints and Denies change in vision ENT: Reports system reviewed and no additional complaints, except as documented, Denies dizziness, Denies headache(s), Denies nasal congestion, Denies nasal discharge and Denies neck pain Cardiovascular: Cardiovascular: Reports no additional cardiovascular complaints, Denies chest pain, Denies leg edema and Denies dyspnea Respiratory: Respiratory: Reports no additional respiratory complaints, Denies cough and Denies dyspnea Gastrointestinal: Gastrointestinal: Reports no additional gastrointestinal complaints, Denies abdominal pain, Denies diarrhea, Denies nausea and Denies vomiting Genitourinary: Genitourinary: Denies urinary incontinence Musculoskeletal: Musculoskeletal: Reports no additional musculoskeletal complaints, Denies back pain, Denies arthralgias, Denies joint swelling, Denies neck pain, Denies numbness and Denies tingling Integumentary/Breasts: Skin/Breast: Reports system reviewed and no additional complaints, except as docu, Denies rash and Reports wounds Neurologic: Reports system reviewed and no additional complaints, except as documented, Denies Abnormal speech present, Denies dizziness, Denies headache(s), Denies numbness, Denies tingling and Denies weakness PMFSH Past Medical History Attestation statement: The following information was validated with the patient. Source: old records reviewed and nursing notes reviewed Medical History Alcohol abuse Alcohol abuse Diabetes HLD (hyperlipidemia) Hypertension Surgical History No history of previous surgery Family History Family History Other No family history of coronary artery disease Social History Social History Household Members: Children Housing: House Do you presently have visiting nurse or other home services: No Alcohol intake: current Alcohol intake frequency: 3 or more drinks per day Alcohol type: hard liquor Patient Tobacco Use Status: Never used Tobacco Use of substances other than those prescribed or required for medical reasons: No Advance Directives: No Advance Directives Information Provided: No service: Yes Current occupational status: retired Physical Exam Vital Signs: Vital Signs: Last Vital Signs Temp 98.5 F 05/02/23 18:13 Pulse 64 05/02/23 18:13 Resp 16 05/02/23 18:13 BP 128/55 L 05/02/23 18:13 Pulse Ox 95 05/02/23 18:13 O2 Del Method Room Air 05/02/23 18:13 BMI result Body Mass Index 33.3 Const: General: cooperative, healthy appearing, comfortable and no acute distress Orientation/consciousness: patient oriented x3 Limitations: no limitations HEENT: Head: Yes normal to inspection, No Day's sign and No raccoon eyes Head images: 1. 4 cm lac Ears: hearing grossly normal bilaterally and TM's normal bilaterally General nose exam: Normal external nose present Face and sinus: Yes normal facial exam Mouth: Normal oral and palatal mucosa present Throat: Yes posterior oropharynx normal Eyes: General: appearance normal, both eyes and all related structures Pupils: Equal, round and reactive pupils present Neck: Other: No cervical midline tenderness, step-offs deformities. Neck: Yes normal visual inspection and Yes full ROM Chest: Chest palpation & inspection: normal inspection of the chest Resp: Effort & Inspection: normal respiratory effort Auscultation: clear to auscultation bilaterally Cardio: Rate: regular rate Rhythm: regular rhythm Peripheral pulses: Peripheral pulses 2+ throughout GI: Inspection: Yes normal to inspection Palpation (GI): Soft to palpation and nontender Auscultation: normal bowel sounds Back/Spine/Pelvis: Thoracic/Lumbar Spine: thoracic and lumbar spine normal to inspection Skin: General skin exam: no rashes or lesions noted Neuro: General: patient oriented x3, moves all extremities, no focal motor deficits, normal sensation to monofilament and Unable to assess gait Cranial nerves: Yes CN's II-XII intact bilaterally, Yes Equal, round and reactive pupils present, Yes Bilaterally intact EOM present, Yes Nystagmus not present, Yes Normal facial strength present and Yes Midline tongue present Cognition (Neuro): normal cognition Speech: No Abnormal speech present Gait exam (Neuro): Unable to assess gait Motor exam (neuro): 5/5 motor strength present throughout Sensory Exam: Normal double simultaneous stimulation for sensation Extrem: General: Yes normal to inspection Course Course Course Narrative: CT head and cervical spine were negative for any fracture or intracranial hemorrhage. Labs are at baseline. See procedure note for wound repair. This was done in conjunction with Felicita Morgan ([employer] student). Patient was ambulatory to the bathroom with his cane which is his baseline with a steady gait. Patient has a sober ride here to pick him up. Reviewed worrisome signs and symptoms of when to return to the emergency room. Comfortable plan for discharge home. Medications Administered Discontinued Medications Generic Name Dose Route Start Last Admin Trade Name Cathleen PRN Reason Stop Dose Admin Lidocaine HCl 5 ml 05/02/23 20:17 05/02/23 22:09 Lidocaine Hcl 2 % Mpf 5 Ml Vial INFILTRATI 05/02/23 20:18 Not Given ONCE ONE Lidocaine HCl 5 ml 05/02/23 20:45 05/02/23 20:50 Lidocaine Hcl 2% 2 Ml Vial INFILTRATI 05/02/23 20:46 5 ml ONCE ONE Administration Procedures Laceration Laceration 1: Site: face Side (If applicable): left Size (cm): 4 Description: linear and irregular Depth: simple, single layer Local Anesthetic: lidocaine 1% Amount of anesthesia used (mL): 3 Pre-repair: wound explored and irrigated extensively Skin layer closed with: other (prolene) Size (cm): 6-0 Number of sutures: 7 Technique: simple, interrupted Medical Decision Making Medical Decision Making [facility] Narrative: 72-year-old male here after mechanical fall with head strike with laceration to the left side of the face who also drink alcohol prior to his fall Will need CT head, CT cervical spine, labs Will need wound repair Differential Diagnosis Differential Diagnoses: The differential diagnosis associated with the presentation includes Intracranial hemorrhage, laceration, contusion Cervical fracture, cervical strain Alcohol use disorder Lab Data [facility] Lab Attestation statement: I reviewed the patient's lab results. 05/02/23 20:15 05/02/23 20:15 Labs: Lab Results 05/02/23 05/02/23 05/02/23 Range/Units 20:15 20:15 20:15 WBC 3.4 L (4.8-10.8) X10*3/uL RBC 3.51 L (4.60-5.80) X10*6/uL Hgb 10.4 L (14.0-18.0) g/dl Hct 31.5 L (42.0-52.0) % MCV 89.7 (80.0-98.0) fL MCH 29.6 (27.0-33.0) pg MCHC 33.0 (31.0-36.0) g/dl RDW 15.6 (11.0-16.0) % Plt Count 120 L (160-400) X10*3/uL MPV 8.4 L (9.4-12.4) fL Immature Gran % (Auto) 0.6 H (0.0-0.4) % Neut % (Auto) 62.9 (45-73) % Lymph % (Auto) 24.1 (20-40) % [place] % (Auto) 9.7 (2-11) % Eos % (Auto) 2.4 (0-4) % Baso % (Auto) 0.3 (0-2) % Lymph # (Auto) 0.8 L (1.2-4.9) X10*3/uL [place] # (Auto) 0.3 (0.1-1.2) X10*3/uL Eos # (Auto) 0.1 (0.0-0.4) X10*3/uL Baso # (Auto) 0.0 (0.0-0.2) X10*3/uL Abs Immat Gran (auto) 0.02 (0.00-0.03) X10*3/uL Absolute Neuts (auto) 2.1 (2.0-8.3) x10*3/uL Absolute Nucleated RBC 0.000 (0.0-0.012) X10*3/uL Nucleated RBC % (auto) 0.0 (0.0-0.2) /100WBC PT 14.9 H (10.0-13.1) SEC INR 1.3 H (0.9-1.1) Sodium 143 (135-145) mmol/L Potassium 3.7 (3.3-5.1) mmol/L Chloride 108 (96-108) mmol/L Carbon Dioxide 26 (22-29) mmol/L Anion Gap 13 (12-20) BUN 8 L (9-16) mg/dL Creatinine 0.99 (0.5-1.4) mg/dL Estim Creat Clear Calc 75.7 Estimated GFR > 60 Random Glucose 124 H (60-115) mg/dL Calcium 8.8 (8.4-10.2) mg/dL Total Bilirubin 0.9 (0.0-1.0) mg/dL Direct Bilirubin 0.3 (0.0-0.5) mg/dL AST 17 (5-37) U/L ALT 12 (0-40) U/L Alkaline Phosphatase 79 (39-117) U/L Total Protein 6.0 L (6.5-8.0) g/dL Albumin 3.6 (3.5-5.0) g/dL Ethyl Alcohol 85 mg/dL Independent Interpretation I performed an independent interpretation of an: CT Scan Interpretation: I independently reviewed the CT scan and agree with radiologist's report Radiology Impression Discussion of test interpretation with radiology: I have reviewed the radiologist's reading. Radiologist Impression: [address] [address] [address] Scan Report Signed Patient: Aníbal Tirado MR#: [id number] : 1950 Acct:[id number] Age/Sex: 72 / M ADM Date: 05/02/23 Loc: HO.ED Attending Dr: Ordering Physician: Vanessa Leroy NP Date of Service: 05/02/23 Procedure(s): CT cervical spine wo IV con Accession Number(s): [id number] cc: Vanessa Leroy NP~ EXAMINATION: CT HEAD WITHOUT CONTRAST CT CERVICAL SPINE WITHOUT CONTRAST CLINICAL INFORMATION: Status post fall. Head trauma. COMPARISON:? CT of the cervical spine and head of 04/22/2023. TECHNIQUE: Contiguous axial images are obtained from the skull base to the vertex without intravenous contrast administration. Multidetector volumetric CT imaging of the cervical spine is acquired without intravenous contrast administration. Postprocessing is performed at a dedicated workstation. Multiplanar reformatted images are submitted. This CT scan was performed using dose optimization techniques as appropriate to a performed exam including the following: *Automated exposure control *Adjustment of mA and/or kV according to patient size (this includes techniques or standardized protocols for targeted exams were dose is matched to indication/reason for exam; i.e. extremities or head) *Use of iterative reconstruction technique. DLP: 1316 mGy-cm. FINDINGS: CT HEAD: There is no evidence of acute intracranial hemorrhage, midline shift or mass effect. [place] to white matter differentiation is well preserved. No evidence of acute territorial infarction. 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 Moderate cerebral volume loss with proportionate dilatation of the ventricles and cortical sulci. No abnormal extra-axial fluid collection is seen. Osseous calvarium is intact. Minimal mucosal thickening is noted in the right maxillary sinus. The paranasal sinuses are otherwise well-aerated. Under pneumatization versus partial sclerosis of the bilateral mastoid air cells. Middle ear cavities are well-aerated. Anterior frontal calvarial soft tissue swelling or hematoma is noted. Bilateral periorbital soft tissue swelling/hematoma, greater on the left anterior lateral aspect with trace air focus and a few tiny radiopaque densities probably representing foreign bodies. CT CERVICAL SPINE: Vertebral body heights and alignment are maintained. Atlantoaxial and atlantooccipital alignments are maintained. Posterior elements are intact and in normal alignment. Wdctcqhx-qx-xoiqh size anterior osteophytes are noted at multiple levels. There is severe narrowing of the C6-C7 disc space with posterior endplate osteophytes. There is severe narrowing of the right neural foramen at C6-C7. Mild narrowing of the left neural foraminal stenosis at C6-C7. Prominent disc osteophyte is noted in the right lateral paracentral location at C6-C7. Varying degree facet arthropathy is noted bilaterally. Airway is patent. No evidence of prevertebral soft tissue swelling. No significant nodule is noted in the visualized thyroid. Visualized lung apices are unremarkable. CT/CT cervical spine wo IV con IMPRESSION: 1.? No evidence of acute intracranial abnormality. Specifically, there is no evidence of acute intracranial hemorrhage or acute fracture of the osseous calvarium. Soft tissue swelling over the anterior frontal region and bilateral periorbital regions, greater on the left anterior lateral aspect. Trace air foci and small radiopaque foreign bodies in the left anterolateral periorbital soft tissues. ? 2.? No evidence of acute fracture or traumatic subluxation in the cervical spine. Cervical spondylosis. ? Independent Historian Clinical information obtained from an independent historian. History obtained from or confirmed by: EMS Discharge Plan Discharge Clinical Impression: Alcoholic intoxication, Laceration of face Patient Disposition: Home, Self-Care Instructions: Laceration (ED), Abuse of Alcohol (DC) Additional Instructions: sutures out in 5-7 days Prescriptions: No Action metoprolol succinate 50 mg tablet extended release 24 hr 1 tab PO DAILY amlodipine 5 mg tablet 1 tab PO DAILY lisinopril 10 mg tablet 1 tab PO DAILY atorvastatin 20 mg tablet 20 mg PO DAILY metformin 500 mg tablet 500 mg PO DAILY Hold Instructions: Resume on 04/29/23. Eliquis 5 mg Tablet 5 mg PO BID Referrals: Stephen Klein MD [Primary Care Provider] - 1 week Interventions: ED Discharge Assessment Last Done: 05/02/23 22:51 Discharge Date/Time: 05/02/23 22:52
[2023-05-02 20:20] LABS: MANUAL DIFF FLAG NO
[2023-05-02 20:26] LABS: Basophils Percent Auto 0.3 % (0-2); Eosinophils Absolute Auto 0.1 X10*3/uL (0.0-0.4); Eosinophils Percent Auto 2.4 % (0-4); Hematocrit 31.5 % (42.0-52.0); Hemoglobin 10.4 g/dl (14.0-18.0); Imm Gran Abs Auto 0.02 X10*3/uL (0.00-0.03); Imm Gran Pct Auto 0.6 % (0.0-0.4); Lymphocytes Absolute Auto 0.8 X10*3/uL (1.2-4.9); Lymphocytes Percent Auto 24.1 % (20-40); Mean Corpuscular Hemoglobin 29.6 pg (27.0-33.0); Mean Corpuscular Volume 89.7 fL (80.0-98.0); Mean Platelet Volume 8.4 fL (9.4-12.4); Monocytes Absolute Auto 0.3 X10*3/uL (0.1-1.2); Monocytes Percent Auto 9.7 % (2-11); Neutrophils Absolute Auto 2.1 x10*3/uL (2.0-8.3); Neutrophils Percent Auto 62.9 % (45-73); Platelet Count 120 X10*3/uL (160-400); Red Blood Count 3.51 X10*6/uL (4.60-5.80); Red Cell Distribution Width 15.6 % (11.0-16.0); White Blood Count 3.4 X10*3/uL (4.8-10.8)
[2023-05-02 20:38] LABS: Alanine Aminotransferase 12 U/L (0-40); Albumin Level 3.6 g/dL (3.5-5.0); Alkaline Phosphatase 79 U/L (39-117); Anion Gap 13 (12-20); Aspartate Amino Transferase 17 U/L (5-37); Bilirubin Direct 0.3 mg/dL (0.0-0.5); Bilirubin Total 0.9 mg/dL (0.0-1.0); Blood Urea Nitrogen 8 mg/dL (9-16); Calcium 8.8 mg/dL (8.4-10.2); Carbon Dioxide 26 mmol/L (22-29); Chloride 108 mmol/L (96-108); Creatinine Clr Calc Pharmacy 75.7; Estimated Glomerular Filt Rate > 60; Ethanol 85 mg/dL; Glucose Random 124 mg/dL (60-115); Potassium 3.7 mmol/L (3.3-5.1); Sodium 143 mmol/L (135-145)
[2023-05-02 20:51] LABS: INTERNATIONAL NORM RATIO 1.3 (0.9-1.1); Prothrombin Time 14.9 SEC (10.0-13.1)
--- NOTE | 2023-05-02 22:04 | PC.NURSE ---
pt ambulated in halls with a cane and 1 assist to the bathroom. gait was unsteady than he was able to ambulated w/o difficulty
== END 2023-05-02 22:52 | disposition home or self-care (01) ==
PROVIDERS: Nurse Practitioner Family; Emergency Provider Emergency Medicine; PCP Internal Medicine Medical Oncology
DX: F10.220 Alcohol dependence with intoxication, uncomplicated (principal); Y90.4 Blood alcohol level of 80-99 mg/100 ml; S01.112A Laceration without foreign body of left eyelid and periocular area, initial encounter; W01.198A Fall on same level from slipping, tripping and stumbling with subsequent striking against other object, initial encounter; E11.9 Type 2 diabetes mellitus without complications; I10 Essential (primary) hypertension; E78.5 Hyperlipidemia, unspecified; Y93.01 Activity, walking, marching and hiking; Y92.414 Local residential or business street as the place of occurrence of the external cause; Y99.9 Unspecified external cause status; Z79.899 Other long term (current) drug therapy; Z79.01 Long term (current) use of anticoagulants; Z79.84 Long term (current) use of oral hypoglycemic drugs; Z79.02 Long term (current) use of antithrombotics/antiplatelets
CPT/HCPCS: 12013; 36415; 70450; 72125; 80048; 80076; 80307; 85025; 85610; 99284

== ENCOUNTER 2023-05-04 15:18 | Emergency (ER) | payer OTHER, MEDICARE, SELFPAY ==
--- NOTE | ~2023-05-04 | XR_ITS ---
EXAMINATION: XR CHEST CLINICAL INFORMATION: Edema COMPARISON: None available. TECHNIQUE: Frontal view of the chest was obtained. FINDINGS: The cardiac and mediastinal contours are stable. The cardiac silhouette does not appear enlarged There is a 5 mm nodular density at the left lung base adjacent to the left anterior fifth rib questionable for a nipple shadow. The lungs are otherwise clear. There is slight blunting of the left lateral costophrenic angle suggestive of a small left pleural effusion. No right pleural effusion. No pneumothorax. Bony structures are unremarkable. XR/XR chest 1V IMPRESSION: No evidence of pulmonary edema. Small left pleural effusion. 7 mm left base pulmonary nodule. This may represent a nipple shadow. Follow-up chest x-ray with nipple markers recommended.
--- NOTE | ~2023-05-04 | US_ITS ---
EXAMINATION: US VENOUS ULTRASOUND WITH DOPPLER LOWER EXTREMITY, BILATERAL CLINICAL INFORMATION: Pitting edema. COMPARISON: Venous Doppler ultrasound exam extremities 01/18/2021 TECHNIQUE: Ultrasound of the deep veins is performed from the hip to the calf with compression sonography and color and pulse Doppler assessment. Spectral analysis with color-flow imaging is performed. FINDINGS: RIGHT: There is normal venous compression and respiratory variation and augmented flow. The visualized common femoral vein, superficial femoral vein, profunda femoral vein, popliteal vein, and the trifurcation region shows no evidence of deep venous thrombosis. There is no significant popliteal fossa cyst. Subcutaneous edema in the calf. LEFT: There is normal venous compression and respiratory variation and augmented flow. The visualized common femoral vein, superficial femoral vein, profunda femoral vein, popliteal vein, and the trifurcation region shows no evidence of deep venous thrombosis. There is no significant popliteal fossa cyst. Subcutaneous edema in the calf If the patient's symptoms persist, followup ultrasound in 5 days 7 days might be of value to exclude proximal propagation from a non-visualized calf vein. US/US venous duplex LE BI IMPRESSION: No DVT demonstrated in the bilateral lower extremity.
--- NOTE | 2023-05-04 15:36 | ED.GENADULT ---
HPI - General Adult General Chief complaint: General Medical Stated complaint: Swollen legs and feet pain Time Seen by Provider: 05/04/23 18:19 Source: patient, family (Patient's ), RN notes reviewed and old records reviewed Mode of arrival: ambulatory Limitations: no limitations History of Present Illness HPI narrative: 72-year-old male past medical history significant for alcohol abuse, hyperlipidemia, AFib on Eliquis, diabetes, hypertension presents for evaluation of leg swelling Patient reports increasing bilateral lower leg swelling for last couple of weeks, worse over the last couple of days. Patient denies any chest pain, shortness of breath. Denies any history of CHF. He is not on any diuretics Patient has been here twice in the last 2 weeks for alcohol abuse. I discussed this with him and he does endorse frequent alcohol use Patient reports that he also has a high salt diet Denies any fevers, chills Related Data Home Medications Medication Instructions Recorded Confirmed amlodipine 5 mg tablet 1 tab PO DAILY 10/14/22 04/22/23 lisinopril 10 mg tablet 1 tab PO DAILY 10/14/22 04/22/23 metoprolol succinate 50 mg 1 tab PO DAILY 10/14/22 04/22/23 tablet,extended release 24 hr apixaban 5 mg tablet (Eliquis) 5 mg PO BID 04/22/23 04/22/23 atorvastatin 20 mg tablet 20 mg PO DAILY 04/22/23 04/22/23 metformin 500 mg tablet 500 mg PO DAILY 04/22/23 04/22/23 Previous Rx's Medication Instructions Recorded furosemide 20 mg tablet 20 mg PO DAILY #7 tabs 05/04/23 Allergies Allergy/AdvReac Type Severity Reaction Status Date / Time alcohol Allergy Intermediate rash Verified 05/04/23 15:35 clams Allergy Intermediate UNKNOWN Unverified 05/04/23 15:35 oxycodone Allergy Intermediate rash Verified 05/04/23 15:35 steamers/ clams Allergy Intermediate flu like Uncoded 05/04/23 15:35 symptoms Review of Systems Constitutional: Constitutional: Reports as per HPI, Denies chills, Denies fatigue, Denies fever(s) and Denies headache(s) ENT: Denies headache(s) Cardiovascular: Cardiovascular: Denies chest pain, Reports leg edema and Denies dyspnea Respiratory: Respiratory: Denies cough and Denies dyspnea Gastrointestinal: Gastrointestinal: Denies abdominal pain, Denies constipation and Denies vomiting Genitourinary: Genitourinary: Denies difficulty urinating and Denies dysuria Neurologic: Denies headache(s) and Denies focal weakness Endocrine: Endocrine: Denies fatigue PMFSH Past Medical History Medical History Alcohol abuse Alcohol abuse Diabetes HLD (hyperlipidemia) Hypertension Surgical History No history of previous surgery Family History Family History Other No family history of coronary artery disease Social History Social History Household Members: Children Housing: House Do you presently have visiting nurse or other home services: No Alcohol intake: current Alcohol intake frequency: 3 or more drinks per day Alcohol type: hard liquor Patient Tobacco Use Status: Never used Tobacco Advance Directives: No Advance Directives Information Provided: No service: Yes Current occupational status: retired Physical Exam ED Vital Signs: Vital Signs - 24 hr 05/04/23 15:38 05/04/23 18:31 Temperature 97.3 F 99.1 F Pulse Rate 74 73 Respiratory Rate 18 16 Blood Pressure 122/40 L 137/60 Pulse Oximetry 98 97 Oxygen Delivery Method Room Air Room Air BMI result Body Mass Index 32.1 Const General: healthy appearing, comfortable, no acute distress, alert and awake Nutritional Appearance: well nourished Orientation/consciousness: patient oriented x3 [facility] Head: Yes normocephalic and Yes atraumatic Eyes Eyelids: Yes eyelids normal Conjunctivae: conjunctivae normal Sclerae: sclerae normal Corneas: corneas normal Pupils: Equal, round and reactive pupils present EOM: EOMs intact bilaterally Neck Neck: Yes full ROM Resp Effort & Inspection: normal respiratory effort, able to speak in complete sentences, no audible wheezes and not labored Auscultation: clear to auscultation bilaterally Cardio Other: 3+ pitting edema to the lower extremities bilaterally. No overlying skin changes Jugular venous distension: no JVD Rate: regular rate Rhythm: regular rhythm Skin General skin exam: no rashes or lesions noted and elasticity normal Neuro General: patient oriented x3 Cranial nerves: Yes Equal, round and reactive pupils present and Yes Bilaterally intact EOM present Cognition (Neuro): normal cognition Extrem Other: Moving all extremities well without any obvious deformities Course Course Course Narrative: RME: 72-year-old male with a history of AFib on Eliquis, [id number]-rbnhagdiy diabetes, hypertension, high cholesterol, alcohol use disorder presents to the ED c/o bilateral LE pitting edema x few weeks. Denies fever, CP/SOB 4+ bilateral LE pitting edema EKG, labs, CXR, venous duplex ultrasound ordered Full HPI, ROS and PE to be performed by primary ED provider. Medical Decision Making Medical Decision Making [facility] Narrative: 72-year-old male with past medical history as documented above presents for evaluation of leg swelling for the last 2 weeks or so. His BNP is elevated to 187, he does have 3+ any edema on exam. No respiratory signs or symptoms. He is not any respiratory distress. Chest x-ray does not show any evidence of pulmonary vascular congestion, but the patient does have a small left pleural effusion. Ultrasounds are pending to evaluate for DVT but I feel this is less likely as the patient's symptoms are bilateral and he is also anticoagulated. Will give the patient a dose of furosemide 20 mg orally and likely discharged with same pending results of ultrasound. I discussed with the patient at length absence from alcohol and avoidance of excess salt to help reduce the leg swelling. Differential Diagnosis Dependent edema CHF Leg swelling DVT Cellulitis Lab Data [facility] Lab Attestation statement: I reviewed the patient's lab results. 05/04/23 15:56 05/04/23 15:56 Labs: Lab Results 05/04/23 05/04/23 05/04/23 Range/Units 15:56 15:56 15:56 WBC 3.1 L (4.8-10.8) X10*3/uL RBC 3.44 L (4.60-5.80) X10*6/uL Hgb 10.2 L (14.0-18.0) g/dl Hct 31.8 L (42.0-52.0) % MCV 92.4 (80.0-98.0) fL MCH 29.7 (27.0-33.0) pg MCHC 32.1 (31.0-36.0) g/dl RDW 15.7 (11.0-16.0) % Plt Count 119 L (160-400) X10*3/uL MPV 8.5 L (9.4-12.4) fL Immature Gran % (Auto) 0.3 (0.0-0.4) % Neut % (Auto) 63.7 (45-73) % Lymph % (Auto) 22.6 (20-40) % [place] % (Auto) 10.5 (2-11) % Eos % (Auto) 2.9 (0-4) % Baso % (Auto) 0.0 (0-2) % Lymph # (Auto) 0.7 L (1.2-4.9) X10*3/uL [place] # (Auto) 0.3 (0.1-1.2) X10*3/uL Eos # (Auto) 0.1 (0.0-0.4) X10*3/uL Baso # (Auto) 0.0 (0.0-0.2) X10*3/uL Abs Immat Gran (auto) 0.01 (0.00-0.03) X10*3/uL Absolute Neuts (auto) 2.0 (2.0-8.3) x10*3/uL Absolute Nucleated RBC 0.000 (0.0-0.012) X10*3/uL Nucleated RBC % (auto) 0.0 (0.0-0.2) /100WBC PT 17.4 H (10.0-13.1) SEC INR 1.5 H (0.9-1.1) Sodium 139 (135-145) mmol/L Potassium 4.2 (3.3-5.1) mmol/L Chloride 103 (96-108) mmol/L Carbon Dioxide 30 H (22-29) mmol/L Anion Gap 10 L (12-20) BUN 12 (9-16) mg/dL Creatinine 0.96 (0.5-1.4) mg/dL Estim Creat Clear Calc 76.7 Estimated GFR > 60 Random Glucose 180 H (60-115) mg/dL Calcium 8.7 (8.4-10.2) mg/dL Total Bilirubin 2.0 H (0.0-1.0) mg/dL Direct Bilirubin 0.6 H (0.0-0.5) mg/dL AST 21 (5-37) U/L ALT 11 (0-40) U/L Alkaline Phosphatase 85 (39-117) U/L Troponin I High Sens (<3.5-35.0) ng/L B-Natriuretic Peptide (<100) pg/mL Total Protein 6.2 L (6.5-8.0) g/dL Albumin 3.8 (3.5-5.0) g/dL 05/04/23 05/04/23 Range/Units 15:56 15:56 WBC (4.8-10.8) X10*3/uL RBC (4.60-5.80) X10*6/uL Hgb (14.0-18.0) g/dl Hct (42.0-52.0) % MCV (80.0-98.0) fL MCH (27.0-33.0) pg MCHC (31.0-36.0) g/dl RDW (11.0-16.0) % Plt Count (160-400) X10*3/uL MPV (9.4-12.4) fL Immature Gran % (Auto) (0.0-0.4) % Neut % (Auto) (45-73) % Lymph % (Auto) (20-40) % [place] % (Auto) (2-11) % Eos % (Auto) (0-4) % Baso % (Auto) (0-2) % Lymph # (Auto) (1.2-4.9) X10*3/uL [place] # (Auto) (0.1-1.2) X10*3/uL Eos # (Auto) (0.0-0.4) X10*3/uL Baso # (Auto) (0.0-0.2) X10*3/uL Abs Immat Gran (auto) (0.00-0.03) X10*3/uL Absolute Neuts (auto) (2.0-8.3) x10*3/uL Absolute Nucleated RBC (0.0-0.012) X10*3/uL Nucleated RBC % (auto) (0.0-0.2) /100WBC PT (10.0-13.1) SEC INR (0.9-1.1) Sodium (135-145) mmol/L Potassium (3.3-5.1) mmol/L Chloride (96-108) mmol/L Carbon Dioxide (22-29) mmol/L Anion Gap (12-20) BUN (9-16) mg/dL Creatinine (0.5-1.4) mg/dL Estim Creat Clear Calc Estimated GFR Random Glucose (60-115) mg/dL Calcium (8.4-10.2) mg/dL Total Bilirubin (0.0-1.0) mg/dL Direct Bilirubin (0.0-0.5) mg/dL AST (5-37) U/L ALT (0-40) U/L Alkaline Phosphatase (39-117) U/L Troponin I High Sens 4.5 (<3.5-35.0) ng/L B-Natriuretic Peptide 187 H (<100) pg/mL Total Protein (6.5-8.0) g/dL Albumin (3.5-5.0) g/dL Independent Interpretation I performed an independent interpretation of an: EKG (Sinus rhythm with a rate of 65 beats per minute. No ST segment changes.) and Plain X-Ray (No infiltrates) Discharge Plan Discharge Clinical Impression: Dependent edema Patient Disposition: Home, Self-Care Instructions: Leg Edema (ED) Additional Instructions: Your leg swelling is likely worsened by your significant alcohol use as well as a high salt diet Avoid alcohol and excess salt intake to help with your leg swelling In the meantime use furosemide 20 mg daily for 1 week follow-up with your primary doctor Return for new or worsening symptoms, especially if he develops shortness of breath Prescriptions: New furosemide 20 mg tablet 20 mg PO DAILY Qty: 7 0RF No Action metoprolol succinate 50 mg tablet extended release 24 hr 1 tab PO DAILY amlodipine 5 mg tablet 1 tab PO DAILY lisinopril 10 mg tablet 1 tab PO DAILY atorvastatin 20 mg tablet 20 mg PO DAILY metformin 500 mg tablet 500 mg PO DAILY Hold Instructions: Resume on 04/29/23. Eliquis 5 mg Tablet 5 mg PO BID
[2023-05-04 15:38] VITALS: BP 122/40; PULSE 74; RESP 18; TEMP 36.3; O2SAT 98; BMI 32.1
--- NOTE | 2023-05-04 15:38 | ECG_ITS ---
Test Reason : pedal edema Blood Pressure : / mmHG Vent. Rate : 065 BPM Atrial Rate : 065 BPM P-R Int : 190 ms QRS Dur : 084 ms QT Int : 372 ms P-R-T Axes : 094 001 025 degrees QTc Int : 386 ms Normal sinus rhythm Normal ECG When compared with ECG of 22-APR-2023 14:31, Premature supraventricular complexes are no longer Present Referred By: Maria Teresa Parmar Electronically Signed By:HANNA KRAMER MD
[2023-05-04 16:05] LABS: MANUAL DIFF FLAG NO
[2023-05-04 16:06] LABS: Eosinophils Absolute Auto 0.1 X10*3/uL (0.0-0.4); Eosinophils Percent Auto 2.9 % (0-4); Hematocrit 31.8 % (42.0-52.0); Hemoglobin 10.2 g/dl (14.0-18.0); Imm Gran Abs Auto 0.01 X10*3/uL (0.00-0.03); Imm Gran Pct Auto 0.3 % (0.0-0.4); Lymphocytes Absolute Auto 0.7 X10*3/uL (1.2-4.9); Lymphocytes Percent Auto 22.6 % (20-40); Mean Corpuscular HGB Conc 32.1 g/dl (31.0-36.0); Mean Corpuscular Hemoglobin 29.7 pg (27.0-33.0); Mean Corpuscular Volume 92.4 fL (80.0-98.0); Mean Platelet Volume 8.5 fL (9.4-12.4); Monocytes Absolute Auto 0.3 X10*3/uL (0.1-1.2); Monocytes Percent Auto 10.5 % (2-11); Neutrophils Percent Auto 63.7 % (45-73); Platelet Count 119 X10*3/uL (160-400); Red Blood Count 3.44 X10*6/uL (4.60-5.80); Red Cell Distribution Width 15.7 % (11.0-16.0); White Blood Count 3.1 X10*3/uL (4.8-10.8)
[2023-05-04 16:11] LABS: INTERNATIONAL NORM RATIO 1.5 (0.9-1.1); Prothrombin Time 17.4 SEC (10.0-13.1)
[2023-05-04 16:22] LABS: Alanine Aminotransferase 11 U/L (0-40); Albumin Level 3.8 g/dL (3.5-5.0); Alkaline Phosphatase 85 U/L (39-117); Anion Gap 10 (12-20); Aspartate Amino Transferase 21 U/L (5-37); Bilirubin Direct 0.6 mg/dL (0.0-0.5); Blood Urea Nitrogen 12 mg/dL (9-16); Calcium 8.7 mg/dL (8.4-10.2); Carbon Dioxide 30 mmol/L (22-29); Chloride 103 mmol/L (96-108); Creatinine Clr Calc Pharmacy 76.7; Estimated Glomerular Filt Rate > 60; Glucose Random 180 mg/dL (60-115); Potassium 4.2 mmol/L (3.3-5.1); Sodium 139 mmol/L (135-145); Total Protein 6.2 g/dL (6.5-8.0)
[2023-05-04 16:28] LABS: Troponin-I High Sensitivity 4.5 ng/L (<3.5-35.0)
[2023-05-04 16:29] LABS: B Type Natriuretic Peptide 187 pg/mL (<100)
[2023-05-04 18:31] VITALS: BP 137/60; PULSE 73; RESP 16; TEMP 37.3; O2SAT 97
[2023-05-04] MEDS: Furosemide 20 MG TABLET PO (18:56)
--- NOTE | 2023-05-04 19:02 | PC.NURSE ---
pt medicated per MAR.
== END 2023-05-04 19:05 | disposition home or self-care (01) ==
PROVIDERS: Physician Assistant; Emergency Provider Emergency Medicine Emergency Medical Services; PCP Internal Medicine
DX: R60.9 Edema, unspecified (principal); M79.89 Other specified soft tissue disorders; M79.672 Pain in left foot; M79.671 Pain in right foot; I48.91 Unspecified atrial fibrillation; Z79.01 Long term (current) use of anticoagulants; E11.9 Type 2 diabetes mellitus without complications; I10 Essential (primary) hypertension; E78.5 Hyperlipidemia, unspecified; E78.00 Pure hypercholesterolemia, unspecified
CPT/HCPCS: 36415; 71045; 80048; 80076; 83880; 84484; 85025; 85610; 93005; 93970; 99284

== ENCOUNTER 2023-05-09 07:13 | Emergency (ER) | payer MEDICARE, SELFPAY ==
[2023-05-09 07:16] VITALS: BP 133/48; PULSE 67; RESP 20; TEMP 36.2; O2SAT 98; BMI 29.8
--- NOTE | 2023-05-09 07:23 | ED_ITS ---
HPI - General Adult General Chief complaint: General Medical Stated complaint: remove brigida Time Seen by Provider: 05/09/23 07:17 Source: patient and old records reviewed Mode of arrival: ambulatory Limitations: no limitations History of Present Illness HPI narrative: 72-year-old male with a history of AFib on Eliquis, it mdd-hrlfgtw-luriwnrca diabetes, hypertension, high cholesterol, alcohol use disorder?who presents to the ER for suture removal. He was seen here 1 week ago after a fall where he struck his head and requiring suture repair to a laceration to his left eyebrow. States the area has been healing appropriately. Slightly itchy. No drainage of pus or blood. It has scabbed over. No major headaches or concerns about his healing process. MD complaint: Suture removal Location: face Radiation: non-radiation Relieving factors: none Exacerbating factors: none Associated symptoms: denies other symptoms Treatments prior to arrival: none Related Data Home Medications Medication Instructions Recorded Confirmed amlodipine 5 mg tablet 1 tab PO DAILY 10/14/22 04/22/23 lisinopril 10 mg tablet 1 tab PO DAILY 10/14/22 04/22/23 metoprolol succinate 50 mg 1 tab PO DAILY 10/14/22 04/22/23 tablet,extended release 24 hr apixaban 5 mg tablet (Eliquis) 5 mg PO BID 04/22/23 04/22/23 atorvastatin 20 mg tablet 20 mg PO DAILY 04/22/23 04/22/23 metformin 500 mg tablet 500 mg PO DAILY 04/22/23 04/22/23 Previous Rx's Medication Instructions Recorded furosemide 20 mg tablet 20 mg PO DAILY #7 tabs 05/04/23 Allergies Allergy/AdvReac Type Severity Reaction Status Date / Time alcohol Allergy Intermediate rash Verified 05/09/23 07:18 clams Allergy Intermediate UNKNOWN Verified 05/09/23 07:18 oxycodone Allergy Intermediate rash Verified 05/09/23 07:18 steamers/ clams Allergy Intermediate flu like Uncoded 05/04/23 15:35 symptoms Review of Systems Review of Systems: Yes all other systems are reviewed and are negative PENDING SALE TO [facility] Past Medical History Medical History Alcohol abuse Alcohol abuse Diabetes HLD (hyperlipidemia) Hypertension Surgical History No history of previous surgery Family History Family History Other No family history of coronary artery disease Social History Social History Household Members: Children Housing: House Do you presently have visiting nurse or other home services: No Alcohol intake: current Alcohol intake frequency: 3 or more drinks per day Alcohol type: hard liquor Patient Tobacco Use Status: Never used Tobacco service: Yes Current occupational status: retired Physical Exam ED Vital Signs: Vital Signs - 24 hr 05/09/23 07:16 Temperature 97.2 F Pulse Rate 67 Respiratory Rate 20 Blood Pressure 133/48 L Pulse Oximetry 98 Oxygen Delivery Method Room Air BMI result Body Mass Index 29.8 Appearance: Alert. Oriented X3. No acute distress. HEENT: Face is symmetrical, there are healing scabs and wounds on the left periorbital area, around the left eyebrow. There is a appropriately healing laceration on the left eyebrow with sutures in place. No oozing, no wound dehiscence. No surrounding erythema or swelling. CVS: Normal heart rate and rhythm. Pulses normal. Respiratory: No respiratory distress. Skin: Skin warm and dry. Normal skin color. Normal skin turgor. No rashes. Extremities: Normal inspection x4 Neuro: Oriented X 3. Grossly normal, nonfocal Medical Decision Making Medical Decision Making [facility]DM Narrative: 72-year-old male with a history of AFib on Eliquis, it wdc-vucdmwe-[id number] diabetes, hypertension, high cholesterol, alcohol use disorder?presents to the ER for evaluation of suture removal. He fell 1 week ago and had sutures placed to repair wound on his left eyebrow. Wound is healing appropriately. All sutures were successfully removed today. Additional wound care was discussed with the patient. He is stable for discharge home. Differential Diagnosis Differential Diagnoses: The differential diagnosis associated with the presentation includes Appropriate wound healing, delayed wound healing, wound dehiscence, wound infection External Record Review External record reviewed: Outpatient record, Prior outpatient labs and Prior outpatient radiology Chronic Conditions Patient?s care impacted by: Other (Alcohol abuse) Critical Care Time Critical Care Time Critical Care Time: No Discharge Plan Discharge Clinical Impression: Encounter for removal of sutures Patient Disposition: Home, Self-Care Instructions: Stitches Removal (ED) Additional Instructions: use neosporin or bacitracin to the area 1-2 times per day Prescriptions: No Action metoprolol succinate 50 mg tablet extended release 24 hr 1 tab PO DAILY amlodipine 5 mg tablet 1 tab PO DAILY lisinopril 10 mg tablet 1 tab PO DAILY atorvastatin 20 mg tablet 20 mg PO DAILY metformin 500 mg tablet 500 mg PO DAILY Hold Instructions: Resume on 04/29/23. Eliquis 5 mg Tablet 5 mg PO BID furosemide 20 mg tablet 20 mg PO DAILY Qty: 7 0RF
== END 2023-05-09 07:35 | disposition home or self-care (01) ==
PROVIDERS: Emergency Provider Emergency Medicine; PCP Internal Medicine
DX: Z48.02 Encounter for removal of sutures (principal); S01.112D Laceration without foreign body of left eyelid and periocular area, subsequent encounter; W01.10XD Fall on same level from slipping, tripping and stumbling with subsequent striking against unspecified object, subsequent encounter
CPT/HCPCS: 99282

== ENCOUNTER 2023-08-10 11:28 | Outpatient (REF) | payer MEDICARE, SELFPAY ==
[2023-08-10 11:32] LABS: MANUAL DIFF FLAG NO
[2023-08-10 11:52] LABS: Basophils Percent Auto 0.6 % (0-2); Eosinophils Absolute Auto 0.1 X10*3/uL (0.0-0.4); Eosinophils Percent Auto 2.3 % (0-4); Hematocrit 36.6 % (42.0-52.0); Hemoglobin 12.1 g/dl (14.0-18.0); Imm Gran Abs Auto 0.01 X10*3/uL (0.00-0.03); Imm Gran Pct Auto 0.3 % (0.0-0.4); Lymphocytes Absolute Auto 0.8 X10*3/uL (1.2-4.9); Lymphocytes Percent Auto 23.2 % (20-40); Mean Corpuscular HGB Conc 33.1 g/dl (31.0-36.0); Mean Corpuscular Hemoglobin 29.4 pg (27.0-33.0); Mean Corpuscular Volume 88.8 fL (80.0-98.0); Mean Platelet Volume 8.7 fL (9.4-12.4); Monocytes Absolute Auto 0.3 X10*3/uL (0.1-1.2); Monocytes Percent Auto 8.6 % (2-11); Neutrophils Absolute Auto 2.3 x10*3/uL (2.0-8.3); Platelet Count 196 X10*3/uL (160-400); Red Blood Count 4.12 X10*6/uL (4.60-5.80); Red Cell Distribution Width 15.6 % (11.0-16.0); White Blood Count 3.5 X10*3/uL (4.8-10.8)
[2023-08-10 12:02] LABS: Appearance Urine Clear; Color Urine Dark Yellow; Glucose Urine UA Negative (Negative); Leukocyte Esterase Urine Trace (Negative); Nitrite Urine Negative (Negative); PH 5.5 (5.0-9.0); UMIC TRIGGER UACC YES; Urine Blood Negative (Negative); Urine Ketones Trace mg/dL (Negative); Urine Protein Trace mg/dL (Neg-Trace)
[2023-08-10 12:08] LABS: Bacteria Urine None Seen (None Seen); Hyaline Casts Urine 0-2 /LPF (0-2); RBC Urine 0-2 /HPF (0-2); Squamous Epithelial Cell Urine 0-2 /HPF (0-2); WBC Urine 0-5 /HPF (0-5)
[2023-08-10 12:42] LABS: Estimated Average Glucose 108 mg/dL; Hemoglobin A1c % 5.4 % (<6.0)
[2023-08-10 12:57] LABS: Alanine Aminotransferase 14 U/L (0-40); Albumin Level 4.2 g/dL (3.5-5.0); Alkaline Phosphatase 91 U/L (39-117); Anion Gap 16 (12-20); Aspartate Amino Transferase 29 U/L (5-37); Bilirubin Total 1.8 mg/dL (0.0-1.0); Blood Urea Nitrogen 9 mg/dL (9-16); Calcium 9.7 mg/dL (8.4-10.2); Carbon Dioxide 27 mmol/L (22-29); Chloride 98 mmol/L (96-108); Cholesterol 165 mg/dL (<200); Estimated Glomerular Filt Rate > 60; Glucose Fasting 64 mg/dL (60-99); HDL Cholesterol 71 mg/dL (>40); LDL Cholesterol Calculated 75 mg/dL (<100); Potassium 3.7 mmol/L (3.3-5.1); Sodium 137 mmol/L (135-145); Total Protein 7.8 g/dL (6.5-8.0); Triglycerides 95 mg/dL (<150)
[2023-08-10 13:20] LABS: PSA,Total (Free>4and<10) 5.08 ng/mL (0.00-4.00)
[2023-08-10 13:56] LABS: Creatinine Urine 237.42 mg/dL; Microalbum/Creatinine Ratio Ur 6.7 ug/mg cr (<30)
[2023-08-11 10:28] LABS: Free Prostate Spec Ag 0.8 ng/mL; Percent Free Prostate Spec Ag 17 % (calc) (>25); Prostate Specific Ag Total 4.6 ng/mL (< OR = 4.0)
== END 2023-08-10 11:29 | disposition home or self-care (01) ==
LOC: HO.LNP 11:28
PROVIDERS: Visit Provider Internal Medicine
DX: Z12.5 Encounter for screening for malignant neoplasm of prostate (principal); I10 Essential (primary) hypertension; E11.40 Type 2 diabetes mellitus with diabetic neuropathy, unspecified; D70.9 Neutropenia, unspecified; E78.00 Pure hypercholesterolemia, unspecified; R97.20 Elevated prostate specific antigen [PSA]
CPT/HCPCS: 80053; 80061; 81001; 82043; 82570; 83036; 84153; 84154; 85025

== ENCOUNTER 2023-08-12 01:56 | Observation (INO) | payer MEDICARE, SELFPAY ==
[2023-08-12] VITALS (7 sets, daily range): BP systolic 132–165; BP diastolic 58–86; PULSE 80–96; RESP 16–20; TEMP 36.8; O2SAT 97–99
--- NOTE | ~2023-08-12 | FL_ITS ---
EXAMINATION: XR BARIUM SWALLOW CLINICAL INFORMATION: Patient aspiration risk. Difficulty swallowing. COMPARISON: None available. TECHNIQUE: Routine modified barium swallow was performed under lateral fluoroscopy following oral administration of various consistencies of food administered by speech therapist. FINDINGS: Under lateral fluoroscopy there is normal propagation of solid, semisolid and barium coated crackers from the oral cavity through the pharynx into esophagus without laryngeal penetration or aspiration. There is moderate retention of food in slightly prominent bilateral piriform sinuses. On oral administration of thin barium there is andre laryngeal aspiration. Patient did have a a delayed cough reflex but emptied the trachea. FLUOROSCOPY TIME: 2 minutes 16 seconds DOSE AREA PRODUCT: 0 uGy-m2 (microgray-meter squared) FL/FL barium swallow modified IMPRESSION: Andre laryngeal aspiration following oral administration of thin barium. Slight delay with solid foods in oral phase. Mild retention of food in the piriform sinuses.
--- NOTE | 2023-08-12 02:26 | ED.GENADULT ---
HPI - General Adult General Chief complaint: Fall Stated complaint: fall Time Seen by Provider: 08/12/23 02:25 Source: patient and EMS Mode of arrival: EMS History of Present Illness HPI narrative: 73-year-old male brought in by a BLS crew for evaluation after a fall. Patient was found on the floor by his son better in hour prior to arrival. Patient endorses fall and alcohol use this evening. Initial glucose was 42 and attempts to get assistance from in ALS crew were unsuccessful and they were unable to treat for the hypoglycemia. After administration of the amp of D50 patient completely awake and alert and denies any pain. Related Data Home Medications Medication Instructions Recorded Confirmed amlodipine 5 mg tablet 1 tab PO DAILY 10/14/22 04/22/23 lisinopril 10 mg tablet 1 tab PO DAILY 10/14/22 04/22/23 metoprolol succinate 50 mg 1 tab PO DAILY 10/14/22 04/22/23 tablet,extended release 24 hr apixaban 5 mg tablet (Eliquis) 5 mg PO BID 04/22/23 04/22/23 atorvastatin 20 mg tablet 20 mg PO DAILY 04/22/23 04/22/23 metformin 500 mg tablet 500 mg PO DAILY 04/22/23 04/22/23 Previous Rx's Medication Instructions Recorded furosemide 20 mg tablet 20 mg PO DAILY #7 tabs 05/04/23 Allergies Allergy/AdvReac Type Severity Reaction Status Date / Time alcohol Allergy Intermediate rash Verified 05/09/23 07:18 clams Allergy Intermediate UNKNOWN Verified 05/09/23 07:18 oxycodone Allergy Intermediate rash Verified 05/09/23 07:18 steamers/ clams Allergy Intermediate flu like Uncoded 05/04/23 15:35 symptoms Review of Systems Review of Systems: Pertinent positives and negatives as stated in HPI PMFSH Past Medical History Source: nursing notes reviewed Medical History Alcohol abuse HLD (hyperlipidemia) Hypertension Diabetes Alcohol abuse Surgical History No history of previous surgery Family History Family History Other No family history of coronary artery disease Social History Social History Household Members: Children Housing: House Do you presently have visiting nurse or other home services: No Alcohol intake: current Alcohol intake frequency: 3 or more drinks per day Alcohol type: hard liquor Patient Tobacco Use Status: Never used Tobacco Advance Directives: No Advance Directives Information Provided: No service: Yes Current occupational status: retired Physical Exam ED Vital Signs: Vital Signs - 24 hr 08/12/23 02:52 Pulse Rate 95 Respiratory Rate 16 Blood Pressure 163/69 H VITAL SIGNS: Reviewed. GENERAL: Well developed, well nourished, in no acute distress. HEAD: Normocephalic/atraumatic EYES: PERRLA, EOMI EARS: Ext canals without abnormality NOSE: Nares patent bilateral OROPHARYNX: no oral lesions noted, posterior pharynx clear NECK: Supple, no adenopathy LUNGS: Normal breath sounds. No adventitious sounds or accessory muscle use. SpO2<98> CARDIOVASCULAR: Regular rate and rhythm without noted murmurs ABDOMEN: Soft, non-tender, non-distended with bowel sounds. MUSCULOSKELETAL: No tenderness, deformities, or effusions noted on gross inspection. EXTREMITIES: No cyanosis, clubbing or edema. SKIN: Inspection of the skin reveals no rashes, ulcerations, jaundice, pallor, or petechiae. NEUROLOGIC: Obtunded initially but shortly after receiving the amp of D50 A&O x4. Strength and sensation to light touch were grossly intact x 4. Medications Administered Generic Name Dose Route Start Last Admin Trade Name Freq PRN Reason Stop Dose Admin Potassium Chloride 10 meq in 100 mls @ 100 mls/hr 08/12/23 02:30 08/12/23 02:42 Potassium Chloride/H20 IV 08/12/23 04:29 100 mls/hr Q1H CLAUDIA Administration Discontinued Medications Generic Name Dose Route Start Last Admin Trade Name Freq PRN Reason Stop Dose Admin Dextrose 25 gm 08/12/23 02:25 08/12/23 02:30 Dextrose 50 % 25 Gm/50 Ml Syringe IVPUSH 08/12/23 02:26 25 gm ONCE ONE Administration Medical Decision Making Medical Decision Making MDM Narrative: 73-year-old male who appears to have had an unwitnessed fall and will undergo CT of the head and C-spine, also noted to be hypoglycemic likely secondary to alcohol consumption without adequate nutrition. Patient responded well to the amp of D50 after emergent placement of peripheral IV by the nursing staff. Will proceed with full lab work in ensure that patient's glucose levels remain stable. 0219: I was informed by nursing that on attempts to administer oral potassium chloride patient is having some difficulty in swallowing, repeat glucose is noted to be low and patient is not able to take any oral intake stating that he is having difficulty swallowing and that this is new. However, patient also endorses that he is unable to remember what he had for lunch or for breakfast, he walks with a walker at baseline. I did a full neurologic evaluation for concerns regarding his swallowing difficulties, there are no gross motor deficits, sensation is intact, there is no pronator drift, cranial nerves 2-12 are grossly intact there is some asymmetry to patient's mouth but otherwise no asymmetry to the remaining facial exam. Although I do think that patient should undergo MRI evaluation I do not think that this is an acute ischemic stroke. Last known well, in addition, difficult to determine as patient is a poor historian about his activities throughout the day and he was found on the floor by his son. I reviewed all investigations which demonstrates no leukocytosis or left shift, there is a thrombocytopenia-148 and a normocytic anemia without any history or findings to suggest bleeding. Chemistry indices are without SEVEN, potassium is noted to be low at 3.2 and will be repleted with IV as patient is unable to swallow appropriately. Liver enzymes show an elevated T bili but otherwise liver enzymes are without acute findings. BAL-10. CT of the head is negative for evidence of intracranial hemorrhage, mass effect or hydrocephalus. CT of the cervical spine is negative for fracture or subluxation. Patient started on D10 for persistently low glucose levels. I discussed case with inpatient hospitalist who accepts admission. Differential Diagnosis Differential Diagnoses: The differential diagnosis associated with the presentation includes Please see the discussion above Admission/Observation Consideration of admission/observation: Escalation of care including admission/observation considered Please see the discussion above Consult Healthcare Provider Management of the patient was discussed with: Hospitalist Please see the discussion above Lab Data MDM Lab Attestation statement: I reviewed the patient's lab results. Please see the discussion above Independent Interpretation I performed an independent interpretation of an: EKG Interpretation: Sinus tachycardia, HR-109, no STEMI, NC/QRS/QTC is within normal limits. Radiology Impression Discussion of test interpretation with radiology: I have reviewed the radiologist's reading. Radiologist Impression: Please see the discussion above External Record Review External record reviewed: Outpatient record, Prior outpatient labs and Prior outpatient radiology Chronic Conditions Patient?s care impacted by: Diabetes and Hypertension Critical Care Time Critical Care Time Critical Care Time: Yes Total Critical Care Time: 45 Attestation: I personally attest to this time spent taking care of the patient. Discharge Plan Discharge Clinical Impression: Fall, Hypoglycemia Patient Disposition: Admitted As Inpatient Prescriptions: No Action metoprolol succinate 50 mg tablet extended release 24 hr 1 tab PO DAILY amlodipine 5 mg tablet 1 tab PO DAILY lisinopril 10 mg tablet 1 tab PO DAILY atorvastatin 20 mg tablet 20 mg PO DAILY metformin 500 mg tablet 500 mg PO DAILY Hold Instructions: Resume on 04/29/23. Eliquis 5 mg Tablet 5 mg PO BID furosemide 20 mg tablet 20 mg PO DAILY Qty: 7 0RF
[2023-08-12] MEDS: Dextrose 50 % 25 GM/50 ML SYRINGE IVPUSH ×2 (02:30→06:27)
[2023-08-12] MEDS: Potassium Chloride/H20 10 MEQ/100 ML PIGGYBACK 100 MEQ IV ×5 (02:42→11:01)
[2023-08-12 02:57] LABS: Glucose, Whole Blood 141 mg/dL (60-115)
[2023-08-12] MEDS: Dextrose 10 % 1,000 ML 50 ML IVCONT (04:19)
[2023-08-12 04:24] LABS: Glucose, Whole Blood 120 mg/dL (60-115)
--- NOTE | 2023-08-12 05:14 | PM.IMHP ---
History of Present Illness Date of Service: 08/12/23 Chief Complaint: Hypoglycemia This is a 73-year-old male with pertinent history of alcohol use disorder, kff-ihewsqj-rceoekcqe diabetes mellitus, paroxysmal atrial fibrillation on Eliquis, essential hypertension, mixed hyperlipidemia who was brought to the emergency department for evaluation of fall. Patient was found on the floor by his son prior to arrival. Upon EMS arrival patient's glucose was 42. He was given amp of D50 in the ER but his glucose again subsequently dropped. He was initiated on IV dextrose and hospital medicine team consulted for admission. Patient admits to using alcohol prior to arrival. States he skipped lunch but continue drinking alcohol and taking his medications. No fever, chills, chest discomfort, palpitations, shortness of breath, abdominal pain, changes in urinary or bowel habits. Due to a registration issue, patient's admit labs and imaging are under the name Celestino Prince Review of Systems Constitutional: Constitutional: Reports no additional constitutional complaints ENT: Reports dizziness Cardiovascular: Cardiovascular: Reports no additional cardiovascular complaints Respiratory: Respiratory: Reports no additional respiratory complaints Gastrointestinal: Gastrointestinal: Reports no additional gastrointestinal complaints Genitourinary: Genitourinary: Reports no additional male genitourinary complaints Neurologic: Reports confusion and Reports dizziness Psychiatric: Psychiatric: Reports confusion [facility] Medical History Alcohol abuse HLD (hyperlipidemia) Hypertension Diabetes Alcohol abuse Family History Other No family history of coronary artery disease Surgical History No history of previous surgery Social History Household Members: Children Housing: House Do you presently have visiting nurse or other home services: No Alcohol intake: current Alcohol intake frequency: 3 or more drinks per day Alcohol type: hard liquor Patient Tobacco Use Status: Never used Tobacco Advance Directives: No Advance Directives Information Provided: No service: Yes Current occupational status: retired Meds Allergies Allergy/AdvReac Type Severity Reaction Status Date / Time alcohol Allergy Intermediate rash Verified 05/09/23 07:18 clams Allergy Intermediate UNKNOWN Verified 05/09/23 07:18 oxycodone Allergy Intermediate rash Verified 05/09/23 07:18 steamers/ clams Allergy Intermediate flu like Uncoded 05/04/23 15:35 symptoms Active Medications: Current Medications Dextrose/Sodium Chloride (D5ns) 1,000 mls @ 80 mls/hr IVCONT .[id number] [facility] Home Medications Medication Instructions Recorded Confirmed Last Taken Type amlodipine 5 mg tablet 1 tab PO DAILY 10/14/22 04/22/23 Unknown History lisinopril 10 mg tablet 1 tab PO DAILY 10/14/22 04/22/23 Unknown History metoprolol succinate 50 mg 1 tab PO DAILY 10/14/22 04/22/23 Unknown History tablet,extended release 24 hr apixaban 5 mg tablet (Eliquis) 5 mg PO BID 04/22/23 04/22/23 Unknown History atorvastatin 20 mg tablet 20 mg PO DAILY 04/22/23 04/22/23 Unknown History metformin 500 mg tablet 500 mg PO DAILY 04/22/23 04/22/23 Unknown History Physical Exam Vital Signs and Narrative: Vital Signs: Last Vital Signs Temp 98.3 F 08/12/23 04:02 Pulse 96 08/12/23 04:02 Resp 16 08/12/23 04:02 BP 165/86 H 08/12/23 04:02 Pulse Ox 99 08/12/23 04:02 O2 Del Method Room Air 08/12/23 04:02 Elderly male lying in bed in no distress Neck supple, no JVD Regular rate and rhythm, S1-S2 heard Regular breath sounds bilaterally, no wheezing or crackles appreciated Abdomen soft nontender, no guarding, no rigidity Patient is awake, alert and oriented to self, place, time and person ; no focal motor deficit Psych: Normal mood No pedal edema Const: General: confusion Orientation/consciousness: confusion Neuro: General: confusion Results Labs Labs: Laboratory Results - last 24 hr 08/12/23 08/12/23 02:51 03:46 POC Glucose 141 H 120 H Assessment and Plan (1) Hypoglycemia: Status: Acute (2) Fall: Status: Acute Plan This is a 73-year-old male with pertinent history of alcohol use disorder, taq-fgxbziz-nrecekzgz diabetes mellitus, paroxysmal atrial fibrillation on Eliquis, essential hypertension, mixed hyperlipidemia who was brought to the emergency department for evaluation of fall. #. Hypoglycemia due to alcohol use disorder. Initiated IV dextrose in the ER. Close monitor glucose with frequent Accu-Cheks. Hold metformin #. Alcohol use disorder. Monitor CIWA. No history of alcohol withdrawals. Initiating thiamine and folic acid. Consulting Addiction Team #. Hypokalemia. Repeated #. Essential hypertension. Continue home antihypertensives #. Paroxysmal atrial fibrillation: On Eliquis and metoprolol Med rec pending DVT prophylaxis: Eliquis Full Code Time Spent With Patient Time: Total time managing care of this patient today ____ minutes. Quality Stroke Does the patient have a stroke diagnosis?: No VTE Prior VTE?: No VTE Risk Level:: Medical - moderate - high VTE Device Contraindication: Treatment Not Indicated VTE Drug Contraindication: N/A - Med Ordered
[2023-08-12 05:52] LABS: Alanine Aminotransferase 14 U/L (0-40); Alkaline Phosphatase 93 U/L (39-117); Anion Gap 12 (12-20); Aspartate Amino Transferase 30 U/L (5-37); Bilirubin Total 1.5 mg/dL (0.0-1.0); Blood Urea Nitrogen 11 mg/dL (9-16); Calcium 9.4 mg/dL (8.4-10.2); Carbon Dioxide 27 mmol/L (22-29); Chloride 101 mmol/L (96-108); Estimated Glomerular Filt Rate > 60; Glucose Random 72 mg/dL (60-115); Sodium 136 mmol/L (135-145); Total Protein 7.2 g/dL (6.5-8.0)
[2023-08-12 06:27] LABS: Glucose, Whole Blood 55 mg/dL (60-115)
[2023-08-12] MEDS: Thiamine HCL 100 MG in 0.9 % Sodium Chloride 100 ML 202 MG IV (06:27)
[2023-08-12] MEDS: Dextrose 10 % 1,000 ML 75 ML IVCONT (06:30)
--- NOTE | 2023-08-12 06:30 | PC.NURSE ---
Pt BGL 55. Given additional amp of D50 and D10 titrated up to 75 ml/hr per Dr. Ruvalcaba verbal/MAR order.
--- NOTE | 2023-08-12 07:22 | PC.NURSE ---
sleeping and easily woken, nad, alert, speech clear, states swallowing issue started yesterday
[2023-08-12 08:28] LABS: Glucose, Whole Blood 104 mg/dL (60-115)
--- NOTE | 2023-08-12 08:31 | PC.NURSE ---
poc 104. alert, nad, d10 250ml bag replaced with 2nd bag as 1 l bags not available.
--- NOTE | 2023-08-12 09:10 | PC.NURSE ---
handoff from [previous rn. pt notified has followed swallow eval. food at bedside removed. pt repositioned w pillow. aox4. prev poc low 100s- asymptomatic- no dizziness/cp/sob/diaphoresis. talking well. occasional loose cough- clearing, airway intact. +CMS. next bag k starting
--- NOTE | 2023-08-12 09:16 | MHC.RECOVRN ---
Attempt to make contact, pt resting with eyes closed at thsi time, allowed to sleep.
--- NOTE | 2023-08-12 09:19 | PHA.MEDREC ---
Pharmacy Consult ? Medication Reconciliation Pharmacy has completed the medication reconciliation. Patient able to name all medications, gets most medications from [facility] but does get Eliquis filled at [facility]. Faxed [facility] for medication list. Patient also states he is supposed to be taking baby aspirin but he does not.
[2023-08-12 10:10] LABS: Glucose, Whole Blood 79 mg/dL (60-115)
--- NOTE | 2023-08-12 10:10 | PC.NURSE ---
md lynn notified re: poc 75 to advise
--- NOTE | 2023-08-12 11:04 | PC.NURSE ---
md lynn came to ed- clarified continue d10 iv fluids. stated to maintain goal of POC > 60 as pt is asymptomatic. reminded pt failed swallow eval- md ordering CS ASSOCIATE eval- state maintain NPO no pills at this time.
--- NOTE | 2023-08-12 11:41 | MHC.CM.PN ---
CM MET WITH PT IN ED 04 PT REPORTS HE LIVES WITH HIS AND SON AND IS INDEPENDENT WITH CARE HE USES A CANE OR WALKER DEPENDING ON HOW HE IS FEELING PT HAS NO HOME OR COMMUNITY SERVICES PT SAYS HE HAS A HCP ALREADY-COPY REQUESTED PCP: JAY JAY NUÑEZ OBSERVATION NOTICE DELIVERED DCP: HOME VIA FAMILY OR C SHUTTLE TRANSPORT
--- NOTE | 2023-08-12 12:03 | PC.NURSE ---
pt did well w po meds and water. up to floor w transport.
[2023-08-12 13:34] LABS: Glucose, Whole Blood 118 mg/dL (60-115)
--- NOTE | 2023-08-12 14:45 | PC.NURSE ---
attempted to call report to floor.
--- NOTE | 2023-08-12 14:53 | PC.NURSE ---
report given to kassie. transport being paged.
--- NOTE | 2023-08-12 15:05 | PC.NURSE ---
md lynn notified vs. anca 2. bp 151/85 hr 103-105. 78 poc. finishing d10 from earlier this shift. ordered new iv fluids for after. aox4. talking. boosted. repositioned. voided x1 urinal yellow urinal at this time. pivx2 c/d/i. continues w cough and weak clearing of secretions- airway intact. pt ate small amt w ENVIRONMENTAL TECHNOLOGY PROFESSOR provider- none requested after. see swallow eval notes
[2023-08-12 15:12] LABS: Glucose, Whole Blood 78 mg/dL (60-115)
--- NOTE | 2023-08-12 15:46 | PC.NURSE ---
changed into fresh gownsheets after pt spill urinal. transport was not avail- tech brought to floor at this time.
[2023-08-12] MEDS: Dextrose 5 % and Lactated Ring 1,000 ML 80 ML IVCONT (16:47)
[2023-08-12] MEDS: 0.9 % Sodium Chloride Flush 3 ML SYRINGE IVFLUSH (16:49)
[2023-08-12 17:04] LABS: Glucose, Whole Blood 82 mg/dL (60-115)
--- NOTE | 2023-08-12 17:58 | MHC.SL.SWA ---
Speech Pathologist Impression: Oropharyngeal Dysphagia Risk of Aspiration Due to: Wet vocal quality Prior MBS results Dysphasia Diet Status: UPGRADE from NPO per patient discussion, MBS Liquid Consistency and Strategies for Safe Swallow: Liquid Intake Recommendation: Honey Thick Liquid Intake Strategies: Small Sips No Straws Solid Food Consistency: Dietary Recommendations: Pureed (NDD1) Oral Medication Intake: Crushed with Puree Please contact the pharmacy regarding appropriate crushable or liquid drug formulations that are available whenever modified delivery is recommended. Compensatory Strategies and Precautions to be Taken for Safe Swallow: Sitting Upright (90 deg) Supervision While Eating and Drinking for Safe Swallow: Total Supervision (1:1) Foods to Avoid: Avoid sticky textures, dry foods, mixed consistencies Swallowing Recommended Treatments: Compens. Strategy Educat. Recommendation for Speech: Outpatient Speech Therapy Inpatient Speech Therapy Modified Barium Swallow Study - Inpatient Modified Barium Swallow Study - Outpatient Comment: Patient presents w/ oropharyngeal dysphagia marked by delayed swallow, prolonged bolus hold, coughing, throat clear, and wet vocal quality. Per conversation with patient, patient reports preference for modified diet w/ aspiration precautions versus NPO. CARTOGRAPHY PROFESSOR provided education and discussed aspiration risks. Due to patient preference, recommend honey thick liquids (NO STRAW) and puree solids. Pt requires TOTAL SUPERVISION to provide cueing and monitor aspiration precautions: double swallow, slow rate, oral care, no straw, upright for 45 min following PO. Per MD, ARAM ordered. CARTOGRAPHY PROFESSOR to continue to follow during hospitalization. Java Grails Developer Clinican/Clinical Fellow: No Supervisory Statement: I have reviewed and agree with the student/clinical fellow's documentation: No Speech Language Pathologist: Le Albert M.A., [facility]-CARTOGRAPHY PROFESSOR
[2023-08-12 20:28] LABS: Glucose, Whole Blood 144 mg/dL (60-115)
[2023-08-13] VITALS: BP 157/60; PULSE 73; RESP 18; TEMP 36.4; O2SAT 98
[2023-08-13 01:24] LABS: Glucose, Whole Blood 118 mg/dL (60-115)
[2023-08-13] MEDS: Dextrose 5 % and Lactated Ring 1,000 ML 80 ML IVCONT (03:59)
[2023-08-13 04:24] LABS: Glucose, Whole Blood 129 mg/dL (60-115)
[2023-08-13 08:00] VITALS: BP 176/81; PULSE 90; RESP 18; TEMP 36.4; O2SAT 96
[2023-08-13 09:13] LABS: Glucose, Whole Blood 187 mg/dL (60-115)
[2023-08-13] MEDS: Insulin Lispro 100 UNIT/ML 3 ML VIAL SUBCUT ×2 (09:20→13:31)
[2023-08-13] MEDS: Folic Acid 1 MG TABLET PO (09:21)
[2023-08-13] MEDS: amLODIPine Besylate 5 MG TABLET PO (09:21)
[2023-08-13] MEDS: Apixaban 5 MG TABLET PO ×2 (09:21→21:48)
[2023-08-13] MEDS: Metoprolol Tartrate 25 MG TABLET PO ×2 (09:21→21:48)
[2023-08-13] MEDS: Atorvastatin Calcium 20 MG TABLET PO (09:21)
[2023-08-13] MEDS: Thiamine HCL 100 MG TABLET PO (09:21)
--- NOTE | 2023-08-13 11:45 | MHC.RECOVRN ---
Attempt made to make contact with pt, pt up to recliner at this time sleeping, allowed to rest. Plan to check in later today.
[2023-08-13 13:19] LABS: Glucose, Whole Blood 184 mg/dL (60-115)
--- NOTE | 2023-08-13 14:10 | MHC.SL.SWA ---
Speech Pathologist Impression: Risk of Aspiration Due to: Dysphasia Diet Status: Recommend UPGRADE diet to Ground Mechanical/Altered (NDD2) continue with HONEY THICK liquids with supervision during meals. Continue with pills crushed in puree. PRINTING ASSISTANT will continue to follow. Liquid Consistency and Strategies for Safe Swallow: Liquid Intake Recommendation: Honey Thick Liquid Intake Strategies: Small Sips No Straws Solid Food Consistency: Dietary Recommendations: Grnd/Mech Altered (NDD2) Additional Modifications to Solid Foods: Supervision during meals. Encourage patient to take small bites and sips, alternate solids with liquids. Oral Medication Intake: Crushed with Puree Please contact the pharmacy regarding appropriate crushable or liquid drug formulations that are available whenever modified delivery is recommended. Compensatory Strategies and Precautions to be Taken for Safe Swallow: Sitting Upright (90 deg) No Straw Liquids from Cup Small Bites and Sips Alternate Liquids/Solids Supervision While Eating and Drinking for Safe Swallow: Total Supervision (1:1) Foods to Avoid: Avoid sticky textures, dry foods, mixed consistencies Swallowing Recommended Treatments: Compens. Strategy Educat. Recommendation for Speech: Outpatient Speech Therapy Inpatient Speech Therapy Modified Barium Swallow Study - Inpatient Modified Barium Swallow Study - Outpatient Comment: Patient seen after lunch for re-assessment of swallow. PRINTING ASSISTANT initially attempted to see patient at lunch for toleration of diet, arrived at the conclusion, noted patient was coughing and had wet sounding breathing. RN reported CONTRACT DRIVER had been with patient during lunch, however CONTRACT DRIVER reported that patient was mostly independent at lunch, with some coughing and throat clearing noted when drinking liquids, however wet vocal quality is generally patient's baseline. Patient currently on Puree with Honey Thick liquids, noted that MBSS study completed 10/20/22 recommended Chopped Advanced with Honey Thick liquids. Patient given trial of lynette cracker in pudding, with patient mashing consistency with gums (patient is edentulous, reports he only wears dentures to eat corn), producing timely oral phase, timely but audible swallow, complete oral clearance, no clinical signs of aspiration. Patient took independent cup sips of Honey thick liquids with timely oral phase, timely but audible swallow, vocal quality remained similarly wet as before swallows of liquid. Per patient, at home not thickening liquids, eating preferred foods. Patient is referred for repeat MBSS, which will be scheduled for tomorrow. Recommend UPGRADE diet to Ground Mechanical/Altered (NDD2) continue with HONEY THICK liquids with supervision during meals. Continue with pills crushed in puree. PRINTING ASSISTANT will continue to follow. Frequency/Duration: Date Range for Service Req: Timeline to reassess: Clothing Consultant Clinican/Clinical Fellow: No Supervisory Statement: I have reviewed and agree with the student/clinical fellow's documentation: No Speech Language Pathologist: Beverley Brown M.A., CCC-PRINTING ASSISTANT
--- NOTE | 2023-08-13 15:02 | MHC.CM.PN ---
Per MD rounds no discharge today. Patient is scheduled for a MBS. Discharge is anticipated tomorrow. DP Home self care. patient will arrange for a ride home. He may need to take the shuttle home.
[2023-08-13 15:36] VITALS: BP 159/70; PULSE 90; RESP 20; TEMP 36.9; O2SAT 98
--- NOTE | 2023-08-13 15:49 | MHC.RECOVRN ---
T/w met with pt to discuss recovery goals. Pt became irritable when this residential mortgage underwriter explained from addiction and recovery. Pt declining to speak with t/w at this time, and declining resources stating, I am 73 years old, I know what I have to do, I have been to AA.
[2023-08-13] MEDS: 0.9 % Sodium Chloride Flush 3 ML SYRINGE IVFLUSH ×2 (15:58→21:53)
[2023-08-13 17:06] LABS: Glucose, Whole Blood 79 mg/dL (60-115)
--- NOTE | 2023-08-13 18:00 | P.PNIM_ITS ---
Subjective Subjective Date of Service: 08/13/23 Interval History: sitting comfortably offers no acute complaints intermittently cleared throats and cough, denies nausea, no vomiting, no abdominal pain tolerating diet was not eating well at home since did not have food, is in rehab lives at home with son has been drinking 1/2 pint. of alcohol a day, denies withdrawal symptoms, no tremors, no lightheadedness, no dizziness, no fevers, no chills. Review of Systems all other system reviewed and negative Physical Exam 2 Vital Signs: Vital Signs: Last Vital Signs Temp 98.5 F 08/13/23 15:36 Pulse 90 08/13/23 15:36 Resp 20 08/13/23 15:36 BP 159/70 H 08/13/23 15:36 Pulse Ox 98 08/13/23 15:36 O2 Del Method Room Air 08/13/23 15:36 Const: Other: general awake alert in no acute distress neck supple lung sounds are clear to auscultation heart regular rate rhythm, clear S1, S2 Abd positive bowel sounds, abdomen soft, nontender extremities no edema neuro alert x3, no focal deficits Objective Data Active Medications Acetaminophen (Acetaminophen 325 Mg Tablet) 650 mg PO Q6H PRN PRN Reason: Pain, Mild (Pain Scale 1-3) Amlodipine Besylate (Amlodipine Besylate 5 Mg Tablet) 5 mg PO DAILY [facility]; Protocol Last Admin: 08/13/23 09:21 Dose: 5 mg Documented By: DEEPAK Apixaban (Apixaban 5 Mg Tablet) 5 mg PO BID [facility] Last Admin: 08/13/23 09:21 Dose: 5 mg Documented By: DEEPAK Atorvastatin Calcium (Atorvastatin Calcium 20 Mg Tablet) 20 mg PO DAILY [facility] Last Admin: 08/13/23 09:21 Dose: 20 mg Documented By: DEEPAK Dextrose (Dextrose 50 % 25 Gm/50 Ml Syringe) 25 gm IVPUSH Q15M PRN; Protocol PRN Reason: per Hypoglycemia Standing Ord. Last Admin: 08/12/23 06:27 Dose: 25 gm Documented By: YUNG Folic Acid (Folic Acid 1 Mg Tablet) 1 mg PO DAILY [facility] Last Admin: 08/13/23 09:21 Dose: 1 mg Documented By: DEEPAK Glucose (Glucose Gel 15 Gm Gel..Gram.) 15 gm PO Q15M PRN; Protocol PRN Reason: per Hypoglycemia Standing Ord. Insulin Human Lispro (Insulin Lispro 100 Unit/Ml 3 Ml Vial) 0 unit SUBCUT Q4H [facility]; Protocol Last Admin: 08/13/23 17:13 Dose: Not Given Documented By: DEEPAK Non-Admin Reason: No Insulin Coverage Melatonin (Melatonin 3 Mg Tablet) 6 mg PO BEDTIME PRN PRN Reason: Insomnia Metoprolol Tartrate (Metoprolol Tartrate 25 Mg Tablet) 25 mg PO BID [facility]; Protocol Last Admin: 08/13/23 09:21 Dose: 25 mg Documented By: DEEPAK Ondansetron HCl (Ondansetron Hcl 4 Mg/2 Ml Vial) 4 mg IVPUSH Q8H PRN PRN Reason: Nausea and Vomiting Sodium Chloride (0.9 % Sodium Chloride Flush 3 Ml Syringe) 3 ml IVFLUSH QSHIFT [facility] Last Admin: 08/13/23 15:58 Dose: 3 ml Documented By: DEEPAK Thiamine HCl (Thiamine Hcl 100 Mg Tablet) 100 mg PO DAILY [facility] Last Admin: 08/13/23 09:21 Dose: 100 mg Documented By: DEEPAK Labs 08/12/23 05:25 Labs: Laboratory Results - last 24 hr 08/12/23 08/13/23 08/13/23 20:24 01:19 04:19 POC Glucose 144 H 118 H 129 H 08/13/23 08/13/23 08/13/23 09:09 13:12 17:02 POC Glucose 187 H 184 H 79 Assessment and Plan (1) Hypoglycemia: Status: Acute Plan 73-year-old male with pertinent history of alcohol use disorder, row-ezsjbeq-jmlztmbnm diabetes mellitus, paroxysmal atrial fibrillation on Eliquis, essential hypertension, mixed hyperlipidemia who was brought to the emergency department for evaluation of fall. #. Hypoglycemia due to decreased by mouth intake and alcohol use disorder. blood sugars improved less than 200 this morning, will DC IV dextrose, continue to hold glipizide 5 mg and metformin 500 mg. continue insulin sliding scale monitor blood sugar closely and resume oral hypoglycemics #. Alcohol use disorder. denies withdrawal symptoms , seen by Addiction Team patient declined to speak with them and declined resources #. Hypokalemia. repleted and normalized #. Essential hypertension. stable blood pressure will continue metoprolol and Norvasc, will hold lisinopril and follow blood pressure closely. #. Paroxysmal atrial fibrillation: EKG showed sinus tachycardia, cont. Eliquis and metoprolol # hyperlipidemia continue statin # dysphagia seen by speech therapy they recommended pureed diet and honey thick liquids and modified barium swallow that will be done tomorrow. DVT prophylaxis: Andres Full Code admitted for observation.. Time Spent With Patient Time: Total time managing care of this patient today ____ minutes. Quality Stroke Does the patient have a stroke diagnosis?: No VTE Prior VTE?: No VTE Risk Level:: Medical - moderate - high VTE Device Contraindication: Treatment Not Indicated VTE Drug Contraindication: N/A - Med Ordered
[2023-08-13 21:35] LABS: Glucose, Whole Blood 109 mg/dL (60-115)
[2023-08-14] VITALS: BP 132/80; PULSE 67; RESP 18; TEMP 36; O2SAT 98
[2023-08-14 01:31] LABS: Glucose, Whole Blood 95 mg/dL (60-115)
[2023-08-14 05:58] LABS: Glucose, Whole Blood 105 mg/dL (60-115)
[2023-08-14 07:15] LABS: Glucose, Whole Blood 111 mg/dL (60-115)
[2023-08-14 07:43] VITALS: BP 133/71; PULSE 68; RESP 12; TEMP 36.1; O2SAT 98
[2023-08-14 09:09] LABS: Glucose, Whole Blood 112 mg/dL (60-115)
[2023-08-14] MEDS: Metoprolol Tartrate 25 MG TABLET PO (09:18)
[2023-08-14] MEDS: Folic Acid 1 MG TABLET PO (09:18)
[2023-08-14] MEDS: Apixaban 5 MG TABLET PO (09:18)
[2023-08-14] MEDS: Thiamine HCL 100 MG TABLET PO (09:18)
[2023-08-14] MEDS: 0.9 % Sodium Chloride Flush 3 ML SYRINGE IVFLUSH (09:18)
[2023-08-14] MEDS: amLODIPine Besylate 5 MG TABLET PO (09:18)
[2023-08-14] MEDS: Atorvastatin Calcium 20 MG TABLET PO (09:18)
[2023-08-14 10:38] LABS: Estimated Average Glucose 108 mg/dL; Hemoglobin A1c % 5.4 % (<6.0)
--- NOTE | 2023-08-14 13:09 | MHC.CM.PN ---
Per MD rounds Patient is scheduled for a MBS today. He may discharge home self care this afternoon. He will arrange for a ride home.
--- NOTE | 2023-08-14 13:15 | PM.DS ---
DS: Providers Provider Date of Service: 08/14/23 Date of admission: 08/12/23 05:13 Primary care physician: Jakob Lo MD Consults: 08/12/23 05:22 Addiction Medicine Routine Consulting Provider: Leonel Covering Reason for consultation: Alcohol use disorder DS: Diagnosis Discharge Diagnosis (1) Hypoglycemia: Status: Acute DS: Summary Hospital Course Hospital Course: History of presenting illness: Date of Service: 08/12/23 Chief Complaint: Hypoglycemia This is a 73-year-old male with pertinent history of alcohol use disorder, cwk-hbivoph-ccpbebuoy diabetes mellitus, paroxysmal atrial fibrillation on Eliquis, essential hypertension, mixed hyperlipidemia who was brought to the emergency department for evaluation of fall. Patient was found on the floor by his son prior to arrival. Upon EMS arrival patient's glucose was 42. He was given amp of D50 in the ER but his glucose again subsequently dropped. He was initiated on IV dextrose and hospital medicine team consulted for admission. Patient admits to using alcohol prior to arrival. States he skipped lunch but continue drinking alcohol and taking his medications. No fever, chills, chest discomfort, palpitations, shortness of breath, abdominal pain, changes in urinary or bowel habits. Hospital course: 73-year-old male with pertinent history of alcohol use disorder, goz-zazmbhl-uiefsdrtr diabetes mellitus, paroxysmal atrial fibrillation on Eliquis, essential hypertension, mixed hyperlipidemia who was brought to the emergency department for evaluation of fall likely due to hypoglycemia with a blood sugar of 42 patient was treated with D50 in the emergency room, subsequently placed on IV dextrose drip and admitted to medical floor, home medications metformin and glipizide were discontinued, patient noted to have a hbaic of 5.4, he is recommended to hold all oral hypoglycemic patient's blood sugars have improved currently above 100, he is asymptomatic with no lightheadedness, no dizziness, tolerating diet, therefore being discharged home. Patient also has history of alcohol use disorder, noted to have no withdrawal symptoms, patient was seen by addiction team but patient declined to speak with them and declined outpatient resources. Patient was noted to have hypokalemia that was repleted and normalized, patient noted to have difficulty swallowing therefore seen by speech therapy initially was placed on pureed diet and honey thick liquids, later underwent modified barium swallow that showed aspiration on thin, nectar thick and regular solids, he was unable to clear pharyngeal residue with compensatory strategies, speech therapy recommend pureed solids and honey thick liquids still with risk of aspiration with these textures, he is recommended to eat slowly, with small bites and sips Essential hypertension. stable blood pressure recommend to continue metoprolol, Norvasc and lisinopril. Paroxysmal atrial fibrillation: EKG showed sinus tachycardia, cont. Eliquis and metoprolol. Time Spent with Patient Time attestation: Total time managing care of this patient today ____ minutes. Discharge coordination time: Greater than 30 minutes Quality: Safe Use of Opioids Does Pt have an Active Cancer Diagnosis on the Problem List?: No Quality: Stroke Does the patient have a stroke diagnosis?: No Physical Exam Vital Signs: Vital Signs: Last Vital Signs Temp 97.0 F 08/14/23 07:43 Pulse 68 08/14/23 07:43 Resp 12 08/14/23 07:43 BP 133/71 08/14/23 07:43 Pulse Ox 98 08/14/23 07:43 O2 Del Method Room Air 08/14/23 07:43 Const: Other: general awake alert in no acute distress neck supple lung sounds are clear to auscultation heart regular rate rhythm, clear S1, S2 Abd positive bowel sounds, abdomen soft, nontender extremities no edema neuro alert x3, no focal deficits DS: Data Data Completed and Pending Completed studies during hospitalization [Text1]: Procedures Detoxification [facility] for Substance Abuse Treatment (10/14/22) Labs on day of discharge: Laboratory Results - last 24 hr 08/13/23 08/13/23 08/13/23 13:12 17:02 21:30 POC Glucose 184 H 79 109 Estimat Average Glucose Hemoglobin A1c % 08/14/23 08/14/23 08/14/23 01:23 05:53 07:11 POC Glucose 95 105 111 Estimat Average Glucose Hemoglobin A1c % 08/14/23 08/14/23 09:01 09:11 POC Glucose 112 Estimat Average Glucose 108 Hemoglobin A1c % 5.4 Discharge Plan Discharge Anticipated Discharge Date/Time: 08/14/23 13:10 Patient Disposition: Home, Self-Care Discharge Diagnosis: Hypoglycemia Dysphagia Alcohol use disorder Referrals: Jakob Lo MD [Primary Care Provider] - 1 Week Discharge Medications: Continued metoprolol succinate 50 mg tablet extended release 24 hr 1 tab PO DAILY amlodipine 5 mg tablet 1 tab PO DAILY lisinopril 10 mg tablet 1 tab PO DAILY atorvastatin 20 mg tablet 20 mg PO DAILY Eliquis 5 mg Tablet 5 mg PO BID Discontinued metformin 500 mg tablet 500 mg PO DAILY Hold Instructions: Resume on 04/29/23. glipizide 5 mg tablet 5 mg PO DAILY Discharge Orders: Discharge Order (Routine); Ordered 08/14/23 Ordered By: Susan Pickard Diet: Diabetic diet Activity on Discharge: As tolerated Stand Alone Forms: Patient Portal Discharge page Care Plan Goals: Difficulty swallowing Follow pureed solids and honey thick liquids, you are at high risk for aspiration even with this diet, eat slowly small bites and sips and Ensure multiple swallows with every bite. stop glipizide and metformin you do not need blood sugar medications Health Concerns: Alcohol use disorder strongly recommend to abstain from alcohol Plan of Treatment: Follow-up with primary care physician call for appointment Assessment: As above
--- NOTE | 2023-08-14 13:15 | MHC.SL.IMP ---
Date of Plan of Treatment: 08/14/23 Onset of Symptoms/Illness: 08/13/23 Date Treatment Started: 08/14/23 Admitting Diagnosis: Hypoglycemia, Fall Primary Speech & Language Diagnosis: R13.12 Oropharyngeal Phase Dysphagia Secondary Speech & Language Diagnosis: Reason for Today's Visit: [id number] Modified Barium Swallow Study Comments: Pt in ED. Patient presents w/ wet/gurgly vocal quality, frequent swallows, audible swallows. Presentation consistent throughout MODERN LANGUAGES PROFESSOR visit including prior to PO. During conversation patient often initiated swallow which resulted in intermittent clear vocal quality for a few seconds before presenting wet/gurgly again. Pre-evaluation Dietary Consistencies: Pureed (NDD1) Pre-evaluation Liquid Consistency: Honey Thick Pre-evaluation Medication Administration: Crushed Medical History: Comments: [facility] Fall Risk Assessment Score: Oral Motor Exam Facial Symmetry: Asymmetrical Facial Movement: Oral-Facial Facial Miscellaneous Observations: Mouth Occlusion: Normal Oral-Facial Teeth Characteristics: Edentulous Oral Expression Ability: No Impairment Is patient able to manage secretions?: Yes Is patient able to produce volitional cough?: Yes Food and Liquid Trials: Oral Impairment: Lip Closure: 1=Interlabial escape; no progression to anterior tip Oral Impairment: Tongue Control During Bolus Hold: 0=Cohesive bolus between tongue to palatal seal Oral Impairment: Bolus Preparation/Mastication: 1=Slow prolonged chewing/mashing with complete re-collection Oral Impairment: Bolus Transport/Lingual Motion: 1= Delayed initiation of tongue motion Oral Impairment: Oral Residue: 2=Residue collection on oral structures Oral Impairment:Initiation of Pharyngeal Swallow: 3=Bolus head in pyriforms Pharyngeal Impairment: Soft Palate Elevation: 0=No bolus between soft palate (SP)/pharyngeal wall (PW) Pharyngeal Impairment: Laryngeal Elevation: 1=Partial thyroid cartilage/arytenoids to epiglottic petiole movement Pharyngeal Impairment: Anterior Hyoid Excursion: 1=Partial anterior movement Pharyngeal Impairment: Epiglottic Movement: 1=Partial inversion Pharyngeal Impairment: Laryngeal Vestibular Closure:: 1=Incomplete: narrow column air/contrast in laryngeal vestibule Pharyngeal Impairment: Pharyngeal Stripping Wave: 2=Absent Pharyngeal Impairment: Pharyngeal Contraction: Did not test Pharyngeal Impairment: Pharyngoesophageal Segment Openin=Partial distention/partial duration: partial obstruction of flow Pharyngeal Impairment: Tongue Base (TB) Retraction: 2=Narrow column of contrast/air between TB and posterior PW Pharyngeal Impairment: Pharyngeal Residue: 3=Majority of contrast within or on pharyngeal structures Pharyngeal Impairment: Esophageal Clearance Upright Position: Did not test Impressions and Recommendations Clinical Observations: Time-out: performed at 11:25 Evaluation Start: 11:30; Stop: 11:40 Patient Positioning: Seated 70-90 degrees Viewing Planes: LATERAL ONLY Contrast: MBSImP? Standardized Protocol using commercially prepared, standardized Barium viscosities, including: Varibar? THIN LIQUID (40% w/v, <15 cps) , Varibar? NECTAR (40% w/v, <150-450 cps) , Varibar? THIN HONEY (40% w/v, <800-1800 cps) , Varibar? PUDDING (40% w/v, <9490-8573 cps) , 1/2 Shortbread Cookie (1 x1 x.25 ) MBSImP ID: [id number] Results: Lip closure for intraoral bolus containment resulted in interlabial escape, without progression to the anterior lip. Tongue control during bolus hold maintained a cohesive bolus held between tongue to palate seal. Bolus preparation and mastication resulted in slow, prolonged chewing/mashing but with complete re-collection. Bolus transport/lingual motion demonstrated delayed initiation of tongue motion. Oral residue was a collection on oral structures. Initiation of the pharyngeal swallow occurred when the bolus head was in the pyriform sinuses. Soft palate elevation resulted in no bolus between the soft palate and the pharyngeal wall. Laryngeal elevation was decreased, with partial superior movement of the thyroid cartilage/partial approximation of the arytenoids to the epiglottic petiole. Anterior hyoid excursion demonstrated partial anterior movement. Epiglottic movement resulted in partial inversion. Laryngeal vestibular closure was incomplete, with a narrow column of air/contrast noted within the laryngeal vestibule at the height of the swallow. Pharyngeal stripping wave was absent. Pharyngeal contraction could not be determined due to logistical reasons not related to physiologic impairment. Pharyngoesophageal segment opening demonstrated partial distension/partial duration, with partial obstruction of bolus flow. Tongue base retraction allowed a narrow column of contrast or air between the retracted tongue base and the posterior pharyngeal wall. Pharyngeal residue was the majority of contrast within or on pharyngeal structures. Esophageal clearance in the upright position could not be assessed due to logistical reasons not related to physiologic impairment. Oral Impairment Score: 7 Pharyngeal Impairment Score: 12 (absence of score, component 13) Esophageal Impairment Score: --- (absence of score, component 17) Laryngeal Penetration and Aspiration: Aspiration was observed in today's study. Cookie, [place]-thick, Thin Contrast entered the airway, passed below the vocal folds, and were not ejected from the trachea despite effort. The patient's performance in today's study indicated impairment in swallowing as outlined in the table below: Initiation of the pharyngeal swallow, Laryngeal vestibular closure, Pharyngeal stripping wave, Pharyngeal contraction, and Tongue base retraction contributed to aspiration, penetration and pharyngeal residue. Clinician Assessment: Multiple factors contribute to the patients oropharyngeal dysphagia. His primary cause of aspiration was due to significant amounts of residue present in his pyriform sinuses that did not clear completely with subsequent swallows or cues to tuck his chin or turn his head left or right and swallow. His range of motion is limited by kyphosis. Anterior cervical osteophytes were noted that impinged complete inflection of the epiglottis and limited pharyngeal peristalsis. His swallow trigger was also delayed with the bolus head present in the pyriform sinuses prior to initiation. He tolerated Honey-Thick Liquids and [place]-Thick Liquids by spoon with a cued bolus hold initially. However after administration of regular solids and resultant pharyngeal residue he was shown to aspiration on [place]-Thick Liquids. His cough reflex was sporadic and depended on the amount of contrast that was aspirated. His cough reflex was not reliable for trace aspiration events. Liquid Intake Recommendation: Honey Thick Liquid Intake Strategies: Small Sips No Straws Dietary Recommendations: Pureed (NDD1) Medication Administration: Crushed with Puree Please contact the pharmacy regarding appropriate crushable or liquid drug formulations that are available whenever modified delivery is recommended. Compensatory Strategies Recommended: Sitting Upright (90 deg) No Straw Liquids from Cup Small Bites and Sips Alternate Liquids/Solids Supervision during eating and or drinking: Total Supervision (1:1) Recommended Treatments: Compens. Strategy Educat. Recommendation for Speech Therapy: Outpatient Speech Therapy Speech Therapy through [facility] Text Comment: Intake Recommendations: Route: PO Diet Grade: IDDSI Levels: 4-Pureed Liquid Consistencies: Honey Post-Study Functional Oral Intake Scale (FOIS): 5- Total oral intake of multiple consistencies requiring special preparation Pt had a previous study in September 2022 with recommendations for Advanced Solids and Honey-Thick Liquids. However at this admission he reports that he has not been compliant with those recommendations. He was apparently not compliant with his diabetes medication at home either. His plan is for discharge home under his own recognizance as he is declining further services. Pt may benefit from [facility] services and/or outpatient Speech Therapy to go over safe swallowing strategies and further educate on the risks of aspiration pneumonia. For safety purposes his current recommendation is for Honey-Thick Liquids and Puree Solids. Additional strategies include thorough oral care, small bite/sip size, additional swallows for every bite taken, and avoidance of straws and mixed consistencies. It is important to note MBSS objective studies are snapshots in time and Patient function might vary with factors such as time of day or concomitant medical conditions. For this reason, the final treatment plan for this patient should rest with their medical care team. Additional recommendations should be considered with the totality of the Patient in mind. Thank for the opportunity to participate in the care of this patient. If you have any questions about the content of this report, please contact the [facility] at [facility]. The following compensatory strategies and/or therapeutic exercises will be part of the upcoming therapy/management plan: Honey-thick Liquid Bolus Volume Change Rate of Ingestion Change Additional Swallow(s) per Bolus No Straws Prognosis for Improvement: The prognosis for the patient to meet nutritional needs by mouth is fair based on degree of impairment, stimulability for treatment, level of motivation, support system. Patient's Personal Goals: To resume Regular Solids and Thin Liquids. Data Analyst Goals: ? The patient will tolerate the least restrictive diet with a safe/efficient swallow to maintain adequate nutrition and hydration. ? The patient will demonstrate improved swallowing function via repeat clinical evaluation, videoendoscopy/videofluoroscopy and/or patient self-rating scores. ? The patient and/or family will participate in further education for swallowing goals. Short Term Goals: ? Diet - The patient will tolerate a pureed diet with honey thick liquids without signs or symptoms of penetration/aspiration 100% of the time. - The patient will participate in therapeutic PO trials with the MODERN LANGUAGES PROFESSOR. ? Guidelines - The patient will comply with/recall the following guidelines/strategies 100% of the time with moderate cuing: Honey-thick Liquid, Bolus Volume Change, Rate of Ingestion Change, Additional Swallow(s) per Bolus, No Straws. Frequency/Duration: Date Range for Service Requested: Timeline to reassess: PRN Disability Counselor Clinician/Clinical Fellow: No Supervisory Statement: N/A Speech Language Pathologist: Toni Edmonds M.A., [facility]-MODERN LANGUAGES PROFESSOR
[2023-08-14 13:30] LABS: Glucose, Whole Blood 200 mg/dL (60-115)
[2023-08-14] MEDS: Insulin Lispro 100 UNIT/ML 3 ML VIAL SUBCUT (13:35)
[2023-08-14 16:34] VITALS: BP 120/61; PULSE 67; RESP 20; TEMP 36.4; O2SAT 99
[2023-08-14 16:41] LABS: Glucose, Whole Blood 101 mg/dL (60-115)
== END 2023-08-14 17:28 | disposition home or self-care (01) ==
LOC: HO.ED 03:34 → HO.EDOVER 05:18 → HO.S3 14:22
PROVIDERS: Admitting Provider Student in an Organized Health Care Education/Training Program; Emergency Provider Student in an Organized Health Care Education/Training Program; PCP Internal Medicine; Visit Provider Hospitalist
DX: E16.2 Hypoglycemia, unspecified (principal); R13.10 Dysphagia, unspecified; F10.90 Alcohol use, unspecified, uncomplicated; E87.6 Hypokalemia; I48.0 Paroxysmal atrial fibrillation; I10 Essential (primary) hypertension; E11.9 Type 2 diabetes mellitus without complications; E78.2 Mixed hyperlipidemia; Z79.01 Long term (current) use of anticoagulants; Z91.81 History of falling
CPT/HCPCS: 36415; 70450; 72125; 74230; 80053; 80307; 82947; 83036; 83735; 85025; 92526; 92610; 92611; 93005; 96361; 96365; 96366; 96372; 99221; 99283; 99285; J3411

== ENCOUNTER 2023-08-12 05:13 | Outpatient (BNV) | payer MEDICARE, SELFPAY | END 2023-08-14 10:30 | PROVIDERS: Admitting Provider Student in an Organized Health Care Education/Training Program; Emergency Provider Student in an Organized Health Care Education/Training Program; PCP Internal Medicine; Visit Provider Radiology Diagnostic Radiology | DX: R13.11 Dysphagia, oral phase (principal); J34.89 Other specified disorders of nose and nasal sinuses | CPT/HCPCS: 74230 ==

== ENCOUNTER → 2023-08-12 05:13 | Outpatient (BNV) | payer MEDICARE, SELFPAY | PROVIDERS: Admitting Provider Student in an Organized Health Care Education/Training Program; Emergency Provider Student in an Organized Health Care Education/Training Program; PCP Internal Medicine; Visit Provider Student in an Organized Health Care Education/Training Program | DX: E11.649 Type 2 diabetes mellitus with hypoglycemia without coma (principal) | CPT/HCPCS: 99222; 99233; 99239 ==

== ENCOUNTER 2023-12-31 12:54 | Inpatient (IN) | payer MEDICARE, SELFPAY ==
[2023-12-31] VITALS (7 sets, daily range): BP systolic 108–157; BP diastolic 56–83; PULSE 94–140; RESP 12–18; TEMP 37.1; O2SAT 95–99; BMI 26.7
--- NOTE | ~2023-12-31 | CT_ITS ---
EXAMINATION: CT HEAD WITHOUT CONTRAST CT CERVICAL SPINE WITHOUT CONTRAST CLINICAL INFORMATION: Fall. COMPARISON: CT scan of the head and cervical spine 05/02/2023. TECHNIQUE: [employer] Device Scientist images were obtained. CT imaging of the head and cervical spine was performed without contrast. Data was reformatted into multiplanar images at the acquisition workstation. This CT examination was performed using dose optimization techniques as appropriate, including one or more of the following: Automated exposure control, iterative reconstruction, and adjustment of technique factors (mA and/or kVp) according to patient size (this includes techniques or standardized protocols for targeted exams where dose is matched to indication/reason for exam). Fleischner Society criteria for the followup of incidental pulmonary nodules was implemented if appropriate. DLP: 1406 mGy-cm. FINDINGS: Head: There is no acute intracranial hemorrhage or abnormal extra-axial collection. No intracranial mass effect or midline shift. There is loss of parenchymal volume with a saccular enlargement of the ventricular volumes. Scattered nonspecific foci of hypoattenuation visualized within the periventricular white matter that most likely represent a chronic manifestation of small vessel ischemia. Ruano-white matter differentiation is otherwise preserved and there is no evidence of acute territorial infarct. The calvarium and skull base are intact. There are small mastoid effusions. Moderate paranasal sinus disease primarily affecting the ethmoid air cells and maxillary sinuses. Globes and orbits are grossly symmetric. Cervical spine: Spinal alignment is grossly maintained in the sagittal dimension. Vertebral body heights are preserved. No acute fracture. No abnormal prevertebral soft tissue swelling. There are exuberant anterior disc osteophyte complexes fusing multiple vertebral segments vertebral segments within the cervical spine and visualized upper thoracic spine. Canal patency is not well assessed on this examination due to inherent limitations of CT without intrathecal contrast. There is at least moderate canal stenosis at multiple levels. Uncovertebral joint spurring in conjunction with facet degenerative change causes mild to moderate neuroforaminal encroachment at multiple levels. Heavily calcified atheromatous plaque involves both carotid bifurcations. Soft tissues of the neck are otherwise unremarkable. Lung apices are clear. CT/CT head/brain wo IV con IMPRESSION: Head: No acute intracranial hemorrhage. There is loss of parenchymal volume and scattered chronic small vessel ischemic changes within the periventricular white matter. Grossly no evidence of acute territorial infarct. Cervical Spine: No acute fracture and no posttraumatic spinal subluxation. There is advanced multilevel degenerative spondylosis of the cervical spine with at least moderate canal stenosis at multiple levels. If there are clinical symptoms of compressive myelopathy then a dedicated cervical spine MRI can be obtained for better anatomic characterization of the cord and canal.
--- NOTE | 2023-12-31 13:02 | ECG_ITS ---
Test Reason : fall Blood Pressure : / mmHG Vent. Rate : 102 BPM Atrial Rate : 102 BPM P-R Int : 178 ms QRS Dur : 076 ms QT Int : 326 ms P-R-T Axes : 092 008 050 degrees QTc Int : 424 ms Sinus tachycardia Otherwise normal ECG When compared with ECG of 04-MAY-2023 15:43, Vent. rate has increased BY 37 BPM Referred By: Charlene Layton Electronically Signed By:ALISSA KENNEDY
--- NOTE | 2023-12-31 13:06 | ED.GENADULT ---
HPI - General Adult General Chief complaint: Fall Stated complaint: FALL,DOWN FOR HOURS,+ THINNERS PER EMS Time Seen by Provider: 12/31/23 12:58 Source: patient and EMS Mode of arrival: EMS Limitations: no limitations History of Present Illness HPI narrative: Patient comes to the emergency room via ambulance from home. According to EMS, the patient's son found the patient on the floor. It is unclear how long the patient was on the floor, it is estimated he was on the floor for couple of hours. Patient is confused about time. Patient states that he hit his head and has neck pain, admits to drinking alcohol and is on Eliquis. Patient states he has no pain anywhere else. Patient states he is compliant with his medications Related Data Home Medications Medication Instructions Recorded Confirmed amlodipine 5 mg tablet 1 tab PO DAILY 10/14/22 12/31/23 lisinopril 10 mg tablet 1 tab PO DAILY 10/14/22 12/31/23 metoprolol succinate 50 mg 1 tab PO DAILY 10/14/22 08/12/23 tablet,extended release 24 hr apixaban 5 mg tablet (Eliquis) 5 mg PO BID 04/22/23 12/31/23 atorvastatin 20 mg tablet 20 mg PO DAILY 04/22/23 08/12/23 metformin 500 mg tablet 500 mg PO DAILY 12/31/23 12/31/23 Allergies Allergy/AdvReac Type Severity Reaction Status Date / Time alcohol Allergy Intermediate rash Verified 05/09/23 07:18 clams Allergy Intermediate UNKNOWN Verified 05/09/23 07:18 oxycodone Allergy Intermediate rash Verified 05/09/23 07:18 [id number] Reductase Allergy Unknown CONFUSION Unverified 08/12/23 00:40 Inhibitor [[id number] REDUCTASE INHIBITOR] steamers/ clams Allergy Intermediate flu like Uncoded 05/04/23 15:35 symptoms Review of Systems Review of Systems: Constitutional : No Weight loss, No Fever, No Chills, No Night Sweats, No Fatigue, No Malaise ENT/Mouth : No Hearing loss, No Ear Pain, No Nasal Congestion, No Sinus Pain, No Hoarseness, No sore throat, No Rhinorrhea, No Swallowing Difficulty Eyes: No Eye Pain, No Swelling, No Redness, No Foreign Body, No Discharge, No Vision Changes Cardiovascular : No Chest Pain, No SOB, No Dyspnea on Exertion, No Orthopnea, No Edema, No Palpitations Respiratory : No Cough, No Sputum, No Wheezing, No Smoke Exposure, No Dyspnea Gastrointestinal : No Nausea, No Vomiting, No Diarrhea, No Constipation, No abdominal Pain, No Hematochezia, No Melena Genitourinary : no irregular bleeding, No Dysuria, No Urinary Frequency, No Hematuria, No Urinary Incontinence, No Urgency, No Flank Pain, No Urinary Flow Changes, No Hesitancy Musculoskeletal : Complaining of posterior neck pain, No Myalgias, No Joint Swelling Skin : No Skin Lesions, No rash Neuro : No Weakness, No Numbness, No Paresthesias, No Loss of Consciousness, No Dizziness, No Headache Psych : No Anxiety/Panic, No Depression, No SI/HI/AH/VH, admits to drinking alcohol daily Heme/Lymph: No Bruising, No Bleeding,No Lymphadenopathy Endocrine : No Polyuria, No Polydipsia, No Temperature Intolerance [facility] Past Medical History Medical History Chronic anticoagulation Atrial fibrillation Alcohol abuse HLD (hyperlipidemia) Hypertension Diabetes Alcohol abuse Surgical History No history of previous surgery Family History Family History Other No family history of coronary artery disease Social History Social History Household Members: Spouse and Other Household Members Other:: son Housing: House Do you presently have visiting nurse or other home services: No Alcohol intake: current Alcohol intake frequency: 3 or more drinks per day Alcohol type: hard liquor Patient Tobacco Use Status: Former Tobacco user Quit Date: 37 years ago Years Smoked: 20 Smoked in Last 30 Days: No Use of substances other than those prescribed or required for medical reasons: No Substance Use Type: Marijuana Advance Directives: No Advance Directives Information Provided: No service: Yes Current occupational status: retired Physical Exam ED Vital Signs: Vital Signs - 24 hr 12/31/23 13:16 12/31/23 14:27 12/31/23 19:25 Temperature 98.8 F 98.7 F Pulse Rate 104 H 94 138 H Respiratory Rate 18 16 14 Blood Pressure 157/69 H 156/69 H 139/83 Pulse Oximetry 99 98 98 Oxygen Delivery Method Room Air Room Air Room Air 12/31/23 21:25 Temperature Pulse Rate 140 H Respiratory Rate 14 Blood Pressure 116/64 Pulse Oximetry Oxygen Delivery Method BMI result Body Mass Index 26.7 Const Other: Appearance: Alert. Oriented X2, not oriented to time Disheveled , strong odor of urine Eyes: Pupils equal, round and reactive to light. ENT: Pharynx normal. Neck: Normal inspection. Neck supple. No lymph nodes noted. No crepitus CVS: Normal heart rate and rhythm. Pulses normal. Normal S1 and S2 Respiratory: No respiratory distress. Breath sounds normal. No Wheezing. No rales Abdomen: Soft and nontender. No rigidity. No distention. Skin: Skin warm and dry. Normal skin color. Normal skin turgor. Extremities: +2 pitting edema, chronic venous stasis Neuro: Oriented X2. No motor deficit. No sensory deficit. Moving all extremities. No slurred speech. CN 2 through 12 grossly intact Psych: calm, cooperative, normal affect Course Course Course Narrative: All of patient's labs pending Medications Administered Generic Name Dose Route Start Last Admin Trade Name Freq PRN Reason Stop Dose Admin Diltiazem HCl 125 mg/ Sodium 125 mls @ 0 mls/hr 12/31/23 20:45 12/31/23 21:24 Chloride IVCONT 10 mg/hr .Q0M CLAUDIA 10 mls/hr Administration Protocol Per Protocol Discontinued Medications Generic Name Dose Route Start Last Admin Trade Name Freq PRN Reason Stop Dose Admin Diltiazem HCl 10 mg 12/31/23 19:39 12/31/23 19:50 Diltiazem Hcl 50 Mg/10 Ml Vial IVPUSH 12/31/23 19:40 10 mg STAT STA Administration Diltiazem HCl 10 mg 12/31/23 20:20 12/31/23 20:24 Diltiazem Hcl 50 Mg/10 Ml Vial IVPUSH 12/31/23 20:21 10 mg STAT STA Administration Sodium Chloride 1,000 mls @ 999 mls/hr 12/31/23 13:02 12/31/23 15:15 Ns IVCONT 12/31/23 14:02 Infused .Q1H1M ONE Infusion Magnesium Sulfate/Dextrose 1 gm in 100 mls @ 100 mls/hr 12/31/23 14:57 12/31/23 17:35 Magnesium Sulfate/D5w IV 12/31/23 15:56 Infused ONCE ONE Infusion Medical Decision Making Medical Decision Making [facility] Narrative: -my interpretation of head CT: No intracranial bleed, enlarged lateral ventricles My interpretation of CT scan of the cervical spine, no obvious fracture -my interpretation of labs: Normal hematology and chemistry, chronically elevated LFTs, magnesium 1.3, being repeated IV, urinalysis negative for UTI. CPK 1281, no renal involvement, normal creatinine -C-collar removed, patient states that he is feeling much better. Discussed with the patient that after getting his magnesium, we will assess his gait on how he is feeling. Patient states that if he does well, he would like to be discharged home. -patient was able to ambulate around the emergency room with a walker as he uses at home. Patient requesting to be discharged -19:40. As patient was getting ready to be discharged, getting dressed, it was noted that patient's heart rate increased to 150. Patient is now in AFib with RVR, blood pressure in the 130s. Patient will be getting Cardizem 10 mg -my interpretation of EKG: Atrial fibrillation with RVR, heart rate 149, no ST segment depression or elevation, no T-wave inversion, QTC 437 -patient received 2 doses of Cardizem IV push, patient's heart rate improved to the 120s. Patient still in RVR -patient will be started on a drip -discussed the patient with the hospitalist, patient being admitted At this time, 21:45, heart rate is 104, blood pressure 116/64 Differential Diagnosis Differential Diagnoses: The differential diagnosis associated with the presentation includes (Intracranial bleed, cervical fracture, subluxation, contusion, ETOH intoxication) Admission/Observation Consideration of admission/observation: Escalation of care including admission/observation considered (Given patient's history and presentation, admission was considered) Lab Data [facility] Lab Attestation statement: I reviewed the patient's lab results. 12/31/23 14:08 12/31/23 14:08 Labs: Lab Results 12/31/23 12/31/23 12/31/23 Range/Units 14:05 14:08 17:46 WBC 4.1 L (4.8-10.8) X10*3/uL RBC 3.96 L (4.60-5.80) X10*6/uL Hgb 11.5 L (14.0-18.0) g/dl Hct 33.8 L (42.0-52.0) % MCV 85.4 (80.0-98.0) fL MCH 29.0 (27.0-33.0) pg MCHC 34.0 (31.0-36.0) g/dl RDW 16.6 H (11.0-16.0) % Plt Count 128 L (160-400) X10*3/uL MPV 8.7 L (9.4-12.4) fL Immature Gran % (Auto) 0.2 (0.0-0.4) % Neut % (Auto) 70.3 (45-73) % Lymph % (Auto) 18.4 L (20-40) % [place] % (Auto) 10.9 (2-11) % Eos % (Auto) 0.0 (0-4) % Baso % (Auto) 0.2 (0-2) % Lymph # (Auto) 0.8 L (1.2-4.9) X10*3/uL [place]ern # (Auto) 0.5 (0.1-1.2) X10*3/uL Eos # (Auto) 0.0 (0.0-0.4) X10*3/uL Baso # (Auto) 0.0 (0.0-0.2) X10*3/uL Abs Immat Gran (auto) 0.01 (0.00-0.03) X10*3/uL Absolute Neuts (auto) 2.9 (2.0-8.3) x10*3/uL Absolute Nucleated RBC 0.000 (0.0-0.012) X10*3/uL Nucleated RBC % (auto) 0.0 (0.0-0.2) /100WBC PT 18.6 H (11.1-13.3) SEC INR 1.5 H (0.9-1.1) Sodium 137 (135-145) mmol/L Potassium 3.7 (3.3-5.1) mmol/L Chloride 99 (96-108) mmol/L Carbon Dioxide 29 (22-29) mmol/L Anion Gap 13 (12-20) BUN 7 L (9-16) mg/dL Creatinine 0.78 (0.5-1.4) mg/dL Estim Creat Clear Calc 85.6 Estimated GFR > 60 POC Glucose 194 H (60-115) mg/dL Random Glucose 208 H (60-115) mg/dL Calcium 9.0 (8.4-10.2) mg/dL Magnesium 1.3 L* (1.6-2.6) mg/dL Total Bilirubin 1.9 H (0.0-1.0) mg/dL Direct Bilirubin 0.8 H (0.0-0.5) mg/dL AST 32 (5-37) U/L ALT 16 (0-40) U/L Alkaline Phosphatase 153 H (39-117) U/L Total Creatine Kinase 1281 H (38-174) U/L Troponin I High Sens 15.8 D (<3.5-35.0) ng/L B-Natriuretic Peptide 44 (<100) pg/mL Total Protein 6.9 (6.5-8.0) g/dL Albumin 3.7 (3.5-5.0) g/dL Lipase 18 (8-78) U/L Urine Color Yellow Urine Appearance Clear Urine pH 6.5 (5.0-9.0) Ur Specific [place] 1.015 (1.005-1.025) Urine Protein Trace (Neg-Trace) mg/dL Urine Glucose (UA) >=1000 H (Negative) mg/dL Urine Ketones Negative (Negative) mg/dL Urine Blood Small (1+) H (Negative) Urine Nitrite Negative (Negative) Ur Leukocyte Esterase Negative (Negative) Urine RBC 0-2 (0-2) /HPF Urine WBC 0-5 (0-5) /HPF Ur Squamous Epith Cells 0-2 (0-2) /HPF Urine Bacteria None Seen (None Seen) Hyaline Casts 0-2 (0-2) /LPF Urine Opiates Screen Not Detected (Not Detect) Urine Fentanyl Screen Not Detected (Not Detect) Ur Barbiturates Screen Not Detected (Not Detect) Ur Phencyclidine Scrn Not Detected (Not Detect) Ur Amphetamines Screen Not Detected (Not Detect) U Benzodiazepines Scrn Not Detected (Not Detect) Urine Cocaine Screen Not Detected (Not Detect) U Marijuana (THC) Screen Not Detected (Not Detect) Ethyl Alcohol 100 mg/dL Independent Interpretation I performed an independent interpretation of an: EKG (My interpretation of EKG, normal sinus rhythm, heart rate 102, no ST segment depression or elevation, no T-wave inversion, QTC 424) and CT Scan Radiology Impression Discussion of test interpretation with radiology: I have reviewed the radiologist's reading. Radiologist Impression: FINDINGS: Head: There is no acute intracranial hemorrhage or abnormal extra-axial collection. No intracranial mass effect or midline shift. There is loss of parenchymal volume with a saccular enlargement of the ventricular volumes. Scattered nonspecific foci of hypoattenuation visualized within the periventricular white matter that most likely represent a chronic manifestation of small vessel ischemia. Ruano-white matter differentiation is otherwise preserved and there is no evidence of acute territorial infarct. The calvarium and skull base are intact. There are small mastoid effusions. Moderate paranasal sinus disease primarily affecting the ethmoid air cells and maxillary sinuses. Globes and orbits are grossly symmetric. Cervical spine: Spinal alignment is grossly maintained in the sagittal dimension. Vertebral body heights are preserved. No acute fracture. No abnormal prevertebral soft tissue swelling. There are exuberant anterior disc osteophyte complexes fusing multiple vertebral segments vertebral segments within the cervical spine and visualized upper thoracic spine. Canal patency is not well assessed on this examination due to inherent limitations of CT without intrathecal contrast. There is at least moderate canal stenosis at multiple levels. Uncovertebral joint spurring in conjunction with facet degenerative change causes mild to moderate neuroforaminal encroachment at multiple levels. Heavily calcified atheromatous plaque involves both carotid bifurcations. Soft tissues of the neck are otherwise unremarkable. Lung apices are clear. CT/CT head/brain wo IV con IMPRESSION: Head: No acute intracranial hemorrhage. There is loss of parenchymal volume and scattered chronic small vessel ischemic changes within the periventricular white matter. Grossly no evidence of acute territorial infarct. Cervical Spine: No acute fracture and no posttraumatic spinal subluxation. There is advanced multilevel degenerative spondylosis of the cervical spine with at least moderate canal stenosis at multiple levels. If there are clinical symptoms of compressive myelopathy then a dedicated cervical spine MRI can be obtained for better anatomic characterization of the cord and canal. Critical Care Time Critical Care Time Critical Care Time: Yes Total Critical Care Time: 90 Attestation: I have personally provided critical care time. Time includes review of lab data, radiology results, discussion with consultants, and monitoring for potential decompensation. Intervention performed as documented. Discharge Plan Discharge Clinical Impression: Fall, Hypomagnesemia, Alcohol abuse, Atrial fibrillation with RVR Patient Disposition: Admitted As Inpatient Additional Instructions: Please follow-up with your primary care physician tomorrow. If you have any worsening or new symptoms, please return to the emergency room or call 911 Interventions: ED Discharge Assessment Last Done: 12/31/23 19:20
--- NOTE | 2023-12-31 14:00 | PC.NURSE ---
attempted IV on pt, veins blow easily. will have another rn attempt. provider aware.
[2023-12-31 14:09] LABS: Glucose, Whole Blood 194 mg/dL (60-115)
[2023-12-31] MEDS: 0.9 % Sodium Chloride 1,000 ML 999 ML IVCONT (14:09)
[2023-12-31 14:11] LABS: MANUAL DIFF FLAG NO
[2023-12-31 14:13] LABS: Basophils Percent Auto 0.2 % (0-2); Hematocrit 33.8 % (42.0-52.0); Hemoglobin 11.5 g/dl (14.0-18.0); Imm Gran Abs Auto 0.01 X10*3/uL (0.00-0.03); Imm Gran Pct Auto 0.2 % (0.0-0.4); Lymphocytes Absolute Auto 0.8 X10*3/uL (1.2-4.9); Lymphocytes Percent Auto 18.4 % (20-40); Mean Corpuscular Volume 85.4 fL (80.0-98.0); Mean Platelet Volume 8.7 fL (9.4-12.4); Monocytes Absolute Auto 0.5 X10*3/uL (0.1-1.2); Monocytes Percent Auto 10.9 % (2-11); Neutrophils Absolute Auto 2.9 x10*3/uL (2.0-8.3); Neutrophils Percent Auto 70.3 % (45-73); Platelet Count 128 X10*3/uL (160-400); Red Blood Count 3.96 X10*6/uL (4.60-5.80); Red Cell Distribution Width 16.6 % (11.0-16.0); White Blood Count 4.1 X10*3/uL (4.8-10.8)
[2023-12-31 14:22] LABS: INTERNATIONAL NORM RATIO 1.5 (0.9-1.1); Prothrombin Time 18.6 SEC (11.1-13.3)
[2023-12-31 14:28] LABS: Ethanol 100 mg/dL
[2023-12-31 14:32] LABS: Alanine Aminotransferase 16 U/L (0-40); Albumin Level 3.7 g/dL (3.5-5.0); Alkaline Phosphatase 153 U/L (39-117); Anion Gap 13 (12-20); Aspartate Amino Transferase 32 U/L (5-37); Bilirubin Direct 0.8 mg/dL (0.0-0.5); Bilirubin Total 1.9 mg/dL (0.0-1.0); Blood Urea Nitrogen 7 mg/dL (9-16); Carbon Dioxide 29 mmol/L (22-29); Chloride 99 mmol/L (96-108); Creatinine Clr Calc Pharmacy 85.6; Estimated Glomerular Filt Rate > 60; Glucose Random 208 mg/dL (60-115); Lipase 18 U/L (8-78); Potassium 3.7 mmol/L (3.3-5.1); Sodium 137 mmol/L (135-145); Total Protein 6.9 g/dL (6.5-8.0)
[2023-12-31 14:33] LABS: B Type Natriuretic Peptide 44 pg/mL (<100)
[2023-12-31 14:34] LABS: Troponin-I High Sensitivity 15.8 ng/L (<3.5-35.0)
[2023-12-31] MEDS: Magnesium Sulfate/D5W 1 GM/100 ML PIGGYBACK IV (16:12)
[2023-12-31 17:53] LABS: Appearance Urine Clear; Color Urine Yellow; Glucose Urine UA >=1000 mg/dL (Negative); Leukocyte Esterase Urine Negative (Negative); Nitrite Urine Negative (Negative); PH 6.5 (5.0-9.0); Specific Gravity - Urine 1.015 (1.005-1.025); UMIC TRIGGER UACC YES; Urine Blood Small (1+) (Negative); Urine Ketones Negative (Negative); Urine Protein Trace mg/dL (Neg-Trace)
[2023-12-31 18:02] LABS: Amphetamine Screen Urine Not Detected (Not Detect); Barbiturates, Urine Not Detected (Not Detect); Benzodiazepines Screen Urine Not Detected (Not Detect); Cannabinoid Screen Urine Not Detected (Not Detect); Cocaine Screen Urine Not Detected (Not Detect); Fentanyl, urine Not Detected (Not Detect); Opiate Screen Urine Not Detected (Not Detect); Phencyclidine Screen Urine Not Detected (Not Detect)
[2023-12-31 18:13] LABS: Bacteria Urine None Seen (None Seen); Hyaline Casts Urine 0-2 /LPF (0-2); RBC Urine 0-2 /HPF (0-2); Squamous Epithelial Cell Urine 0-2 /HPF (0-2); WBC Urine 0-5 /HPF (0-5)
--- NOTE | 2023-12-31 19:19 | PC.NURSE ---
Pt is ready to be discharged. Pt called brother for a ride. Brother will be here shortly to bring pt home.
--- NOTE | 2023-12-31 19:31 | ECG_ITS ---
Test Reason : TACHYCARDIA Blood Pressure : / mmHG Vent. Rate : 149 BPM Atrial Rate : 000 BPM P-R Int : 000 ms QRS Dur : 074 ms QT Int : 278 ms P-R-T Axes : 000 022 059 degrees QTc Int : 437 ms Atrial fibrillation with rapid ventricular response Nonspecific T wave abnormality Abnormal ECG When compared with ECG of 31-DEC-2023 13:57, Atrial fibrillation has replaced Sinus rhythm Referred By: Charlene Layton Electronically Signed By:ALISSA KENNEDY
[2023-12-31] MEDS: dilTIAZem HCL 50 MG/10 ML VIAL 10 MG IVPUSH ×2 (19:50→20:24)
--- NOTE | 2023-12-31 19:53 | PC.NURSE ---
Upon obtaining discharge vitals pt found to have an elevated HR 130-140's. EKG done and pt found to be in A-fib. Dr Layton notified. New order entered in JAN. Pt is not ready for discharge at this time. Pts brother made aware. Pt medicated with Cardizem as ordered. Tolerated well. Toileting assistance provided. No apparent distress noted. Breaths are even regular and unlabored.
--- NOTE | 2023-12-31 21:08 | PHA.MEDREC ---
Addendum entered by Song Allen [facility] 01/01/24 08:55: [facility] They confirmed that the last fill for atorvastatin was for 10 mg on 02/22/23 and last fill for metoprolol ER 50 mg was on 05/31/23. Jim called Dr. Jakob Lo's office and spoke to Zarina. She said the last visit was in july and patient is suposed to be on atorvastatin 20 mg (last fill 01/22/23 for 90 day supply), she also confirmed the rest of med list as being active. Original Note: Pharmacy Consult ? Medication Reconciliation Pharmacy has completed the medication reconciliation. Patient unsure of medications. Utilized claim history to confirm medications. Eliquis is filled at the [facility] and I received a fax confirmation. Patient only reported Atrovastatin but last fill in for 02/22/23, therefore will have AM pharmacist call [facility] in the AM to see if claim history is missing fills. Rina Coronado, PharmD
[2023-12-31] MEDS: dilTIAZem HCL 125 MG in 0.9 % Sodium Chloride 100 ML 10 MG IVCONT (21:24)
--- NOTE | 2023-12-31 21:26 | PC.NURSE ---
cardizem drip started at [facility] request - started at 10mg/hr infusing through #20g iv RAC . HR 140, BP 116/64 at start of infusion
[2023-12-31] MEDS: PHENobarbitaL sodium 130 MG/ML IM ONCE 339.3 MG IM (22:19)
--- NOTE | 2023-12-31 22:19 | PM.IMHP ---
History of Present Illness Date of Service: 12/31/23 Attending physician on admission: Qamar Hand Chief Complaint: Fall at home Pt is a 73-year-old male with a PMH significant for?paroxysmal AFib on Eliquis, HTN, iyj-qpfeiny-fxflscvot type 2 diabetes, and alcohol use disorder who presents to the ED for evaluation after fall at home. Patient is alert and oriented but a poor historian. Patient unclear about many details surrounding his fall at home, and is unaware of what PMH he has or what medications he is on. HPI supplemented by chart and provider review. Patient states that he ?passed out? at home earlier today and hit his head. Complains of neck pain but does not know whether he hit his head or not. He is unable to state whether he tripped on something or had lightheadedness or dizziness. Does admit to daily drinking of around a pint per day. This has been ongoing for many years. According to EMS patient was found on the floor by his son earlier today. Unclear how long patient was on the floor, though it is estimated to be at least a few hours. Patient himself is unclear whether he fell earlier today or sometime yesterday. In the ED as patient was getting ready to be discharged, it was noted his heart rate increased into the 150s. Patient was given 2 doses of Cardizem IV push, with initial improvement into the 120s, but heart rate continued to fluctuate between the 120s and 150s. Patient was then placed on Cardizem drip and request was made to admit to the hospital for further management. Patient himself denies chest pain/pressure, palpitations. ?No pain anywhere else except for neck. Denies fever, chills, nausea, vomiting, abdominal pain. Denies shortness of breath. Patient denies history of alcohol withdrawal. In the ED pt was tachycardic up to 150s and hypertensive up to 157/69. Labs were significant for chronic anemia of 11.5/33.8, chronic thrombocytopenia of 128, magnesium 1.3, bilirubin 1.9, alk-phos 153, and CPK 1281. Ethyl alcohol 100 at 14:08. CT?of head with no acute intracranial hemorrhage and grossly no evidence of acute territorial infarct, but did show loss of parenchymal volume and scattered chronic small-vessel ischemic changes. CT of cervical spine found no acute fracture and no posttraumatic spinal subluxation, but did show advanced multilevel degenerative spondylolysis and at least moderate canal stenosis at multiple levels. Initial EKG demonstrated sinus tachycardia of 102 with no evidence of ST elevations or depressions. Repeat EKG found AFib with RVR of 149. Pt was treated with IVF, Mag sulfate, diltiazem 10 mg IV push x2 doses, and patient was started on a diltiazem drip and started on phenobarb protocol. Pt will be admitted to the hospital for treatment and further evaluation of AFib with RVR and alcohol use disorder with likely impending alcohol withdrawal. Review of Systems Review of Systems: Fall at home Neck pain Denies chest pain/pressure, palpitations No shortness of breath Denies fever, chills, nausea, vomiting, abdominal pain Denies lightheadedness or dizziness PENDING SALE TO [facility] Medical History Chronic anticoagulation Atrial fibrillation Alcohol abuse HLD (hyperlipidemia) Hypertension Diabetes Alcohol abuse Family History Other No family history of coronary artery disease Surgical History No history of previous surgery Social History Household Members: Spouse and Other Household Members Other:: son Housing: House Do you presently have visiting nurse or other home services: No Alcohol intake: current Alcohol intake frequency: 3 or more drinks per day Alcohol type: hard liquor Patient Tobacco Use Status: Former Tobacco user Quit Date: 37 years ago Years Smoked: 20 Smoked in Last 30 Days: No Use of substances other than those prescribed or required for medical reasons: No Substance Use Type: Marijuana Advance Directives: No Advance Directives Information Provided: No service: Yes Current occupational status: retired Meds Allergies Allergy/AdvReac Type Severity Reaction Status Date / Time alcohol Allergy Intermediate rash Verified 05/09/23 07:18 clams Allergy Intermediate UNKNOWN Verified 05/09/23 07:18 oxycodone Allergy Intermediate rash Verified 05/09/23 07:18 Gzkcclr-YQR-LjT Reductase Allergy Unknown CONFUSION Unverified 08/12/23 00:40 Inhibitor [ZTOJHIL-[id number]-ZAF REDUCTASE INHIBITOR] steamers/ clams Allergy Intermediate flu like Uncoded 05/04/23 15:35 symptoms Active Medications: Current Medications Diltiazem HCl 125 mg/ Sodium (Chloride) 125 mls @ 0 mls/hr IVCONT .Q0M [facility]; Protocol Last Admin: 12/31/23 21:24 Dose: 10 mg/hr, 10 mls/hr Pharmacy Consult (Consult Rx Etoh Phenob Im/Po) 1 each MISCELLANE ONCE PRN; Protocol PRN Reason: Consult order Phenobarbital (Phenobarbital 15 Mg Tablet) 45 mg PO BID [facility]; Protocol Stop: 01/02/24 21:01 Phenobarbital (Phenobarbital 30 Mg Tablet) 30 mg PO BID [facility]; Protocol Stop: 01/04/24 21:01 Phenobarbital (Phenobarbital 15 Mg Tablet) 15 mg PO DAILY [facility]; Protocol Stop: 01/06/24 09:01 Phenobarbital Sodium (Phenobarbital Sodium 130 Mg/Ml Vial Im Q3hx2) 254.8 mg IM Q3H [facility]UD[facility]; Protocol Stop: 01/01/24 04:01 Home Medications Medication Instructions Recorded Confirmed Last Taken Type amlodipine 5 mg tablet 1 tab PO DAILY 10/14/22 12/31/23 08/11/23 History lisinopril 10 mg tablet 1 tab PO DAILY 10/14/22 12/31/23 08/11/23 History metoprolol succinate 50 mg 1 tab PO DAILY 10/14/22 08/12/23 08/11/23 History tablet,extended release 24 hr apixaban 5 mg tablet (Eliquis) 5 mg PO BID 04/22/23 12/31/23 08/11/23 History atorvastatin 20 mg tablet 20 mg PO DAILY 04/22/23 08/12/23 08/11/23 History metformin 500 mg tablet 500 mg PO DAILY 12/31/23 12/31/23 Unknown History Physical Exam Vital Signs and Narrative: Vital Signs: Last Vital Signs Temp 98.7 F 12/31/23 22:15 Pulse 117 H 12/31/23 22:15 Resp 15 12/31/23 22:15 BP 121/60 12/31/23 22:15 Pulse Ox 95 12/31/23 22:15 O2 Del Method Room Air 12/31/23 22:15 BMI result Body Mass Index 26.7 Constitutional: Alert, disheveled, in no acute distress. Mental Status: Oriented to person, place and time. Eyes: Pupils are equal, round, and reactive to light. Ear, Nose, and Throat: Oropharynx clear, mucous membranes moist. Ears and nose without deformities. Trachea midline. Respiratory: Clear to auscultation bilaterally. No wheezing, rales, or rhonchi. Cardiovascular: Irregularly irregular rhythm, tachycardic. No murmurs, rubs, or gallops. Gastrointestinal: Abdomen soft, non-tender, non-distended. Normal bowel sounds. Neurologic: Cranial nerves II-XII are grossly intact bilaterally. No focal neurological deficits. Moves all extremities spontaneously, though noted symmetric bilateral lower extremity weakness. Skin: Warm, dry. Musculoskeletal: No cyanosis or clubbing. Extremities: 1+ bilateral pitting edema. Chronic venous stasis dermatitis. Psychiatric: Normal mood and affect. Results Labs 12/31/23 14:08 12/31/23 14:08 Labs: Laboratory Results - last 24 hr 12/31/23 12/31/23 12/31/23 14:05 14:08 17:46 MCV 85.4 MCH 29.0 MCHC 34.0 RDW 16.6 H Plt Count 128 L MPV 8.7 L Immature Gran % (Auto) 0.2 Neut % (Auto) 70.3 Lymph % (Auto) 18.4 L [place] % (Auto) 10.9 Eos % (Auto) 0.0 Baso % (Auto) 0.2 Lymph # (Auto) 0.8 L [place] # (Auto) 0.5 Eos # (Auto) 0.0 Baso # (Auto) 0.0 Abs Immat Gran (auto) 0.01 Absolute Neuts (auto) 2.9 Absolute Nucleated RBC 0.000 Nucleated RBC % (auto) 0.0 PT 18.6 H INR 1.5 H Anion Gap 13 Estim Creat Clear Calc 85.6 Estimated GFR > 60 POC Glucose 194 H Random Glucose 208 H Calcium 9.0 Magnesium 1.3 L* Total Bilirubin 1.9 H Direct Bilirubin 0.8 H AST 32 ALT 16 Alkaline Phosphatase 153 H Total Creatine Kinase 1281 H B-Natriuretic Peptide 44 Total Protein 6.9 Albumin 3.7 Lipase 18 Urine Color Yellow Urine Appearance Clear Urine pH 6.5 Ur Specific [place] 1.015 Urine Protein Trace Urine Glucose (UA) >=1000 H Urine Ketones Negative Urine Blood Small (1+) H Urine Nitrite Negative Ur Leukocyte Esterase Negative Urine RBC 0-2 Urine WBC 0-5 Ur Squamous Epith Cells 0-2 Urine Bacteria None Seen Hyaline Casts 0-2 Urine Opiates Screen Not Detected Urine Fentanyl Screen Not Detected Ur Barbiturates Screen Not Detected Ur Phencyclidine Scrn Not Detected Ur Amphetamines Screen Not Detected U Benzodiazepines Scrn Not Detected Urine Cocaine Screen Not Detected U Marijuana (THC) Screen Not Detected Ethyl Alcohol 100 Imaging Radiologist's Impressions: Impressions Cervical Spine CT 12/31/23 13:40 IMPRESSION: Head: No acute intracranial hemorrhage. There is loss of parenchymal volume and scattered chronic small vessel ischemic changes within the periventricular white matter. Grossly no evidence of acute territorial infarct. Cervical Spine: No acute fracture and no posttraumatic spinal subluxation. There is advanced multilevel degenerative spondylosis of the cervical spine with at least moderate canal stenosis at multiple levels. If there are clinical symptoms of compressive myelopathy then a dedicated cervical spine MRI can be obtained for better anatomic characterization of the cord and canal. Head CT 12/31/23 13:40 IMPRESSION: Head: No acute intracranial hemorrhage. There is loss of parenchymal volume and scattered chronic small vessel ischemic changes within the periventricular white matter. Grossly no evidence of acute territorial infarct. Cervical Spine: No acute fracture and no posttraumatic spinal subluxation. There is advanced multilevel degenerative spondylosis of the cervical spine with at least moderate canal stenosis at multiple levels. If there are clinical symptoms of compressive myelopathy then a dedicated cervical spine MRI can be obtained for better anatomic characterization of the cord and canal. Assessment and Plan (1) Atrial fibrillation with RVR: Status: Acute (2) Hypomagnesemia: Status: Acute (3) Alcohol abuse: Status: Acute Plan Pt is a 73-year-old male with a PMH significant for?paroxysmal AFib on Eliquis, HTN, hox-xqyzaya-xtifxfqpl type 2 diabetes, and alcohol use disorder who presents to the ED for evaluation after fall at home. While in the ED getting ready for discharge patient's heart rate was noted to be in the 150s. Pt will be admitted to the hospital for treatment and further evaluation of AFib with RVR and alcohol use disorder with likely impending alcohol withdrawal. AFib with RVR Patient heart rate in the 150s Given diltiazem 10 mg IV x2 doses, started on diltiazem drip Continue diltiazem drip Hold amlodipine Continue Eliquis Monitor on telemetry Rhabdomyolysis Patient with fall at home with unknown down time, likely more than few hours CPK elevated at 1281 Patient received IVF in ED Will give additional [address] on maintenance fluids: D5 NS @125mls/hr Follow CPK Hypomagnesemia Patient's magnesium 1.3 at time of presentation Given IV Mag in ED Follow Mag, supplement as necessary Alcohol use disorder with likely impending withdrawal Patient drinks at least 1 pint daily, unclear if last drank yesterday or earlier today Patient's ethyl alcohol level 100 at 14:08 Will start on phenobarb protocol for impending withdrawal Daily multivitamin, folic acid, thiamine Famotidine 20 mg p.o. b.i.d. Follow lytes, Mag Will place on maintenance fluids CIWA scale Addiction Medicine consult Monitor on telemetry Fcs-qgqvahn-lpxvuiscv type 2 diabetes Hold metformin Will place on sliding scale insulin Diabetic diet HTN Continue lisinopril Hold amlodipine Full Code Attending:?Dr. Holt DVT Prophylaxis: On Eliquis Pt will require a hospitalization of at least two nights for treatment of?AFib with RVR and alcohol use likely impending withdrawal. Patient required hospitalization for administration of diltiazem drip, close cardiac monitoring, and administration of phenobarb protocol. Quality Stroke Does the patient have a stroke diagnosis?: No VTE Prior VTE?: No VTE Risk Level:: Medical - moderate - high VTE Device Contraindication: Treatment Not Indicated VTE Drug Contraindication: N/A - Med Ordered
[2023-12-31] MEDS: 0.9 % Sodium Chloride Flush 3 ML SYRINGE IVFLUSH (23:36)
[2023-12-31] MEDS: Famotidine 20 MG TABLET PO (23:36)
[2023-12-31] MEDS: 0.9 % Sodium Chloride 1,000 ML 999 ML IV (23:36)
[2023-12-31] MEDS: Apixaban 5 MG TABLET PO (23:36)
[2023-12-31] MEDS: Thiamine HCL 100 MG in 0.9 % Sodium Chloride 100 ML 202 MG IV (23:37)
[2024-01-01] MEDS: PHENobarbitaL sodium 130 MG/ML VIAL IM Q3Hx2 254.8 MG IM ×2 (01:01→04:07)
[2024-01-01] MEDS: Dextrose 5 % and 0.9 % NaCl 1,000 ML 125 ML IVCONT ×3 (01:01→17:35)
--- NOTE | 2024-01-01 03:26 | PC.NURSE ---
HR irregular, steady between 70-90 bpm. Diltiazem drip paused at this time per protocol. Pt sleeping at the bedside. No apparent distress noted. Breaths are even regular and unlabored. Pending bed assignment.
[2024-01-01 04:30] VITALS: BP 117/58; PULSE 82; RESP 14; O2SAT 100
[2024-01-01 05:18] LABS: Hematocrit 30.9 % (42.0-52.0); Hemoglobin 10.4 g/dl (14.0-18.0); Mean Corpuscular HGB Conc 33.7 g/dl (31.0-36.0); Mean Corpuscular Hemoglobin 29.3 pg (27.0-33.0); Mean Platelet Volume 10.6 fL (9.4-12.4); Red Blood Count 3.55 X10*6/uL (4.60-5.80); Red Cell Distribution Width 16.5 % (11.0-16.0); White Blood Count 3.9 X10*3/uL (4.8-10.8)
--- NOTE | 2024-01-01 05:35 | PC.NURSE ---
Irregular HR noted to increase 115-120 bpm. Diltiazem drip re-started at 10 mls/hr. Pt resting at the bedside. No apparent distress noted. Toileting assistance provided. Monitoring is ongoing.
[2024-01-01 05:53] LABS: Anion Gap 12 (12-20); Blood Urea Nitrogen 8 mg/dL (9-16); Calcium 8.2 mg/dL (8.4-10.2); Carbon Dioxide 28 mmol/L (22-29); Chloride 100 mmol/L (96-108); Estimated Glomerular Filt Rate > 60; Glucose Random 181 mg/dL (60-115); Magnesium 1.4 mg/dL (1.6-2.6); Potassium 3.8 mmol/L (3.3-5.1); Sodium 136 mmol/L (135-145)
[2024-01-01 06:13] LABS: Glucose, Whole Blood 181 mg/dL (60-115)
[2024-01-01] MEDS: Magnesium Sulfate/H2O 2 GM/50 ML PIGGYBACK IV ×2 (06:54→11:27)
[2024-01-01 07:30] VITALS: BP 117/58; PULSE 82; O2SAT 100
[2024-01-01 08:34] LABS: Magnesium 1.3 mg/dL (1.6-2.6)
[2024-01-01 08:59] VITALS: BP 122/63; PULSE 89; RESP 18; O2SAT 99
[2024-01-01] MEDS: PHENobarbitaL 15 MG TABLET 45 MG PO ×2 (09:00→20:54)
[2024-01-01] MEDS: Apixaban 5 MG TABLET PO ×2 (09:01→20:53)
[2024-01-01] MEDS: Famotidine 20 MG TABLET PO ×2 (09:01→20:54)
[2024-01-01] MEDS: lisinopriL 10 MG TABLET PO (09:01)
[2024-01-01] MEDS: Thiamine HCL 100 MG TABLET PO (09:54)
[2024-01-01] MEDS: Multivitamin TABLET 1 TAB PO (09:54)
[2024-01-01] MEDS: Folic Acid 1 MG TABLET PO (09:54)
[2024-01-01] MEDS: Metoprolol Succinate ER 25 MG TAB.ER.24H 75 MG PO (11:27)
[2024-01-01 11:30] VITALS: BMI 26.7
--- NOTE | 2024-01-01 11:54 | MHC.CM.PN ---
IMM 01/01/24, pt lives with , he does not have any home health services, he uses a walker, he will complete HCP form, naming his . Transportation home upon DC, TBD, PCP: Jakob Lo.
[2024-01-01 12:00] VITALS: BP 126/59; PULSE 122; RESP 19; TEMP 37.1; O2SAT 98
--- NOTE | 2024-01-01 13:10 | P.PNIM_ITS ---
Subjective Subjective Date of Service: 01/01/24 Interval History: Seen and evaluated this morning feels little better Heart rate better controlled Review of Systems Review of Systems: Yes all other systems are reviewed and are negative Physical Exam 2 Vital Signs: Vital Signs: Last Vital Signs Temp 98.7 F 01/01/24 12:00 Pulse 122 H 01/01/24 12:00 Resp 19 01/01/24 12:00 BP 126/59 L 01/01/24 12:00 Pulse Ox 98 01/01/24 12:00 O2 Del Method Room Air 01/01/24 12:00 BMI result Body Mass Index 26.7 Const: Other: Constitutional : Awake, interactive, not in distress Neck : Normal inspection, Supple Cardiovascular : irregular irregular, no JVP, +1 lower extremity edema Respiratory : good bilateral air entry, no crackles, wheezes or rhonchi Gastrointestinal: soft, lax, Normal bowel sounds, Non tender Skin : Warm, Dry Neurological : Alert & oriented x3, No focal deficit Objective Data Active Medications Acetaminophen (Acetaminophen 325 Mg Tablet) 650 mg PO Q6H PRN PRN Reason: Pain, Mild (Pain Scale 1-3) Apixaban (Apixaban 5 Mg Tablet) 5 mg PO BID [facility] Last Admin: 01/01/24 09:01 Dose: 5 mg Documented By: MONIQUE Atorvastatin Calcium (Atorvastatin Calcium 20 Mg Tablet) 20 mg PO DAILY [facility] Famotidine (Famotidine 20 Mg Tablet) 20 mg PO BID [facility] Last Admin: 01/01/24 09:01 Dose: 20 mg Documented By: MONIQUE Folic Acid (Folic Acid 1 Mg Tablet) 1 mg PO DAILY [facility] Stop: 01/04/24 08:59 Last Admin: 01/01/24 09:54 Dose: 1 mg Documented By: IRLANDA Diltiazem HCl 125 mg/ Sodium (Chloride) 125 mls @ 0 mls/hr IVCONT .Q0M [facility]; Protocol Last Titration: 01/01/24 10:17 Dose: Infused Documented By: IRLANDA Dextrose/Sodium Chloride (D5ns) 1,000 mls @ 125 mls/hr IVCONT .Q8H [facility] Last Admin: 01/01/24 09:56 Dose: 125 mls/hr Documented By: IRLANDA Lisinopril (Lisinopril 10 Mg Tablet) 10 mg PO DAILY [facility]; Protocol Last Admin: 01/01/24 09:01 Dose: 10 mg Documented By: MONIQUE Metoprolol Succinate (Metoprolol Succinate Er 25 Mg Tab.Er.24h) 75 mg PO DAILY [facility]; Protocol Last Admin: 01/01/24 11:27 Dose: 75 mg Documented By: IRLANDA Multivitamins/Vitamin C (Multivitamin Tablet) 1 tab PO DAILY [facility] Stop: 01/04/24 08:59 Last Admin: 01/01/24 09:54 Dose: 1 tab Documented By: IRLANDA Ondansetron HCl (Ondansetron Hcl 4 Mg/2 Ml Vial) 4 mg IVPUSH Q8H PRN PRN Reason: Nausea and Vomiting Pharmacy Consult (Consult Rx Etoh Phenob Im/Po) 1 each MISCELLANE ONCE PRN; Protocol PRN Reason: Consult order Phenobarbital (Phenobarbital 15 Mg Tablet) 45 mg PO BID [facility]; Protocol Stop: 01/02/24 21:01 Last Admin: 01/01/24 09:00 Dose: 45 mg Documented By: MONIQUE Phenobarbital (Phenobarbital 30 Mg Tablet) 30 mg PO BID [facility]; Protocol Stop: 01/04/24 21:01 Phenobarbital (Phenobarbital 15 Mg Tablet) 15 mg PO DAILY [facility]; Protocol Stop: 01/06/24 09:01 Sodium Chloride (0.9 % Sodium Chloride Flush 3 Ml Syringe) [facility] Last Admin: 01/01/24 09:01 Dose: Not Given Documented By: MONIQUE Non-Admin Reason: IV Running Thiamine HCl (Thiamine Hcl 100 Mg Tablet) 100 mg PO DAILY [facility] Stop: 01/04/24 08:59 Last Admin: 01/01/24 09:54 Dose: 100 mg Documented By: IRLANDA Labs 01/01/24 04:54 01/01/24 04:54 Labs: Laboratory Results - last 24 hr 12/31/23 12/31/23 12/31/23 14:05 14:08 17:46 MCV 85.4 MCH 29.0 MCHC 34.0 RDW 16.6 H Plt Count 128 L MPV 8.7 L Immature Gran % (Auto) 0.2 Neut % (Auto) 70.3 Lymph % (Auto) 18.4 L [place] % (Auto) 10.9 Eos % (Auto) 0.0 Baso % (Auto) 0.2 Lymph # (Auto) 0.8 L [place] # (Auto) 0.5 Eos # (Auto) 0.0 Baso # (Auto) 0.0 Abs Immat Gran (auto) 0.01 Absolute Neuts (auto) 2.9 Absolute Nucleated RBC 0.000 Nucleated RBC % (auto) 0.0 PT 18.6 H INR 1.5 H Anion Gap 13 Estim Creat Clear Calc 85.6 Estimated GFR > 60 POC Glucose 194 H Random Glucose 208 H Calcium 9.0 Magnesium 1.3 L* Total Bilirubin 1.9 H Direct Bilirubin 0.8 H AST 32 ALT 16 Alkaline Phosphatase 153 H Total Creatine Kinase 1281 H B-Natriuretic Peptide 44 Total Protein 6.9 Albumin 3.7 Lipase 18 Urine Color Yellow Urine Appearance Clear Urine pH 6.5 Ur Specific [place] 1.015 Urine Protein Trace Urine Glucose (UA) >=1000 H Urine Ketones Negative Urine Blood Small (1+) H Urine Nitrite Negative Ur Leukocyte Esterase Negative Urine RBC 0-2 Urine WBC 0-5 Ur Squamous Epith Cells 0-2 Urine Bacteria None Seen Hyaline Casts 0-2 Urine Opiates Screen Not Detected Urine Fentanyl Screen Not Detected Ur Barbiturates Screen Not Detected Ur Phencyclidine Scrn Not Detected Ur Amphetamines Screen Not Detected U Benzodiazepines Scrn Not Detected Urine Cocaine Screen Not Detected U Marijuana (THC) Screen Not Detected Ethyl Alcohol 100 01/01/24 01/01/24 04:27 04:54 MCV 87.0 MCH 29.3 MCHC 33.7 RDW 16.5 H Plt Count MPV 10.6 Immature Gran % (Auto) Neut % (Auto) Lymph % (Auto) [place] % (Auto) Eos % (Auto) Baso % (Auto) Lymph # (Auto) [place] # (Auto) Eos # (Auto) Baso # (Auto) Abs Immat Gran (auto) Absolute Neuts (auto) Absolute Nucleated RBC 0.000 Nucleated RBC % (auto) 0.0 PT INR Anion Gap 12 Estim Creat Clear Calc 94.0 Estimated GFR > 60 POC Glucose 181 H Random Glucose 181 H Calcium 8.2 L D Magnesium 1.4 L* Total Bilirubin Direct Bilirubin AST ALT Alkaline Phosphatase Total Creatine Kinase 993 H B-Natriuretic Peptide Total Protein Albumin Lipase Urine Color Urine Appearance Urine pH Ur Specific [place] Urine Protein Urine Glucose (UA) Urine Ketones Urine Blood Urine Nitrite Ur Leukocyte Esterase Urine RBC Urine WBC Ur Squamous Epith Cells Urine Bacteria Hyaline Casts Urine Opiates Screen Urine Fentanyl Screen Ur Barbiturates Screen Ur Phencyclidine Scrn Ur Amphetamines Screen U Benzodiazepines Scrn Urine Cocaine Screen U Marijuana (THC) Screen Ethyl Alcohol Assessment and Plan (1) Atrial fibrillation with RVR: Status: Acute (2) Alcohol abuse: Status: Acute (3) Hypomagnesemia: Status: Acute (4) Fall: Status: Acute Plan Pt is a 73-year-old male with a PMH significant for?paroxysmal AFib on Eliquis, HTN, upq-mzbjksl-krthwtkjr type 2 diabetes, and alcohol use disorder who presents to the ED for evaluation after fall at home. While in the ED getting ready for discharge patient's heart rate was noted to be in the 150s. Pt will be admitted to the hospital for treatment and further evaluation of AFib with RVR and alcohol use disorder with likely impending alcohol withdrawal. AFib with RVR rate better controlled hold on diltiazem drip Hold amlodipine Increase Metoprolol XL to 75 mg Continue Eliquis Monitor on telemetry Rhabdomyolysis CPK tredning down Continue maintenance fluids Follow CPK Hypomagnesemia magnesium 1.4 Give more IV Mg Follow Mag Alcohol use disorder with impending withdrawal continue phenobarb protocol Daily multivitamin, folic acid, thiamine Famotidine 20 mg p.o. b.i.d. Follow lytes, Mag IVF CIWA scale Addiction Medicine consult Monitor on telemetry Dnh-cjrfhlu-oiwgxyxam type 2 diabetes Hold [address] on sliding scale insulin Diabetic diet HTN Continue lisinopril Hold amlodipine Full Code DVT Prophylaxis: On Eliquis Pt will require a hospitalization overnight for treatment of?AFib with RVR and alcohol use likely impending withdrawal, close cardiac monitoring, and administration of phenobarb protocol. Quality Stroke Does the patient have a stroke diagnosis?: No VTE Prior VTE?: No VTE Risk Level:: Medical - moderate - high VTE Device Contraindication: Treatment Not Indicated VTE Drug Contraindication: N/A - Med Ordered
[2024-01-01 16:00] VITALS: BP 122/79; PULSE 94; RESP 20; TEMP 37.3; O2SAT 98
--- NOTE | 2024-01-01 16:18 | HO.WOUND ---
Wound Consult: Initial 73yr old M? admitted to [facility] [place] on 12/31/23 22:20 - See progress notes and H&P for detailed history.? Wound consult placed for Coccyx wound POA.? Unable to assess patient at this time will defer assessment to future date and time. Photo uploaded to EMR reviewed - appears to be consisitent with MASD (Moisture Associated Skin Damage) - will confirm etiology at assessment early nect week should patient remain inpatient.? Photo from chart review and direct care nurse upload. Sacrum - - Mirrored intergluteal redness with dry red edges noted- there is a hyperpigmented maroon area on the left buttock area appears intact. Topical recommendations made below. ? Recommendations: 1. Turn and Reposition every 2 hours and as needed for patient comfort.? Use pillows or wedges to support off loading positions. 2. Off Load all bony prominences with use of pillows and heel boots if needed.? Apply Preventative foams where needed. ? 3. Monitor for incontinence and moisture control, use barrier creams when needed for prevention and treatment. 4. Provide adequate and supplemental nutrition.? 5. Order or Continue low air loss mattress. 6. When applicable maintain blood glucose levels per Providers order. 7. Sacrum - Cleanse with PH balance spray or wipes, pat dry. ?Apply thin layer of Triad to wound bed. Do not remove all of paste between applications as this may cause further skin damage.? Cover with foam dressing to aid in off loading and protection from friction. Change every 3 days and PRN.
[2024-01-01 19:29] VITALS: BP 115/71; PULSE 84; RESP 18; TEMP 37.2; O2SAT 98
[2024-01-01 21:18] LABS: Glucose, Whole Blood 222 mg/dL (60-115)
[2024-01-02] VITALS (7 sets, daily range): BP systolic 116–130; BP diastolic 56–75; PULSE 70–96; RESP 16–20; TEMP 36.6–37.3; O2SAT 95–99
[2024-01-02] MEDS: 0.9 % Sodium Chloride Flush 3 ML SYRINGE IVFLUSH ×3 (00:53→23:47)
[2024-01-02] MEDS: Dextrose 5 % and 0.9 % NaCl 1,000 ML 125 ML IVCONT (01:04)
[2024-01-02 06:53] LABS: Anion Gap 11 (12-20); Blood Urea Nitrogen 8 mg/dL (9-16); Calcium 8.4 mg/dL (8.4-10.2); Carbon Dioxide 24 mmol/L (22-29); Chloride 103 mmol/L (96-108); Creatinine Clr Calc Pharmacy 90.2; Estimated Glomerular Filt Rate > 60; Glucose Random 160 mg/dL (60-115); Magnesium 1.9 mg/dL (1.6-2.6); Potassium 3.4 mmol/L (3.3-5.1); Sodium 135 mmol/L (135-145)
[2024-01-02 07:48] LABS: Glucose, Whole Blood 159 mg/dL (60-115)
[2024-01-02] MEDS: Famotidine 20 MG TABLET PO ×2 (08:48→20:40)
[2024-01-02] MEDS: PHENobarbitaL 15 MG TABLET 45 MG PO ×2 (08:48→20:39)
[2024-01-02] MEDS: Atorvastatin Calcium 20 MG TABLET PO (08:48)
[2024-01-02] MEDS: Multivitamin TABLET 1 TAB PO (08:49)
[2024-01-02] MEDS: Folic Acid 1 MG TABLET PO (08:49)
[2024-01-02] MEDS: Metoprolol Succinate ER 25 MG TAB.ER.24H 75 MG PO (08:49)
[2024-01-02] MEDS: Apixaban 5 MG TABLET PO ×2 (08:49→20:40)
[2024-01-02] MEDS: Thiamine HCL 100 MG TABLET PO (08:49)
[2024-01-02] MEDS: Magnesium Oxide 400 MG TABLET PO (08:49)
[2024-01-02] MEDS: lisinopriL 10 MG TABLET PO (08:49)
[2024-01-02 11:16] LABS: Glucose, Whole Blood 121 mg/dL (60-115)
[2024-01-02] MEDS: Fluticasone Propionate Nasal 16 GM SPRAY 1 SPRAY NOSTRIL-B ×2 (11:20→20:39)
--- NOTE | 2024-01-02 11:51 | HO.PM.IMPN ---
Subjective Subjective Date of Service: 01/02/24 Interval History: Seen and evaluated this morning Heart rate better controlled rhabdo resolving tolerating diet no other events Review of Systems Review of Systems: Yes all other systems are reviewed and are negative Physical Exam Vital Signs: Vital Signs: Last Vital Signs Temp 97.9 F 01/02/24 11:41 Pulse 86 01/02/24 11:41 Resp 18 01/02/24 11:41 BP 130/72 01/02/24 11:41 Pulse Ox 96 01/02/24 11:41 O2 Del Method Room Air 01/02/24 11:41 BMI result Body Mass Index 26.7 Const: Other: Constitutional : Awake, interactive, not in distress Neck : Normal inspection, Supple Cardiovascular : irregular irregular, no JVP, +1 lower extremity edema Respiratory : good bilateral air entry, no crackles, wheezes or rhonchi Gastrointestinal: soft, lax, Normal bowel sounds, Non tender Skin : Warm, Dry Neurological : Alert & oriented x3, No focal deficit Objective Data Active Medications Acetaminophen (Acetaminophen 325 Mg Tablet) 650 mg PO Q6H PRN PRN Reason: Pain, Mild (Pain Scale 1-3) Apixaban (Apixaban 5 Mg Tablet) 5 mg PO BID [facility] Last Admin: 01/02/24 08:49 Dose: 5 mg Documented By: ERENDIRA Atorvastatin Calcium (Atorvastatin Calcium 20 Mg Tablet) 20 mg PO DAILY [facility] Last Admin: 01/02/24 08:48 Dose: 20 mg Documented By: ERENDRIA Famotidine (Famotidine 20 Mg Tablet) 20 mg PO BID [facility] Last Admin: 01/02/24 08:48 Dose: 20 mg Documented By: ERENDIRA Fluticasone Propionate (Fluticasone Propionate Nasal 16 Gm [place]) 1 spray NOSTRIL-B BID [facility] Last Admin: 01/02/24 11:20 Dose: 1 spray Documented By: ERENDIRA Folic Acid (Folic Acid 1 Mg Tablet) 1 mg PO DAILY [facility] Stop: 01/04/24 08:59 Last Admin: 01/02/24 08:49 Dose: 1 mg Documented By: ERENDIRA Insulin Human Lispro (Insulin Lispro 100 Unit/Ml 3 Ml Vial) 0 unit SUBCUT QIDACHS [facility]; Protocol Last Admin: 01/02/24 11:19 Dose: Not Given Documented By: ERENDIRA Non-Admin Reason: No Insulin Coverage Comments: poc 121 Lisinopril (Lisinopril 10 Mg Tablet) 10 mg PO DAILY [facility]; Protocol Last Admin: 01/02/24 08:49 Dose: 10 mg Documented By: ERENDIRA Magnesium Oxide (Magnesium Oxide 400 Mg Tablet) 400 mg PO DAILY [facility] Last Admin: 01/02/24 08:49 Dose: 400 mg Documented By: ERENDIRA Metoprolol Succinate (Metoprolol Succinate Er 25 Mg Tab.Er.24h) 75 mg PO DAILY [facility]; Protocol Last Admin: 01/02/24 08:49 Dose: 75 mg Documented By: ERENDIRA Multivitamins/Vitamin C (Multivitamin Tablet) 1 tab PO DAILY [facility] Stop: 01/04/24 08:59 Last Admin: 01/02/24 08:49 Dose: 1 tab Documented By: ERENDIRA Ondansetron HCl (Ondansetron Hcl 4 Mg/2 Ml Vial) 4 mg IVPUSH Q8H PRN PRN Reason: Nausea and Vomiting Pharmacy Consult (Consult Rx Etoh Phenob Im/Po) 1 each MISCELLANE ONCE PRN; Protocol PRN Reason: Consult order Phenobarbital (Phenobarbital 15 Mg Tablet) 45 mg PO BID [facility]; Protocol Stop: 01/02/24 21:01 Last Admin: 01/02/24 08:48 Dose: 45 mg Documented By: ERENDIRA Phenobarbital (Phenobarbital 30 Mg Tablet) 30 mg PO BID [facility]; Protocol Stop: 01/04/24 21:01 Phenobarbital (Phenobarbital 15 Mg Tablet) 15 mg PO DAILY [facility]; Protocol Stop: 01/06/24 09:01 Sodium Chloride (0.9 % Sodium Chloride Flush 3 Ml Syringe) 3 ml IVFLUSH QSHIFT [facility] Last Admin: 01/02/24 08:49 Dose: 3 ml Documented By: ERENDIRA Thiamine HCl (Thiamine Hcl 100 Mg Tablet) 100 mg PO DAILY [facility] Stop: 01/04/24 08:59 Last Admin: 01/02/24 08:49 Dose: 100 mg Documented By: ERENDIRA Labs 01/01/24 04:54 01/02/24 05:38 Labs: Laboratory Results - last 24 hr 01/01/24 01/02/24 01/02/24 21:14 05:38 07:28 Hold Purple Top SEE NOTE Anion Gap 11 L Estim Creat Clear Calc 90.2 Estimated GFR > 60 POC Glucose 222 H 159 H Random Glucose 160 H Calcium 8.4 Magnesium 1.9 Total Creatine Kinase 696 H 01/02/24 11:13 Hold Purple Top Anion Gap Estim Creat Clear Calc Estimated GFR POC Glucose 121 H Random Glucose Calcium Magnesium Total Creatine Kinase Assessment and Plan (1) Atrial fibrillation with RVR: Status: Acute (2) Alcohol abuse: Status: Acute (3) Hypomagnesemia: Status: Acute (4) Physical deconditioning: Status: Acute Plan Pt is a 73-year-old male with a PMH significant for?paroxysmal AFib on Eliquis, HTN, [id number] type 2 diabetes, and alcohol use disorder who presents to the ED for evaluation after fall at home. While in the ED getting ready for discharge patient's heart rate was noted to be in the 150s. Pt will be admitted to the hospital for treatment and further evaluation of AFib with RVR and alcohol use disorder with likely impending alcohol withdrawal. AFib with RVR rate better controlled hold on diltiazem drip Hold amlodipine Increased Metoprolol XL to 75 mg Continue Eliquis Monitor on telemetry Rhabdomyolysis CPK tredning down Continue maintenance fluids Follow CPK Hypomagnesemia magnesium 1.9 after replacement. Follow Mg Alcohol use disorder with impending withdrawal continue phenobarb protocol Daily multivitamin, folic acid, thiamine Famotidine 20 mg p.o. b.i.d. Follow Mag JETHRO chauhanWA scale Addiction Medicine consult Monitor on telemetry [id number]-[id number] type [address] diabetes Hold [address] on sliding scale insulin Diabetic diet HTN Continue lisinopril Hold amlodipine Full Code DVT Prophylaxis: On Eliquis Pt will require a hospitalization overnight for treatment of?AFib with RVR and alcohol use likely impending withdrawal, close cardiac monitoring, and administration of phenobarb protocol. Quality Stroke Does the patient have a stroke diagnosis?: No VTE Prior VTE?: No VTE Risk Level:: Medical - moderate - high VTE Device Contraindication: Treatment Not Indicated VTE Drug Contraindication: N/A - Med Ordered
--- NOTE | 2024-01-02 12:48 | MHC.RECOVRN ---
Attempted to meet with patient this morning regarding Recovery Services, he was asleep in his bed, appeared comfortable, respirations noted, good skin color for ethnicity, skin warm and dry. I let his nurse know I was there to see him and he if woke to let him know I came, she got back to me soon after that he was not interested in our services. Discussed with Karina Martin APRN.
[2024-01-02 15:28] LABS: Glucose, Whole Blood 122 mg/dL (60-115)
[2024-01-02 21:50] LABS: Glucose, Whole Blood 96 mg/dL (60-115)
[2024-01-03] VITALS: BP 134/77; PULSE 91; RESP 20; TEMP 37.5; O2SAT 96
[2024-01-03 03:17] VITALS: BP 123/70; PULSE 61; RESP 22; TEMP 37.6; O2SAT 95
[2024-01-03 06:42] LABS: Anion Gap 14 (12-20); Blood Urea Nitrogen 9 mg/dL (9-16); Calcium 8.5 mg/dL (8.4-10.2); Carbon Dioxide 22 mmol/L (22-29); Chloride 105 mmol/L (96-108); Creatinine Clr Calc Pharmacy 82.4; Estimated Glomerular Filt Rate > 60; Glucose Random 85 mg/dL (60-115); Magnesium 1.7 mg/dL (1.6-2.6); Potassium 3.7 mmol/L (3.3-5.1); Sodium 137 mmol/L (135-145)
[2024-01-03 07:52] VITALS: BP 141/77; PULSE 102; RESP 20; TEMP 37.8; O2SAT 96
[2024-01-03 07:55] LABS: Glucose, Whole Blood 84 mg/dL (60-115)
[2024-01-03] MEDS: Apixaban 5 MG TABLET PO (08:06)
[2024-01-03] MEDS: Atorvastatin Calcium 20 MG TABLET PO (08:06)
[2024-01-03] MEDS: Fluticasone Propionate Nasal 16 GM SPRAY 1 SPRAY NOSTRIL-B (08:06)
[2024-01-03] MEDS: 0.9 % Sodium Chloride Flush 3 ML SYRINGE IVFLUSH (08:06)
[2024-01-03] MEDS: Folic Acid 1 MG TABLET PO (08:06)
[2024-01-03] MEDS: Metoprolol Succinate ER 25 MG TAB.ER.24H 75 MG PO (08:06)
[2024-01-03] MEDS: Famotidine 20 MG TABLET PO (08:06)
[2024-01-03] MEDS: lisinopriL 10 MG TABLET PO (08:06)
[2024-01-03] MEDS: PHENobarbitaL 30 MG TABLET PO (08:06)
[2024-01-03] MEDS: Thiamine HCL 100 MG TABLET PO (08:06)
[2024-01-03] MEDS: Magnesium Oxide 400 MG TABLET PO (08:06)
[2024-01-03] MEDS: Multivitamin TABLET 1 TAB PO (08:06)
--- NOTE | 2024-01-03 11:27 | MHC.CM.PN ---
Pt is medically cleared for D/C home self-care, pts brother to transport him home.
[2024-01-03 11:33] VITALS: BP 124/64; PULSE 105; RESP 18; TEMP 37.8; O2SAT 96
[2024-01-03 11:46] LABS: Glucose, Whole Blood 171 mg/dL (60-115)
[2024-01-03] MEDS: Insulin Lispro 100 UNIT/ML 3 ML VIAL SUBCUT (12:27)
[2024-01-03 13:13] VITALS: TEMP 36.5
--- NOTE | 2024-01-03 13:16 | P.DS_ITS ---
DS: Providers Provider Date of Service: 01/03/24 Date of admission: 12/31/23 22:20 Primary care physician: Jakob Lo MD Consults: 12/31/23 23:12 Addiction Medicine Routine Consulting Provider: Addiction Covering Reason for consultation: Alcohol use disorder 01/01/24 11:37 Consult to Wound Care Routine Reason for consultation: open skin coccyx DS: Diagnosis Discharge Diagnosis (1) Atrial fibrillation with RVR: Status: Acute (2) Alcohol abuse: Status: Acute (3) Hypomagnesemia: Status: Acute (4) Physical deconditioning: Status: Acute (5) Fall: Status: Acute DS: Summary Hospital Course Hospital Course: Admission note HPI Pt is a 73-year-old male with a PMH significant for?paroxysmal AFib on Eliquis, HTN, qkc-svowfbn-kqjaopfpf type 2 diabetes, and alcohol use disorder who presents to the ED for evaluation after fall at home. Patient is alert and oriented but a poor historian. Patient unclear about many details surrounding his fall at home, and is unaware of what PMH he has or what medications he is on. HPI supplemented by chart and provider review. Patient states that he ?passed out? at home earlier today and hit his head. Complains of neck pain but does not know whether he hit his head or not. He is unable to state whether he tripped on something or had lightheadedness or dizziness. Does admit to daily drinking of around a pint per day. This has been ongoing for many years. Ac cording to EMS patient was found on the floor by his son earlier today. Unclear how long patient was on the floor, though it is estimated to be at least a few hours. Patient himself is unclear whether he fell earlier today or sometime yesterday. In the ED as patient was getting ready to be discharged, it was noted his heart rate increased into the 150s. Patient was given 2 doses of Cardizem IV push, with initial improvement into the 120s, but heart rate continued to fluctuate between the 120s and 150s. Patient was then placed on Cardizem drip and request was made to admit to the hospital for further management. Patient himself denies chest pain/pressure, palpitations. ?No pain anywhere else except for neck. Denies fever, chills, nausea, vomiting, abdominal pain. Denies shortness of breath. Patient denies history of alcohol withdrawal. In the ED pt was tachycardic up to 150s and hypertensive up to 157/69. Labs were significant for chronic anemia of 11.5/33.8, chronic thrombocytopenia of 128, magnesium 1.3, bilirubin 1.9, alk-phos 153, and CPK 1281. Ethyl alcohol 100 at 14:08. CT?of head with no acute intracranial hemorrhage and grossly no evidence of acute territorial infarct, but did show loss of parenchymal volume and scattered chronic small-vessel ischemic changes. CT of cervical spine found no acute fracture and no posttraumatic spinal subluxation, but did show advanced multilevel degenerative spondylolysis and at least moderate canal stenosis at multiple levels. Initial EKG demonstrated sinus tachycardia of 102 with no evidence of ST elevations or depressions. Repeat EKG found AFib with RVR of 149. Pt was treated with IVF, Mag sulfate, diltiazem 10 mg IV push x2 doses, and patient was started on a diltiazem drip and started on phenobarb protocol. Pt will be admitted to the hospital for treatment and further evaluation of AFib with RVR and alcohol use disorder with likely impending alcohol withdrawal. Hospital course # AFib with RVR Treated primarly with cardizem drip with good response. increased his home dose Metoprolol XL with good control. will be discharged on Metoprolol XL 100mg daily and to follow with his PCP. Eliquis as blood thinner. # Rhabdomyolysis Found to have elevated CPK level with normal kidney function. treated with IV fluids. trended down. # Hypomagnesemia magnesium 1.9 after replacement. Follow Mg # Alcohol use disorder with impending withdrawal Advised complete abstinence from Alcohol. Placed on phenobarb protocol and CIWA scale. received daily multivitamin, folic acid, thiamine along with Famotidine. Seen by addiction medicine. We advise you complete abstinence from Alcohol Increase Metoprolol XL to 100 mg daily Start Famotidine Magnesium and Thiamine supplements To be followed by physical therapy team at home Time Attestation Discharge coordination time: Greater than 30 minutes Quality: Safe Use of Opioids Does Pt have an Active Cancer Diagnosis on the Problem List?: No Quality: Stroke Does the patient have a stroke diagnosis?: No Physical Exam Vital Signs: Vital Signs: Last Vital Signs Temp 97.7 F 01/03/24 13:13 Pulse 105 H 01/03/24 11:33 Resp 18 01/03/24 11:33 BP 124/64 01/03/24 11:33 Pulse Ox 96 01/03/24 11:33 O2 Del Method Room Air 01/03/24 11:33 BMI result Body Mass Index 26.7 Const: Other: Constitutional : Awake, interactive, not in distress Neck : Normal inspection, Supple Cardiovascular : irregular irregular, no JVP, no lower extremity edema Respiratory : good bilateral air entry, no crackles, wheezes or rhonchi Gastrointestinal: soft, lax, Normal bowel sounds, Non tender Skin : Warm, Dry Neurological : Alert & oriented x3, No focal deficit DS: Data Data Completed and Pending Completed studies during hospitalization [Text1]: Procedures Detoxification Services for Substance Abuse Treatment (10/14/22) Labs on day of discharge: Laboratory Results - last 24 hr 01/02/24 01/02/24 01/03/24 15:14 21:06 05:48 Hold Purple Top SEE NOTE Sodium 137 Potassium 3.7 Chloride 105 Carbon Dioxide 22 Anion Gap 14 BUN 9 Creatinine 0.81 Estim Creat Clear Calc 82.4 Estimated GFR > 60 POC Glucose 122 H 96 Random Glucose 85 Calcium 8.5 Magnesium 1.7 01/03/24 01/03/24 07:51 11:36 Hold Purple Top Sodium Potassium Chloride Carbon Dioxide Anion Gap BUN Creatinine Estim Creat Clear Calc Estimated GFR POC Glucose 84 171 H Random Glucose Calcium Magnesium Imaging Chest x-ray: Radiologist's impression: ITS Impressions Cervical Spine CT 12/31/23 13:40 IMPRESSION: Head: No acute intracranial hemorrhage. There is loss of parenchymal volume and scattered chronic small vessel ischemic changes within the periventricular white matter. Grossly no evidence of acute territorial infarct. Cervical Spine: No acute fracture and no posttraumatic spinal subluxation. There is advanced multilevel degenerative spondylosis of the cervical spine with at least moderate canal stenosis at multiple levels. If there are clinical symptoms of compressive myelopathy then a dedicated cervical spine MRI can be obtained for better anatomic characterization of the cord and canal. Head CT 12/31/23 13:40 IMPRESSION: Head: No acute intracranial hemorrhage. There is loss of parenchymal volume and scattered chronic small vessel ischemic changes within the periventricular white matter. Grossly no evidence of acute territorial infarct. Cervical Spine: No acute fracture and no posttraumatic spinal subluxation. There is advanced multilevel degenerative spondylosis of the cervical spine with at least moderate canal stenosis at multiple levels. If there are clinical symptoms of compressive myelopathy then a dedicated cervical spine MRI can be obtained for better anatomic characterization of the cord and canal. Discharge Plan Discharge Anticipated Discharge Date/Time: 01/03/24 12:08 Patient Disposition: Home Health Service Discharge Diagnosis: Fall Atrial fibrillation with rapid rate Referrals: Jakob Lo MD [Primary Care Provider] - 1 Week Discharge Medications: New famotidine 20 mg Tablet 20 mg PO DAILY Qty: 30 0RF magnesium oxide 400 mg (241.3 mg magnesium) Tablet 800 mg PO DAILY Qty: 60 0RF thiamine mononitrate (vit B1) 100 mg Tablet 100 mg PO DAILY Qty: 90 0RF metoprolol succinate 100 mg tablet extended release 24 hr 100 mg PO DAILY Qty: 90 0RF Continued lisinopril 10 mg tablet 1 tab PO DAILY metformin 500 mg tablet 500 mg PO DAILY atorvastatin 20 mg tablet 20 mg PO DAILY Eliquis 5 mg Tablet 5 mg PO BID Discontinued metoprolol succinate 50 mg tablet extended release 24 hr 1 tab PO DAILY amlodipine 5 mg tablet 1 tab PO DAILY Discharge Orders: Discharge Order (Routine); Ordered 01/03/24 Ordered By: Gaby Samson Diet: Advance to usual diet Activity on Discharge: As tolerated Stand Alone Forms: Patient Portal Discharge page Activity Restrictions/Additional Instructions: Please follow-up with your primary care physician tomorrow. If you have any worsening or new symptoms, please return to the emergency room or call 911 Care Plan Goals: Read below Health Concerns: Read below Plan of Treatment: Read below Assessment: We advise you complete abstinence from Alcohol Increase Metoprolol XL to 100 mg daily Start Famotidine Magnesium and Thiamine supplements To be followed by physical therapy team at home Patient Instructions: Fall Prevention for Older Adults (ED), Abuse of Alcohol (ED), Hypomagnesemia (ED)
== END 2024-01-03 14:52 | disposition home health service (06) | DRG 309 ==
LOC: HO.ED 20:49 → HO.EDOVER 22:47 → HO.IMC 01-01 07:48
PROVIDERS: Internal Medicine; Admitting Provider Student in an Organized Health Care Education/Training Program; Emergency Provider Emergency Medicine; PCP Internal Medicine; Visit Provider Student in an Organized Health Care Education/Training Program
DX: I48.0 Paroxysmal atrial fibrillation (principal); F10.139 Alcohol abuse with withdrawal, unspecified; M62.82 Rhabdomyolysis; E83.42 Hypomagnesemia; E11.9 Type 2 diabetes mellitus without complications; D64.9 Anemia, unspecified; W19.XXXA Unspecified fall, initial encounter; D69.6 Thrombocytopenia, unspecified; I10 Essential (primary) hypertension; Y90.5 Blood alcohol level of 100-119 mg/100 ml; Z87.891 Personal history of nicotine dependence; Z79.01 Long term (current) use of anticoagulants; Z79.84 Long term (current) use of oral hypoglycemic drugs; Z79.899 Other long term (current) drug therapy
CPT/HCPCS: 36415; 70450; 72125; 80048; 80076; 80307; 81001; 82550; 82947; 83690; 83735; 83880; 84484; 85025; 85027; 85610; 93005; 97162; 99285; J2560; J3411; J3475

== ENCOUNTER → 2023-12-31 13:02 | Outpatient (BNV) | payer MEDICARE, SELFPAY | PROVIDERS: Admitting Provider Student in an Organized Health Care Education/Training Program; Emergency Provider Emergency Medicine; Visit Provider Internal Medicine | DX: R94.31 Abnormal electrocardiogram [ECG] [EKG] (principal) | CPT/HCPCS: 93010 ==

== ENCOUNTER → 2023-12-31 22:20 | Outpatient (BNV) | payer MEDICARE, SELFPAY | PROVIDERS: Admitting Provider Student in an Organized Health Care Education/Training Program; Emergency Provider Emergency Medicine; PCP Internal Medicine; Visit Provider Student in an Organized Health Care Education/Training Program | DX: I48.91 Unspecified atrial fibrillation (principal); F10.139 Alcohol abuse with withdrawal, unspecified; E83.42 Hypomagnesemia; R53.81 Other malaise; W19.XXXA Unspecified fall, initial encounter | CPT/HCPCS: 99223; 99232; 99233; 99238 ==

== ENCOUNTER 2024-01-21 11:04 | Emergency (ER) | payer MEDICARE, SELFPAY ==
--- NOTE | ~2024-01-21 | CT_ITS ---
EXAMINATION: CT HEAD WITHOUT CONTRAST CT FACE WITHOUT CONTRAST CT CERVICAL SPINE WITHOUT CONTRAST CLINICAL INFORMATION: Fall. Head strike. Facial injury. History of anticoagulation. COMPARISON: CT head and cervical spine 12/31/2023. TECHNIQUE: [employer] images were obtained. CT imaging of the head, face, and cervical spine was performed without contrast. Data was reformatted into multiplanar images at the acquisition workstation. This CT examination was performed using dose optimization techniques as appropriate, including one or more of the following: Automated exposure control, iterative reconstruction, and adjustment of technique factors (mA and/or kVp) according to patient size (this includes techniques or standardized protocols for targeted exams where dose is matched to indication/reason for exam). Fleischner Society criteria for the followup of incidental pulmonary nodules was implemented if appropriate. DLP: 1838 mGy-cm. FINDINGS: Head: There is swelling of the frontal scalp. The underlying calvarium is intact. There is no acute intracranial hemorrhage or abnormal extra-axial collection. No intracranial mass effect or midline shift. Lateral and third ventricles are prominent and there is proportionate prominence of the subarachnoid spaces reflecting a loss of parenchymal lung. Scattered nonspecific foci of hypoattenuation are visualized throughout the periventricular white matter that most likely represent a chronic manifestation of small vessel ischemia. Ruano-white matter differentiation is otherwise preserved and there is no evidence of acute territorial infarct. There is no acute skull base fracture.Partial opacification of the mastoid air cells.. Face: Nasal bones, zygomatic arches, and pterygoid processes are intact. No acute mandibular fracture. There is asymmetric swelling of the left periorbital soft tissues consistent with a recent history of trauma. Globes and extraocular muscles are otherwise unremarkable. No abnormal retrobulbar are metallic or inflammation. Lamina papyracea and orbital floors are intact and there is no evidence of acute orbital blowout fracture. Orbital apices are unremarkable. Cervical spine: Spinal alignment is normal in the sagittal dimension. Vertebral body heights are preserved. No acute cervical spine fracture. No abnormal prevertebral soft tissue swelling. There are relatively exuberant anterior disc osteophyte complexes at multiple levels within the cervical spine. Bridging bone fuses the C6-T1 vertebra. Canal patency is not well assessed on this examination due to inherent limitations of CT without intrathecal contrast. There is at least moderate canal stenosis at C4-C5, C5-C6, and C6-C7. Uncovertebral joint spurring in conjunction with facet degenerative change causes varying degrees of neuroforaminal encroachment. Calcified atheromatous plaque involves both carotid bifurcations. Midline soft tissues of the neck are otherwise unremarkable. Lung apices are clear. CT/CT cervical spine wo IV con IMPRESSION: Head: There is swelling of the frontal scalp. The underlying calvarium is intact. No acute intracranial hemorrhage. There are scattered chronic small vessel ischemic changes within the periventricular white matter. No evidence of acute territorial infarct. Maxillofacial: There is asymmetric swelling of the left periorbital soft tissues consistent with a recent history of trauma. No acute facial fracture. Cervical Spine: No acute cervical spine fracture. There is advanced multilevel degenerative spondylosis of the cervical spine with at least moderate canal stenosis at C4-C5, C5-C6, and C6-C7. If there are clinical symptoms of compressive myelopathy then a dedicated cervical spine MRI can be obtained for better anatomic characterization of the cord and canal.
[2024-01-21 11:12] VITALS: BP 128/64; PULSE 87; O2SAT 97
--- NOTE | 2024-01-21 11:16 | ED.GENADULT ---
HPI - General Adult General Chief complaint: Head Injury Stated complaint: FALL LAST NIGHT,EYEBROW LAC,NECK PAIN,+THINNERS Time Seen by Provider: 01/21/24 11:15 Source: patient and EMS Mode of arrival: EMS Limitations: no limitations History of Present Illness HPI narrative: Patient is a 73 year old male with a history of AUD transported to the ED by ambulance after a fall resulting in head trauma. The patient was alert and oriented x3 upon arrival and reported that he drank about 4 ounces of rum prior to the fall. Patient reports he tripped over a dog bed after getting up from bed and fell head first into a door jamb resulting in a laceration to his forehead. Patient denies any loss of consciousness. MD complaint: Fall with head trauma Onset (ago): hour(s) Location: head Radiation: neck Severity: mild Severity scale (1-10): 4 Quality: aching Pain Consistency: constant Relieving factors: none Exacerbating factors: none Associated symptoms: denies other symptoms Treatments prior to arrival: none Related Data Home Medications Medication Instructions Recorded Confirmed lisinopril 10 mg tablet 1 tab PO DAILY 10/14/22 12/31/23 apixaban 5 mg tablet (Eliquis) 5 mg PO BID 04/22/23 12/31/23 atorvastatin 20 mg tablet 20 mg PO DAILY 04/22/23 01/01/24 metformin 500 mg tablet 500 mg PO DAILY 12/31/23 12/31/23 Previous Rx's Medication Instructions Recorded famotidine 20 mg tablet 20 mg PO DAILY #30 tabs 01/03/24 magnesium oxide 400 mg (241.3 mg 800 mg (2 x 400 mg (241.3 mg 01/03/24 magnesium) tablet magnesium)) PO DAILY #60 tabs metoprolol succinate 100 mg 100 mg PO DAILY #90 tabs 01/03/24 tablet,extended release 24 hr thiamine mononitrate (vit B1) 100 100 mg PO DAILY #90 tabs 01/03/24 mg tablet cefuroxime axetil 250 mg tablet 500 mg (2 x 250 mg) PO BID 7 days 01/21/24 #28 tabs Allergies Allergy/AdvReac Type Severity Reaction Status Date / Time alcohol Allergy Intermediate rash Verified 01/01/24 08:26 clams Allergy Intermediate UNKNOWN Verified 01/01/24 08:26 oxycodone Allergy Intermediate rash Verified 01/01/24 08:26 Qsxpsib-SHL-QcU Reductase Allergy Unknown CONFUSION Verified 01/01/24 08:26 Inhibitor [DXYALLT-DFA-LOE REDUCTASE INHIBITOR] steamers/ clams Allergy Intermediate flu like Uncoded 05/04/23 15:35 symptoms Review of Systems Constitutional: Constitutional: Reports no additional constitutional complaints, Denies chills, Denies fever(s), Reports headache(s) and Denies night sweats Eyes: Eyes: Reports no additional eye complaints, Denies blurry vision, Denies change in vision, Denies diplopia, Denies eye discharge, Denies loss of vision and Denies eye pain ENT: Denies dizziness and Reports headache(s) Cardiovascular: Cardiovascular: Reports no additional cardiovascular complaints, Denies chest pain, Denies lightheadedness, Denies Loss of Consciousness and Denies dyspnea Respiratory: Respiratory: Reports no additional respiratory complaints and Denies dyspnea Gastrointestinal: Gastrointestinal: Reports no additional gastrointestinal complaints, Denies abdominal pain, Denies melena, Denies hematochezia, Denies change in bowel habits and Denies change in stool character Genitourinary: Genitourinary: Reports no additional male genitourinary complaints, Denies hematuria, Denies oliguria, Denies difficulty urinating, Denies dysuria, Denies urinary frequency, Denies urinary hesitancy, Denies urinary incontinence and Denies urinary urgency Musculoskeletal: Musculoskeletal: Reports no additional musculoskeletal complaints, Denies numbness and Denies tingling Neurologic: Denies dizziness, Reports headache(s), Denies loss of vision, Denies numbness and Denies tingling Psychiatric: Psychiatric: Reports no additional psychiatric complaints Endocrine: Endocrine: Reports no additional endocrine complaints Hematologic/Lymphatic: Hematologic/Lymphatic: Reports no additional hematologic/lymphatic complaints Allergic/Immunologic: Allergic/Immunologic: Reports no additional allergic/immunologic complaints PMFSH Past Medical History Attestation statement: The following information was validated with the patient. Source: old records reviewed and nursing notes reviewed Medical History Alcohol abuse Chronic anticoagulation Atrial fibrillation Alcohol abuse HLD (hyperlipidemia) Hypertension Diabetes Alcohol abuse Surgical History No history of previous surgery Family History Family History Other No family history of coronary artery disease Social History Social History Household Members: Significant Other and Children Household Members Other:: son Housing: House Do you presently have visiting nurse or other home services: No Alcohol intake: current Alcohol intake frequency: 3 or more drinks per day Alcohol type: hard liquor Patient Tobacco Use Status: Former Tobacco user Quit Date: 37 years ago Years Smoked: 20 Substance Use Type: Marijuana Advance Directives: Yes Advance Directives on File: Yes Advance Directives Date on File: 01/04/24 service: Yes Current occupational status: retired Physical Exam ED Vital Signs: BMI result Body Mass Index 25.3 Const General: cooperative, no acute distress, alert and awake Nutritional Appearance: average body habitus Orientation/consciousness: patient oriented x3 Limitations: no limitations HENMT Head: Yes hematoma Head images: 1. 2cm laceration Ears: hearing grossly normal bilaterally General nose exam: Normal external nose present Face and sinus: Yes normal facial exam, No abrasion and No laceration Mouth: Normal oral and palatal mucosa present, no drooling and no muffled voice Eyes General: appearance normal, both eyes and all related structures Periorbital: periorbital findings normal Eyelids: Yes eyelids normal Conjunctivae: conjunctivae normal Pupils: Equal, round and reactive pupils present EOM: EOMs intact bilaterally Neck Neck: Yes normal visual inspection, Yes full ROM and Yes no lymphadenopathy Chest Chest palpation & inspection: normal inspection of the chest Resp Effort & Inspection: normal respiratory effort and able to speak in complete sentences GI Inspection: Yes normal to inspection Neuro General: patient oriented x3 Cranial nerves: Yes Equal, round and reactive pupils present Cognition (Neuro): normal cognition Motor exam (neuro): 5/5 motor strength present throughout Sensory Exam: Normal double simultaneous stimulation for sensation Coordination: [id number] test normal Extrem General: Yes normal to inspection, Yes full ROM and Yes capillary refill normal Psych Appearance: grossly normal Mental Status: mental status grossly normal Affect: normal affect Attitude: cooperative Thought process: Normal thought process present Thought content: Normal thought content present Insight: Good insight present (Psych) Procedures Laceration Laceration 1: Site: other (forehead) Side (If applicable): left Size (cm): 2 Description: irregular Depth: simple, single layer Local Anesthetic: lidocaine 1% and with epi Amount of anesthesia used (mL): 10 Pre-repair: wound explored and irrigated extensively Skin layer closed with: other (prolene) Size (cm): 6-0 Number of sutures: 5 Technique: simple, interrupted Medical Decision Making Medical Decision Making [facility] Narrative: Patient is a 73 year old assigned male at with a history of alcohol use disorder and presenting to the emergency department today with a forehead laceration. Patient's physical exam was as noted in the physical exam portion of this note. Patient's blood work was unremarkable. Patient's CT head and c-spine showed no acute process. I explained my physical exam findings as well as all test results to the patient. I answered all questions asked by the patient. Patient's laceration was repaired, without incident. I stressed the importance of the patient taking his medication as prescribed. I stressed the importance of the patient following up with his primary care provider. I stressed the importance of the patient not soaking the affected area. I stressed the importance of the patient having his sutures removed in 7-10 days. I stressed the importance of the patient returning to the emergency department immediately if his symptoms were to worsen or if he were to develop any dizziness, shortness of breath, difficulty breathing, chest pain, blurry vision, loss of vision, nausea, vomiting, abdominal pain, fever, chills, back pain, or any other complaints. Patient verbalized agreement and understanding with this treatment plan and discharge. Differential Diagnosis Differential Diagnoses: The differential diagnosis associated with the presentation includes Fall Head strike Head injury Laceration Admission/Observation Consideration of admission/observation: Escalation of care including admission/observation considered Patient would have been admitted to the hospital had his work up had any findings where hospital admission was appropriate and his clinical presentation warranted hospital admission. Lab Data [facility] Lab Attestation statement: I reviewed the patient's lab results. My interpretation of these results are in the MDM Rationale portion of this note. 01/21/24 11:47 01/21/24 11:47 Labs: Lab Results 01/21/24 Range/Units 11:47 WBC 5.0 (4.8-10.8) X10*3/uL RBC 4.22 L (4.60-5.80) X10*6/uL Hgb 12.4 L (14.0-18.0) g/dl Hct 37.8 L D (42.0-52.0) % MCV 89.6 (80.0-98.0) fL MCH 29.4 (27.0-33.0) pg MCHC 32.8 (31.0-36.0) g/dl RDW 16.3 H (11.0-16.0) % Plt Count 197 D (160-400) X10*3/uL MPV 8.9 L (9.4-12.4) fL Immature Gran % (Auto) 0.4 (0.0-0.4) % Neut % (Auto) 74.6 H (45-73) % Lymph % (Auto) 15.4 L (20-40) % Nicholas % (Auto) 7.6 (2-11) % Eos % (Auto) 1.4 (0-4) % Baso % (Auto) 0.6 (0-2) % Lymph # (Auto) 0.8 L (1.2-4.9) X10*3/uL Nicholas # (Auto) 0.4 (0.1-1.2) X10*3/uL Eos # (Auto) 0.1 (0.0-0.4) X10*3/uL Baso # (Auto) 0.0 (0.0-0.2) X10*3/uL Abs Immat Gran (auto) 0.02 (0.00-0.03) X10*3/uL Absolute Neuts (auto) 3.7 (2.0-8.3) x10*3/uL Absolute Nucleated RBC 0.000 (0.0-0.012) X10*3/uL Nucleated RBC % (auto) 0.0 (0.0-0.2) /100WBC PT 12.5 D (11.1-13.3) SEC INR 1.0 (0.9-1.1) APTT 32.2 (26.0-36.8) SEC Sodium 143 (135-145) mmol/L Potassium 4.4 (3.3-5.1) mmol/L Chloride 103 (96-108) mmol/L Carbon Dioxide 23 (22-29) mmol/L Anion Gap 21 H (12-20) BUN 12 (9-16) mg/dL Creatinine 0.91 (0.5-1.4) mg/dL Estim Creat Clear Calc 75.7 Estimated GFR > 60 Random Glucose 63 (60-115) mg/dL Calcium 9.3 D (8.4-10.2) mg/dL Total Bilirubin 1.2 H (0.0-1.0) mg/dL AST 25 (5-37) U/L ALT 13 (0-40) U/L Alkaline Phosphatase 168 H (39-117) U/L Total Protein 7.4 (6.5-8.0) g/dL Albumin 3.9 (3.5-5.0) g/dL Independent Interpretation I performed an independent interpretation of an: CT Scan Interpretation: My interpretation is in agreement with the radiologist's impression of these imaging studies. EXAMINATION: CT HEAD WITHOUT CONTRAST CT FACE WITHOUT CONTRAST CT CERVICAL SPINE WITHOUT CONTRAST CLINICAL INFORMATION: Fall. Head strike. Facial injury. History of anticoagulation. COMPARISON: CT head and cervical spine 12/31/2023. TECHNIQUE: [employer] images were obtained. CT imaging of the head, face, and cervical spine was performed without contrast. Data was reformatted into multiplanar images at the acquisition workstation. This CT examination was performed using dose optimization techniques as appropriate, including one or more of the following: Automated exposure control, iterative reconstruction, and adjustment of technique factors (mA and/or kVp) according to patient size (this includes techniques or standardized protocols for targeted exams where dose is matched to indication/reason for exam). Fleischner Society criteria for the followup of incidental pulmonary nodules was implemented if appropriate. DLP: 1838 mGy-cm. FINDINGS: Head: There is swelling of the frontal scalp. The underlying calvarium is intact. There is no acute intracranial hemorrhage or abnormal extra-axial collection. No intracranial mass effect or midline shift. Lateral and third ventricles are prominent and there is proportionate prominence of the subarachnoid spaces reflecting a loss of parenchymal lung. Scattered nonspecific foci of hypoattenuation are visualized throughout the periventricular white matter that most likely represent a chronic manifestation of small vessel ischemia. Ruano-white matter differentiation is otherwise preserved and there is no evidence of acute territorial infarct. There is no acute skull base fracture.Partial opacification of the mastoid air cells.. Face: Nasal bones, zygomatic arches, and pterygoid processes are intact. No acute mandibular fracture. There is asymmetric swelling of the left periorbital soft tissues consistent with a recent history of trauma. Globes and extraocular muscles are otherwise unremarkable. No abnormal retrobulbar are metallic or inflammation. Lamina papyracea and orbital floors are intact and there is no evidence of acute orbital blowout fracture. Orbital apices are unremarkable. Cervical spine: Spinal alignment is normal in the sagittal dimension. Vertebral body heights are preserved. No acute cervical spine fracture. No abnormal prevertebral soft tissue swelling. There are relatively exuberant anterior disc osteophyte complexes at multiple levels within the cervical spine. Bridging bone fuses the C6-T1 vertebra. Canal patency is not well assessed on this examination due to inherent limitations of CT without intrathecal contrast. There is at least moderate canal stenosis at C4-C5, C5-C6, and C6-C7. Uncovertebral joint spurring in conjunction with facet degenerative change causes varying degrees of neuroforaminal encroachment. Calcified atheromatous plaque involves both carotid bifurcations. Midline soft tissues of the neck are otherwise unremarkable. Lung apices are clear. CT/CT head/brain wo IV con IMPRESSION: Head: There is swelling of the frontal scalp. The underlying calvarium is intact. No acute intracranial hemorrhage. There are scattered chronic small vessel ischemic changes within the periventricular white matter. No evidence of acute territorial infarct. Maxillofacial: There is asymmetric swelling of the left periorbital soft tissues consistent with a recent history of trauma. No acute facial fracture. Cervical Spine: No acute cervical spine fracture. There is advanced multilevel degenerative spondylosis of the cervical spine with at least moderate canal stenosis at C4-C5, C5-C6, and C6-C7. If there are clinical symptoms of compressive myelopathy then a dedicated cervical spine MRI can be obtained for better anatomic characterization of the cord and canal. Dictated By: Stephen Goode MD Signed By: Electronically signed by Stephen Goode MD 01/21/24 5677 Radiology Impression Discussion of test interpretation with radiology: I have reviewed the radiologist's reading. Independent Historian Clinical information obtained from an independent historian. History obtained from or confirmed by: EMS (EMS provided additional history and confirmed the history provided by the patient. ) Prescription Management I considered prescription management with: Antibiotic (patient prescribed a prophylactic antibiotic given mechanism of injury) Critical Care Time Critical Care Time Critical Care Time: Yes Total Critical Care Time: 55 Attestation: I spent 55 minutes of Critical Care Time with this patient. This does not include time spent on separately reported billable procedures. Discharge Plan Discharge Clinical Impression: Fall, Forehead laceration Patient Disposition: Home, Self-Care Instructions: Care For Your Stitches (DC), Laceration (DC) Additional Instructions: Do NOT soak the affected area. Have your sutures removed in 7-10 days. Take your antibiotic as prescribed. Follow up with your primary care provider. Return to the emergency department immediately if your symptoms worsen or if you develop any dizziness, shortness of breath, difficulty breathing, chest pain, blurry vision, loss of vision, nausea, vomiting, abdominal pain, fever, chills, back pain, or any other complaints. Prescriptions: New cefuroxime axetil 250 mg tablet 500 mg PO BID 7 Days Qty: 28 0RF No Action lisinopril 10 mg tablet 1 tab PO DAILY metformin 500 mg tablet 500 mg PO DAILY famotidine 20 mg Tablet 20 mg PO DAILY Qty: 30 0RF magnesium oxide 400 mg (241.3 mg magnesium) Tablet 800 mg PO DAILY Qty: 60 0RF thiamine mononitrate (vit B1) 100 mg Tablet 100 mg PO DAILY Qty: 90 0RF metoprolol succinate 100 mg tablet extended release 24 hr 100 mg PO DAILY Qty: 90 0RF atorvastatin 20 mg tablet 20 mg PO DAILY Eliquis 5 mg Tablet 5 mg PO BID Referrals: Jaokb Lo MD [Primary Care Provider] - Print Language: Thai
[2024-01-21 11:22] VITALS: BMI 25.3
[2024-01-21 11:53] LABS: MANUAL DIFF FLAG NO
[2024-01-21 11:59] LABS: Basophils Percent Auto 0.6 % (0-2); Eosinophils Absolute Auto 0.1 X10*3/uL (0.0-0.4); Eosinophils Percent Auto 1.4 % (0-4); Hematocrit 37.8 % (42.0-52.0); Hemoglobin 12.4 g/dl (14.0-18.0); Imm Gran Abs Auto 0.02 X10*3/uL (0.00-0.03); Imm Gran Pct Auto 0.4 % (0.0-0.4); Lymphocytes Absolute Auto 0.8 X10*3/uL (1.2-4.9); Lymphocytes Percent Auto 15.4 % (20-40); Mean Corpuscular HGB Conc 32.8 g/dl (31.0-36.0); Mean Corpuscular Hemoglobin 29.4 pg (27.0-33.0); Mean Corpuscular Volume 89.6 fL (80.0-98.0); Mean Platelet Volume 8.9 fL (9.4-12.4); Monocytes Absolute Auto 0.4 X10*3/uL (0.1-1.2); Monocytes Percent Auto 7.6 % (2-11); Neutrophils Absolute Auto 3.7 x10*3/uL (2.0-8.3); Neutrophils Percent Auto 74.6 % (45-73); Platelet Count 197 X10*3/uL (160-400); Red Blood Count 4.22 X10*6/uL (4.60-5.80); Red Cell Distribution Width 16.3 % (11.0-16.0)
[2024-01-21 12:07] LABS: Prothrombin Time 12.5 SEC (11.1-13.3)
[2024-01-21 12:10] LABS: Partial Thromboplastin Time 32.2 SEC (26.0-36.8)
[2024-01-21 12:18] LABS: Alanine Aminotransferase 13 U/L (0-40); Albumin Level 3.9 g/dL (3.5-5.0); Alkaline Phosphatase 168 U/L (39-117); Anion Gap 21 (12-20); Aspartate Amino Transferase 25 U/L (5-37); Bilirubin Total 1.2 mg/dL (0.0-1.0); Blood Urea Nitrogen 12 mg/dL (9-16); Calcium 9.3 mg/dL (8.4-10.2); Carbon Dioxide 23 mmol/L (22-29); Chloride 103 mmol/L (96-108); Creatinine Clr Calc Pharmacy 75.7; Estimated Glomerular Filt Rate > 60; Glucose Random 63 mg/dL (60-115); Potassium 4.4 mmol/L (3.3-5.1); Sodium 143 mmol/L (135-145); Total Protein 7.4 g/dL (6.5-8.0)
[2024-01-22 04:37] LABS: HBc Num1 0.09 S/CO (0.00-0.79); HBsAGNum1 0.36 S/CO (0.00-0.99); HIV AB/AG Nonreactive (Nonreactive); HIV Num 1 0.07 S/CO (0.00-0.99); Hepatitis B Core Antibody Nonreactive (Nonreactive); Hepatitis B Surface Antigen Negative (Negative); ~HepC Num1 0.12 S/CO (0.00-0.79); ~Hepatitis B Surface Antibody NONREACTIVE (Nonreactive); ~Hepatitis C Antibody Nonreactive (Nonreactive)
[2024-01-22 04:55] LABS: Hepatitis A Antibody IgM 0.17 Index (0-0.79); ~Hepatitis A Antibody IgM Nonreactive (Nonreactive)
== END 2024-01-21 17:05 | disposition home or self-care (01) ==
PROVIDERS: Physician Assistant Medical; Emergency Provider Emergency Medicine; PCP Internal Medicine
DX: S01.81XA Laceration without foreign body of other part of head, initial encounter (principal); R51.9 Headache, unspecified; M54.2 Cervicalgia; W01.0XXA Fall on same level from slipping, tripping and stumbling without subsequent striking against object, initial encounter; Y93.9 Activity, unspecified; Y92.9 Unspecified place or not applicable; Y99.8 Other external cause status; Z79.899 Other long term (current) drug therapy; Z79.01 Long term (current) use of anticoagulants; Z87.891 Personal history of nicotine dependence
CPT/HCPCS: 12011; 36415; 70450; 70486; 72125; 80053; 85025; 85610; 85730; 86704; 86706; 86709; 86803; 87340; 87389; 99282; 99284

== ENCOUNTER 2024-09-19 09:53 | Emergency (ER) | payer MEDICARE, SELFPAY ==
--- NOTE | ~2024-09-19 | US_ITS ---
EXAMINATION: US TRIPLEX LOWER EXTREMITY, BILATERAL CLINICAL INFORMATION: Bilateral lower extremity swelling COMPARISON: Bilateral venous duplex ultrasound dated 05/04/2023 TECHNIQUE: Color-flow triplex imaging with spectral analysis and compression Doppler were performed on the bilateral lower extremities. FINDINGS: Respiratory variation, normal compression and augmented flow are noted throughout the bilateral lower extremities. The visualized common femoral vein, superficial femoral vein, profunda femoral vein, popliteal vein and midcalf peroneal and posterior tibial venous segments show no evidence of deep venous thrombosis bilaterally. There is no Hodges's cyst. US/US venous duplex LE BI IMPRESSION: No evidence of deep venous thrombosis involving the bilateral lower extremities. Electronically signed by: Lakeisha Kennedy MD 09/19/2024 11:53 AM EDT
--- NOTE | ~2024-09-19 | XR_ITS ---
EXAMINATION: XR CHEST CLINICAL INFORMATION: Shortness of breath COMPARISON: 05/04/2023 TECHNIQUE: 2 views of the chest were obtained. FINDINGS: There is no gross pneumothorax. Heart size is normal. Dextroscoliosis of the thoracic spine with multilevel degenerative changes. No pleural effusion. No new focal consolidation. XR/XR chest 2V IMPRESSION: No new focal consolidation. Electronically signed by: Jaleesa Howell MD 09/19/2024 12:24 PM EDT
[2024-09-19 10:15] VITALS: BP 152/58; PULSE 80; RESP 20; TEMP 36.7; O2SAT 98; BMI 30.6
[2024-09-19 10:32] LABS: MANUAL DIFF FLAG NO
[2024-09-19 10:42] LABS: Basophils Percent Auto 0.4 % (0-2); Eosinophils Absolute Auto 0.1 X10*3/uL (0.0-0.4); Eosinophils Percent Auto 3.3 % (0-4); Hematocrit 33.5 % (42.0-52.0); Hemoglobin 11.5 g/dl (14.0-18.0); Imm Gran Abs Auto 0.01 X10*3/uL (0.00-0.03); Imm Gran Pct Auto 0.4 % (0.0-0.4); Lymphocytes Absolute Auto 0.6 X10*3/uL (1.2-4.9); Lymphocytes Percent Auto 22.8 % (20-40); Mean Corpuscular HGB Conc 34.3 g/dl (31.0-36.0); Mean Corpuscular Hemoglobin 29.4 pg (27.0-33.0); Mean Corpuscular Volume 85.7 fL (80.0-98.0); Mean Platelet Volume 8.5 fL (9.4-12.4); Monocytes Absolute Auto 0.3 X10*3/uL (0.1-1.2); Monocytes Percent Auto 11.8 % (2-11); Neutrophils Absolute Auto 1.7 x10*3/uL (2.0-8.3); Neutrophils Percent Auto 61.3 % (45-73); Platelet Count 168 X10*3/uL (160-400); Red Blood Count 3.91 X10*6/uL (4.60-5.80); Red Cell Distribution Width 14.6 % (11.0-16.0); White Blood Count 2.7 X10*3/uL (4.8-10.8)
[2024-09-19 10:55] LABS: Alanine Aminotransferase 20 U/L (0-40); Albumin Level 3.8 g/dL (3.5-5.0); Alkaline Phosphatase 87 U/L (39-117); Anion Gap 9 (12-20); Aspartate Amino Transferase 32 U/L (5-37); Bilirubin Direct 0.6 mg/dL (0.0-0.5); Bilirubin Total 1.5 mg/dL (0.0-1.0); Blood Urea Nitrogen 14 mg/dL (9-16); Calcium 8.9 mg/dL (8.4-10.2); Carbon Dioxide 29 mmol/L (22-29); Chloride 102 mmol/L (96-108); Creatinine Clr Calc Pharmacy 67.8; Estimated Glomerular Filt Rate > 60; Glucose Random 128 mg/dL (60-115); Magnesium 1.6 mg/dL (1.6-2.6); Potassium 3.6 mmol/L (3.3-5.1); Sodium 136 mmol/L (135-145); Total Protein 6.8 g/dL (6.5-8.0)
[2024-09-19 11:00] LABS: B Type Natriuretic Peptide 99 pg/mL (<100)
--- NOTE | 2024-09-19 11:49 | ED.GENADULT ---
HPI - General Adult General Chief complaint: General Medical Stated complaint: L leg swelling Time Seen by Provider: 09/19/24 11:46 Source: patient Mode of arrival: ambulatory Limitations: no limitations History of Present Illness ED Provider: Deb SEBASTIAN narrative: Patient is a 74-year-old male with history of DM, HTN, afib on Eliquis, alcohol abuse presenting to the ED with complaint of left lower leg swelling since Thursday. Mild pain. Denies any discharge or drainage from leg. Denies fevers. Denies recent chest pain, palpitations, or shortness of breath. Denies any numbness/tingling to lower extremities. MD complaint: left leg swelling Onset (ago): day(s) Location: left and lower extremity Associated symptoms: denies other symptoms Treatments prior to arrival: none Related Data Home Medications ?Medication ?Instructions ?Recorded ?Confirmed lisinopril 10 mg tablet 1 tab PO DAILY 10/14/22 12/31/23 apixaban 5 mg tablet (Eliquis) 5 mg PO BID 04/22/23 12/31/23 atorvastatin 20 mg tablet 20 mg PO DAILY 04/22/23 01/01/24 metformin 500 mg tablet 500 mg PO DAILY 12/31/23 12/31/23 Previous Rx's ?Medication ?Instructions ?Recorded famotidine 20 mg tablet 20 mg PO DAILY #30 tabs 01/03/24 magnesium oxide 400 mg (241.3 mg 800 mg (2 x 400 mg (241.3 mg 01/03/24 magnesium) tablet magnesium)) PO DAILY #60 tabs metoprolol succinate 100 mg 100 mg PO DAILY #90 tabs 01/03/24 tablet,extended release 24 hr thiamine mononitrate (vit B1) 100 100 mg PO DAILY #90 tabs 01/03/24 mg tablet cefuroxime axetil 250 mg tablet 500 mg (2 x 250 mg) PO BID 7 days 01/21/24 #28 tabs cephalexin 500 mg capsule 500 mg PO QID #28 caps 09/19/24 Allergies Allergy/AdvReac Type Severity Reaction Status Date / Time alcohol Allergy Intermediate rash Verified 09/19/24 10:15 clams Allergy Intermediate UNKNOWN Verified 09/19/24 10:15 oxycodone Allergy Intermediate rash Verified 09/19/24 10:15 [id number] Reductase Allergy Unknown CONFUSION Verified 09/19/24 10:15 Inhibitor [[id number] REDUCTASE INHIBITOR] steamers/ clams Allergy Intermediate flu like Uncoded 05/04/23 15:35 symptoms Review of Systems Review of Systems: As per HPI Yes all other systems are reviewed and are negative Constitutional: Constitutional: Reports as per HPI [facility] Past Medical History Medical History Alcohol abuse Chronic anticoagulation Atrial fibrillation Alcohol abuse HLD (hyperlipidemia) Hypertension Diabetes Alcohol abuse Surgical History No history of previous surgery Family History Family History Other No family history of coronary artery disease Social History Social History Household Members: Significant Other and Children Household Members Other:: son Housing: House Do you presently have visiting nurse or other home services: No Alcohol intake: current Alcohol intake frequency: 3 or more drinks per day Alcohol type: hard liquor Patient Tobacco Use Status: Former Tobacco user Years Smoked: 20 Substance Use Type: Marijuana Advance Directives: Yes Advance Directives on File: Yes Advance Directives Date on File: 01/04/24 Do you have a plan to hurt others: No Plan service: Yes Current occupational status: retired Physical Exam ED Vital Signs: Vital Signs - 24 hr 09/19/24 10:15 09/19/24 12:00 Temperature 98.0 F 98.3 F Pulse Rate 80 82 Respiratory Rate 20 16 Blood Pressure 152/58 H 153/69 H Pulse Oximetry 98 100 Oxygen Delivery Method Room Air Room Air BMI result Body Mass Index 30.6 Vital signs have been reviewed and appear to be correct. Blood pressure elevated. Heart rate normal. Respiratory rate normal. Temperature normal. Oxygen saturation normal. Const General: cooperative, healthy appearing and no acute distress Orientation/consciousness: oriented to person, oriented to place, oriented to time and patient oriented x3 Limitations: no limitations HENMT Head: Yes normocephalic and Yes atraumatic Ears: external ears normal General nose exam: Normal external nose present Face and sinus: Yes face symmetric Mouth: oropharynx normal and moist mucous membranes Throat: Yes uvula midline Eyes Pupils: Equal, round and reactive pupils present Neck Neck: Yes normal visual inspection and Yes supple Resp Effort & Inspection: normal respiratory effort and able to speak in complete sentences Auscultation: clear to auscultation bilaterally Cardio Rate: regular rate Rhythm: regular rhythm Heart sounds: S1 normal heart sound present and S2 normal heart sound present GI Palpation (GI): Soft to palpation and nontender Auscultation: normoactive bowel sounds General: Yes no CVA tenderness Back/Spine/Pelvis Back: no CVA tenderness Skin General skin exam: elasticity normal and turgor normal Neuro General: oriented to person, oriented to place, oriented to time, patient oriented x3, moves all extremities, no focal motor deficits and CN's II-XI intact bilaterally Cranial nerves: Yes Equal, round and reactive pupils present Cognition (Neuro): normal cognition Extrem Other: chronic venous statis discoloration to bilateral lower legs General: Yes full ROM, Yes no pedal edema and Yes no calf tenderness Left lower extremity: lower leg Details: erythema Location: of the mid lower leg Location: anteriorly, localized swelling Location: of the mid lower leg and warmth Location: of the mid lower leg; no palpable cords Psych Mental Status: mental status grossly normal Affect: normal affect Thought process: Normal thought process present Medical Decision Making Medical Decision Making [facility] Narrative: Patient is a 74-year-old male with history of DM, HTN, afib on Eliquis, alcohol abuse presenting to the ED with complaint of left lower leg swelling since Thursday. On exam patient is awake, A+Ox3, BP elevated, VS otherwise WNL, afebrile, normal neurological exam without focal deficits, physical exam findings as above. Given reported symptoms and physical exam findings, initial differential includes DVT, cellulitis, venous stasis. Labs notable for no leukocytosis or left shift, no significant electrolyte abnormalities, normal BNP. X-ray chest notable for no edema. Ultrasound LLE notable for no DVT. My interpretation is in agreement with the radiologist's interpretation. Physical exam consistent with cellulitis. Feel patient is stable for discharge home on keflex. Follow up with PCP. Return precautions discussed at bedside. Patient verbalized understanding of and agreement with plan. Differential Diagnosis Differential Diagnoses: The differential diagnosis associated with the presentation includes As per [facility] Admission/Observation Consideration of admission/observation: Escalation of care including admission/observation considered Patient would have been admitted to the hospital had their work up had any findings where hospital admission was appropriate and their clinical presentation warranted hospital admission. Lab Data [facility] Lab Attestation statement: I reviewed the patient's lab results. Patient would have been admitted to the hospital had their work up had any findings where hospital admission was appropriate and their clinical presentation warranted hospital admission. 09/19/24 10:28 09/19/24 10:28 Labs: Lab Results 09/19/24 Range/Units 10:28 WBC 2.7 L (4.8-10.8) X10*3/uL RBC 3.91 L (4.60-5.80) X10*6/uL Hgb 11.5 L (14.0-18.0) g/dl Hct 33.5 L (42.0-52.0) % MCV 85.7 (80.0-98.0) fL MCH 29.4 (27.0-33.0) pg MCHC 34.3 (31.0-36.0) g/dl RDW 14.6 (11.0-16.0) % Plt Count 168 (160-400) X10*3/uL MPV 8.5 L (9.4-12.4) fL Immature Gran % (Auto) 0.4 (0.0-0.4) % Neut % (Auto) 61.3 (45-73) % Lymph % (Auto) 22.8 (20-40) % [place] % (Auto) 11.8 H (2-11) % Eos % (Auto) 3.3 (0-4) % Baso % (Auto) 0.4 (0-2) % Lymph # (Auto) 0.6 L (1.2-4.9) X10*3/uL [place] # (Auto) 0.3 (0.1-1.2) X10*3/uL Eos # (Auto) 0.1 (0.0-0.4) X10*3/uL Baso # (Auto) 0.0 (0.0-0.2) X10*3/uL Abs Immat Gran (auto) 0.01 (0.00-0.03) X10*3/uL Absolute Neuts (auto) 1.7 L (2.0-8.3) x10*3/uL Absolute Nucleated RBC 0.000 (0.0-0.012) X10*3/uL Nucleated RBC % (auto) 0.0 (0.0-0.2) /100WBC Sodium 136 (135-145) mmol/L Potassium 3.6 (3.3-5.1) mmol/L Chloride 102 (96-108) mmol/L Carbon Dioxide 29 (22-29) mmol/L Anion Gap 9 L (12-20) BUN 14 (9-16) mg/dL Creatinine 1.03 (0.5-1.4) mg/dL Estim Creat Clear Calc 67.8 Estimated GFR > 60 Random Glucose 128 H (60-115) mg/dL Calcium 8.9 (8.4-10.2) mg/dL Magnesium 1.6 (1.6-2.6) mg/dL Total Bilirubin 1.5 H (0.0-1.0) mg/dL Direct Bilirubin 0.6 H (0.0-0.5) mg/dL AST 32 (5-37) U/L ALT 20 (0-40) U/L Alkaline Phosphatase 87 (39-117) U/L B-Natriuretic Peptide 99 (<100) pg/mL Total Protein 6.8 (6.5-8.0) g/dL Albumin 3.8 (3.5-5.0) g/dL Independent Interpretation I performed an independent interpretation of an: Plain X-Ray and CT Scan Interpretation: X-ray chest notable for no edema. Ultrasound LLE notable for no DVT Radiology Impression Discussion of test interpretation with radiology: I have reviewed the radiologist's reading. Radiologist Impression: XR/XR chest 2V IMPRESSION: No new focal consolidation. US/US venous duplex LE BI IMPRESSION: No evidence of deep venous thrombosis involving the bilateral lower extremities. External Record Review External record reviewed: Inpatient record, Office record and Outpatient record Prescription Management I considered prescription management with: Antibiotic Discharge Plan Discharge Clinical Impression: Cellulitis of left lower leg Patient Disposition: Home, Self-Care Instructions: Cellulitis (DC) Additional Instructions: You have been evaluated in the emergency department today for skin infection, also known as cellulitis. If the area of inflammation was outlined today in the ER, please return to the ER immediately if the area of redness increases beyond the border. Please take your prescribed antibiotics as directed for the full course of the medication. You can use Tylenol or ibuprofen per package instructions every 6 hours as needed for pain. If necessary, you can alternate these medications so that you can take one medication every 3 hours. For instance, at noon take ibuprofen, then at 3:00 p.m. take Tylenol, then at 6:00 p.m. take ibuprofen. Please schedule an appointment for follow-up with your primary care physician as soon as possible. Return to the emergency department if you experience recurrent vomiting, fevers greater than 100.4? F, increasing area of redness, warmth around the area, foul-smelling discharge from the area, increased tenderness around the area, or any other concerning symptoms. Prescriptions: New cephalexin 500 mg capsule 500 mg PO QID Qty: 28 0RF No Action lisinopril 10 mg tablet 1 tab PO DAILY metformin 500 mg tablet 500 mg PO DAILY famotidine 20 mg Tablet 20 mg PO DAILY Qty: 30 0RF magnesium oxide 400 mg (241.3 mg magnesium) Tablet 800 mg PO DAILY Qty: 60 0RF thiamine mononitrate (vit B1) 100 mg Tablet 100 mg PO DAILY Qty: 90 0RF metoprolol succinate 100 mg tablet extended release 24 hr 100 mg PO DAILY Qty: 90 0RF atorvastatin 20 mg tablet 20 mg PO DAILY Eliquis 5 mg Tablet 5 mg PO BID cefuroxime axetil 250 mg tablet 500 mg PO BID 7 Days Qty: 28 0RF Print Language: Palestinian
[2024-09-19 12:00] VITALS: BP 153/69; PULSE 82; RESP 16; TEMP 36.8; O2SAT 100
[2024-09-19 13:22] VITALS: BP 150/60; PULSE 78; RESP 18; TEMP 36.8; O2SAT 100
== END 2024-09-19 13:23 | disposition home or self-care (01) ==
PROVIDERS: Physician Assistant; Emergency Provider Emergency Medicine
DX: L03.116 Cellulitis of left lower limb (principal); M79.605 Pain in left leg; E11.9 Type 2 diabetes mellitus without complications; I10 Essential (primary) hypertension; I48.91 Unspecified atrial fibrillation; Z79.01 Long term (current) use of anticoagulants; Z79.84 Long term (current) use of oral hypoglycemic drugs
CPT/HCPCS: 36415; 71046; 80048; 80076; 83735; 83880; 85025; 93970; 99284